=== PATIENT | male | born 1940 | race African-American/Black ===

== ENCOUNTER 2017-02-02 08:35 | Day surgery (SDC) | payer OTHER ==
[2017-02-01 11:34] LABS: HEMATOCRIT 23.1 % (42.0-52.0); HEMOGLOBIN 6.9 g/dL (14.0-18.0); MCH 31.2 PG (27-31); MCHC 29.9 g/dL (33-37); MCV 104.5 FL (81-99); MPV 10.5 FL (7.4-10.4); RBC 2.21 XMIL (4.7-6.1)
[2017-02-02] MEDS ORDERED: HEPARIN ONE (08:58)
[2017-02-02] MEDS ORDERED: NS 2,000 ML ONE (08:58)
[2017-02-02 12:14] VITALS: BP 126/75
--- NOTE | 2017-02-02 17:08 | PROGRESS NOTE ---
DATE: 02/02/2017 SUBJECTIVE: Mr. Moore is resting quietly in a chair. He is waiting for hemodialysis. He is to receive 2 units of packed red blood cells today. OBJECTIVE: His most recent vital signs, temperature is 95 degrees, blood pressure 142/92, heart rate 96, respirations 20. He is on room air. Last recorded saturation 92%. He has had 600 in. He is planned for hemodialysis. LABS: White count 4.71, hemoglobin 6.9, hematocrit 23.1, with a platelet count of 44,000. PHYSICAL EXAMINATION: General: This is a 76-year-old male. He is currently resting in a chair. He is waiting for hemodialysis for blood transfusion. He is in no acute distress. HEENT: Atraumatic normocephalic. Conjunctiva is pale. He has PRASHANT. Mucous membranes moist. Neck: Supple. Trachea midline. No JVD. Cardiovascular: Regular rate and rhythm. He has a soft S4, otherwise no murmur or gallop appreciated. Lungs: Clear to auscultation anteriorly. Equal excursion. Abdomen: Round, soft, nontender. Positive bowel sounds. Extremities: Have no edema. No clubbing or cyanosis. Genitourinary: Not inspected. Assistance with hemodialysis. Integumentary: No rashes or lesions evident. Neurological: Alert and oriented x3. ASSESSMENT AND PLAN: 1. End-stage renal disease. Patient is due for his routine dialysis treatment today. He has been brought in for this treatment so he can receive 2 units of packed red blood cells per Dr. Swanson for assistance with chronic anemia secondary to ESRD and multiple myeloma. 2. Anemia. Patient's hemoglobin is 6.9. He is to receive 2 units of packed red blood cells on dialysis today. 3. Discharge. The patient is to be discharged after treatment if tolerated. He is to go home. He is to resume his outpatient normal dialysis treatments and routine medications as directed. I would to thank you for allowing us to follow with this patient. Data reviewed, discussed with Heather Magallon on 02/02/17. I agree with the above assessment and plan of care. rg Dictated by LO Perkins for Ranjan Beltran MD MTDD
== END 2017-02-02 13:25 | disposition home or self-care (01) ==
LOC: INF 08:35
PROVIDERS: ATTEND Internal Medicine
DX: C90.00 Multiple myeloma not having achieved remission (principal); D63.0 Anemia in neoplastic disease; N18.6 End stage renal disease; D63.1 Anemia in chronic kidney disease; Z99.2 Dependence on renal dialysis; Z79.52 Long term (current) use of systemic steroids; Z79.899 Other long term (current) drug therapy
CPT/HCPCS: 85027; 86850; 86900; 86901; 86922; 86945; J1644; J7030; P9016

== ENCOUNTER 2017-02-09 08:40 | Day surgery (SDC) | payer OTHER ==
[2017-02-08 11:13] LABS: HEMATOCRIT 25.1 % (42.0-52.0); HEMOGLOBIN 7.7 g/dL (14.0-18.0); MCH 31.7 PG (27-31); MCHC 30.7 g/dL (33-37); MCV 103.3 FL (81-99); MPV 9.9 FL (7.4-10.4); RBC 2.43 XMIL (4.7-6.1)
[2017-02-09] MEDS ORDERED: NS 2,000 ML MISC PRN (08:45)
[2017-02-09] MEDS ORDERED: TIGHT: 0.2 ML/HR MISC PRN (08:45)
[2017-02-09] MEDS ORDERED: HEPARIN IV PRN (08:45)
[2017-02-09 11:21] LABS: ALBUMIN 2.5 g/dL (3.5-5.0); CALCIUM 8.9 mg/dL (8.8-10.2); POTASSIUM 4.1 mmol/L (3.5-5.1)
[2017-02-09 13:45] VITALS: BP 153/97
--- NOTE | 2017-02-09 17:10 | PROGRESS NOTE ---
DATE: 02/09/2017 SUBJECTIVE: Mr. Moore returns for outpatient hemodialysis and transfusion of 1 unit of packed red blood cells and 2 units of fresh frozen plasma. OBJECTIVE: His most recent vital signs, his temperature 98.7, blood pressure 153/97, heart rate 85 and respirations 16. He is on room air. Last recorded saturation 94%. LABS: Sodium 138, potassium 4.1, chloride 97, CO2 24, BUN 43, creatinine 8.1, glucose 81. Anion gap 17. Calcium 8.9, phosphorus 4.1, albumin 2.5. White count 3.74, hemoglobin 7.7, hematocrit 25.1, with a platelet count of 41,000. PHYSICAL EXAMINATION: General: This is a 76-year-old male. He is currently resting in a chair. He is getting ready to go to dialysis. He is an outpatient. He has no complaints. Skin: Warm and dry. HEENT: Normocephalic, atraumatic. Conjunctivae pale. He has PRASHANT. Mucous membranes moist. Neck: Supple. Trachea midline. No JVD. Cardiovascular: Regular rate and rhythm. He has a soft systolic murmur. Lungs: Clear to auscultation anteriorly. Equal excursion. Abdomen: Round, soft, nontender. Positive bowel sounds. Extremities: Have no edema. No clubbing or cyanosis. Genitourinary: Not inspected. Minimal void with dialysis assist. Neurological: Alert and oriented x3. ASSESSMENT AND PLAN: 1. End-stage renal disease. Patient is in need for hemodialysis per his routine prescription of Wednesday, , Wednesday. He is also in need of blood transfusion with fresh frozen platelets secondary to his multiple myeloma per Dr. Swanson. We will place him on a 2 K bath. He is to dialyze for 3.5 hours. We will attempt to pull patient to his dry weight. 2. Electrolytes. These are stable. 3. Acid-base balance. This is stable. 4. Anemia. Patient has multiple myeloma and chronic kidney disease contributing to his chronic anemia. We will transfuse with 1 unit of packed red blood cells post dialysis treatment and then he is to get 2 units of platelets transfused per the infusionist in the hospital. He is then to be discharged home. 5. Disposition. Patient is to be discharged home as tolerated to resume outpatient prescription of medications and dialysis. I would like to thank you for allowing us to follow with this patient. Dictated by LO Perkins for Ranjan Beltran MD
== END 2017-02-09 13:46 | disposition home or self-care (01) ==
LOC: INF 08:40
PROVIDERS: ATTEND Internal Medicine
DX: C90.00 Multiple myeloma not having achieved remission (principal); D69.6 Thrombocytopenia, unspecified; D63.0 Anemia in neoplastic disease; N18.6 End stage renal disease; Z99.2 Dependence on renal dialysis; D63.1 Anemia in chronic kidney disease; Z79.899 Other long term (current) drug therapy; Z79.51 Long term (current) use of inhaled steroids
CPT/HCPCS: 80069; 85027; 86850; 86900; 86901; 86920; 86945; P9016; P9035

== ENCOUNTER 2017-03-29 10:36 | Inpatient (IN) ==
[2017-03-29 11:07] LABS: ALLEN TEST YES; BE 5.4 mmoll (-3.0-3.0); BLOOD TYPE ARTERIAL; DRAW SITE R RADIAL; METHB 0.9 % (0.0-1.5); O2(CT) 9.5 mL/dL (15.0-23.0); PCO2(98.6) 24 mmHg (35-45); PO2(98.6) 64 mmHg (60-100); SAMPLE BLOOD; SAO2 98.1 % (95.0-100.0)
[2017-03-29 11:09] LABS: MODALITY CANNULA
[2017-03-29 11:12] LABS: pH(98.6) 7.65 (7.35-7.45)
[2017-03-29 11:23] LABS: INR 1.51; PROTIME 16.3 Seconds (9.2-11.7)
--- NOTE | 2017-03-29 11:29 | EKG Report ---
Test Performed on : 03/29/2017 11:02:52 AM Test Reason : AMS Blood Pressure : / mmHG Vent. Rate : 109 BPM Atrial Rate : 109 BPM P-R Int : 248 ms QRS Dur : 080 ms QT Int : 346 ms P-R-T Axes : 000 -21 087 degrees QTc Int : 465 ms Sinus tachycardia. with 1st degree AV block. Nonspecific ST and T wave abnormality Abnormal ECG When compared with ECG of 08-FEB-2017 11:11, Nonspecific T wave abnormality has replaced inverted T waves in Anterolateral leads Unconfirmed Result
[2017-03-29 11:37] LABS: EOS# 0.04 X1000 (0.0-0.7); EOS% 0.5 % (0.0-10.0); HEMATOCRIT 21.5 % (42.0-52.0); MANUAL DIFF NEEDED? YES; MCH 30.7 PG (27-31); MCHC 32.6 g/dL (33-37); MCV 94.3 FL (81-99); MONO# 0.69 X1000 (0.11-0.59); MONO% 9.4 % (1.7-9.3); MPV 12.2 FL (7.4-10.4); PLT 17 X1000 (130-400); RBC 2.28 XMIL (4.7-6.1)
[2017-03-29 11:42] LABS: ALBUMIN 1.9 g/dL (3.5-5.0); CALCIUM 8.1 mg/dL (8.8-10.2); POTASSIUM 4.7 mmol/L (3.5-5.1); TOTAL BILIRUBIN 0.52 mg/dL (0.20-1.00); TOTAL PROTEIN 11.9 g/dL (6.3-8.3)
[2017-03-29 12:03] LABS: CK INDEX 0.4 (0.0-2.5); CK-MB 3.93 ng/mL (0.0-5.0)
[2017-03-29 12:21] LABS: LYMPHS 24 % (21-51); MONO 6 % (1-9); NRBC 2 % (0-0)
--- NOTE | 2017-03-29 12:21 | Diag Imaging Result Document ---
PROCEDURE NAME: HEAD W/O CONTRAST - 03/29/2017 CT OF THE HEAD WITHOUT CONTRAST: FINDINGS: There is no evidence of mass effect, bleed, or abnormal extra-axial fluid collection. There is what appears to be a hyperdense vessel present in a sulcus medially over the posterior left parietal lobe. This could possibly be a thrombosed vessel. It may be a small vascular malformation. It is not associated with any mass effect. Further evaluation with MRI may be desirable. IMPRESSION: Questionable small thrombosed vessel or vascular malformation in the medial left parietal lobe posteriorly. Otherwise, no evidence of acute intracranial disease.
[2017-03-29 12:22] LABS: HYPOCHROM OCCASIONAL
--- NOTE | 2017-03-29 13:16 | Diag Imaging Result Document ---
PROCEDURE NAME: CHEST-PORTABLE - 03/29/2017 PORTABLE CHEST AT 1152 HOURS: FINDINGS: There is elevation of the right hemidiaphragm and may be a subpulmonic effusion. There is increased interstitial markings bilaterally some of which may be pre-existing due to fibrosis. The lungs are much less well expanded than the previous study of 01/25/2017. IMPRESSION: Pulmonary edema and right pleural effusion.
[2017-03-29 13:18] LABS: UR AMPHETAMINES QUAL NONE DETECTED (NONE DETECT); UR BARBITUATES QUAL NONE DETECTED (NONE DETECT); UR BENZODIAZEPIN QUAL NONE DETECTED (NONE DETECT); UR CANNABINOIDS QUAL NONE DETECTED (NONE DETECT); UR COCAINE QUAL NONE DETECTED (NONE DETECT); UR METHADONE QUAL NONE DETECTED (NONE DETECT); UR OPIATES QUAL PRESUMPTIVE POSITIVE (NONE DETECT); UR OXYCODONE QUAL NONE DETECTED (NONE DETECT); UR PCP QUAL NONE DETECTED (NONE DETECT)
[2017-03-29 13:31] LABS: URINE SOURCE CATH
[2017-03-29 13:35] LABS: BILIRUBIN URINE NEGATIVE (NEGATIVE); BLOOD URINE LARGE (NEGATIVE); CLARITY SLIGHTLY CLOUDY (CLEAR); COLOR RED; GLUCOSE URINE 100 mg/dL (NEGATIVE); LEUKOCYTES URINE MODERATE (NEGATIVE); NITRITE URINE POSITIVE (NEGATIVE); PH URINE 6.5; PROTEIN URINE >=300 mg/dL (NEGATIVE); SP GRAVITY URINE 1.015; URINE CULTURE NEEDED? YES
[2017-03-29] MEDS ORDERED: VANCOMYCIN 1 GM/NS 1 GM/250 ML IVPB IV ONE (13:38)
[2017-03-29 13:40] LABS: URINE RBC TNTC /HPF (<10)
[2017-03-29 13:41] LABS: URINE WBC TNTC /HPF (<10)
--- NOTE | 2017-03-29 13:59 | PROVIDER DOCUMENTATION ---
This chart was entered by Andrew Gregory Scribe, acting as scribe for Juan Carlos Mcgrath Jr, MD. HPI-General Adult - General Chief Complaint: Altered Mental Status Stated Complaint: AMS Time Seen by Provider: 03/29/17 10:47 Source: family Unable to obtain history due to:: altered Allergies/Adverse Reactions: Patient Allergies Allergy/AdvReac Type Severity Reaction Status Date / Time No Known Allergies Allergy Verified 03/29/17 11:29 Home Medications: Home Medication List Medication Instructions Recorded Confirmed Last Taken Type Loperamide [Imodium] 2 mg PO PRN PRN 07/15/15 03/29/17 02/28/17 19:30 History Ondansetron HCl [Zofran] 4 mg PO PRN PRN 07/15/15 03/29/17 3 Days Ago History Folic Acid/Vit Bcomp,C [Dialyvite 1 each PO DAILY 04/21/16 03/29/17 03/01/17 12: 00 History Tablet] Pantoprazole [Protonix] 40 mg PO DAILY@0700 #30 tablet 05/06/16 03/29/17 Rx Calcium Acetate 667 mg PO DIRECTED 06/17/16 03/29/17 03/01/17 21:30 History Hydrocodone/Acetaminophen [Elizabeth 1 each PO Q4-6H PRN PRN #20 tablet 03/01/1707/0803/27/17 Rx 5-325 Tablet] Sodium Bicarbonate 650 mg PO BID 03/01/17 03/29/17 03/28/17 History Cyclophosphamide 50 mg PO DIRECTED 03/29/17 03/29/17 03/15/17 History Dexamethasone 4 mg PO DIRECTED 03/29/17 03/29/17 03/15/17 History Folic Acid/Vit Bcomp,C [Dialyvite 1 each PO 03/29/17 03/28/17 History Tablet] Gabapentin 100 mg PO DIRECTED 03/29/17 03/29/17 Unknown History Ixazomib Citrate [Ninlaro] 3 mg PO 03/29/17 Unknown History Sevelamer Carbonate [Renvela] 800 mg PO 03/29/17 03/28/17 History - History of Present Illness -Gen Adult Nature of Presenting Problems: per family, patient is a 76 y/o M that presents with 2 weeks of generalized weakness and back pain. patient has Multiple Myeloma and being followed by Dr.H Swanson who is coordinating with Oncologist in [place]. Patient has been more lethargic than normal and altered per family. No fever/chills, n/v/d, or cough. Patient has ESRD and does dialysis on Tu,, and Sat. Location of Pain/Injury: reports: generalized Pain Radiation: reports: no radiation Quality of Pain: reports: aching Severity: reports: moderate Onset/Duration: reports: gradual, other (2 weeks) Timing: reports: still present, constant Context/Activities at Onset: reports: none Modifying Factors: improves with: nothing Associated Symptoms: reports: back/neck pain, muscle aches, weakness, other (ams ). denies: cough, diarrhea, fever/chills, genitourinary problems, headaches, nausea, vomiting Similar Symptoms Previously?: No Recently seen or treated by another doctor?: Yes Review of Systems - Adult - REVIEW OF SYSTEMS - ADULT ROS:: ROS per family Constitutional: denies: chills, fever Eyes: reports: no symptoms reported Ears, Nose, Mouth & Throat: reports: no symptoms reported Cardiovascular: denies: chest pain, orthopnea, palpitations, syncope Respiratory: denies: cough, shortness of breath, wheezing Gastrointestinal: denies: abdominal pain, diarrhea, nausea, vomiting Genitourinary: reports: no symptoms reported Musculoskeletal: reports: back pain, muscle weakness Integumentary: reports: no symptoms reported Neurological: reports: other (AMS). denies: dizziness/vertigo, headache/ migraines, numbness, seizure, syncope Psychiatric: reports: no symptoms reported Endocrine: reports: no symptoms reported Hematologic/Lymphatic: reports: no symptoms reported Allergic/Immunologic: reports: no symptoms reported All Other Systems: Reviewed and Negative Past History - Adult - PAST MEDICAL HISTORY-ADULT Review of Records: reports: Old Records Reviewed, Nursing Assessment Review, Medications Reviewed Cardiovascular: reports: HTN Gastrointestinal: reports: other ( diarrhea x6 years) Genitourinary: reports: dialysis (Tues,Thurs,Sat), ESRD Endocrine/Immune: reports: Myeloma (Multiple Myeloma) - PRIOR SURGERIES/PROCEDURES Surgical/Procedure History: reports: indwelling device (port placement , Vas Cath) - IMMUNIZATION STATUS Childhood Immunizations: See Nurse Assessment Flu Vaccine: See Nurse Assessment - FAMILY HISTORY Family History: reviewed, not pertinent - SOCIAL HISTORY Smoking: quit greater than 1 year, cigarettes Living Situation: family Physical Exam-General - PHYSICAL EXAM-ADULT Initial Vital Signs Reviewed: Yes - CONSTITUTIONAL General Appearance: alert, lethargic - EYES Eyes: PERRL/EOMI, pink conjunctivae - HEAD, EARS, NOSE, MOUTH & THROAT HENMT: normocephalic/atraumatic, moist mucous membranes, normal ENT inspection - NECK Neck: normal inspection. negative: lymphadenopathy - RESPIRATORY Respiratory: lungs clear, normal breath sounds, no respiratory distress, no accessory muscle use - CARDIOVASCULAR Cardiovascular: no gallop, no murmur, tachycardia - GASTROINTESTINAL (ABDOMEN) Abdominal Exam: normal bowel sounds, non tender, no organomegaly, no pulsatile mass, other (Tense) - MUSCULOSKELETAL Extremity: normal inspection, no pedal edema - SKIN Integumentary: normal color, warm/dry - NEUROLOGIC Neurologic: negative: facial droop, focal weakness, motor weakness - PSYCHIATRIC Psych/Mental Status: other (lethagric). negative: disheveled, depressed affect Progress - PLAN OF CARE/RESULTS Progress/Plan/Lab Results: Vital Signs - 8 hr 03/29/17 10:56 03/29/17 10:58 Temperature 99.6 F Pulse Rate 106 H 106 H Respiratory Rate 27 H 29 H Blood Pressure 105/64 105/64 O2 Sat by Pulse Oximetry 97 97 Laboratory Results - last 24 hr 03/29/17 10:55 Specimen Type ARTERIAL Sample Site R RADIAL pH 7.65 H* pCO2 24 L pO2 64 HCO3 29.2 H Base Excess 5.4 H Oxyhemoglobin 95.8 ABG O2 Sat (Calculated) 9.5 L ABG O2 Saturation 98.1 ABG Carboxyhemoglobin 1.40 ABG Methemoglobin 0.9 Alexander Test YES A-a O2 Difference 163.0 Total Hemoglobin 7.0 L Lactate 1.20 Liter Flow 4.0 Blood Gas Modality CANNULA FiO2 % 36.0 Orders Category Date Time Status Cardiac Monitoring DIRECTED Care 03/29/17 10:48 Active Finger Stick Blood Sugar (ED) DIRECTED Care 03/29/17 10:48 Active Oxygen Therapy- ED Nursing DIRECTED Care 03/29/17 10:48 Active Saline Loc NOW Care 03/29/17 10:48 Active CHEST-PORTABLE [RAD] Stat Exams 03/29/17 10:48 Ordered HEAD W/O CONTRAST [CT] Stat Exams 03/29/17 10:48 Ordered ABG [RESP] Routine Lab 03/29/17 10:55 Completed ALCOHOL BLOOD Stat Lab 03/29/17 10:55 Received CBC WITH ELECTRONIC DIFF [HEME] Stat Lab 03/29/17 10:55 Results CK PROFILE [SP CHEM] Stat Lab 03/29/17 10:55 Received COMPREHENSIVE METABOLIC PANEL [CHEM] Stat Lab 03/29/17 10:55 Received LACTATE, PLASMA [CHEM] Stat Lab 03/29/17 10:55 Received PROTIME WITH INR [COAG] Stat Lab 03/29/17 10:55 Received PTT [COAG] Stat Lab 03/29/17 10:55 Received TROPONIN T Stat Lab 03/29/17 10:55 Received URINALYSIS W/POSS RFLX CULT-1 [URINALYSIS] Stat Lab 03/29/17 10:48 Uncollected URINE DRUG SCREEN Stat Lab 03/29/17 10:48 Uncollected Pulse Oximetry Stat Oth 03/29/17 10:48 Active EKG [EKG] Stat Ther 03/29/17 10:48 Ordered Vital Signs Temp Pulse Resp BP Pulse Ox 03/29/17 13:01 103 H 16 108/72 93 L 03/29/17 12:11 108 H 31 H 108/72 97 03/29/17 10:58 106 H 29 H 105/64 97 03/29/17 10:56 99.6 F 106 H 27 H 105/64 97 No Known Allergies Allergy (Verified 03/29/17 11:29) Loperamide [Imodium] 2 mg PO PRN PRN 07/15/15 Ondansetron HCl [Zofran] 4 mg PO PRN PRN 07/15/15 Folic Acid/Vit Bcomp,C [Dialyvite Tablet] 1 each PO DAILY 04/21/16 Pantoprazole [Protonix] 40 mg PO DAILY@0700 #30 tablet 05/06/16 Calcium Acetate 667 mg PO DIRECTED 06/17/16 Hydrocodone/Acetaminophen [Elizabeth 5-325 Tablet] 1 each PO Q4-6H PRN PRN #20 tablet 03/01/17 Sodium Bicarbonate 650 mg PO BID 03/01/17 Cyclophosphamide 50 mg PO DIRECTED 03/29/17 Dexamethasone 4 mg PO DIRECTED 03/29/17 Folic Acid/Vit Bcomp,C [Dialyvite Tablet] 1 each PO 03/29/17 Gabapentin 100 mg PO DIRECTED 03/29/17 Ixazomib Citrate [Ninlaro] 3 mg PO 03/29/17 Sevelamer Carbonate [Renvela] 800 mg PO 03/29/17 I&O 03/28/17 03/29/17 03/30/17 06:59 06:59 06:59 Output Total Balance - -10 Laboratory 03/29/17 03/29/17 03/29/17 12:04 12:04 10:55 WBC RBC Hgb Hct MCV MCH MCHC RDW Std Deviation Plt Count MPV Neut % (Auto) Lymph % (Auto) [place] % (Auto) Eos % (Auto) Baso % (Auto) Neut # (Auto) Lymph # (Auto) [place] # (Auto) Eos # (Auto) Baso # (Auto) Segmented Neutrophils Lymphocytes Monocytes Nucleated RBCs Atypical Lymphocytes Hypochromia Anisocytosis Unidentified Cells PT INR PTT (Actin FS) Specimen Type Sample Site pH pCO2 pO2 HCO3 Base Excess Oxyhemoglobin ABG O2 Sat (Calculated) ABG O2 Saturation ABG Carboxyhemoglobin ABG Methemoglobin Alexander Test A-a O2 Difference Total Hemoglobin Lactate Liter Flow Blood Gas Modality FiO2 % Sodium Potassium Chloride Carbon Dioxide Anion Gap BUN Creatinine Estimated GFR/1.73 m2 BUN/Creatinine Ratio Glucose Calculated Osmolality Calcium Total Bilirubin AST ALT Alkaline Phosphatase Creatine Kinase Creatine Kinase Index CK-MB (CK-2) Troponin T 0.295 H Total Protein Albumin Globulin Albumin/Globulin Ratio Plasma Lactate Urine Source CATH Urine Color RED Urine Clarity SLIGHTLY CLOUDY A Urine pH 6.5 Ur Specific [place] 1.015 Urine Protein >=300 A Urine Ketones 15 A Urine Blood LARGE A Urine Nitrite POSITIVE A Urine Bilirubin NEGATIVE Urine Urobilinogen 2.0 H Urine Microscopic RBC TNTC A Urine WBC MODERATE A Urine Microscopic WBC TNTC A Urine Glucose 100 A Urine Opiates Screen PRESUMPTIVE POSITIVE A Ur Oxycodone Screen NONE DETECTED Ur Methadone, Qual NONE DETECTED Ur Barbiturates Screen NONE DETECTED Ur Phencyclidine Scrn NONE DETECTED Ur Amphetamines Screen NONE DETECTED U Benzodiazepines Scrn NONE DETECTED Urine Cocaine Screen NONE DETECTED U Cannabinoids Screen NONE DETECTED Plasma/Serum Ethyl Alc 03/29/17 03/29/17 03/29/17 10:55 10:55 10:55 WBC RBC Hgb Hct MCV MCH MCHC RDW Std Deviation Plt Count MPV Neut % (Auto) Lymph % (Auto) [place] % (Auto) Eos % (Auto) Baso % (Auto) Neut # (Auto) Lymph # (Auto) [place] # (Auto) Eos # (Auto) Baso # (Auto) Segmented Neutrophils Lymphocytes Monocytes Nucleated RBCs Atypical Lymphocytes Hypochromia Anisocytosis Unidentified Cells PT 16.3 H INR 1.51 PTT (Actin FS) 46.0 H Specimen Type Sample Site pH pCO2 pO2 HCO3 Base Excess Oxyhemoglobin ABG O2 Sat (Calculated) ABG O2 Saturation ABG Carboxyhemoglobin ABG Methemoglobin Alexander Test A-a O2 Difference Total Hemoglobin Lactate Liter Flow Blood Gas Modality FiO2 % Sodium 137 Potassium 4.7 Chloride 90 L Carbon Dioxide 22 L Anion Gap 25 BUN 59 H Creatinine 6.8 H Estimated GFR/1.73 m2 10 BUN/Creatinine Ratio 9 Glucose 73 Calculated Osmolality 289 Calcium 8.1 L Total Bilirubin 0.52 AST 189 H ALT 10 Alkaline Phosphatase 62 Creatine Kinase 991 H Creatine Kinase Index 0.4 CK-MB (CK-2) 3.93 Troponin T Total Protein 11.9 H Albumin 1.9 L Globulin 10.0 Albumin/Globulin Ratio 0.2 Plasma Lactate 1.5 Urine Source Urine Color Urine Clarity Urine pH Ur Specific [place] Urine Protein Urine Ketones Urine Blood Urine Nitrite Urine Bilirubin Urine Urobilinogen Urine Microscopic RBC Urine WBC Urine Microscopic WBC Urine Glucose Urine Opiates Screen Ur Oxycodone Screen Ur Methadone, Qual Ur Barbiturates Screen Ur Phencyclidine Scrn Ur Amphetamines Screen U Benzodiazepines Scrn Urine Cocaine Screen U Cannabinoids Screen Plasma/Serum Ethyl Alc 03/29/17 03/29/17 03/29/17 10:55 10:55 10:55 WBC 7.31 RBC 2.28 L Hgb 7.0 L Hct 21.5 L MCV 94.3 MCH 30.7 MCHC 32.6 L RDW Std Deviation 20.8 H Plt Count 17 L* MPV 12.2 H Neut % (Auto) Not Reportable Lymph % (Auto) Not Reportable [place] % (Auto) 9.4 H Eos % (Auto) 0.5 Baso % (Auto) Not Reportable Neut # (Auto) Not Reportable Lymph # (Auto) Not Reportable [place] # (Auto) 0.69 H Eos # (Auto) 0.04 Baso # (Auto) Not Reportable Segmented Neutrophils 62 Lymphocytes 24 Monocytes 6 Nucleated RBCs 2 H Atypical Lymphocytes 2.0 Hypochromia OCCASIONAL Anisocytosis 1+ Unidentified Cells 6.0 PT INR PTT (Actin FS) Specimen Type ARTERIAL Sample Site R RADIAL pH 7.65 H* pCO2 24 L pO2 64 HCO3 29.2 H Base Excess 5.4 H Oxyhemoglobin 95.8 ABG O2 Sat (Calculated) 9.5 L ABG O2 Saturation 98.1 ABG Carboxyhemoglobin 1.40 ABG Methemoglobin 0.9 Alexandre Test YES A-a O2 Difference 163.0 Total Hemoglobin 7.0 L Lactate 1.20 Liter Flow 4.0 Blood Gas Modality CANNULA FiO2 % 36.0 Sodium Potassium Chloride Carbon Dioxide Anion Gap BUN Creatinine Estimated GFR/1.73 m2 BUN/Creatinine Ratio Glucose Calculated Osmolality Calcium Total Bilirubin AST ALT Alkaline Phosphatase Creatine Kinase Creatine Kinase Index CK-MB (CK-2) Troponin T Total Protein Albumin Globulin Albumin/Globulin Ratio Plasma Lactate Urine Source Urine Color Urine Clarity Urine pH Ur Specific [place] Urine Protein Urine Ketones Urine Blood Urine Nitrite Urine Bilirubin Urine Urobilinogen Urine Microscopic RBC Urine WBC Urine Microscopic WBC Urine Glucose Urine Opiates Screen Ur Oxycodone Screen Ur Methadone, Qual Ur Barbiturates Screen Ur Phencyclidine Scrn Ur Amphetamines Screen U Benzodiazepines Scrn Urine Cocaine Screen U Cannabinoids Screen Plasma/Serum Ethyl Alc Result Diagrams: 03/29/17 10:55 03/29/17 10:55 - EKG 1 Time of EKG reading by physician:: 11:02 EKG Read and Signed by:: Juan Carlos Mcgrath Jr EKG Interpretation (*Must complete 3 of following elements*): Abnormal Rate: 109 Rhythm: Sinus Tachycardia [place]: normal QRS: normal ME Interval: normal ST Wave: non-specific ST changes - XRAY 1 XRAY Study: Chest Impression: Abnormal XRAY Interpretation: pulm edema and rt effusion - CT/MRI 1 CT Study: Head Impression: Abnormal CT Results: ? small thrombosed vessel or vascular malformation in med L partieal lobe - CONSULTS/PCP/HOSPITALIST Notification #1 *Consult/PCP/Hospitalist*: Time Discussed: 13:47 Reason/Comments: UTI, AMS, Multiple Myeloma Consult Disposition: Admit Departure - Departure Time of Disposition Decision: 13:47 DIAGNOSIS: Respiratory alkalosis, Positive blood culture CKD (chronic kidney disease) Qualifiers: Chronic kidney disease stage: on chronic dialysis Qualified Code(s): N18.6 - End stage renal disease; Z99.2 - Dependence on renal dialysis Altered mental status Qualifiers: Altered mental status type: transient alteration of awareness Qualified Code(s) : R40.4 - Transient alteration of awareness UTI (urinary tract infection) Qualifiers: Urinary tract infection type: acute cystitis Hematuria presence: with hematuria Qualified Code(s): N30.01 - Acute cystitis with hematuria Back pain Qualifiers: Back pain location: low back pain Chronicity: chronic Back pain laterality: midline Sciatica presence: without sciatica Qualified Code(s): M54.5 - Low back pain; G89.29 - Other chronic pain Multiple myeloma Qualifiers: Multiple myeloma remission status: not in remission Qualified Code(s): C90.00 - Multiple myeloma not having achieved remission Disposition: ADMITTED INPATIENT 09 Certified Medical Emergency: Emergent Condition: Stable Referrals and Follow-Ups: Eagle Clarke MD [Primary Care Provider] - - Critical Care Note This patient required my direct & personal management of CC.: No This chart was documented by the indicated scribe, (Andrew Gregory, Scribe) and accurately reflects the services I performed and decisions made by me, Juan Carlos Mcgrath Jr, MD, as attested by the provider's signature.
[2017-03-29] MEDS ORDERED: CYTOXAN PO SCH (16:59)
[2017-03-29] MEDS ORDERED: VANCOMYCIN IV PER PHARMACY MISC SCH ×2 (16:59→19:45)
[2017-03-29] MEDS ORDERED: DECADRON PO SCH (16:59)
[2017-03-29] MEDS ORDERED: ZOSYN 2.25 GM/NS 2.25 GM/50 ML IVPB IV SCH (16:59)
--- NOTE | 2017-03-29 17:17 | Diag Imaging Result Document ---
PROCEDURE NAME: MRI BRAIN W/O CONTRAST - 03/29/2017 MRI OF THE BRAIN: FINDINGS: There are some minimal patchy areas of increased FLAIR and T2 weighted signal intensity in the periventricular white matter near the atria of the lateral ventricles. There is no evidence of restricted diffusion. There is no evidence of bleed or abnormal extra-axial fluid collection. IMPRESSION: Minimal microvascular white matter disease.
--- NOTE | 2017-03-29 17:19 | Diag Imaging Result Document ---
PROCEDURE NAME: MRA NECK W/O CONT - 03/29/2017 MRA OF THE NECK: FINDINGS: The study is markedly suboptimal presumably due to patient motion. The majority of both vertebral arteries and the common carotid arteries are apparently patent. The proximal portion of the left internal carotid artery is not demonstrated. This is probably artifactual. IMPRESSION: Suboptimal study. No definite occlusive lesions in the common carotid or vertebral arteries.
--- NOTE | 2017-03-29 17:21 | Diag Imaging Result Document ---
PROCEDURE NAME: MRA BRAIN W/O CONTRAST - 03/29/2017 MRA OF THE BRAIN WITHOUT CONTRAST: FINDINGS: There is no evidence of major branch occlusion or aneurysm. No vascular anomalies are demonstrated. IMPRESSION: No definite abnormality.
[2017-03-29] MEDS: PHOSLO PO SCH (17:39)
[2017-03-29] MEDS: SOLU-CORTEF IV SCH (19:58)
--- NOTE | 2017-03-29 20:01 | HISTORY AND PHYSICAL ---
PRIMARY CARE PROVIDER: Eagle Clarke MD. CASINO ACCOUNTANT: Ranjan Beltran MD. ONCOLOGIST: Leticia Swanson MD. CHIEF COMPLAINT: Weakness, back pain, fever, chills, increasing lethargy, drowsiness over the last week to 2 weeks. HISTORY OF PRESENT ILLNESS: Mr. Moore is a 76-year-old, male with a history of multiple myeloma continuing on oral chemotherapy treatment; iron deficiency anemia; end-stage renal disease with dialysis on Wednesday, , and Wednesday; DVT; hypoglycemia; and chronic diarrhea, who on March 12 had a left AV fistula surgically placed and approximately 10 days later had re-entry for bleeding which was an outpatient procedure. The patient's states that she has noticed he has been more lethargic. He about a week and a half ago had dialysis on a and has not been able to get up without assistance. He has been in a wheelchair since. She states he has also been having fevers of 101-102 over the last 2 weeks with restlessness and teeth grinding at night. She denies any blood in the stool although he does have diarrhea. She states he does have a productive cough that is white phlegm. On 03/22/2017 he had a blood culture set that came back as Staphylococcus epidermidis which is sensitive to vancomycin. He had been started on vancomycin for this. Urinalysis shows that he has got cystitis and urinary tract infection, and has been started on Zosyn for this. Today he gone in for a checkup due to back pain and cancer with Dr. Swanson. She instructed the patient's to bring him here. We will admit him for bacteremia with Staphylococcus epidermidis, urinary tract infection with culture pending, respiratory alkalosis. He also had a head CT to rule out causes for increasing lethargy which revealed a questionable small thrombosed vessel or an AVM in the left medial posterior parietal lobe. Upon assessment he was not weaker on one side or the other. He was only oriented to name and place. We will follow up with an MRI as suggested on the CT report. PAST MEDICAL HISTORY: 1. Multiple myeloma on chemotherapy pills. 2. Mild spinal stenosis. 3. Iron deficiency anemia. 4. End-stage renal disease. On Wednesday, and Wednesday he receives dialysis. 5. History of DVT. 6. Hypocalcemia. 7. Chronic diarrhea for 6 years. 8. Hypertension. 9. Lower extremity neuropathy. PAST SURGICAL HISTORY: 1. Port-A-Cath in the right chest. 2. Vas-Cath in the left chest. 3. Left forearm AV fistula which has not matured yet. 4. Bone marrow aspiration in 2008. SOCIAL HISTORY: Quit smoking at the age of 48. Prior to that he smoked 1 pack per day. He denies alcohol or illicit drug use. He is retired and lives at home with his . He has currently been in a wheelchair for the last 2 weeks. Otherwise he is usually ambulatory. FAMILY HISTORY: Noncontributory. ALLERGIES: No known drug allergies. HOME MEDICATIONS: Full reconciliation is pending. Currently he is on calcium acetate, cyclophosphamide, dexamethasone, daily vitamin tablets, Neurontin, [place] 5, Ninlaro, Imodium, Zofran, Protonix, Renvela and sodium bicarbonate. REVIEW OF SYSTEMS: Difficult to obtain but patient stated no pain and that he felt well. He was lethargic. LABORATORY DATA: White blood cells 7000, hemoglobin , hematocrit 21.5, platelet count 17,000. INR 1.51, PTT is 46, ABG 7.65, pCO2 24, PO2 64, bicarbonate 29, base excess 5.4, saturation 95%. Lactate 1.2 on 4 L nasal cannula. Sodium 137, potassium 4.7, BUN 59, creatinine 6.8, glucose 73, bilirubin 0.52, AST 189, ALT 10, calcium 8.1, CK 991, troponin 0.295, protein 11, albumin 1.9 serum lactate 1.5. Urinalysis cloudy urine, 300 protein, 15 ketones, large blood, positive nitrites, too numerous to count white blood cells. Urine drug screen positive for opiates. IMAGING: Head CT: Questionable small thrombosed vessel or AVM in the left medial posterior parietal lobe. EKG: Sinus tachycardia, rate 109, first-degree heart block, QTc is 465. Chest x-ray: Pulmonary edema and right pleural effusion. PHYSICAL EXAMINATION: VITAL SIGNS: Temperature 99.6 degrees, heart rate 103, respiratory rate 18, blood pressure 104/62, O2 saturation 97% on 4 L nasal cannula. 5 feet 11 inches tall, 154 pounds, BMI 21.5. GENERAL: Mr. Moore is a 76-year-old, male, in no acute distress. He is drowsy. He answers some simple questions but is confused. HEENT: Atraumatic, normocephalic. Pupils equal, round, reactive to light. Extraocular movements intact. Mucous membranes are actually dry. NECK: Positive JVD bilaterally. Negative for carotid bruits. CARDIOVASCULAR: S1, S2. Tachycardic rate and rhythm. No rubs, gallops, murmurs. PULMONARY: Mild crackles in the bases. No accessory muscle use or work of breathing noted. Currently on 4 L nasal cannula. GASTROINTESTINAL: Soft, nontender, nondistended. Positive bowel sounds x4. EXTREMITIES: No edema noted. VASCULAR: +2 dorsalis and radial pulses. Left forearm AV graft with positive bruit and thrill. NEUROLOGIC: He has got about a 3 to 4/5 strength in both arms equally. He can move his toes but did not understand instructions for moving legs. They did move bilaterally and appeared to be equal to painful stimuli. SKIN: Warm, dry, intact. ASSESSMENT AND PLAN: 1. Bacteremia with Staphylococcus epidermidis, sepsis. White blood cell count is normal at 7.3. He has been febrile over the last 2 days. He did come in with a 99.6 temperature. The Staphylococcus epidermidis is sensitive to vancomycin so we will start vancomycin. 2. Urinary tract infection with hematuria. It could be chronic in nature but given symptoms of fever we will do low-dose Zosyn renally dosed. 3. Chronic kidney disease, end-stage renal disease. Receives dialysis Wednesday, , and Wednesday. Dr. Beltran has been reconsulted. 4. Multiple myeloma with anemia and thrombocytopenia. Followed by Dr. Swanson as outpatient. I will reconsult Dr. Swanson. There are currently no signs of bleeding at this time. We will hold heparin for DVT prophylaxis although he does have a history of deep vein thrombosis. 5. Metabolic versus infectious encephalopathy with weakness requiring a wheelchair over the last 2 weeks. We will order physical therapy. Hopefully he will improve with resolving of infection. Head CT did show questionable small thrombosed vessel or AVM in the left medial posterior parietal lobe. There is no history of MRI of the brain so we will do MRI and MRA of the brain and neck to further evaluate as suggested by CT of the head. 6. Chronic diarrhea. 7. Hypertension stable. 8. Respiratory alkalosis. There are no signs or symptoms of respiratory distress at this time. It could be secondary to end-stage renal disease. Dictated by LO Monreal for Matt Levine MD cc: LO Monreal MD Malcolm R. Hendricks, MD Reginald D. Gladish, MD Heather Shah, MD
[2017-03-29] MEDS: MERREM 500 MG in NS 50 ML IV SCH (21:24)
[2017-03-29] MEDS: SODIUM BICARBONATE PO SCH (21:27)
[2017-03-30] MEDS: MERREM 500 MG in NS 50 ML IV SCH (03:45)
[2017-03-30] MEDS: CALMOSEPTINE OINTMENT TOP PRN ×3 (04:07→22:39)
[2017-03-30] MEDS: SOLU-CORTEF IV SCH ×3 (04:53→20:16)
[2017-03-30] MEDS ORDERED: NS 500 ML ONE (05:16)
[2017-03-30 05:51] LABS: BASO% 3.7 % (0.0-0.8); EOS# 0.04 X1000 (0.0-0.7); EOS% 0.8 % (0.0-10.0); HEMATOCRIT 19.8 % (42.0-52.0); HEMOGLOBIN 6.4 g/dL (14.0-18.0); MANUAL DIFF NEEDED? YES; MCH 30.3 PG (27-31); MCHC 32.3 g/dL (33-37); MCV 93.8 FL (81-99); MONO# 0.44 X1000 (0.11-0.59); MONO% 8.6 % (1.7-9.3); MPV 10.3 FL (7.4-10.4); RBC 2.11 XMIL (4.7-6.1)
[2017-03-30 05:55] LABS: PLT 12 X1000 (130-400)
[2017-03-30 06:15] LABS: AGAP 20; ALBUMIN 1.7 g/dL (3.5-5.0); ALKALINE PHOSPHATASE 53 U/L (32-122); BUN 73 mg/dL (8-22); CALCIUM 8.2 mg/dL (8.8-10.2); CHLORIDE 92 mmol/L (98-107); COSMO 292; GOT 142 U/L (10-34); GPT < 5 U/L (10-44); MAGNESIUM 2.2 mg/dL (1.5-2.7); POTASSIUM 5.3 mmol/L (3.5-5.1); SODIUM 135 mmol/L (136-145); TCO2 23 mmol/L (25-35); TOTAL BILIRUBIN 0.61 mg/dL (0.20-1.00); TOTAL PROTEIN 10.6 g/dL (6.3-8.3)
[2017-03-30 06:22] LABS: BANDS 8 % (0-1); LYMPHS 18 % (21-51); MONO 4 % (1-9)
[2017-03-30] MEDS: PROTONIX PO SCH (06:48)
[2017-03-30] MEDS ORDERED: TIGHT: 0.2 ML/HR MISC PRN (07:54)
[2017-03-30] MEDS ORDERED: HEPARIN IV PRN (07:54)
[2017-03-30] MEDS: SODIUM BICARBONATE PO SCH ×2 (08:03→20:17)
[2017-03-30] MEDS: PHOSLO PO SCH ×3 (08:03→17:51)
[2017-03-30] MEDS ORDERED: NS 2,000 ML ONE (08:41)
[2017-03-30] MEDS ORDERED: HEPARIN ONE (08:41)
--- NOTE | 2017-03-30 10:51 | PROGRESS NOTE ---
DATE: 03/30/2017 SUBJECTIVE: Mr. Moore appears comfortable. He is not responding to questions. His story is that he came in yesterday. He is a patient of Dr. Ranjan Beltran and Dr. Leticia Swanson. He follows up with Dr. Clarke. He has had weakness in his back, fever, chills, increased lethargy and drowsiness over the last 2 weeks. He is a 76-year-old, black male, history of multiple myeloma, continued on oral chemotherapy treatment; iron deficiency anemia, end-stage renal disease with dialysis on Wednesday, , and Wednesday; history of DVT, hypoglycemia, chronic diarrhea. On 03/12/2017. he had left AV fistula surgically placed and approximately 10 days later had reentry for bleeding which was an outpatient procedure. The patient's states that he she noticed he is more lethargic. About a week and half ago, he had dialysis, and she had noticed that he was more lethargic about a week and a half ago on and could not get up without assistance. He has been in the wheelchair since that time. He states he has been having fevers of 100 to 101 the last 2 weeks, restlessness, and teeth grinding at night. He denies any blood in the stool. He denies any diarrhea. He states he has had productive cough with white phlegm. On 03/22/2017, he had a blood culture set that came back with Staphylococcus epidermis which was sensitive to vancomycin. He has been started on vancomycin. His urinalysis showed that he has cystitis urinary tract infection and has been started on Zosyn. He had gone in for a checkup due to back pain and cancer, and Dr. Swanson instructed the patient's to bring him here. He was admitted for bacteremia Staphylococcus epidermidis urinary tract infection. Cultures were taken. REVIEW OF PAST MEDICAL HISTORY: 1. Multiple myeloma. 2. Spinal stenosis. 3. Iron deficiency anemia. 4. End-stage renal disease. 5. History of DVT. 6. Hypercalcemia. 7. Chronic diarrhea. 8. Hypertension. 9. Lower extremity neuropathy. 10. He has a left arm AV fistula which has not matured yet. 11. He has a Port-A-Cath on the right and Vas-Cath in the left chest. 12. He had a bone marrow aspiration in 2008. OBJECTIVE: Vital Signs: Today, temperature is 97.2 degrees, pulse 79, respirations 30, blood pressure 95/65. HEENT: Pupils were equal. CVP less than 6 cm. Lungs are clear in all lung hernandez. Cardiovascular: Regular rhythm and rate without murmur or S3. Abdomen is soft. Skin is warm and dry. Low urine output. End-stage renal disease. LABORATORY DATA: White count 5110, hematocrit 19, hemoglobin 6.4. MCV was 93. Chemistry: Sodium 135, potassium 5.3, chloride 92, bicarb 23. BUN 73, creatinine 7.8, magnesium 2.2, calcium 8.2. Note that his troponin was 0.295. Albumin 1.7. ASSESSMENT AND PLAN: 1. Bacteremia with Staphylococcus epidermis sepsis. White blood cell count normal at 7.3. He has been afebrile for several days. He has Staphylococcus epidermidis sensitive to vancomycin. 2. Urinary tract infection with hematuria. He is on Zosyn. 3. Chronic kidney disease. End-stage renal disease. He gets dialysis on Tuesdays, , and Saturdays. Dr. Beltran following. 4. Multiple myeloma with anemia and thrombocytopenia. I will see if we need to give him some blood during dialysis. Dr. Swanson and Dr. Beltran following. 5. Metabolic versus infectious encephalopathy. Continue present treatment. CT showed questionable small thrombosed vessel AVM in the left medial posterior parietal lobe. MRI/MRA of the head done yesterday: Suboptimal study. No definite occlusive lesions in the common carotid and vertebral. Minimal microvascular white matter disease noted. MRA of the brain: No definite abnormality. We plan to continue present treatment. REVIEW OF ORDERS: He is on cyclophosphamide 50 mg p.o. He is on citrate, sevelamer, Folic acid. I think that was his treatment he was getting at home for multiple myeloma. At the present time, he is on vancomycin 1 g dose per pharmacy. We will get it after dialysis. Sodium bicarbonate 650 mg b.i.d., Protonix 40 mg p.o. daily, meropenem 500 mg IV q. 8. Calcium acetate 1334 mg t.i.d. cc: Alexander Muñoz MD
[2017-03-30] MEDS: NS 2,000 ML MISC PRN ×2 (11:29→13:31)
--- NOTE | 2017-03-30 11:32 | CONSULTATION ---
DATE OF CONSULTATION: 03/30/2017 REASON FOR CONSULTATION: Assistance with management of his kidney disease. HISTORY OF PRESENT ILLNESS: Mr. Moore he is a elderly man, who is well known to me. He has multiple myeloma that has been managed over many years. He has been on his current regimen for about 2 years. He is transfusion dependent and has multiple admissions for this problem. He has also had significant problems with diarrhea. He states this is somewhat better now. He states he feels fine but he was brought to the emergency room because of confusion and fever. He had blood cultures obtained last week that were positive for Staph epidermidis and he has been treated with vancomycin for this. Currently, he denies shortness of breath, chest discomfort, nausea, vomiting. He states he is eating. PAST MEDICAL HISTORY: 1. Multiple myeloma. 2. End-stage kidney disease. 3. History of DVT. 4. Chronic diarrhea. 5. Hypertension. 6. Protein calorie malnutrition. 7. Peripheral neuropathy. HOME MEDICATIONS: Include calcium acetate, Neurontin, [place], Imodium, Protonix, sodium bicarbonate, cyclophosphamide, dexamethasone. ALLERGIES: None. SOCIAL HISTORY: He is and lives with his . FAMILY HISTORY: Noncontributory. PHYSICAL EXAMINATION: Vital Signs: Blood pressure 95/66, heart rate 79, respirations 30, afebrile. General: He is a chronically ill man, no acute distress. Skin: Warm and dry. HEENT: Conjunctivae are pink. Pupils are equal. Neck: jugular venous distention is present. Trachea is midline. Heart: Regular. Lungs: Have equal breath sounds. No crackles. Abdomen: Soft, nontender. Bowel sounds present. Extremities: Have no edema, clubbing, or cyanosis. IMPRESSION: 1. End-stage kidney disease. He will have his routine hemodialysis today. 2. Anemia. Transfuse as needed. 3. Thrombocytopenia. Dr. Swanson has been consulted. 4. Bacteremia. He has 2 indwelling vascular access devices. We will ask Dr. Gunter to help us decide if his catheters needs to be removed. cc: Ranjan Beltran MD
[2017-03-30] MEDS: VANCOMYCIN 1 GM/NS 1 GM/250 ML IVPB IV SCH (13:05)
--- NOTE | 2017-03-30 13:29 | CONSULTATION ---
DATE OF CONSULTATION: 03/30/2017 CONCLUSION: The patient appears to be septic with a Staph epidermidis bacteremia. I suspect that it is originating from either the patient's Port-A-Cath or his tunnelled dialysis catheter. He does have an AV fistula in his left arm but it does not look infected. The patient may have an immunoglobulin deficiency. RECOMMENDATIONS: I agree with treating the patient with vancomycin. I have discontinued meropenem. With Staph epidermidis I think it is reasonable to try to treat his bacteremia without removing any of his intravenous catheters. If he continues to stay bacteremic then unfortunately we will need to remove his catheters which is going to be very difficult to maintain IV access as well as access for dialysis. I have ordered for quantitative immunoglobulins. DISCUSSION: The patient is unable to provide a history. The history was obtained from looking at results in the computer. The patient was admitted to the hospital with weakness , back pain, fever, chills and increasing lethargy for the past 2 weeks. His studies thus far show that the blood cultures are growing Staph epidermidis. Urine cultures negative. Chest x -ray shows pulmonary edema and a right pleural effusion. CBC shows a white count of 5110, hemoglobin is 6.4 and the platelet count is 12,000. The patient's creatinine is 7.8. The GFR is 8. The liver function studies are normal except for an AST of 142. Chest x-ray shows pulmonary edema with a right pleural effusion. Urine culture is sterile. PAST MEDICAL HISTORY: Patient has multiple myeloma, mild spinal stenosis, iron deficiency anemia, end-stage renal disease with dialysis, history of deep venous thrombosis, hypocalcemia, chronic diarrhea for 6 years, hypertension and lower extremity neuropathy. PAST SURGICAL HISTORY: Patient's past surgical history is positive for a Port-A -Cath on the right side, a Vas-Cath on the left side and an AV fistula in the left arm. The patient had a bone marrow aspiration in 2008. SOCIAL HISTORY: The patient smoked cigarettes but stopped at the age of 48. He denied drinking alcoholic beverages or using illicit drugs. He is retired. He lives with his . He has been in the wheelchair in the last 2 weeks. Before that, he was ambulatory. FAMILY HISTORY: Is said to be noncontributory. ALLERGIES: No known drug allergies. HOME MEDICATIONS: Include the following, dexamethasone, gabapentin, folic acid , cyclophosphamide, calcium, sodium bicarbonate, Protonix ,Zofran, Imodium, [place], Renvela, Ninlaro and folic acid. PHYSICAL EXAMINATION: Vital Signs: The patient's temperature is 97.2 degrees, pulse 79, respirations 20, blood pressure 95/66. The patient had a depressed level of consciousness. He did not respond to verbal stimuli. Head, eyes, ears, nose, and throat: As mentioned above, the patient did not respond to verbal stimuli. He did not track with his eyes. There was no drainage from the nose or ears. Neck: No meningismus. Chest: Patient has on the right side a Port-A-Cath and on the left side he had a Vas-Cath for dialysis. Both sites are not swollen or purulent. Patient had an increased AP diameter of the chest. Lungs: Clear to auscultation. Cardiovascular: Heart rate is regular. Abdomen: Soft and nontender. Extremities: The patient has a left upper extremity AV fistula which is functional. Neurologic: The patient is obtunded. There was no tremor. He did not respond to verbal stimuli. There were no tonic-clonic movements. Integument: No rash is noted. Thank you for the consult. cc: Gagan Gunter MD MTDD
[2017-03-30] MEDS: IMODIUM PO PRN ×2 (15:04→17:51)
[2017-03-31] MEDS ORDERED: NS 250 ML ONE (02:10)
[2017-03-31] MEDS: SOLU-CORTEF IV SCH ×3 (04:52→21:37)
[2017-03-31 05:21] LABS: EOS# 0.01 X1000 (0.0-0.7); EOS% 0.1 % (0.0-10.0); HEMATOCRIT 26.5 % (42.0-52.0); HEMOGLOBIN 8.6 g/dL (14.0-18.0); MANUAL DIFF NEEDED? YES; MCH 30.2 PG (27-31); MCHC 32.5 g/dL (33-37); MONO# 0.75 X1000 (0.11-0.59); MONO% 10.6 % (1.7-9.3); MPV 11.7 FL (7.4-10.4); PLT 47 X1000 (130-400); RBC 2.85 XMIL (4.7-6.1)
[2017-03-31 05:29] LABS: ALBUMIN 1.9 g/dL (3.5-5.0); CALCIUM 7.9 mg/dL (8.8-10.2); TOTAL BILIRUBIN 0.44 mg/dL (0.20-1.00); TOTAL PROTEIN 11.4 g/dL (6.3-8.3)
[2017-03-31 06:04] LABS: BANDS 4 % (0-1); LYMPHS 18 % (21-51); MONO 6 % (1-9); NRBC 6 % (0-0)
[2017-03-31 06:05] LABS: HYPOCHROM 2+; TARGET CELLS 1+
[2017-03-31 06:06] LABS: LARGE PLATELETS OCCASIONAL
[2017-03-31] MEDS: PROTONIX PO SCH (06:23)
[2017-03-31] MEDS: PHOSLO PO SCH ×3 (07:50→17:00)
--- NOTE | 2017-03-31 09:15 | PROGRESS NOTE ---
DATE: 03/31/2017 SUBJECTIVE: Mr. Moore is awake, alert, and feeling much better. OBJECTIVE: Temperature 97.9 degrees, pulse 80, respirations 27, blood pressure 87/63. His blood pressures have ranged from 84-95/ 56-66. Lungs are clear anterolateral. Cardiovascular: Rhythm and rate without murmur or S3. Abdomen is soft. Skin is warm and dry. Good urine output, over almost 1200 mL. LABORATORY DATA: White count 7080, hematocrit was 26, hemoglobin 8.6, platelet count 47,000. Chemistry: Sodium 137, potassium 4.0, chloride 93, bicarb 25. BUN 49, creatinine 4.8, which has come down from 7.8 yesterday. Albumin 1.9. ASSESSMENT AND PLAN: 1. The patient appears to have been septic with Staphylococcus epidermis bacteremia. Suspect that originated from patient's Port-A-Cath or his tunneled dialysis catheter. 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 Dr. Gunter is following. The patient is on vancomycin. Discontinued meropenem. The Staphylococcus epidermis is reasonable, apparently to treat without removing the intravenous catheter unless he continues to have further bacteremia. Dr. Gunter has ordered quantitative immunoglobulins. 2. History of end-stage renal disease, volume electrolytes and anemia appeared to be stable. 3. History of deep venous thrombosis in the past. 4. Thrombocytopenia. Dr. Swanson is following. 5. Two indwelling vascular access devices and, at this point, do not feel they need to be removed. He is more awake. Blood pressure better. We will see how he does with p.o. intake. Review of his orders. He is on Solu-Cortef 50 mg IV q. 8., Protonix 40 mg p.o. daily, Sodium bicarbonate 650 mg p.o. b.i.d., Vancomycin which he gets after dialysis. I should also mention he has multiple myeloma, and he gets Ixazomib citrate, and he is on sevelamer which is Renvela. He is on PhosLo 1334 mg p.o. cc: Alexander Muñoz MD
[2017-03-31] MEDS: SODIUM BICARBONATE PO SCH ×2 (10:08→21:37)
[2017-03-31 12:11] LABS: HEPATITIS PROFILE ACUTE SEE COMMENTS
--- NOTE | 2017-03-31 16:18 | PROGRESS NOTE ---
DATE: 03/31/2017 TIME SEEN: 8:45 a.m. SUBJECTIVE: Patient is resting in bed. He is awake and alert, in no acute distress. OBJECTIVE: Vital Signs: Temperature 97.9 degrees, pulse 81, respiratory rate 21, blood pressure 87/63. Intake 1.9 L. Output 2.2 L. General: Chronically ill-appearing, elderly gentleman resting in bed, in no acute distress. HEENT: Normocephalic, atraumatic. Oral mucosa is moist. PRASHANT. Neck: Supple. He has trace JVD. Cardiovascular: Regular rate and rhythm. No murmur. Pulmonary: He has equal excursion. He is clear bilaterally. There is no increased work of breathing. Abdomen: Soft, with positive bowel sounds. : Not inspected. Extremities: No clubbing, cyanosis or edema. Integumentary: Skin is warm and dry without rash or lesion. LAB DATA: WBC of 7.0, hemoglobin 8.6, sodium 137, potassium 4.0, CO2 25, BUN 49 , creatinine 4.8. He has gram-positive cocci. ASSESSMENT/PLAN: 1. End-stage renal disease management. Patient underwent routine dialysis on Wednesday. He normally dialyzes on Wednesday, , Wednesday schedule. We will keep him while he is in the hospital on that schedule. 2. Bacteremia. We believe that he does need to have his catheter replaced. We will discuss with the team and further orders to follow. 3. Anemia. Patient has received transfusion while on dialysis yesterday. We will check labs in the morning and transfuse as required. 4. Thrombocytopenia. Dr. Swanson following. 5. Blood pressure. He is mildly low today. Continue to monitor. Discussed with Dr. Gunter. deficient in Ig. He will treat this and reassess before we remove his accesses. rg Seen, data reviewed, discussed with Michelle Weiss on 03/31/17. I agree with the above assessment and plan of care. rg Dictated by LO Willingham for Ranjan Beltran MD cc: Ranjan Beltran MD [facility]
[2017-03-31] MEDS: CALMOSEPTINE OINTMENT TOP PRN (16:23)
[2017-03-31] MEDS: IMODIUM PO PRN ×2 (16:24→21:37)
[2017-03-31] MEDS ORDERED: FLEBOGAMMA DIF 5% IV ONE (20:00)
--- NOTE | 2017-03-31 20:14 | PROGRESS NOTE ---
DATE: 03/31/2017 PRESENT ILLNESS: The patient has a Staph epidermidis bacteremia which most likely originated from one of his catheters, but not likely from his left arm AV fistula. Patient is found to have a very low IgG level at 141. MEDICATIONS: The patient is receiving vancomycin after dialysis. PHYSICAL EXAMINATION: Vital Signs: Temperature is 97.6 degrees, pulse 84, respirations 19, blood pressure 116/80. General: This is an ill-appearing, elderly male. He is in no acute distress. Lungs: Clear to auscultation. Cardiovascular: Regular heart rate. Abdomen: Soft and nontender. Chest: The patient has a tunneled dialysis catheter in the left chest. The patient has a Port-A-Cath on the right side of the chest. Both sites are not swollen or draining. LABORATORY AND X-RAY: The patient's hepatitis panel shows nonreactive. The IgG was 141. CBC shows a white count of 7080, hemoglobin 8.6 and platelet count of 47,000. Creatinine is 4.8. GFR is 14. There is no new radiographic study. ASSESSMENT AND PLAN: 1. I plan to continue treating his staph bacteremia with vancomycin. I have also ordered immune globulin infusion of 40 g for tonight. 2. The patient's comorbidities include the following: Multiple myeloma, end-stage renal disease with dialysis, deep venous thrombosis, marked decrease in the IgG level. 3. My plan is to continue vancomycin. I have ordered immunoglobulin infusions for tonight. cc: Gagan Gunter MD
[2017-04-01] MEDS: SOLU-CORTEF IV SCH ×3 (05:18→20:58)
[2017-04-01] MEDS: PROTONIX PO SCH ×2 (05:19→06:33)
[2017-04-01 05:47] LABS: ALBUMIN 1.9 g/dL (3.5-5.0); CALCIUM 7.3 mg/dL (8.8-10.2); MAGNESIUM 2.1 mg/dL (1.5-2.7); POTASSIUM 3.9 mmol/L (3.5-5.1); TOTAL BILIRUBIN 0.31 mg/dL (0.20-1.00); TOTAL PROTEIN 10.9 g/dL (6.3-8.3)
[2017-04-01] MEDS ORDERED: HEPARIN IV PRN (06:04)
[2017-04-01] MEDS ORDERED: TIGHT: 0.2 ML/HR MISC PRN (06:04)
[2017-04-01] MEDS ORDERED: NS 2,000 ML MISC PRN (06:04)
[2017-04-01] MEDS ORDERED: QUESTRAN LIGHT PO ONE (06:52)
[2017-04-01 06:53] LABS: PLT 39 X1000 (130-400)
[2017-04-01 06:54] LABS: BASO% 0.1 % (0.0-0.8); EOS# 0.02 X1000 (0.0-0.7); EOS% 0.5 % (0.0-10.0); HEMATOCRIT 26.4 % (42.0-52.0); HEMOGLOBIN 8.6 g/dL (14.0-18.0); MANUAL DIFF NEEDED? YES; MCHC 31.8 g/dL (33-37); MCV 94.3 FL (81-99); MONO# 0.97 X1000 (0.11-0.59); MONO% 12.7 % (1.7-9.3)
--- NOTE | 2017-04-01 07:16 | PROGRESS NOTE ---
DATE: 04/01/2017 SUBJECTIVE: Mr. Moore is awake and alert. Stools are still liquid. He is eating well. Breathing comfortably. Remains afebrile. PHYSICAL EXAMINATION: Vital Signs: Temperature 97.8 degrees, pulse 86, respirations 20, blood pressure 100/59. CVP less than 6 cm. Lungs: Clear in all lung hernandez. Cardiovascular Examination: Regular rhythm and rate without murmur or S3. Abdomen: Soft. Skin: Was warm and dry. Is and Os: Urine output over 3 L. LAB: White count 7080, hematocrit 26, platelet count 47,000. Note, that has come up from 12,000. ASSESSMENT AND PLAN: 1. Staphylococcus epidermidis bacteremia. I feel like it most likely is originating from one of his catheters but not likely from his left arm arteriovenous fistula. He was found to have a very low IgG. Level is 141. Treated with vancomycin and immunoglobulin, got 40 g I think last night. 2. Multiple myeloma, marked decrease in IgG level. 3. End-stage renal disease, on hemodialysis. 4. History of deep venous thrombosis. Aware. Plan is to stay on vancomycin. I think he can move to the floor. 5. Th[address]. [address]. Swanson is following. This has improved. 6. Review of orders. Patient is getting hydrocortisone 50 mg intravenous every 8, Protonix 40 mg by mouth daily, sodium bicarbonate 650 mg twice a day, vancomycin 1 g intravenous after dialysis, immunoglobulin 40 g he got yesterday. We will send stool for Clostridium difficile culture. Recheck a chest x-ray today. Follow his electrolytes and CBCs. cc: Alexander Muñoz MD
[2017-04-01 07:33] LABS: BANDS 9 % (0-1); LYMPHS 23 % (21-51); MONO 1 % (1-9); NRBC 1 % (0-0)
[2017-04-01] MEDS: PHOSLO PO SCH ×3 (08:09→20:59)
[2017-04-01] MEDS: SODIUM BICARBONATE PO SCH ×2 (08:19→20:59)
[2017-04-01] MEDS ORDERED: NS 2,000 ML ONE (08:49)
[2017-04-01] MEDS ORDERED: HEPARIN ONE (08:49)
--- NOTE | 2017-04-01 09:37 | Diag Imaging Result Document ---
PROCEDURE NAME: CHEST-PORTABLE - 04/01/2017 PORTABLE CHEST AT 0815 HOURS: FINDINGS: There is a double-lumen catheter on the left with its tip in the superior vena cava. There is a [id number]-v-Gqejdtfk on the right with its tip in the superior vena cava. There is hazy opacity in both lung bases consistent with interstitial pulmonary edema. There may also be some atelectasis or pneumonia in the right lower lobe. This latter abnormality appears slightly worse than on 03/29/2017. IMPRESSION: Worsened right basilar atelectasis. Pulmonary edema.
--- NOTE | 2017-04-01 13:56 | PROGRESS NOTE ---
DATE: 04/01/2017 SUBJECTIVE: He is more appropriate today. Able to interact. No complaints. No shortness of breath, nausea, or vomiting. OBJECTIVE: Vital Signs: Blood pressure 98/53, heart rate 78, respirations 15, temperature 99.3 degrees. General: In no acute distress. Skin: Warm and dry. HEENT: Conjunctivae are pink. Heart: Regular, with a gallop and a murmur. Lungs: Equal breath sounds. No crackles. Abdomen: Soft. Nontender. Bowel sounds present. Extremities: Trace edema. No clubbing or cyanosis. IMPRESSIONS: 1. End-stage kidney disease. He will have dialysis today with 3 potassium bath. Goal of 1-2 L ultrafiltration. 2. Electrolytes in target. 3. Acid base in target. 4. Anemia, stable following. 5. Bacteremia. He received IVIG last evening. We will observe his response. cc: Ranjan Beltran MD
[2017-04-02] MEDS: SOLU-CORTEF IV SCH ×3 (03:35→21:51)
[2017-04-02] MEDS: PROTONIX PO SCH ×2 (05:54→05:59)
[2017-04-02 06:20] LABS: EOS# 0.03 X1000 (0.0-0.7); EOS% 0.3 % (0.0-10.0); HEMATOCRIT 29.9 % (42.0-52.0); HEMOGLOBIN 9.4 g/dL (14.0-18.0); MANUAL DIFF NEEDED? YES; MCH 30.1 PG (27-31); MCHC 31.4 g/dL (33-37); MCV 95.8 FL (81-99); MONO# 1.09 X1000 (0.11-0.59); MONO% 12.1 % (1.7-9.3); MPV 10.6 FL (7.4-10.4); PLT 30 X1000 (130-400); RBC 3.12 XMIL (4.7-6.1)
[2017-04-02 06:42] LABS: BANDS 10 % (0-1); BASO 4 % (0-1); EOS 2 % (1-10); LYMPHS 24 % (21-51); MONO 16 % (1-9); NRBC 3 % (0-0)
[2017-04-02 06:48] LABS: ALBUMIN 1.8 g/dL (3.5-5.0); CALCIUM 7.9 mg/dL (8.8-10.2); POTASSIUM 4.4 mmol/L (3.5-5.1); TOTAL BILIRUBIN 0.39 mg/dL (0.20-1.00); TOTAL PROTEIN 11.3 g/dL (6.3-8.3)
[2017-04-02] MEDS: IMODIUM PO PRN (08:50)
[2017-04-02] MEDS: PHOSLO PO SCH ×3 (08:50→18:03)
[2017-04-02] MEDS: SODIUM BICARBONATE PO SCH ×2 (08:50→21:51)
--- NOTE | 2017-04-02 10:06 | PROGRESS NOTE ---
DATE: 04/02/2017 SUBJECTIVE: He is getting better slowly. He has been able to move in the bed, and he has taken several steps with physical therapy. Diarrhea is better. He is eating well. OBJECTIVE: Vital Signs: Blood pressure 112/57, heart rate 81, respirations 16, afebrile. PHYSICAL EXAMINATION: General: He is a chronically ill man, lying flat, in no distress. Skin: Warm and dry. Conjunctivae are pink. Heart: Regular. Lungs: Have equal breath sounds. No crackles. Abdomen: Soft, flat, nontender. Bowel sounds present. Extremities: Have minimal edema. No clubbing or cyanosis. LABORATORY DATA: Sodium 136, potassium 4.4, chloride 95, bicarbonate 21, BUN 53, creatinine 4.4, calcium is 7.9. IMPRESSION: 1. End-stage renal disease. He will have his routine dialysis tomorrow. 2. Staphylococcus epidermidis bacteremia. Clinically better after receiving IVIG. We will check blood cultures again today. 3. Electrolytes are acceptable. 4. Acid base, in target. cc: Ranjan Beltran MD
--- NOTE | 2017-04-02 11:00 | PROGRESS NOTE ---
DATE: 04/02/2017 PRESENT ILLNESS: The patient has a Staph epidermidis bacteremia which most likely originated from one of his catheters, but not likely from his left arm AV fistula. However, the AV fistula may have become secondarily infected. Patient also has a very low IgG level at 141. MEDICATIONS: The patient receives vancomycin after each dialysis. PHYSICAL EXAMINATION: Vital Signs: Temperature is 97.6 degrees, pulse 81, respirations 16, blood pressure 112/57. General: This is an ill-appearing elderly male. He is in no acute distress. Lungs: Clear to auscultation. Cardiovascular: Regular heart rate. Abdomen: Soft and nontender. Chest: The patient has on the left chest a tunneled dialysis catheter. On the right side, he has a Port-A-Cath present. In his left arm, he has an AV fistula which is maturing. LAB AND X-RAY: The patient's CBC shows a white count of 9000, hemoglobin 9.4, and platelet count 30,000. Creatinine is 4.4. GFR is 16. ASSESSMENT AND PLAN: My plan would be to continue with vancomycin and see if the repeat blood cultures are sterile. If the IgG is still low, then I plan to give more gammaglobulin treatment. If it is felt that we will not be able to sterilize the blood, then unfortunately I think every one of the patient's intravenous catheters will need to be removed. COMORBIDITIES: The patient's comorbidities include multiple myeloma, end-stage renal disease with hemodialysis, deep venous thrombosis, and a marked increase in his IgG level at 141. cc: Gagan Gunter MD
[2017-04-02] MEDS: VANCOMYCIN 1 GM/NS 1 GM/250 ML IVPB IV SCH (15:53)
--- NOTE | 2017-04-02 17:47 | PROGRESS NOTE ---
DATE: 04/02/2017 SUBJECTIVE: The patient is resting comfortably in bed. He states that his diarrhea has lessened in frequency. OBJECTIVE: Vital Signs: Temperature 97.4 degrees, blood pressure 113/65, heart rate 81, respirations 16, O2 saturations 97% on 2 L nasal cannula. General: This is a chronically ill- appearing elderly male lying in bed in no acute distress. Head: Normocephalic, atraumatic. Heart: S1, S2. Normal. Regular rate and rhythm. Lungs: Equal air entry bilaterally. No crackles, no rales. Abdomen: Positive bowel sounds. Soft, nontender, nondistended. Extremities: No edema. No cyanosis. No calf tenderness. Neurologic: The patient is alert and oriented x3. LABS: White blood cell count 9, hemoglobin 9.4, hematocrit 29, platelets 30,000. Sodium 136, potassium 4.4, chloride 95, CO2 21, BUN 53, creatinine 4.4, glucose 108, AST 78, ALT 9, alkaline phosphatase 110, albumin 1.8. ASSESSMENT AND PLAN: 1. Staphylococcus epidermidis bacteremia. Continue on vancomycin. Repeat blood cultures have been ordered. Dr. Gunter is following. 2. Chronic diarrhea. Improved. Will continue to monitor this closely. 3. Immunoglobulin deficiency. The patient received intravenous immunoglobulin on March 31. Dr. Gunter is following. 4. End-stage renal disease. 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 5. Chronic thrombocytopenia. Stable. 6. Multiple myeloma. Aware. 7. Severe protein calorie malnutrition. Continue on Nepro shakes with each meal. 8. Continue with physical therapy. cc: Cindy Wallace MD
[2017-04-03] MEDS: SOLU-CORTEF IV SCH ×3 (04:26→20:47)
[2017-04-03] MEDS: TYLENOL PO PRN (04:44)
[2017-04-03] MEDS ORDERED: DILAUDID IV ONE (04:58)
[2017-04-03] MEDS ORDERED: DILAUDID ONE (05:09)
[2017-04-03] MEDS ORDERED: HEPARIN ONE (07:29)
[2017-04-03] MEDS ORDERED: NS 2,000 ML ONE (07:30)
[2017-04-03 09:14] LABS: HEMATOCRIT 29.6 % (42.0-52.0); HEMOGLOBIN 9.4 g/dL (14.0-18.0); MCH 30.3 PG (27-31); MCHC 31.8 g/dL (33-37); MCV 95.5 FL (81-99); MPV 12.2 FL (7.4-10.4); RBC 3.1 XMIL (4.7-6.1)
[2017-04-03] MEDS ORDERED: STERILE WATER INJ. ONE (10:37)
[2017-04-03 12:38] LABS: BLOOD TYPE ARTERIAL; PCO2(98.6) 34 mmHg (35-45); PO2(98.6) 52 mmHg (60-100); SAMPLE BLOOD; pH(98.6) 7.48 (7.35-7.45)
[2017-04-03 12:39] LABS: METHB 0.8 % (0.0-1.5); O2(CT) 13.3 mL/dL (15.0-23.0); SAO2 92.1 % (95.0-100.0); THB 10.6 g/dL (11.5-17.4)
[2017-04-03 12:40] LABS: ALLEN TEST YES; DRAW SITE R RADIAL; MODALITY CANNULA
[2017-04-03] MEDS: PROTONIX PO SCH (13:02)
[2017-04-03] MEDS: PHOSLO PO SCH ×4 (13:03→19:00)
[2017-04-03] MEDS: SODIUM BICARBONATE PO SCH ×2 (13:03→20:47)
[2017-04-03] MEDS: DUONEB (A & A) INH SCH ×4 (13:04→23:05)
--- NOTE | 2017-04-03 13:48 | PROGRESS NOTE ---
DATE: 04/03/2017 SUBJECTIVE: He is on BiPAP today. He does state that his shortness of breath is well managed. This has developed over the last 24 hours. OBJECTIVE: Vital Signs: Blood pressure 92/58, heart rate 85, respirations 16, afebrile. He is currently on dialysis. Skin: Warm and dry. Eyes: Conjunctivae are pink. Pupils not examined. Neck: Neck veins are distended but he has a stricture from the BiPAP mask. Trachea is midline. Heart: Regular without gallops. Lungs: Have equal breath sounds. No crackles. Abdomen: Soft, nontender. Bowel sounds present. Extremities: Have no edema, clubbing, or cyanosis. LABORATORY DATA: Sodium 133, potassium 5.0, chloride 92, bicarbonate 17, BUN 83, creatinine 5.9. Hemoglobin 9.4. Blood cultures positive from 04/02 with gram-positive cocci. IMPRESSION: 1. Bacteremia. Persistently positive blood cultures despite care. I discussed this with Dr. Wallace regarding possible line removal. Continue antibiotics. 2. End-stage renal disease. He is receiving dialysis today. 3. Electrolytes acceptable. 4. Acid-base. Moderate metabolic acidosis that will be addressed with dialysis. 5. Anemia. No transfusion needed. cc: Ranjan Beltran MD
--- NOTE | 2017-04-03 14:40 | PROGRESS NOTE ---
DATE: 04/03/2017 SUBJECTIVE: The patient had some respiratory distress overnight and he was placed on BiPAP. This morning, the patient was seen after he returned from dialysis and he states that his shortness of breath is a little bit better at this time. OBJECTIVE: Vital Signs: Temperature 97.0 degrees, blood pressure 92/58, heart rate 85, respirations 16, O2 saturation 97% on 4L nasal cannula. General: This is a chronically ill- appearing elderly male, lying in bed in no acute distress. HEENT: Head normocephalic, atraumatic. Heart: S1 and S2 normal. Regular rate and rhythm. Lungs: Clear to auscultation bilaterally. No wheezes, no rales, no rhonchi. Abdomen: Positive bowel sounds. Soft, nontender, nondistended. Extremities: No edema. No cyanosis. No calf tenderness. Neurologic: The patient is alert and oriented x3. LABORATORIES: White blood cell count 14, hemoglobin 9.4, hematocrit 29, platelets 29,000. Sodium 133, potassium 5, chloride 92, CO2 of 17, BUN 83, creatinine 5.9, glucose 96. ASSESSMENT AND PLAN: 1. Acute respiratory distress. This appears to have improved. We will order a chest x-ray and continue with bronchodilator therapy. 2. Persistent Staphylococcus epidermidis bacteremia. There is a possibility that the patient's catheters are infected and need to be removed. This was discussed with Dr. Beltran today. I will also discuss this with Dr. Gunter. We will continue on vancomycin for now. Will also order an echocardiogram. 3. Chronic diarrhea. Stable. 4. Immunoglobulin deficiency. We will defer to Dr. Gunter regarding another treatment. 5. Chronic thrombocytopenia. Stable. 6. End-stage renal disease. The patient was dialyzed today. 7. Multiple myeloma. Aware. The patient's chemotherapy is on hold at this time due to the active infection. 8. Severe protein calorie malnutrition. Continue with Nepro Shakes with each meal. 9. Metabolic acidosis. Management as per . 10. Continue with physical therapy. cc: MD NOHEMY Wade
--- NOTE | 2017-04-03 15:24 | Diag Imaging Result Document ---
PROCEDURE NAME: CHEST-PORTABLE - 04/03/2017 PORTABLE CHEST: COMPARISON: Compared to 04/01/2017. FINDINGS: No change in the right jugular [id number]-M-[id number] or in the double-lumen left-sided catheter. No pneumothoraces. The heart remains enlarged. Right hemidiaphragm is elevated. Markings in the lower lungs are actually less pronounced than on the prior study. No pleural effusions identified. IMPRESSION: Overall mild interval improvement.
[2017-04-03] MEDS: VANCOMYCIN 1 GM/NS 1 GM/250 ML IVPB IV SCH (16:47)
[2017-04-04] MEDS: DUONEB (A & A) INH SCH ×5 (03:05→19:35)
[2017-04-04] MEDS: SOLU-CORTEF IV SCH ×3 (04:46→20:16)
[2017-04-04 05:25] LABS: ALLEN TEST YES; BE -0.1 mmoll (-3.0-3.0); BLOOD TYPE ARTERIAL; DRAW SITE R RADIAL; METHB 1.5 % (0.0-1.5); O2(CT) 11.4 mL/dL (15.0-23.0); PCO2(98.6) 30 mmHg (35-45); PO2(98.6) 68 mmHg (60-100); SAMPLE BLOOD; SAO2 96.8 % (95.0-100.0); THB 8.6 g/dL (11.5-17.4); pH(98.6) 7.49 (7.35-7.45)
[2017-04-04 05:33] LABS: MODALITY CANNULA
[2017-04-04 06:00] LABS: BASO% 0.1 % (0.0-0.8); EOS# 0.03 X1000 (0.0-0.7); EOS% 0.2 % (0.0-10.0); HEMATOCRIT 24.3 % (42.0-52.0); HEMOGLOBIN 7.7 g/dL (14.0-18.0); MANUAL DIFF NEEDED? NO; MCH 30.8 PG (27-31); MCHC 31.7 g/dL (33-37); MCV 97.2 FL (81-99); MONO# 2.04 X1000 (0.11-0.59); MONO% 14.7 % (1.7-9.3); PLT 12 X1000 (130-400)
[2017-04-04 06:21] LABS: ALBUMIN 1.9 g/dL (3.5-5.0); CALCIUM 7.7 mg/dL (8.8-10.2); POTASSIUM 4.1 mmol/L (3.5-5.1)
[2017-04-04] MEDS: PROTONIX PO SCH (06:28)
[2017-04-04] MEDS: SODIUM BICARBONATE PO SCH ×2 (08:48→20:16)
[2017-04-04] MEDS: PHOSLO PO SCH ×3 (08:48→16:44)
[2017-04-04] MEDS: CARDIZEM PO SCH ×3 (09:36→20:16)
--- NOTE | 2017-04-04 09:53 | ECHO REPORT ---
ORDER DATE: 04/03/2017 INTERPRETING PHYSICIAN: Dr. Guzman REQUESTING PHYSICIAN: CLINICAL INDICATIONS: A 76-year-old male with "persistent bacteremia." M-MODE MEASUREMENTS: Right ventricle: 4.2 cm. Left ventricle end diastole: 6.1 cm. Left ventricle end systole: 5.5 cm. Posterior wall: 0.9 cm. Interventricular septum: 0.9 cm. Left atrium: 4.1 cm. Aortic root: 3.9 cm. SUMMARY OF 2-DIMENSIONAL IMAGIN. Left ventricular chamber is dilated significantly. Global left ventricular systolic function is significantly impaired. Ejection fraction visually is estimated at 25% to 30%. Impairment is global. 2. The right ventricle is also significantly dilated with global impairment of moderate severity. 3. Tricuspid valve shows moderate degree of regurgitation. 4. Inferior vena cava is dilated. 5. The pulmonary systolic pressure is estimated at 57 mmHg. 6. The pulmonic valve looks normal. Color flow mapping indicates mild degree of regurgitation. 7. The aortic valve looks normal. Color flow mapping indicates mild degree of regurgitation. 8. The mitral valve looks normal. Color flow mapping indicates mild degree of regurgitation. 9. Pulse wave Doppler of mitral inflow shows fusion of the E and the A wave. 10.Tissue Doppler of septal and lateral mitral annulus averages 7 cm. 11.Diastolic function may be normal. 12.Both atria are moderately enlarged. 13.There is no pericardial effusion. CONCLUSIONS: 1. Dilated left ventricle with significant impaired function. Ejection fraction is 25% to 30% visually. 2. Moderate degree of tricuspid regurgitation with a pulmonary systolic pressure of 57 mmHg. 3. Mild degree of mitral and aortic regurgitation. 4. Suspect left ventricular relaxation. 5. Both atria are moderately to significantly enlarged. 6. This study is consistent with a dilated cardiomyopathy. Clinical correlation is recommended. cc: MD Cindy Haynes MD
[2017-04-04] MEDS ORDERED: NS 500 ML ONE (11:41)
--- NOTE | 2017-04-04 12:03 | Diag Imaging Result Document ---
PROCEDURE NAME: THORAX/ABDOMEN/PELVIS W/O CONT - 04/04/2017 CT THORAX ABDOMEN PELVIS WITHOUT CONTRAST: TECHNIQUE: No contrast administered per request of the referring provider. A dose reduction protocol was used. No comparison exam. FINDINGS: There is mild cardiomegaly. There are small bilateral pleural effusions. There are mild emphysematous changes and/or mild pulmonary fibrosis. There is apparent infiltrate at the right lower lobe. The bony structures of the thorax appear heterogeneously osteopenic. There are small round lucencies which are most conspicuous in the thoracic spine. These findings may relate to osteopenia, multiple myeloma or to metastatic disease. There are subacute fractures of the posterior right 7th and 8th ribs, which may be pathological. There is no liver lesion identified. There is splenomegaly. There is nonspecific slight fullness of the adrenal glands. There is no discrete pancreatic lesion identified. The gallbladder is contracted and contains a few tiny calcified gallstones. The kidneys appear mildly small. There is no renal stone or hydronephrosis identified. There are a few mildly prominent retroperitoneal lymph nodes. There is anasarca. There is a small amount of ascites. There is some distention of the stomach with fluid. There is no other evidence of bowel obstruction. There is uncomplicated colonic diverticulosis. There is retained fecal debris in the rectum. There is no abscess identified. There is no free intraperitoneal air seen. The bony structures of the abdomen and pelvis appear diffusely heterogeneous with multiple small lucencies. IMPRESSION: 1. Mild cardiomegaly. Small bilateral pleural effusions. 2. Right lower lobe infiltrate which may relate to pneumonia. 3. Splenomegaly. A few mildly prominent retroperitoneal lymph nodes. 4. Mildly small bilateral kidneys. No hydronephrosis. 5. Anasarca. Small amount of ascites. 6. Some distention of the stomach with fluid. No evidence of bowel obstruction otherwise. Uncomplicated colonic diverticulosis. Questionable rectal fecal impaction. 7. Diffusely heterogeneous bony density with multiple small lucencies. Considerations include osteoporosis, multiple myeloma, and metastatic disease. Correlation with clinical evaluation is recommended. 8. Subacute fractures of posterior right 7th and 8th ribs, which may be pathological.
--- NOTE | 2017-04-04 15:27 | CONSULTATION ---
DATE OF CONSULTATION: 04/04/2017 REQUESTING PHYSICIAN: Hospitalist Service REASON FOR CONSULTATION: Tachycardia, CHF, bacteremia. HISTORY OF PRESENT ILLNESS: Mr. Moore is a 76-year-old black gentleman who was brought to the emergency room on the day of admission, 03/29/2017, because of complaints of lethargy, weakness and back pain. The patient upon presentation received a blood culture that showed evidence of bacteremia for Staphylococcus epidermidis which is sensitive to vancomycin and gentamicin. The patient stated that he had received a left radial cephalic fistula on 02/10/2017 and then on 03/01/2017 he had to receive evacuation of hematoma. He denies having any chest pains. He has been a little more short of breath than usual. Since admission, the patient has been started on antibiotics including Zosyn for a urinary tract infection. At any rate, the patient has developed some tachycardia and dyspnea episodically. The did an echocardiogram on him just yesterday that shows his ejection fraction is 25% to 30% with some valvular regurgitation, however no definite involvement of the valves by endocarditis. The patient is not in any distress at the time of my evaluation which is 04/04/2017 at about 1:30 p.m. PAST MEDICAL HISTORY: Positive for multiple myeloma which was diagnosed in 2008. He has been taking chemotherapy under Dr. Swanson, a doctor in [place]. He has end stage renal disease. He has been on hemodialysis for the past couple of years. Right now, he has a dialysis catheter on the left side of the chest, and they have created a fistula in the left arm. The patient has history of deep venous thrombosis in the past. He used to have hypertension; however, that has been well controlled with dialysis. He has thrombocytopenia related to his underlying hematologic condition. PAST SURGICAL HISTORY: Positive for insertion of Port-A-Cath on the right side of the chest, vascular cath in the left chest, the fistula that was just created, and he has had previous bone marrow. SOCIAL HISTORY: He quit smoking several years ago. He lives with his . He does not have any children at this time. He follows normally with Dr. Eagle Clarke who is his primary doctor. ALLERGIES: He has no reported allergies. FAMILY HISTORY: Noncontributory. HOME MEDICATIONS: Dexamethasone 4 mg as directed, gabapentin 100 as directed, folic acid, cyclophosphamide, calcium acetate, sodium bicarbonate, Protonix, Zofran, loperamide, hydrocodone, sevelamer, ixazomib. Since admission he has been put on vancomycin, and they just started diltiazem to control his heart rate. REVIEW OF SYSTEMS: He is gradually losing weight. He is generally very tired. He has no stamina to do anything meaningful as far as physical activity. He has loose stools. His general condition has deteriorated lately. No other positives. PHYSICAL EXAMINATION: Blood pressure is 129/80, temperature 98.4, pulse 75, respirations 20. The patient is awake, alert, chronically ill, in no distress. He appears to be somewhat emaciated. His neck veins are not distended. Chest shows clear lungs to auscultation and percussion. Heart sounds are regular and rhythmic at this time. I do not hear any gallop or murmur. His abdomen is nontender, soft. No masses or hepatomegaly is noted. Extremities showed decreased pulses. No peripheral edema. Neurologic: He follows commands, moves all 4 extremities. DIAGNOSTIC DATA: White count is 13,850, hemoglobin 7.7, platelet count 12,000. Blood gas shows pH of 7.49, pCO2 of 30, pO2 is 68. Sodium is 134, potassium 4.1, BUN is 63, creatinine 4.8. Albumin is very low at 1.9. IMPRESSION: 1. The patient developed tachycardia and shortness of breath. Review of his EKG suggests that he may have gone into atrial flutter, the rate is controlled. 2. Cardiomyopathy, dilated, suggested by the current echocardiogram, ejection fraction is 25% to 30%. 3. End stage renal disease on hemodialysis. 4. Staphylococcus epidermidis bacteremia. Given the recent intervention to the left arm, there is very high likelihood of infection of his graft. Infection of the catheter is also very likely. No definite indication of endocarditis based on the echocardiogram performed on 04/03/2017. 5. Malnutrition and hypoalbuminemia. 6. Multiple myeloma with anemia and severe thrombocytopenia. RECOMMENDATIONS: At this point in time, from a cardiology viewpoint, I will suggest to add some digoxin to his regimen to control the heart rate. The digoxin will have to be monitored closely. Regarding the arrhythmia, probably the best thing at this time is to follow it very conservatively. I do not anticipate giving him any anticoagulant because of the severe thrombocytopenia which makes spontaneous bleeding very likely. We will arrange for further intervention depending on his general response to the management of this infection. I agree with removing all of the indwelling catheters, and we will be around should his cardiac status change in any way. Thank you again for the opportunity to participate in his evaluation. cc: New Guzman MD
[2017-04-04] MEDS ORDERED: MAXIPIME 1 GM/NS 1 GM/50 ML IVPB IV ONE (16:03)
[2017-04-04] MEDS: LANOXIN IV SCH ×2 (16:53→20:16)
--- NOTE | 2017-04-04 17:35 | PROGRESS NOTE ---
DATE: 04/04/2017 SUBJECTIVE: The patient states that he has not had a loose stool since Wednesday. He states that his shortness of breath is a little bit better today. He denies having any chest pain. OBJECTIVE: Vital Signs: Temperature 98.4 degrees, blood pressure 129/80, heart rate 75, respirations 20, O2 saturation is 96% on 4 L nasal cannula. General: This is a chronically ill- appearing, elderly male, lying in bed, in no acute distress. Head: Normocephalic, atraumatic. Heart: S1, S2 normal. Irregularly irregular rhythm. Lungs: Clear to auscultation bilaterally. No crackles. No rales. Abdomen: Positive bowel sounds. Soft, nontender, nondistended. Extremities: Trace pedal edema. No cyanosis. No calf tenderness. Neurologic : The patient is alert and oriented x3. LABS: White blood cell count 13, hemoglobin 7.7, hematocrit 25, platelets 12, 000. Sodium 134, potassium 4.1, chloride 91, CO2 21, BUN 63, creatinine 4.8, glucose 112, calcium 7.7, phosphorus 4.8, albumin 1.9. ASSESSMENT AND PLAN: 1. Atrial flutter. Cardiology was consulted. Will follow their recommendations as ordered. 2. Staphylococcus epidermidis bacteremia. The patient's blood cultures remain positive. The patient's Port-A-Cath and dialysis catheter will likely need to be removed. This will be discussed with Dr. Gunter tomorrow. Continue on vancomycin. 3. Dilated cardiomyopathy. Aware. 4. Severe thrombocytopenia. The patient will receive a platelet transfusion today. 5. Multiple myeloma. Aware. 6. Chronic diarrhea. Improved. 7. Possible right lower lobe pneumonia. Will order a sputum Gram stain and culture and broaden the patient's antibiotic coverage. Further recommendations as per Dr. Gunter. 8. End-stage renal disease. Management as per the engraver block. 9. Multiple myeloma. Aware. 10. Severe protein calorie malnutrition. Continue on nephro shakes. 11. Anemia. The H/H has fallen. Will continue to monitor closely. Addendum: The patient was noted to be more lethargic this afternoon, so will transfer to CICU and obtain a stat head CT. Will also monitor the neurological checks closely. cc: MD NOHEMY Wade
--- NOTE | 2017-04-04 21:37 | Diag Imaging Result Document ---
PROCEDURE NAME: HEAD W/O CONTRAST - 04/04/2017 CT HEAD WITHOUT CONTRAST: FINDINGS: A dose reduction protocol was used. Compared with 03/29/2017. The small hyperdense abnormality which was seen at the posterior medial left parietal lobe on the previous exam is not seen on this exam, suggesting that it has resolved. There is no evidence of intracranial hemorrhage, mass effect, midline shift, or hydrocephalus. There is no evidence of infarct, although acute infarcts may not be immediately visible. IMPRESSION: No visible acute intracranial abnormality. No evidence of intracranial hemorrhage. No mass effect. Preliminary results were provided at 7:15 p.m. on 04/04/2017.
[2017-04-04] MEDS: SOLU-MEDROL IV SCH (22:05)
[2017-04-04] MEDS: LACTULOSE PO SCH (22:05)
[2017-04-04] MEDS: XOPENEX NEB INH SCH (23:10)
[2017-04-05] MEDS: LANOXIN IV SCH (02:28)
[2017-04-05] MEDS: CARDIZEM PO SCH ×4 (02:28→21:01)
[2017-04-05] MEDS: XOPENEX NEB INH SCH ×5 (03:55→19:16)
[2017-04-05 05:36] LABS: ALLEN TEST YES; BE -0.7 mmoll (-3.0-3.0); BLOOD TYPE ARTERIAL; DRAW SITE R RADIAL; METHB 1.9 % (0.0-1.5); O2(CT) 10.9 mL/dL (15.0-23.0); PCO2(98.6) 31 mmHg (35-45); PO2(98.6) 61 mmHg (60-100); SAMPLE BLOOD; SAO2 95.1 % (95.0-100.0); THB 8.4 g/dL (11.5-17.4); pH(98.6) 7.47 (7.35-7.45)
[2017-04-05 05:37] LABS: MODALITY CANNULA
[2017-04-05 05:52] LABS: ALBUMIN 1.9 g/dL (3.5-5.0); ALBUMIN 2.1 g/dL (3.5-5.0); CALCIUM 7.3 mg/dL (8.8-10.2); DIGOXIN 1.4 ng/mL (0.9-2.0); DIRECT BILIRUBIN 0.2 mg/dL (0.00-0.20); POTASSIUM 4.7 mmol/L (3.5-5.1); TOTAL BILIRUBIN 0.41 mg/dL (0.20-1.00); TOTAL PROTEIN 10.8 g/dL (6.3-8.3)
[2017-04-05] MEDS: SOLU-MEDROL IV SCH ×3 (05:53→21:01)
[2017-04-05] MEDS: PROTONIX PO SCH ×2 (05:53→06:00)
[2017-04-05 06:11] LABS: EOS# 0.03 X1000 (0.0-0.7); EOS% 0.2 % (0.0-10.0); HEMATOCRIT 23.6 % (42.0-52.0); HEMOGLOBIN 7.6 g/dL (14.0-18.0); MANUAL DIFF NEEDED? YES; MCH 30.6 PG (27-31); MCHC 32.2 g/dL (33-37); MCV 95.2 FL (81-99); MONO# 1.38 X1000 (0.11-0.59); MONO% 11.1 % (1.7-9.3); MPV 10.9 FL (7.4-10.4); RBC 2.48 XMIL (4.7-6.1)
[2017-04-05 06:12] LABS: PLT 32 X1000 (130-400)
[2017-04-05] MEDS: CALMOSEPTINE OINTMENT TOP PRN (06:16)
--- NOTE | 2017-04-05 06:16 | EKG Report ---
Test Performed on : 04/03/2017 04:34:20 AM Test Reason : tacycardia, SOB Blood Pressure : / mmHG Vent. Rate : 135 BPM Atrial Rate : 127 BPM P-R Int : 000 ms QRS Dur : 078 ms QT Int : 308 ms P-R-T Axes : 000 -37 100 degrees QTc Int : 462 ms Supraventricular tachycardia. Left axis deviation ST \T\ T wave abnormality, consider lateral ischemia Abnormal ECG When compared with ECG of 29-MAR-2017 11:02, NM interval has decreased Inverted T waves have replaced nonspecific T wave abnormality in Lateral leads Confirmed by Tobias Back MD ([id number]) on 04/05/2017 7:31:32 AM
--- NOTE | 2017-04-05 06:19 | EKG Report ---
Test Performed on : 04/05/2017 05:39:45 AM Test Reason : atrial flutter Blood Pressure : / mmHG Vent. Rate : 063 BPM Atrial Rate : 225 BPM P-R Int : 000 ms QRS Dur : 084 ms QT Int : 402 ms P-R-T Axes : 000 -22 263 degrees QTc Int : 411 ms Atrial flutter. Marked ST abnormality, possible inferior subendocardial injury Abnormal ECG When compared with ECG of 04-APR-2017 08:52, (Unconfirmed) Atrial flutter. has replaced Atrial fibrillation. Vent. rate has decreased BY [address] now depressed in Inferior leads Inverted T waves have replaced nonspecific T wave abnormality in Inferior leads T wave inversion now evident in Lateral leads QT has shortened Confirmed by Nazanin DOAN, Tobias Gamez ([id number]) on 04/05/2017 7:32:48 AM
[2017-04-05 06:30] LABS: BANDS 8 % (0-1); BASO 2 % (0-1); EOS 4 % (1-10); LYMPHS 20 % (21-51); MONO 12 % (1-9); NRBC 4 % (0-0)
--- NOTE | 2017-04-05 07:15 | PROGRESS NOTE ---
DATE: 04/05/2017 SUBJECTIVE: The patient has a Staphylococcus epidermidis bacteremia which most likely originated from one of his vascular devices. He also has a very low IgG level. MEDICATIONS: The patient receives vancomycin after each dialysis. PHYSICAL EXAMINATION: Vital Signs: Temperature is 97.6 degrees, pulse 66, respirations 18, blood pressure 112/65. Generally: This is an ill-appearing, elderly male, who is in no acute distress. Lungs: Clear to auscultation. Cardiovascular: Heart rate is regular. Abdomen : Soft and nontender. Chest: The patient has a left-sided dialysis catheter in place and a right-sided Port- A-Cath in place. The patient's left arm has an AV fistula in it, which is functional. LAB AND X-RAY: CBC today shows a white count of 12,480, hemoglobin 7.6, platelet count 32,000. Creatinine is 6.1. GFR is 11. Blood gases show a pH of 7.47, a PO2 of 61, pCO2 of 31. Repeat blood cultures from April 02 showed gram-positive cocci. ASSESSMENT AND PLAN: The patient continues to have a staphylococcal bacteremia despite repleting his low immunoglobulin level. I think that the patient should have all of his intravascular catheters removed. We can repeat the patient's blood cultures a few days after the lines are pulled. If the cultures are sterile, then the patient can have his intravascular catheters replaced. I think, since the patient recently had an arteriovenous fistula put in and he bacteremic, there is a chance that the fistula is infected. Therefore, I probably would continue his antibiotics for 6 weeks following the first negative blood culture. COMORBIDITIES: Include multiple myeloma, end-stage renal disease, hemodialysis , deep venous thrombosis, and a marked decrease in the patient's IgG level. The current Staph epi isolate has a TALHA of 2 which predicts vancomycin failure. Will switch to daptomycin and hold off catheter removal for now. cc: Gagan Gunter MD MTDD
--- NOTE | 2017-04-05 07:20 | EKG Report ---
Test Performed on : 04/04/2017 08:52:24 AM Test Reason : Possible new onset afib Blood Pressure : / mmHG Vent. Rate : 098 BPM Atrial Rate : 108 BPM P-R Int : 000 ms QRS Dur : 082 ms QT Int : 360 ms P-R-T Axes : 000 -20 054 degrees QTc Int : 459 ms Atrial fibrillation. Nonspecific T wave abnormality Abnormal ECG When compared with ECG of 03-APR-2017 04:34, (Unconfirmed) Atrial fibrillation. has replaced Sinus rhythm. Confirmed by Nazanin DOAN, Tobias Gamez ([id number]) on 04/05/2017 7:32:16 AM
--- NOTE | 2017-04-05 07:33 | Diag Imaging Result Document ---
PROCEDURE NAME: CHEST-PORTABLE - 04/05/2017 PORTABLE CHEST X-RAY, 04/05/2017: COMPARISON: 04/03/2017. FINDINGS: Stable central lines. There is worsening hazy infiltrate or atelectasis at the right lower lobe as seen by loss of the right hemidiaphragm. Stable cardiomegaly. Stable diffuse interstitial opacities bilaterally suggesting fibrosis or some edema. IMPRESSION: Slight worsening aeration of the right lower lobe.
[2017-04-05] MEDS: NS NEB INH SCH ×2 (07:35→15:47)
[2017-04-05] MEDS: LACTULOSE PO SCH ×3 (08:39→23:05)
[2017-04-05] MEDS: PHOSLO PO SCH ×3 (08:39→16:53)
[2017-04-05] MEDS: SODIUM BICARBONATE PO SCH ×2 (08:39→21:01)
[2017-04-05] MEDS ORDERED: NS 2,000 ML ONE (09:14)
[2017-04-05] MEDS ORDERED: HEPARIN ONE (09:15)
[2017-04-05] MEDS ORDERED: NS 2,000 ML MISC PRN (11:40)
[2017-04-05] MEDS ORDERED: HEPARIN IV PRN (11:40)
[2017-04-05] MEDS ORDERED: TIGHT: 0.2 ML/HR MISC PRN (11:40)
--- NOTE | 2017-04-05 12:57 | PROGRESS NOTE ---
DATE: 04/05/2017 SUBJECTIVE: The patient is currently resting comfortably. He did have an episode of bright red blood per rectum early this morning. The patient denies having any abdominal pain or nausea at this time. He states that his shortness of breath is about the same. OBJECTIVE: Vital Signs: Temperature 97, blood pressure 109/63, heart rate 60, respirations 14, O2 saturations 99% on 3 L nasal cannula. General: This is a chronically ill- appearing, elderly male, lying in bed, in no acute distress. Heart: S1, S2 normal. Irregularly irregular rhythm. Lungs: Coarse breath sounds bilaterally with inspiratory and expiratory wheezes and rhonchi. Abdomen: Positive bowel sounds. Soft, nontender, nondistended. Extremities: +1 edema. No cyanosis. No calf tenderness. Neurologic: The patient is alert and oriented x3. LABS: White blood cell count 12, hemoglobin 7.6, hematocrit 23, platelets 32. Sodium 133, potassium 4.7, chloride 89, CO2 of 20, BUN 78, creatinine 6.1, glucose 138, phosphorus 4.8, ammonia 74. ASSESSMENT AND PLAN: 1. Staphylococcus epidermidis bacteremia. The patient has been switched to daptomycin by Dr. Gunter. We will continue to monitor the patient's cultures closely. 2. Hematochezia. GI has been consulted. We will monitor the patient's hemoglobin and hematocrit closely. 3. Atrial flutter. The patient appears to be rate controlled. 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 4. Pneumonia. Continue on IV antibiotic therapy and bronchodilator therapy. 5. Thrombocytopenia. Slightly improved. The patient received 1 unit of platelets yesterday. 6. End-stage renal disease. Management as per the iron assorter. 7. Severe protein calorie malnutrition. Continue on Nephro shakes. 8. Dilated cardiomyopathy. Aware. 9. Volume overload. Will be addressed during dialysis. 10. Anemia. Monitor closely. Transfuse prn. cc: Cindy Wallace MD [facility]
[2017-04-05] MEDS: ZOFRAN IV PRN (14:03)
[2017-04-05] MEDS: CUBICIN (FOR INPATIENT USE) 500 MG in NS 100 ML IV SCH (14:37)
[2017-04-05] MEDS: IMODIUM PO PRN (14:50)
--- NOTE | 2017-04-05 15:04 | PROGRESS NOTE ---
DATE: 04/05/2017 SUBJECTIVE: Mr. Moore is resting quietly in bed. He does appear with increased work of breathing. He denies chest pain. His is at his bedside and states that he has been shortness of breath this a.m. OBJECTIVE: Vital signs: His most recent vital signs, his temperature last recorded 97.6, blood pressure 112/65, heart rate 66, respirations are 18. He is on 3 L nasal cannula. Last recorded saturation is 97%. He has had 973 in with 0 recorded out. LABORATORIES: His most recent labs sodium 133 potassium 4.7, chloride is 89, CO2 20, BUN 78, creatinine 6.1, glucose 138. His anion gap is 24. His last calcium 7.3, phosphorus 4.8, albumin is 1.9. He has a B-type natriuretic peptide this a.m. of greater than 35,000. White count 12.4, hemoglobin 7.6, hematocrit 23.6, with a platelet count of 32,000. Patient has a completed blood culture positive for staphylococcus epidermis. Sputum culture shows few gram- positive cocci with white blood cells. This is currently pending. PHYSICAL EXAMINATION: General: This is a 76-year-old male. He is currently resting in bed. He is in mild respiratory distress. Skin: Warm and dry. HEENT: Normocephalic, atraumatic. Conjunctiva is pale. He has pupils equal, round, and reactive to light. Mucous membranes are dry. Neck: Supple. Trachea midline. There is no jugular venous distention. Cardiovascular: Regular rate and rhythm. He has a soft systolic murmur. Lungs : Clear to auscultation anteriorly. Equal excursion. He has inspiratory and expiratory wheezes with bibasilar crackles posterior. Remains on O2, equal excursion. Abdomen: Round , soft, slightly distended this a.m. with positive bowel sounds, nontender. Genitourinary: Not inspected. Minimal void with dialysis assist. Extremities: He has a fistula to the left forearm. This has positive good thrill. Integumentary: Patient has a tunnel catheter to the right chest wall with a port as noted. No redness or drainage evident. Extremities: Has 1+ lower extremity edema. Neurological: He is alert and oriented x2. ASSESSMENT AND PLAN: 1. End-stage renal disease. Patient had a partial treatment on Wednesday secondary to hypotension. We were unable to do a full treatment. Patient now has increased work of breathing with crackles and possible fluid volume overload. We will plan for an extra treatment today. We will plan for a 2K bath. We will dialyze him for 3.5 hours. We will attempt to challenge patient's dry weight. 2. Electrolytes with acid-base balance. These are stable. 3. Anemia. This remains low. Patient does routinely receive blood transfusions on dialysis on most weekly basis. We will continue to monitor with possible transfusion in the a.m. 4. Thrombocytopenia. The patient has received 1 units of platelets on Wednesday. Dr. Larson and the primary care team are monitoring. 5. Staphylococcus epidermis bacteremia. The patient continues on vancomycin after dialysis. This had been switched to Maxipime and is now being changed over to daptomycin. Secondary to patient has bacteremia, we will attempt to use patient has AV fistula this a.m. If this is tolerated well, this may be a precursor to possibly removing his tunnel catheter, which may be a possible source for his bacteremia. I would like to thank you for allowing us to follow with this patient. Seen, data reviewed, discussed with Heather Magallon on 04/05/17. I agree with the above assessment and plan of care. rg Dictated by LO Perkins for Ranjan Beltran MD cc: LO Perkins MD [facility]
--- NOTE | 2017-04-05 15:21 | PROGRESS NOTE ---
DATE: 04/05/2017 CHIEF COMPLAINT: Weakness, confusion, fever. SUBJECTIVE: Mr. Moore went for dialysis today. He is somewhat confused. His heart rate is much better controlled now. He is on digoxin, and his heart rate is in the 60s. Right now, he is somewhat upset, he believes they did not do dialysis on him today. OBJECTIVE: Blood pressure is 109/63, pulse 65, respirations 16, temperature 97.4. He is awake, follows commands. He is very hard of hearing. HEENT is unremarkable. Chest: Diminished breath sounds at the bases. Heart sounds are regular and rhythmic at this time. He is probably in a junctional rhythm. Abdomen is nontender, soft. No masses. No hepatomegaly. Extremities showed decreased pulses. No significant edema. Neurologic: He is confused, follows some commands. Moves all 4 extremities. DIAGNOSTIC DATA: His sodium is 133, potassium 4.7, BUN is 78, creatinine 6.1, chloride 89, carbon dioxide 20. His albumin was 1.9. His digoxin level was 1.4 this morning. ProBNP greater than 35,000. His chest x-ray from this morning showed slight worsening aeration at the right lower lobe. His white count is 12,480, hemoglobin 7.6, hematocrit 23.6, platelet count 32,000. He has 8% bands, 20% lymphocytes, nucleated RBCs are 4. Telemetry shows atrial flutter with controlled rate. It appears like junctional rhythm. IMPRESSION: 1. The patient has atrial flutter with controlled response. 2. Staphylococcus epidermidis bacteremia, probably related in indwelling catheters. 3. End stage renal disease on hemodialysis. 4. Multiple myeloma, refractory, relapsing. 5. Confusion. Metabolic encephalopathy. 6. Cardiomyopathy, dilated. RECOMMENDATIONS: At this point in time, I would continue present management with a low dose of digoxin as well as diltiazem and will follow him along. His prognosis is clearly very poor. He is cachectic with a severe hematological condition that is relapsing. Discussions about end of life should be carried out with the patient and the family. cc: New Guzman MD
[2017-04-05] MEDS ORDERED: BLISTEX MEDICATED BERRY LIP BALM TOP ONE (20:55)
[2017-04-05] MEDS ORDERED: NS 500 ML ONE (22:30)
[2017-04-05] MEDS ORDERED: NEO-SYNEPHRINE 0.5% NASAL SPRAY NAS ONE (22:50)
[2017-04-06] MEDS: CARDIZEM PO SCH ×4 (01:50→20:32)
[2017-04-06] MEDS: XOPENEX NEB INH SCH ×8 (03:18→23:47)
[2017-04-06] MEDS: SOLU-MEDROL IV SCH ×3 (05:35→20:31)
[2017-04-06 06:26] LABS: INR 1.4
[2017-04-06 06:39] LABS: HEMATOCRIT 26.9 % (42.0-52.0); HEMOGLOBIN 8.5 g/dL (14.0-18.0); MANUAL DIFF NEEDED? YES; MCH 29.6 PG (27-31); MCHC 31.6 g/dL (33-37); MCV 93.7 FL (81-99); MPV 11.5 FL (7.4-10.4); PLT 23 X1000 (130-400); RBC 2.87 XMIL (4.7-6.1)
[2017-04-06 06:47] LABS: CALCIUM 7.4 mg/dL (8.8-10.2); DIGOXIN 1.1 ng/mL (0.9-2.0); POTASSIUM 4.4 mmol/L (3.5-5.1)
--- NOTE | 2017-04-06 07:18 | PROGRESS NOTE ---
DATE: 04/06/2017 PRESENT ILLNESS: The patient has Staphylococcus epidermidis bacteremia which most likely is coming from one of the patient's vascular devices. The other intravascular devices may have become secondarily infected with the patient's bacteremia. Patient also has a very low IgG level for which he has had gammaglobulin treatment. MEDICATIONS: The patient is getting daptomycin after each dialysis. PHYSICAL EXAMINATION: Vital Signs: Temperature is 97.7 degrees, pulse 63, respirations 18, blood pressure 144/66. Generally: This is an ill-appearing, elderly male. He is in no acute distress. Head, Eyes, Ears, Nose, and Throat: He can hear my spoken words and see near objects. He had severe epistaxis last night but the left nostril currently is packed. Thorax: The patient has a right-sided Port-A-Cath. The site is not swollen or tender. The patient also has a left-sided tunneled dialysis catheter. That site also is not swollen or tender. Extremities: The patient's left arm has an AV fistula present which is located higher up in the arm than usual. LAB AND X-RAY: There is no CBC or BMP today. There is no x-ray either. ASSESSMENT AND PLAN: For now, I am going to continue the patient's treatment of his bacteremia with daptomycin given after each dialysis. In a day or two, I will repeat the patient's blood cultures. If they are negative, then I will treat the patient with daptomycin for a 2-3 week period in hopes of being able to save the intravascular catheters. If, despite being on daptomycin, the patient still grows Staphylococcus epidermidis, then I think all of his intravenous catheters will need to be removed. COMORBIDITIES: The patient's comorbidities include multiple myeloma, end-stage renal disease, hemodialysis, a marked decrease in the patient's IgG level. cc: Gagan Gunter MD
[2017-04-06 07:21] LABS: BANDS 4 % (0-1); LYMPHS 26 % (21-51); NRBC 4 % (0-0)
[2017-04-06] MEDS: NS NEB INH SCH ×3 (07:23→15:28)
[2017-04-06] MEDS ORDERED: NS 2,000 ML MISC PRN (07:27)
[2017-04-06] MEDS ORDERED: HEPARIN ONE (07:30)
[2017-04-06] MEDS ORDERED: NS 2,000 ML ONE (07:30)
--- NOTE | 2017-04-06 08:47 | Diag Imaging Result Doc PS360 ---
EXAM: CHEST-PORTABLE HISTORY: Coughing up blood COMMENT: There is elevation of the right hemidiaphragm. There is ill-defined opacity over the bases are denser on the right than the left. Some of this may be due to compression atelectasis. There is a double-lumen catheter in the left internal jugular with its tip in the superior vena cava. There is a Port-A-Cath on the right. Compared to 04/05/2017 at 0605 the density in the right lower lobe is slightly worse. It is likely that there is fibrosis in the costophrenic sulcus on the right tenting the hemidiaphragm. The heart size is at the upper limits of normal. IMPRESSION: Interstitial edema plus minus fibrosis. Atelectasis versus pneumonia right lower lobe. Electronically signed by Efrain Ham 04/06/2017 8:44 AM
[2017-04-06] MEDS ORDERED: EMLA CREAM TOP PRN (09:04)
--- NOTE | 2017-04-06 10:20 | PROGRESS NOTE ---
DATE: 04/06/2017 TIME SEEN: 0735. SUBJECTIVE: Mr. Moore is resting quietly in bed. His is at his bedside. He states that he has had a rough night and not slept all night. He denies any chest pain. Some increased work of breathing secondary to having severe epistaxis during the night with a cannula placed to the left naris for his epistasis. He has received 2 units of packed red blood cells also during the night. OBJECTIVE: Vital Signs: Temperature 97.7 degrees, blood pressure 144/66, heart rate 63, respirations 18. He is on room air. Last recorded saturation 93%. He has had 1676 in. He has had 4 L out on dialysis yesterday. Laboratory Data: Sodium 136, potassium 4.4, chloride is 92, CO2 21, BUN 67, creatinine 4.5, glucose 129, anion gap 23, calcium 7.4. Phosphorus 4.6, albumin is 2. His white count is 11.42, hemoglobin 8.5, hematocrit 26.9, with a platelet count of 23,000. His prothrombin time is 15, INR of 1.4, PTT is 33.9. Physical Examination: General: This is an elderly, 76-year-old male who appears chronically ill, who is in mild distress secondary to fatigue and chronic illness. Skin: Warm and dry. HEENT: Normocephalic, atraumatic. Conjunctivae are very pale. He has PRASHANT. Mucous membranes moist. He does have a pressure dressing to the left naris. Neck: Supple. Trachea midline. No JVD. Cardiovascular: Regular rate and rhythm. Soft systolic murmur. No gallop. Lungs: Clear to auscultation anteriorly. Equal excursion. He is on O2 at 2 L nasal cannula. Abdomen: Large, round, soft, nontender. Slightly distended. Positive bowel sounds. Extremities: Have a fistula to the left forearm. This was used yesterday with some bruising noted. Dressing is dry and intact. He continues with positive thrill. Integumentary: He continues with tunneled catheter to the left chest wall with a port to the right upper chest wall. There is no redness or drainage evident at these sites. Extremities: Have 1+ lower extremity edema. Neurological: He is alert and oriented x2. ASSESSMENT AND PLAN: 1. End-stage renal disease. This is patient's routine dialysis day. For his routine treatments, we will plan to dialyze patient without heparin. We will dialyze him to his outpatient dry weight. He is to dialyze on a 2 K bath for 3.5 hours. 2. Electrolytes and acid-base balance are stable. 3. Anemia. Patient has received 2 units of packed red blood cells during the night. His hemoglobin is now up to 8.5. They are now staying 3 units ahead. They have placed a phone call to Dr. Swanson in regards with his thrombocytopenia. 4. Staphylococcus epidermis bacteremia. He continues on vancomycin after dialysis with daptomycin added with Dr. Gunter following. 5. Thrombocytopenia. Patient has had epistasis during the night. Left naris has pressure dressing. This is currently controlled. He received 2 units of packed red blood cells during the night. Due to his thrombocytopenia, they are calling Dr. Swanson for assistance with intervention. PLAN: The patient has expressed in front of his that he is getting tired all these treatments. We will talk with the patient of end of life decisions today. I spoke with the patient about his care and his interest in ongoing treatment. He stated that he was not ready to give up and wondered if he needed to go to [place]. I assured him that there was nothing else to offer from the nephrology perspective at a tertiary care center and I encouraged him to discuss this with the other team members before making a decision. Very poor short term prognosis. rg I would like to thank you for allowing us to follow with this patient. Seen, data reviewed, discussed with Heather Magallon on 04/06/17. I agree with the above assessment and plan of care. rg Dictated by LO Perkins for Ranjan Beltran MD cc: LO Perkins MD [facility]
[2017-04-06] MEDS: PHOSLO PO SCH ×3 (12:26→17:20)
[2017-04-06] MEDS: SODIUM BICARBONATE PO SCH ×2 (12:34→20:31)
[2017-04-06] MEDS: LANOXIN PO SCH (12:34)
[2017-04-06] MEDS: PROTONIX PO SCH (12:34)
[2017-04-06] MEDS: LACTULOSE PO SCH (12:35)
[2017-04-06] MEDS: BACTROBAN OINTMENT TOP SCH ×2 (14:26→20:31)
[2017-04-06] MEDS: AYR NASAL DROPS NAS PRN ×3 (14:27→20:31)
[2017-04-06] MEDS: CUBICIN (FOR INPATIENT USE) 500 MG in NS 100 ML IV SCH (14:27)
--- NOTE | 2017-04-06 15:03 | CONSULTATION ---
DATE OF CONSULTATION: 04/06/2017 HISTORY AND REASON FOR CONSULTATION: Evaluation of this patient with rectal bleeding. HISTORY OF PRESENT ILLNESS: Mr. Moore is a 76-year-old gentleman, who is admitted with weakness, back pain, fever and chills and increasing lethargy and drowsiness for about 2 weeks prior to admission to the hospital. The patient while in the hospital, was found to be having constipation therefore he was given lactulose although he has had diarrhea for a long time. The patient just a couple of days ago started having small amount of red blood in stool and then yesterday he had much more blood with some clot passing. Therefore consultation was obtained for evaluation. The patient does not have any significant diarrhea now. The lactulose had been discontinued because of some diarrhea after admission to the hospital. PAST MEDICAL HISTORY: 1. Patient is a known case of multiple myeloma. He has developed renal failure secondary to multiple myeloma and has developed a significant renal failure so that he needed dialysis. For some time he had been on dialysis. 2. Spinal stenosis. 3. Iron-deficiency anemia. I had done an esophagogastroduodenoscopy on him at about a year ago which revealed only erosive gastritis with possibility of blood loss from there. He never had any blood in stool in the recent past. I had also done a colonoscopy for him in 2011 which was negative for any polyps or any lesions. 4. End-stage renal disease. He gets dialysis Tuesdays, and Saturdays. 5. DVT. Had been on Xarelto in the past. 6. Hypocalcemia. 7. Chronic diarrhea. 8. Hypertension. 9. Lower extremity neuropathy. PAST SURGICAL HISTORY: 1. Port-A-Cath in the right chest. 2. Vascular catheter in the left chest. 3. Left forearm AV fistula which is not matured yet. 4. Bone marrow aspiration biopsy in 2008. 5. Colonoscopy in 2011. 6. Esophagogastroduodenoscopy in April 2016. According to the nursing staff he is receiving blood transfusion every 2 weeks because of anemia. On reviewing my chart I am realizing that he had red blood in the stool in the past. FAMILY HISTORY: There is some sort of cancer, kidney disease and hypertension in the family. ALLERGIES: No known drug allergies. SOCIAL HISTORY: He does not abuse alcohol or tobacco. REVIEW OF SYSTEMS: Appetite is poor but he is able to eat some. No significant abdominal pain. No nausea, vomiting. At present diarrhea is under control. He has rectal bleeding. PHYSICAL EXAMINATION: General: The patient is alert, oriented x3. His only question for me was what was the plan of controlling the bacterial infection in him. Apparently he had an infected port for which Infectious Disease is treating him and he is feeling better from that. I explained that to the patient. Vital Signs: Temperature is 97.5 degrees, pulse rate is 82 per minute, respiratory is 24, blood pressure is 123/68. Skin: Warm and dry. Mucous membranes are moist. Neck: Supple. There is no thyromegaly. Cardiac: Both heart sounds are heard. Rhythm is regular. I could not hear any murmur. Lungs: Reveal bilateral basilar crackles. Abdomen: Slightly protuberant. No masses felt. Bowel sounds are heard. Rectal: Shows a lot of excoriation around his anal canal with fresh blood and fresh clots in the diaper which he was wearing. LABORATORY DATA: On entry to the hospital his platelet count was 30,000, then it came down to 29,000 and then today it is 23,000. His WBC count has been up but it came down to 11.42. The patient's hemoglobin was 9.4 on entry but yesterday it was 7.6. He received blood transfusions and it came up to 8.5. Pro time has been remaining high at 59, INR of 1.40. D-dimer is 12.09. Sodium today 136, potassium 4.4, chloride is 92, carbon dioxide is 21. BUN is 67, creatinine is 4.5. Calcium is 7.4. Albumin is 2. It remains around that. ProBNP is 35,000 which is quite high. Total protein is 10.8. IMPRESSION: 1. Rectal bleeding. Most likely secondary to coagulopathy due to low platelet count and also elevated pro time. 2. Possibly the bleeding is coming from the rectum but I have no means of knowing about it unless I do a flexible sigmoidoscopy or even a colonoscopy. Even minor problems such as hemorrhoids can cause significant bleeding if the patient has coagulopathy and Mr. Moore seems to have coagulopathy. DISCUSSION: This patient has multiple problems which will lead to his rectal bleeding. He had a history of iron-deficiency anemia. At that time, the patient platelet count actually remained quite low. The patient did not have a biopsy at that time, when I did the endoscopy for him last year. The patient is a very high risk for any kind of GI procedures such as colonoscopy, flexible sigmoidoscopy or esophagogastroduodenoscopy due to the fact that he has chronic renal failure and advanced end-stage multiple myeloma. With all the changes which is happening in his bone marrow I believe he has very poor prognosis and I may not be able to do much endoscopically for him if I see any kind of lesion which could be amenable to management. At this point I refrained from doing procedures which will potentially put his life at risk. I explained it to the patient but for the sake of diagnosis I might be able to a very short flexible sigmoidoscopy which probably may not help very much if I see blood above that. I talked to this about the patient. If I do that the patient will not be given any sedation. I do not think he is agreeable for that. At present I am going to do local treatment with Anusol HC cream twice a day, to see whether any hemorrhoids is contributing to this cause of bleeding. I will discuss the management with the family members before embarking on any risky procedure for him. cc: MD Ranjan Webster MD Katherine Takundwa, MD
[2017-04-06] MEDS: CALMOSEPTINE OINTMENT TOP PRN ×2 (17:20→20:33)
--- NOTE | 2017-04-06 17:43 | PROGRESS NOTE ---
DATE: 04/06/2017 SUBJECTIVE: The patient had epistaxis overnight that was significant and now has a nasal rocket in his left nare. OBJECTIVE: Vital Signs: Temperature 97.8 degrees, blood pressure 97/67, heart rate 73, respirations 16, O2 saturations 96% on 3 L nasal cannula. General: This is a chronically ill- appearing elderly male lying in bed in no acute distress. Head: Normocephalic , atraumatic. Heart: S1, S2. Normal. Lungs: Clear to auscultation bilaterally. Abdomen: Positive bowel sounds. Soft, nontender, nondistended. Extremities: Trace pedal edema. No cyanosis. No calf tenderness. Neuro: The patient is alert and oriented x3. LABS: White blood cell count 11, hemoglobin 8.5, hematocrit 26, platelets 23, 000. Sodium 136, potassium 4.4, chloride 92, CO2 21, BUN 67, creatinine 4.5, glucose 129, calcium 7.4, phosphorus 4.6, albumin 2. ASSESSMENT AND PLAN: 1. Persistent staphylococcal epidermidis bacteremia. Continue on daptomycin as directed by Dr. Gunter. 2. Epistaxis. The patient was seen by the ear, nose and throat and currently has a nasal rocket in his left nare. Will continue to monitor closely. 3. Volume overload. This will be addressed during dialysis. 4. Rectal bleeding. The patient has been assessed by Dr. Ordonez. The patient is a high risk for any endoscopic procedures so conservative management will be initiated as per Dr. Ordonez. 5. End-stage renal disease. Management as per the tree pruner. 6. Relapsing multiple myeloma. The patient has been profoundly thrombocytopenic and anemic throughout the hospitalization and is requiring transfusions on a regular basis. The patient and his family will meet with Dr. Swanson for further discussion. 7. Thrombocytopenia. The patient will receive platelets today. 8. Dilated cardiomyopathy. Aware. 9. Atrial flutter. Continue on digoxin as directed by the performance reporter. 10. Anemia. The patient's hemoglobin and hematocrit is improved after receiving a blood transfusion. Transfuse prn. 11. Disposition. I had a discussion with the patient and his family about the overall treatment plan. The patient relayed to me that he wanted to talk to Dr. Swanson before making any decisions regarding further treatment or code status. cc: Cindy Wallace MD [facility]
[2017-04-06] MEDS: ANUSOL-HC CREAM PR SCH (20:31)
[2017-04-07] MEDS: TYLENOL PO PRN (00:35)
[2017-04-07] MEDS: CALMOSEPTINE OINTMENT TOP PRN (01:58)
[2017-04-07] MEDS: CARDIZEM PO SCH ×4 (01:58→20:32)
[2017-04-07] MEDS: XOPENEX NEB INH SCH ×6 (03:55→23:00)
[2017-04-07] MEDS: SOLU-MEDROL IV SCH ×3 (04:39→20:43)
[2017-04-07 05:17] LABS: HEMATOCRIT 24.2 % (42.0-52.0); HEMOGLOBIN 7.7 g/dL (14.0-18.0); MANUAL DIFF NEEDED? YES; MCHC 31.8 g/dL (33-37); MCV 94.2 FL (81-99); MONO# 1.29 X1000 (0.11-0.59); MONO% 12.4 % (1.7-9.3); MPV 11.4 FL (7.4-10.4); RBC 2.57 XMIL (4.7-6.1)
--- NOTE | 2017-04-07 05:20 | EKG Report ---
Test Performed on : 04/07/2017 02:44:48 AM Test Reason : Rhythm change Blood Pressure : / mmHG Vent. Rate : 062 BPM Atrial Rate : 079 BPM P-R Int : 000 ms QRS Dur : 078 ms QT Int : 478 ms P-R-T Axes : 000 -07 250 degrees QTc Int : 485 ms Atrial fibrillation. with a competing junctional pacemaker. ST \T\ T wave abnormality, consider anterolateral ischemia Abnormal ECG When compared with ECG of 05-APR-2017 05:39, Atrial fibrillation. has replaced Atrial flutter. Nonspecific T wave abnormality has replaced inverted T waves in Inferior leads T wave inversion now evident in Anterior leads QT has lengthened Confirmed by Nazanin DOAN, Tobias Gamez ([id number]) on 04/07/2017 6:47:56 AM
[2017-04-07 05:23] LABS: BANDS 10 % (0-1); BASO 2 % (0-1); LYMPHS 34 % (21-51); MONO 8 % (1-9); NRBC 6 % (0-0)
[2017-04-07 05:26] LABS: PLT 37 X1000 (130-400)
[2017-04-07 05:29] LABS: ALBUMIN 2.1 g/dL (3.5-5.0); CALCIUM 6.9 mg/dL (8.8-10.2); POTASSIUM 3.6 mmol/L (3.5-5.1)
[2017-04-07] MEDS: PROTONIX PO SCH (06:21)
[2017-04-07] MEDS ORDERED: FLEBOGAMMA DIF 5% IV ONE (08:00)
--- NOTE | 2017-04-07 08:16 | PROGRESS NOTE ---
DATE: 04/07/2017 PRESENT ILLNESS: The patient has a Staphylococcus epidermidis bacteremia which most likely originates from one of his intravascular devices. The patient also has a very low IgG. He got a gammaglobulin treatment and the IgG only went up to 373. MEDICATIONS: The patient was switched from vancomycin because the TALHA of vancomycin against the organism was 2, which predicts that there would be failure if vancomycin is continued, so therefore, the patient has been switched to daptomycin. PHYSICAL EXAMINATION: Vital signs: Temperature is 98.2, pulse 66, respirations 20, blood pressure 100/58. General: This is a clinically ill-appearing elderly male. He is in no acute distress. Lungs: Clear to auscultation. Cardiovascular: Regular heart rate. Abdomen: Soft and nontender. Chest: The patient has a Port-A-Cath present. He de-accessed it last night. The site is not swollen or tender. Extremities: The patient also has a tunnelled dialysis catheter in his left arm. The site is not swollen or tender. LABORATORY AND X-RAY: There is no new x-ray. The patient's CBC for today shows a white count of 10,430, hemoglobin 7.7, and platelet count 37,000. Creatinine is 3.8. GFR is 10. The repeat IgG level was 373. ASSESSMENT AND PLAN: I am going to give the patient another dose of intravenous immunoglobulin. Also, I am going to repeat the patient's blood cultures, but I am going to wait until this evening or late afternoon so that we can see the full effect of giving the patient more gammaglobulin and also another dose of daptomycin. If the blood cannot be cleared of infection after all of these new treatments, then I think the patient will need to have all his devices taken out and wait to be put in until the blood cultures turn sterile. The patient's comorbidities include multiple myeloma, end-stage renal disease, hemodialysis, and a very low IgG level. cc: Gagan Gunter MD
--- NOTE | 2017-04-07 09:10 | PROGRESS NOTE ---
DATE: 04/07/2017 TIME SEEN: 0740. SUBJECTIVE: Mr. Moore is resting quietly in bed. His is at his bedside. He denies any chest pain, increased work of breathing. States that his left arm does continue to hurt over his AV fistula from previous stick. OBJECTIVE: Vital signs: His most recent vital signs, his temperature is 98 degrees, blood pressure 114/61, heart rate 58, and respirations 20. He is currently on 3 L nasal cannula. Last recorded saturation is 97%. He has had 970 in, 1 L removed on dialysis yesterday. Labs: Sodium 135, potassium 3.6, chloride 92, CO2 25, BUN 67, creatinine 3.8, glucose 147, anion gap 18, calcium 6.9, phosphorus 3.5, albumin 2.1. White count 10.43, hemoglobin 7.7, hematocrit 24.2, with a platelet count of 37,000. Digoxin level is 1. His corrected calcium level is at 8.42. PHYSICAL EXAMINATION: General: This is a 76-year-old male. He is currently resting in bed. He appears chronically ill. He is in no acute distress. Skin : Warm and dry. HEENT: Normocephalic, atraumatic. Conjunctivae pale. He has PRASHANT. Mucous membranes moist. Neck: Supple. Trachea midline. No JVD. Cardiovascular: Regular rate and rhythm. Soft systolic murmur. No gallop. Lungs: Clear to auscultation anteriorly. Equal excursion. He is on room air. Abdomen: Round, soft, nontender. Positive bowel sounds. Extremities: AV fistula to the left forearm. I removed his dressing. Continues with palpable thrill. He has no edema. No clubbing or cyanosis to the lower extremities. Integumentary: He continues with a port to the right chest wall and a tunnel catheter to the left chest wall. These are dry and intact. Neurological: He is alert and oriented x2. ASSESSMENT AND PLAN: 1. End-stage renal disease. Patient is due for his routine dialysis treatment in the a.m. No indications for intervention today. 2. Electrolytes and acid-base balance. These remain stable. 3. Anemia. This has dropped from yesterday after receiving 2 units of packed red blood cells the previous evening. 4. Thrombocytopenia. He has received a unit of platelets. They were up to 37, 000 at this time, with Dr. Swanson following. 5. Staphylococcus epidermis bacteremia. This is now currently being followed by Dr. Gunter. On Daptomycin. 6. Interested in transfer to [place] or . rg I would like to thank you for allowing us to follow with this patient. Seen, data reviewed, discussed with Heather Magallon on 04/07/17. I agree with the above assessment and plan of care. rg Dictated by LO Perkins for Ranjan Beltran MD cc: LO Perkins MD [facility]
[2017-04-07] MEDS: PHOSLO PO SCH ×3 (09:31→18:05)
[2017-04-07] MEDS: BACTROBAN OINTMENT TOP SCH ×2 (09:32→20:43)
[2017-04-07] MEDS: ANUSOL-HC CREAM PR SCH ×2 (09:32→20:43)
[2017-04-07] MEDS: SODIUM BICARBONATE PO SCH ×2 (09:32→20:43)
[2017-04-07] MEDS: AYR NASAL DROPS NAS PRN ×2 (09:33→20:48)
--- NOTE | 2017-04-07 11:45 | PROGRESS NOTE ---
DATE: 04/07/2017 SUBJECTIVE: This patient was seen by me yesterday for rectal bleeding. He has multiple complicating problems with coagulopathy which resulted probably in rectal bleeding secondary to some local issues in the rectum. I come to evaluate him because of his severe coagulopathy and also chronic renal failure, being on dialysis. He is a patient with advanced multiple myeloma. I did a rectal examination and found that he had a lot of excoriation around the anal verge and some bright red blood and clots were in his diaper which he was wearing. I started him on Anusol HC cream twice a day and since then, the patient does not seem to have any blood coming out from his rectum. Today, he is sitting up and he said that he is feeling better. He was able to eat some breakfast. SUBJECTIVE: Vital Signs: Temperature is 98.5 degrees, pulse is 65 per minute, respiratory rate is 16, blood pressure is 111/65. General: Examination is unchanged. LABORATORY DATA: The platelet count is 37,000 after receiving platelet transfusions yesterday. His hemoglobin dropped to 7.7 with hematocrit 24.2. His WBC count had dropped to 10.43. Sodium 135, potassium 3.6, chloride 92, CO2 is 25, BUN is 67, creatinine 3.8, calcium is low at 6.9, and albumin is 2.1. IMPRESSIONS: 1. Rectal bleeding secondary to possibly hemorrhoids. 2. Severe coagulopathy. 3. Chronic renal failure, on dialysis. 4. Multiple myeloma, advanced. 5. Sepsis secondary to Staphylococcus epidermides. RECOMMENDATIONS: Since no endoscopic procedures can be performed, I can only recommend supportive therapy at this point. Gastroenterology will stand by. I have explained this matter to the patient and the family. cc: MD Gagan Webster MD Katherine Takundwa, MD Reginald D. Gladish, MD
--- NOTE | 2017-04-07 12:34 | PROGRESS NOTE ---
DATE: 04/07/2017 SUBJECTIVE: The patient is sitting up in bed. He states that he feels a lot better today. He has not had any further bleeding from his nose or rectum. OBJECTIVE: Vital Signs: Temperature 98.5 degrees, blood pressure 111/65, heart rate 73, respirations 16, O2 saturation is 98% on 3 L nasal cannula. General: This is a chronically ill- appearing, elderly male lying in bed, in no acute distress. HEENT: Head normocephalic and atraumatic. Heart: S1 and S2 normal. Lungs: Equal air entry bilaterally. No crackles. Abdomen: Positive bowel sounds. Soft, nontender, nondistended. Extremities: No edema. No cyanosis. No calf tenderness. Neurologic: The patient is alert and oriented x3. Labs: White blood cell count 10, hemoglobin 7.7, hematocrit 24, platelets 37, 000. Sodium 135, potassium 3.6, chloride 93, CO2 25, BUN 67, creatinine 3.8, glucose 147, calcium 6.9, phosphorus 3.5, albumin 2.1. ASSESSMENT AND PLAN: 1. Staphylococcal epidermidis bacteremia. Continue on daptomycin as directed by Dr. Gunter. 2. Epistaxis. Resolved. 3. Rectal bleeding. This appears to have stopped. Continue with Anusol as directed by Dr. Ordonez. 4. Volume overload. This will be addressed during the patient's next scheduled dialysis session. 5. End-stage renal disease. 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 6. Relapsing multiple myeloma. The patient's chemotherapy is currently on hold due to the active infection. We will await further recommendations from Dr. Swanson. 7. Thrombocytopenia. Transfuse as needed. 8. Atrial flutter. The patient is rate controlled. Continue on digoxin. 9. Dilated cardiomyopathy. Aware. 10. Anemia. The patient's hemoglobin and hematocrit did drop today. We will continue to monitor this closely and transfuse as needed. 11. Disposition. I had a discussion with the patient and his at the bedside this morning. They both stated that they wanted to talk to Dr. Swanson before making a decision about transferring to another facility. We will await the patient's meeting with Dr. Swanson. cc: Cindy Wallace MD [facility]
[2017-04-07] MEDS ORDERED: SOLU-MEDROL ONE (13:15)
[2017-04-07] MEDS ORDERED: PHOSLO ONE (13:15)
[2017-04-07] MEDS ORDERED: CARDIZEM ONE (13:15)
[2017-04-07] MEDS: IMODIUM PO PRN (20:53)
[2017-04-08] MEDS: CARDIZEM PO SCH ×4 (02:13→20:28)
[2017-04-08] MEDS: AYR NASAL DROPS NAS PRN ×3 (02:14→20:57)
[2017-04-08] MEDS: XOPENEX NEB INH SCH ×5 (03:20→23:11)
[2017-04-08 05:03] LABS: EOS# 0.01 X1000 (0.0-0.7); EOS% 0.1 % (0.0-10.0); HEMATOCRIT 23.5 % (42.0-52.0); HEMOGLOBIN 7.4 g/dL (14.0-18.0); MANUAL DIFF NEEDED? YES; MCH 29.8 PG (27-31); MCHC 31.5 g/dL (33-37); MCV 94.8 FL (81-99); MONO# 1.55 X1000 (0.11-0.59); RBC 2.48 XMIL (4.7-6.1)
[2017-04-08 05:14] LABS: LYMPHS 44 % (21-51); MONO 10 % (1-9)
[2017-04-08] MEDS: SOLU-MEDROL IV SCH ×3 (05:20→20:58)
[2017-04-08] MEDS: PROTONIX PO SCH ×2 (05:22→06:04)
[2017-04-08 05:30] LABS: ALBUMIN 2.1 g/dL (3.5-5.0); DIGOXIN 1.2 ng/mL (0.9-2.0); POTASSIUM 4.2 mmol/L (3.5-5.1)
[2017-04-08 05:34] LABS: CALCIUM 6.8 mg/dL (8.8-10.2)
[2017-04-08] MEDS ORDERED: CALCIUM GLUCONATE 2 GM in NS 100 ML IV ONE (05:40)
[2017-04-08 06:21] LABS: PLT 29 X1000 (130-400)
[2017-04-08] MEDS ORDERED: NS 2,000 ML MISC PRN (07:23)
--- NOTE | 2017-04-08 07:25 | PROGRESS NOTE ---
DATE: 04/08/2017 PRESENT ILLNESS: The patient is being treated for Staph epidermidis bacteremia which most likely originated from one of his intravascular catheters. He has had a very low IgG dose. Since finding that out he is had separate infusions of gammaglobulin. MEDICATIONS: The patient is on daptomycin. Will count the days of it being used starting from the 1st positive repeat culture that is negative. PHYSICAL EXAMINATION: Vital Signs: Temperature is 97.6 degrees, pulse 61, respirations 16, blood pressure 114/68. General: This is an ill-appearing, elderly male. He is in no acute distress. Lungs: Clear to auscultation. Cardiovascular: Irregular heart rate. Abdomen : Soft and nontender. Neurologic: Patient is awake. He can move his extremities. There is no tremor. ASSESSMENT AND PLAN: I will be monitoring the patient's immunoglobulin level to see if we still have to give him more of it. For now I am going to wait for the results of the patient's blood cultures that have been drawn after the first time the repeat blood cultures were sterile. The patient's comorbidities include multiple myeloma, end-stage renal disease, hemodialysis, and a low IgG level. ADDENDUM: See later dictation for lab and x-ray. cc: Gagan Gunter MD [facility]
--- NOTE | 2017-04-08 08:24 | PROGRESS NOTE ---
DATE: 04/08/2017 ADDENDUM: LAB AND X-RAY: The patient's CBC today has a white count of 10,030, hemoglobin 7.4, and platelet count 29,000. The patient's creatinine is 5 with a GFR of 14. There is no new radiographic study for today. cc: Gagan Gunter MD
[2017-04-08] MEDS ORDERED: NS 2,000 ML ONE (08:30)
[2017-04-08] MEDS ORDERED: HEPARIN ONE (08:30)
--- NOTE | 2017-04-08 11:38 | PROGRESS NOTE ---
DATE: 04/08/2017 TIME SEEN: 0825. SUBJECTIVE: Mr. Moore is resting quietly in bed. He is in no acute distress. His skin is warm and dry. He is getting ready to go down for dialysis. He states that he had a good night last night. OBJECTIVE: Vital Signs: Temperature 97.6 degrees, blood pressure 114/68, heart rate 61, respirations 18. He is on 3 L nasal cannula. Last recorded saturation 95%. He has had 1253 In. He has had 0 recorded out in the last 24 hours for need for dialysis today. LABORATORY DATA: Sodium 134, potassium 4.2, chloride 91, CO2 of 23. BUN 94, creatinine 5, glucose 136. His anion gap is 20. Calcium is 6.8. Phosphorus 3.3, albumin 2.1 with an ionized calcium level of 0.92, hemoglobin 7.4, hematocrit 23.5, white count 10.3 with a platelet count of 29,000. His digoxin level is 1.2. PHYSICAL EXAMINATION: General: This is a 76-year-old male who is currently resting in bed. He is in no acute distress. Skin: Warm and dry. HEENT: Normocephalic, atraumatic. He continues to have pressure dressing to the left naris. This is dry and intact with no further epistasis. Mucous membranes are moist. Neck: Supple. Trachea midline. No JVD. Cardiovascular: Regular rate and rhythm. Soft systolic murmur. No gallop. Lungs: Clear to auscultation anteriorly. Equal excursion. Abdomen: Round, soft, nontender. Positive bowel sounds. Extremities: AV fistula to the left forearm. This has a palpable thrill. Continues with tunnel catheter to the right chest wall. Otherwise lower extremities have no edema. Integumentary: As noted. Port to the right chest. Tunnel catheter to the left chest. Dry and intact without rashes or lesions. Neurological: Alert and oriented x2. ASSESSMENT AND PLAN: 1. End-stage renal disease. The patient is due for his routine dialysis treatment today. We will place him on a 2 K bath. He is to have a 3 calcium. He is to dialyze for 3.5 hours. We will hold heparin. We will transfuse 1 unit of packed red blood cells while on dialysis. Unable to use access today. rg 2. Electrolytes. These remained stable. 3. Acid-base balance. This is stable. 4. Anemia. This has dropped in the last 24-48 hours. Again, with 1 unit of packed red blood cells to be transfused while on dialysis. 5. Bacteremia. Surgery consulted for line removal. rg I would to thank you for allowing us to follow with this patient. Seen, data reviewed, discussed with Heather Magallon on 04/08/17. I agree with the above assessment and plan of care. rg Dictated by LO Perkins for Ranjan Beltran MD cc: LO Perkins MD [facility]
[2017-04-08] MEDS: PHOSLO PO SCH ×3 (13:27→17:28)
[2017-04-08] MEDS: SODIUM BICARBONATE PO SCH ×2 (13:35→20:56)
[2017-04-08] MEDS: ANUSOL-HC CREAM PR SCH ×2 (13:35→20:57)
[2017-04-08] MEDS: LANOXIN PO SCH (13:35)
[2017-04-08] MEDS: BACTROBAN OINTMENT TOP SCH ×2 (13:36→20:57)
--- NOTE | 2017-04-08 15:02 | PROGRESS NOTE ---
DATE: 04/08/2017 SUBJECTIVE: The patient had a nosebleed overnight. He has no other complaints. OBJECTIVE: Vital Signs: Temperature 98 degrees, blood pressure 106/45, heart rate 80, respirations 16, O2 saturations 94% on 3 L nasal cannula. General: This is an elderly male, lying in bed, in no acute distress. Head: Normocephalic atraumatic. Heart: S1, S2. Normal. Regular rate and rhythm. Lungs: Cecal air entry bilaterally. No crackles. No rales. Abdomen: Positive bowel sounds. Soft, nontender, nondistended. Extremities: Trace pedal edema. No cyanosis. No calf tenderness. Neuro: The patient is alert and oriented x3. LABS: White blood cell count 10, hemoglobin 7.4, hematocrit 23, platelets 29, 000. Sodium 134, potassium 4.2, chloride 91. CO2 23, BUN 94, creatinine 5. Glucose 136. Calcium 6.8. Albumin 2.1. ASSESSMENT AND PLAN: 1. Persistent Staphylococcus epidermidis bacteremia. The 3rd set of blood cultures are again positive. Surgery to be consulted for removal of the patient's lines. 2. Epistaxis. The patient had an episode of epistaxis last night. He is no longer bleeding this morning. We will continue to monitor this closely. The patient is scheduled to get a platelet transfusion today. 3. Rectal bleeding. Resolved. 4. End-stage renal disease. Management as per the grinder hardboard. 5. Volume overload. Management as per the grinder hardboard. 6. Relapsing multiple myeloma. Aware. Oncology is following. 7. Thrombocytopenia. The patient is scheduled to undergo platelet transfusion today. 8. Atrial flutter. The patient is rate controlled. 9. Anemia. The patient is scheduled to get a blood transfusion today. cc: Cindy Wallace MD [facility]
[2017-04-08] MEDS: CUBICIN (FOR INPATIENT USE) 500 MG in NS 100 ML IV SCH (15:54)
--- NOTE | 2017-04-08 22:14 | CONSULTATION ---
DATE OF CONSULTATION: 04/08/2017 REASON FOR CONSULTATION: Bacteremia, and need to remove [id number] and tunneled dialysis catheter. HISTORY OF PRESENT ILLNESS: This is a 76-year-old male, well known to me, with a history of end- stage renal disease and multiple myeloma, with chronic thrombocytopenia. I recently placed a left forearm AV fistula. We had problems with bleeding postoperatively. This has slowly resolved. Apparently, he has deteriorated more, with increasing shortness of breath, weakness, and confusion, and has been readmitted with a new diagnosis of Staphylococcus epidermidis bacteremia. He is being treated with daptomycin. At this point, I have been asked to remove his vascular access devices because of the persistent bacteremia. PAST MEDICAL HISTORY: As described above in the HPI. History of DVT. Hypertension. PAST SURGICAL HISTORY: [id number] placement, tunneled dialysis catheter placement, left forearm AV fistula. SOCIAL HISTORY: He has a prior smoking history. He denies alcohol or illicit drug use. FAMILY HISTORY: Reviewed and noncontributory. ALLERGIES: No known drug allergies. CURRENT MEDICATIONS: Daptomycin, hydrocortisone, Xopenex, loperamide, Solu-Medrol, Protonix, sodium bicarbonate. REVIEW OF SYSTEMS: Positive for weakness, lethargy, nose bleeds, rectal bleeding. Otherwise, his 10 systems reviewed and are negative, except as noted above. PHYSICAL EXAMINATION: Vital Signs: Temperature 99.3 degrees, pulse 71, respirations 18, blood pressure 110/58. General: He is a frail, malnourished-appearing male. He is somewhat shaky. Neurologic: He is alert and oriented x3. He moves all extremities. Extremities: The left forearm fistula has a thrill in it. The swelling in the distal forearm at the anastomosis has resolved. The fistula has a good thrill, but appears to still be somewhat small for dialysis access. Skin: The tunneled dialysis catheter and [id number] on his chest were examined. I do not see any induration or erythema or drainage around them. Cardiovascular: Regular rate and rhythm. Respiratory: No work of breathing. Gastrointestinal: Soft, nontender, nondistended. Musculoskeletal: Moves all extremities weakly, but equally. LABORATORY STUDIES: White blood cell count 10,000, hemoglobin 7.4, platelet count 29,000. Potassium 4.2, albumin 2.1. His IgG and IgM levels are low at 373 and less than 3 respectively. ASSESSMENT AND PLAN: A 76-year-old male with end-stage renal disease, multiple myeloma, thrombocytopenia, IgG and IgM deficiency, and now bacteremia. I do agree he needs his carlita catheter and tunneled dialysis catheter removed. We will plan to do this tomorrow if his platelet count will allow. He was given some today. We will recheck that in the morning. Will plan on placing a Trialysis catheter for temporary access until his bacteremia clears. cc: Tan Javier MD
[2017-04-09] MEDS: CARDIZEM PO SCH ×4 (02:09→19:06)
[2017-04-09] MEDS: XOPENEX NEB INH SCH ×6 (03:36→23:27)
[2017-04-09] MEDS: SOLU-MEDROL IV SCH ×3 (04:15→20:11)
[2017-04-09 04:20] LABS: HEMATOCRIT 24.7 % (42.0-52.0); MANUAL DIFF NEEDED? YES; MCH 30.3 PG (27-31); MCHC 32.4 g/dL (33-37); MCV 93.6 FL (81-99); MONO% 16.3 % (1.7-9.3); MPV 11.1 FL (7.4-10.4); RBC 2.64 XMIL (4.7-6.1)
[2017-04-09 04:25] LABS: PLT 32 X1000 (130-400)
[2017-04-09 04:32] LABS: BANDS 4 % (0-1); LYMPHS 46 % (21-51); MONO 8 % (1-9); NRBC 3 % (0-0)
[2017-04-09 05:44] LABS: CALCIUM 6.7 mg/dL (8.8-10.2)
[2017-04-09 05:45] LABS: ALBUMIN 2.1 g/dL (3.5-5.0); POTASSIUM 4.1 mmol/L (3.5-5.1)
[2017-04-09] MEDS ORDERED: CALCIUM GLUCONATE 1 GM in NS 50 ML IV ONE (06:25)
--- NOTE | 2017-04-09 07:26 | PROGRESS NOTE ---
DATE: 04/09/2017 PRESENT ILLNESS: The patient has a Staphylococcus epidermidis bacteremia most likely originating from one of his intravascular catheters. He has also had a very low IgG level. MEDICATIONS: The patient is receiving daptomycin. The first day of daptomycin will be counted on the day that the patient's blood cultures are sterile. The patient is on daptomycin at a dose of 500 mg IV daily. PHYSICAL EXAMINATION: Vital Signs: Temperature is 97.6 degrees, pulse 68, respirations 18, blood pressure 119/75. Patient weighs 141 pounds. Lungs: Clear to auscultation. Cardiovascular: Heart rate is regular. Chest: The patient has a Port-A-Cath and a tunneled dialysis catheter present. Both of the sites are not swollen or tender. Abdomen: Soft and nontender. Extremities: Patient has an AV fistula in his arm. LAB AND X-RAY: There is no new x-ray today. The labs show a CBC with a white count of 12,280, hemoglobin and platelet count 32,000. Creatinine is 3.9. GFR is 18. Patient's blood cultures from April 07 are growing gram-positive cocci. ASSESSMENT AND PLAN: The patient today is supposed to have his Port-A-Cath and dialysis catheter removed by Dr. Javier. I will wait a day or 2 and then repeat the patient's blood cultures and if they are sterile, then the patient can have the other intravascular catheters put back in. Also, I will check the patient's IgG level and if it still remains low, he will be a candidate for another infusion of gammaglobulin. COMORBIDITIES: Include he is elderly. He has end-stage renal disease. He is on hemodialysis and the patient also has multiple myeloma. The patient's comorbidities also include a low IgG level. cc: Gagan Gunter MD
[2017-04-09] MEDS: ANUSOL-HC CREAM PR SCH ×2 (09:14→20:11)
[2017-04-09] MEDS: PROTONIX PO SCH (09:14)
[2017-04-09] MEDS: PHOSLO PO SCH ×3 (09:14→18:05)
[2017-04-09] MEDS: BACTROBAN OINTMENT TOP SCH ×2 (09:15→20:11)
[2017-04-09] MEDS: SODIUM BICARBONATE PO SCH ×2 (09:15→20:11)
[2017-04-09] MEDS: AYR NASAL DROPS NAS PRN (09:15)
[2017-04-09] MEDS ORDERED: NS 500 ML ONE (13:58)
--- NOTE | 2017-04-09 14:21 | PROGRESS NOTE ---
DATE: 04/09/2017 SUBJECTIVE: He anticipates surgery today for catheter removal. OBJECTIVE: Vital Signs: Blood pressure 121/67, heart rate 89, respirations 20, afebrile. Intake 400. Output 2 L. General: No acute distress. Skin: Warm and dry. HEENT: Conjunctivae are pink. Pupils are equal. Heart: Regular with a gallop. Lungs: Have equal breath sounds. No crackles. Abdomen: Soft, nontender. Bowel sounds present. Extremities: Have trace edema. No clubbing or cyanosis. LABORATORY DATA: Sodium 137, potassium 4.1, chloride 92, bicarbonate 24, BUN 65, creatinine 3.9, hemoglobin 8.0. IMPRESSION: 1. Methicillin-resistant Staphylococcus epidermis bacteremia. Continue daptomycin. Surgery today to remove catheters. 2. End stage renal disease. Hemodialysis today. 3. Electrolytes/acid base/anemia all in target. 4. Nutrition. He is eating. cc: Ranjan Beltran MD
--- NOTE | 2017-04-09 14:33 | PROGRESS NOTE ---
DATE: 04/09/2017 SUBJECTIVE: The patient states that he had an okay night. No further rectal bleeding or epistaxis was noted overnight. OBJECTIVE: Vital Signs: Temperature 98 degrees, blood pressure 120/63, heart rate 94, respirations 16, O2 saturations 93% on 2 L nasal cannula. General: This is an elderly male, lying in bed, in no acute distress. Head: Normocephalic atraumatic. Heart: S1, S2. Normal. Regular rate and rhythm. Lungs: Clear to auscultation bilaterally. No crackles. No rales. Abdomen: Positive bowel sounds. Soft, nontender, nondistended. Extremities: No edema. No cyanosis. No calf tenderness. Neurologic: The patient is alert oriented x3. LABS: White blood cell count 12, hemoglobin 8, hematocrit 25, platelets 32, 000. Sodium 137, potassium 4.1, chloride 92, CO2 24, BUN 65, creatinine 3.9, glucose 136, calcium 6.7. ASSESSMENT AND PLAN: 1. Persistent Staphylococcus epidermidis bacteremia. The patient is scheduled to have his lines removed today. Continue with IV antibiotic therapy as directed by Dr. Gunter. 2. Rectal bleeding. Resolved. 3. Epistaxis. Resolved. 4. End-stage renal disease. Management as per the career advisor. 5. Relapsing multiple myeloma. Aware. Oncology is following. 6. Thrombocytopenia. Transfuse p.r.n. 7. Anemia. We will continue to monitor the patient's hemoglobin and hematocrit closely and transfuse p.r.n. 8. Atrial flutter. The patient is rate controlled. Continue on Cardizem and digoxin. cc: Cindy Wallace MD [facility] PARTNERSRavinder
[2017-04-09] MEDS ORDERED: VERSED ONE (16:23)
[2017-04-09] MEDS ORDERED: KETAMINE (DOSE) ONE (16:24)
[2017-04-09] MEDS ORDERED: DIPRIVAN 1% ONE (17:26)
--- NOTE | 2017-04-09 17:39 | Diag Imaging Result Doc PS360 ---
EXAM: CHEST-PORTABLE HISTORY: status post new cvl TECHNIQUE: Portable semiupright at 1720 COMMENT: There is cardiomegaly. There is a internal jugular line on the right with its tip in superior vena cava. There is apparent mild interstitial pulmonary edema or fibrosis. This is actually improved with respect to the left base since 04/05/2017. There continues to be atelectasis or pneumonia in the right middle lobe. No evidence of pneumothorax is present. IMPRESSION: Cardiomegaly. Mild pulmonary edema. Atelectasis versus pneumonia right middle lobe. Electronically signed by Efrain Ham 04/09/2017 5:37 PM
[2017-04-09] MEDS ORDERED: ULTRAM PO PRN (17:58)
--- NOTE | 2017-04-09 18:11 | OPERATIVE NOTE ---
PROCEDURE DATE: 04/09/2017 PREOPERATIVE DIAGNOSES: 1. Bacteremia. 2. Thrombocytopenia. 3. Multiple myeloma. 4. End-stage renal disease. POSTOPERATIVE DIAGNOSES: 1. Bacteremia. 2. Thrombocytopenia. 3. Multiple myeloma. 4. End-stage renal disease. PROCEDURE: 1. Removal of tunneled dialysis catheter. 2. Removal of Bftn-P-Mdgxlnas. 3. Placement of Trialysis catheter with fluoroscopic and ultrasound guidance. SURGEON: Tan Javier MD. ANESTHESIA: Local MAC. ESTIMATED BLOOD LOSS: 25 mL. COMPLICATIONS: None apparent. FINDINGS: There was no purulent fluid around either the port or the tunnel dialysis catheter. He did have a fairly brisk back bleeding especially from the dialysis catheter site. The right internal jugular vein was visualized with the ultrasound and found to be compressible and patent. The wire and subsequently the catheter were visualized at the superior vena cava under fluoroscopy. TECHNIQUE: The patient was brought to the operating room and placed supine on the table. IV sedation was induced. He was prepped and draped in the usual sterile fashion. 0.25% Marcaine and 1% lidocaine was used to anesthetize our incisions. An incision was made over the cuff of the tunneled dialysis catheter in the left upper chest. The cuff was free from surrounding subcutaneous tissues with cautery. The catheter was then pulled out of the vein and removed. There was fairly brisk back bleeding. Initially we held pressure for several minutes. Then I placed 2 [id number] 3-0 Vicryl sutures at the tract exit site. This significantly limited the back bleeding. The skin was closed with horizontal mattress 3-0 nylon and 4 x 4 gauze were placed over this area. I turned my attention to the Xocg-W-Raeovhan. The skin was anesthetized in the same fashion. The skin was incised with a knife. The port was excised from the surrounding tissue with cautery including the Prolene suture. As the port and catheter were removed the catheter exit site was closed with 2 [id number] 3-0 Vicryl sutures. I closed the skin with interrupted subcuticular 3-0 Polysorb, gauze and tape were placed over this site. I then visualized the right internal jugular vein with the ultrasound. The skin over the vein was anesthetized with the lidocaine and Marcaine mixture. The vein was accessed with a needle under ultrasound guidance. The wire passed through the needle into the vein. The wire was confirmed to be in the right atrium with fluoroscopy. The track was sequentially dilated. The Trialysis catheter was passed over the wire into the vein via the Seldinger technique. The wire was removed. All the ports dominic back blood easily and were flushed with saline. The sterile caps were placed. It was anchored to the skin with 3-0 nylon. There were no apparent complications. He was transferred to recovery room in fair condition. cc: Tan Javier MD
[2017-04-09] MEDS: ZOFRAN IV PRN (18:58)
[2017-04-09] MEDS: IMODIUM PO PRN (19:06)
[2017-04-10] MEDS: CARDIZEM PO SCH ×4 (02:48→19:50)
[2017-04-10] MEDS: XOPENEX NEB INH SCH ×6 (03:46→23:32)
[2017-04-10] MEDS: PROTONIX PO SCH ×2 (05:42→06:03)
[2017-04-10] MEDS: SOLU-MEDROL IV SCH ×3 (05:42→20:04)
[2017-04-10 06:04] LABS: HEMATOCRIT 22.9 % (42.0-52.0); HEMOGLOBIN 7.4 g/dL (14.0-18.0); MCH 30.6 PG (27-31); MCHC 32.3 g/dL (33-37); MCV 94.6 FL (81-99); MPV 10.8 FL (7.4-10.4); RBC 2.42 XMIL (4.7-6.1)
[2017-04-10 06:25] LABS: POTASSIUM 4.1 mmol/L (3.5-5.1)
[2017-04-10 07:10] LABS: CALCIUM 6.3 mg/dL (8.8-10.2)
[2017-04-10] MEDS ORDERED: NS 2,000 ML MISC PRN (08:18)
[2017-04-10] MEDS ORDERED: HEPARIN IV PRN (08:18)
[2017-04-10] MEDS ORDERED: TIGHT: 0.2 ML/HR MISC PRN (08:18)
[2017-04-10] MEDS: PHOSLO PO SCH ×3 (08:23→17:11)
[2017-04-10] MEDS: ANUSOL-HC CREAM PR SCH ×2 (08:23→20:04)
[2017-04-10] MEDS: SODIUM BICARBONATE PO SCH ×2 (08:23→20:05)
[2017-04-10] MEDS: BACTROBAN OINTMENT TOP SCH ×2 (08:24→20:04)
[2017-04-10] MEDS: CALMOSEPTINE OINTMENT TOP PRN ×2 (08:24→20:05)
[2017-04-10] MEDS ORDERED: NS 2,000 ML ONE (09:33)
--- NOTE | 2017-04-10 11:22 | PROGRESS NOTE ---
DATE: 04/10/2017 Mr. Jayce Moore underwent removal of several catheters yesterday by Dr. Javier. It appears that he had a left-sided and a right-sided catheter. There is a hematoma anterior right chest which is minimal. He has a Trialysis catheter right base of neck with some bleeding on the dressing but there is no active bleeding. The dressing involving the left side of his chest is dry. He is awake and cooperative and, overall, he does not appear to have had significant bleeding from removal of these catheters despite low platelet count. cc: Sridevi Gilbert MD
[2017-04-10] MEDS: LANOXIN PO SCH (13:49)
[2017-04-10] MEDS: CUBICIN (FOR INPATIENT USE) 500 MG in NS 100 ML IV SCH (14:43)
--- NOTE | 2017-04-10 15:20 | PROGRESS NOTE ---
DATE: 04/10/2017 SUBJECTIVE: The patient states that he had a good night last night. He is currently sitting up, eating cereal. OBJECTIVE: Vital Signs: Temperature 98.3 degrees, blood pressure 112/59, heart rate 58, respirations 19, O2 saturation 95% on 3L nasal cannula. General: This is a chronically ill- appearing, elderly male, sitting up in bed in no acute distress. Head: Normocephalic, atraumatic. Heart: S1 and S2 normal. Regular rate and rhythm. Lungs: Equal air entry bilaterally. No crackles. No rales. Abdomen: Positive bowel sounds. Soft, nontender, nondistended. Extremities: No edema. No cyanosis. No calf tenderness. Neurologic: The patient is alert and oriented x3. LABORATORIES: White blood cell count 13, hemoglobin 7.4, hematocrit 22, platelets 36,000. Sodium 140, potassium 4.1, chloride 94, CO2 of 23, BUN 103, creatinine 5.6, glucose 155, calcium 6.3, albumin 2. ASSESSMENT AND PLAN: 1. Staphylococcus epidermidis bacteremia. The patient's lines were removed yesterday. We will continue on IV daptomycin as directed by Dr. Gunter. 2. Epistaxis. Resolved. 3. Rectal bleeding. Improved. 4. End-stage renal disease. Management as per the chemistry associate. 5. Relapsing multiple myeloma. Aware. Oncology is following. 6. Anemia. The patient is scheduled to receive a blood transfusion today. Continue to monitor the hemoglobin and hematocrit closely. 7. Thrombocytopenia. Will continue to monitor and transfuse p.r.n. 8. Atrial flutter. The patient is rate controlled. Continue on Cardizem and digoxin. cc: Cindy Wallace MD
[2017-04-10] MEDS ORDERED: NS 500 ML ONE (15:56)
--- NOTE | 2017-04-10 17:24 | PROGRESS NOTE ---
DATE: 04/10/2017 SUBJECTIVE: He had surgery yesterday to remove his Port-A-Cath and dialysis catheter. No significant bleeding. He feels about the same. No shortness of breath, nausea or vomiting. OBJECTIVE: Vital Signs: Blood pressure 104/55, heart rate 82, respiration 18, afebrile. Intake 1.2 L. Output 50 mL. General: No acute distress. Chronically ill. Skin: Warm and dry. Neck: Neck veins are not visible. HEENT: Oropharynx is dry. Heart: Regular. Lungs: Have equal breath sounds. No crackles. Abdomen: Soft, nontender. Bowel sounds are present. Extremities: Have no edema, clubbing, or cyanosis. LABORATORY DATA: Sodium 140, potassium 4.1, chloride 94, bicarbonate 23. BUN 103, creatinine 5.6. IMPRESSION: 1. Bacteremia. Continue antibiotics. Foreign bodies have been removed. 2. End-stage kidney disease. He will be due for his next treatment on Wednesday. 3. Debilitation. Out of bed today. 4. Malnutrition. Advance his diet. 5. Anemia. Transfusion dependent. May require transfusion this week. cc: Ranjan Beltran MD
[2017-04-10] MEDS: AYR NASAL DROPS NAS PRN (20:04)
[2017-04-11] MEDS: CARDIZEM PO SCH ×4 (02:35→20:40)
[2017-04-11] MEDS: IMODIUM PO PRN (02:35)
[2017-04-11] MEDS: XOPENEX NEB INH SCH ×6 (03:44→23:14)
[2017-04-11] MEDS: SOLU-MEDROL IV SCH ×3 (04:44→22:00)
[2017-04-11] MEDS: PROTONIX PO SCH ×2 (05:03→06:35)
[2017-04-11 06:41] LABS: HEMATOCRIT 22.3 % (42.0-52.0); HEMOGLOBIN 7.1 g/dL (14.0-18.0); MCH 29.1 PG (27-31); MCHC 31.8 g/dL (33-37); MCV 91.4 FL (81-99); MPV 10.6 FL (7.4-10.4); RBC 2.44 XMIL (4.7-6.1)
[2017-04-11 06:54] LABS: POTASSIUM 4.1 mmol/L (3.5-5.1)
[2017-04-11 07:35] LABS: CALCIUM 6.4 mg/dL (8.8-10.2)
[2017-04-11] MEDS: ANUSOL-HC CREAM PR SCH ×2 (08:12→21:00)
[2017-04-11] MEDS: BACTROBAN OINTMENT TOP SCH ×2 (08:12→21:00)
[2017-04-11] MEDS: SODIUM BICARBONATE PO SCH (08:12)
[2017-04-11] MEDS: PHOSLO PO SCH ×3 (08:12→17:05)
[2017-04-11] MEDS ORDERED: CALCIUM GLUCONATE 1 GM in NS 50 ML IV ONE ×2 (09:53→15:46)
[2017-04-11] MEDS ORDERED: ATIVAN IV ONE (14:06)
[2017-04-11] MEDS: TYLENOL PO PRN (15:20)
--- NOTE | 2017-04-11 15:59 | Diag Imaging Result Doc PS360 ---
EXAM: CHEST-1 VIEW HISTORY: R/O PE TECHNIQUE: AP portable upright at 1545 COMMENT: Compared to the previous study of 04/09/2017 the lungs are slightly better expanded. There is been some improvement in atelectasis over the right base. IMPRESSION: Improved atelectasis. Electronically signed by Efrain Ham 04/11/2017 3:57 PM
[2017-04-11 16:25] LABS: ALLEN TEST YES; BE 0.5 mmoll (-3.0-3.0); BLOOD TYPE ARTERIAL; DRAW SITE R RADIAL; METHB 1.5 % (0.0-1.5); PCO2(98.6) 32 mmHg (35-45); PO2(98.6) 73 mmHg (60-100); SAMPLE BLOOD; SAO2 96.9 % (95.0-100.0); THB 8.2 g/dL (11.5-17.4); pH(98.6) 7.48 (7.35-7.45)
[2017-04-11 16:26] LABS: MODALITY CANNULA
--- NOTE | 2017-04-11 16:32 | PROGRESS NOTE ---
DATE: 04/11/2017 SUBJECTIVE: The patient is resting comfortably in bed. The patient continues to have loose and bloody stools. OBJECTIVE: Vital Signs: Temperature 98.3 degrees, blood pressure 123/61, heart rate 63, respirations 19, O2 sats 93% on 3 L nasal cannula. General: This is a chronically ill-appearing, elderly male, lying in bed. Psych: In no acute distress. Head: Normocephalic , atraumatic. Heart: S1, S2. Normal. Lungs: Equal air entry bilaterally. No crackles. No rales. Abdomen: Positive bowel sounds. Soft, nontender, nondistended. Extremities: No edema. No cyanosis. No calf tenderness. Neurologic: The patient is alert and oriented x3. LABS: CBC: White blood cell count 13, hemoglobin 7.1, hematocrit 22, platelets 26,000. Chem: Sodium 140, potassium 4.1, chloride 95, CO2 23, BUN 74, creatinine 3.9, glucose 131, calcium 6.4, albumin 2.0. ASSESSMENT AND PLAN: 1. Staphylococcus epidermidis bacteremia. Repeat blood cultures were ordered by Dr. Gunter today. We will follow up the results of these cultures closely. Continue on daptomycin after each dialysis session. 2. Rectal bleeding. Unchanged. We will continue to monitor for improvement. 3. Anemia of acute blood loss. We will continue to transfuse the patient as needed. 4. End-stage renal disease. Management as per the family preservation caseworker. 5. Multiple myeloma. Aware. Chemotherapy is on hold due to the patient's active infection. Dr. Swanson is following. 6. Thrombocytopenia. The patient will receive 1 unit of irradiated platelets today. 7. Atrial flutter. The patient is rate controlled. Continue on Cardizem and digoxin. Addendum: At 3pm this afternoon, the patient was noted to be lethargic, febrile and severely short of breath. A stat chest xray and abg was done. The patient was given a duoneb treatment and continued to have increased work of breathing so the patient was transferred to the ICU. Upon arrival to the ICU, the patient was sedated and intubated. Pulmonary has been consulted for assistance with ventilator management. Will also transfuse 1 unit of irradiated platelets and 1 unit of irradiated prbcs. The patient's and family were updated about the plan of care. cc: Cindy Wallace MD MTDD
[2017-04-11] MEDS ORDERED: VERSED ONE ×3 (16:39→16:54)
[2017-04-11] MEDS ORDERED: NS 500 ML ONE (16:40)
[2017-04-11 16:53] LABS: HEMOGLOBIN 7.7 g/dL (14.0-18.0)
[2017-04-11] MEDS ORDERED: VERSED IV ONE ×3 (16:54→16:55)
[2017-04-11] MEDS ORDERED: DIPRIVAN 1% 1,000 MG/100 ML BOTTLE ONE (16:54)
--- NOTE | 2017-04-11 17:33 | Diag Imaging Result Doc PS360 ---
EXAM: CHEST-PORTABLE HISTORY: intubation TECHNIQUE: AP portable supine at 1705 COMMENT: There is an endotracheal tube with its tip slightly below the thoracic inlet. There is a right internal jugular central venous catheter with the tip despair vena cava. There is a right pleural effusion. There is cardiomegaly. There is pulmonary edema which appears slightly worse on the right side than the left. IMPRESSION: Pulmonary edema, slightly worse. Right pleural effusion. Cardiomegaly. Electronically signed by Efrain Ham 04/11/2017 5:31 PM
[2017-04-11 17:54] LABS: ALBUMIN 2.1 g/dL (3.5-5.0); DIRECT BILIRUBIN 0.2 mg/dL (0.00-0.20); TOTAL BILIRUBIN 0.54 mg/dL (0.20-1.00); TOTAL PROTEIN 10.3 g/dL (6.3-8.3)
[2017-04-11 18:01] LABS: ALLEN TEST YES; BE 1.8 mmoll (-3.0-3.0); BLOOD TYPE ARTERIAL; DRAW SITE R RADIAL; O2(CT) 9.7 mL/dL (15.0-23.0); PCO2(98.6) 42 mmHg (35-45); PO2(98.6) 59 mmHg (60-100); SAMPLE BLOOD; SAO2 92.8 % (95.0-100.0); THB 7.6 g/dL (11.5-17.4); pH(98.6) 7.41 (7.35-7.45)
[2017-04-11 18:03] LABS: MODALITY VENTILATOR
[2017-04-11] MEDS: PROTONIX IV SCH (18:31)
[2017-04-11] MEDS: SODIUM CHLORIDE 0.9% INJ SCH (18:31)
[2017-04-11] MEDS: ZOSYN 2.25 GM/NS 2.25 GM/50 ML IVPB IV SCH ×2 (18:31→23:53)
--- NOTE | 2017-04-11 18:41 | Diag Imaging Result Doc PS360 ---
EXAM: ABD/PELVIS/PULM ARTERIES HISTORY: P.E., ABD. DISTENTION TECHNIQUE: CT of the chest with intravenous contrast at 2 mm slices; CT of the abdomen and pelvis with intravenous contrast. COMMENT: There is no evidence of thoracic aortic dissection. The ascending aorta is at the upper limits of normal in size measuring 4.1 cm there are bilateral pleural effusions. There is atelectasis versus pneumonia particularly in the right lower lobe. There are no filling defects in the pulmonary arteries. Groundglass opacities present in the lateral right apex. A similar opacity seen in the medial lingula. There are some emphysematous changes. Compared to 04/04/2017 the pulmonary opacities have worsened particularly in the right lower lobe. CT of the abdomen with intravenous contrast: There is continued anasarca. Small amount of ascites is present. The spleen remains enlarged. There is periportal edema which may be due to congestion. There are low density collections in both psoas muscles from just above the renal pedicles caudally to about the level of the L4 vertebral body. This was apparently present time the previous study but has worsened. The left-sided collection was not as conspicuous at the time the previous study. It measures at least 2.7 cm in diameter whereas the right collection measures up to 3.9 cm. There is an NG tube with its tip in the distal stomach. There is somewhat less stool in the visualized colon. There continues to be diffuse sclerosis throughout the regional skeleton. Presumably this is due to secondary hyperparathyroidism and possibly multiple myeloma. CT of the pelvis with intravenous contrast: There is stool in the rectum. There is free fluid in the pelvic pelvis. There is no evidence of bowel obstruction. The appearance is similar to the previous study of 04/04/2017. IMPRESSION: 1. Worsening pneumonia. No evidence of pulmonary emboli. 2. Worsening right psoas fluid collections bilaterally. These may represent abscesses. Ascites. Splenomegaly. Possible congestive changes in the liver. Electronically signed by Efrain Ham 04/11/2017 6:38 PM
--- NOTE | 2017-04-11 22:05 | PROGRESS NOTE ---
DATE: 04/11/2017 PRESENT ILLNESS: The patient is being treated for a Staph epidermidis bacteremia. He also has a low IgG level. The patient today became septic. He is intubated due to respiratory arrest. MEDICATIONS: Patient is receiving daptomycin. PHYSICAL EXAMINATION: Vital Signs: Temperature was 100.8 degrees, now it is 99.5. Pulse 86, respirations 26, blood pressure 114/53. General: This is an ill-appearing, elderly male. He is intubated and unresponsive. Ears, Nose, and Throat: As mentioned above, patient is intubated. Chest: Both catheters that were in the chest have been removed. The sites of the catheters are not swollen or draining. Lungs: Clear to auscultation. Cardiovascular: Regular heart rate. Abdomen: Soft and not tender. The patient in the right internal jugular vein has a dialysis catheter present. In his right upper extremity, he has a peripheral IV, and in neither of these places are the sites swollen or draining purulent fluid. The patient has a functioning left AV fistula in the left arm. The site is not more swollen than usual. LABORATORY STUDIES AND X-RAYS: The chest x-ray shows better aeration of the lung. The CBC shows a white count of 13,250. Hemoglobin 7.7, platelet count 26,000. Patient's blood cultures in addition to the Staph epidermidis now are growing Bacteroides. Creatinine is 3.9. GFR is 18. ASSESSMENT AND PLAN: In addition to having a staph bacteremia, the patient now has apparently developed septic shock, most likely due to the patient's bacteroides bacteremia. The exact origin of the bacteroides bacteremia is uncertain to me. It would be an unusual organism to come from a catheter. It would be more likely to be coming from a GI source or a biliary source. The patient does not have a wound that looks like that it would be the source of his bacteroides bacteremia. In the in any event, my plan is to add Zosyn to the patient's daptomycin. The patient's comorbidities include end-stage renal disease with hemodialysis, multiple myeloma, and low IgG. cc: Gagan Gunter MD
[2017-04-11] MEDS: DIPRIVAN 1% 1,000 MG/100 ML BOTTLE IV SCH (22:28)
[2017-04-12] MEDS: CARDIZEM PO SCH ×2 (03:41→08:37)
[2017-04-12] MEDS: XOPENEX NEB INH SCH ×6 (03:43→23:00)
[2017-04-12 04:38] LABS: ALLEN TEST YES; BE 0.7 mmoll (-3.0-3.0); BLOOD TYPE ARTERIAL; DRAW SITE R RADIAL; METHB 1.5 % (0.0-1.5); PCO2(98.6) 40 mmHg (35-45); PO2(98.6) 137 mmHg (60-100); SAMPLE BLOOD; SAO2 99.1 % (95.0-100.0); SRATE 12 BPM; THB 7.9 g/dL (11.5-17.4); TVOL 500 mL; pH(98.6) 7.41 (7.35-7.45)
[2017-04-12 04:39] LABS: MODALITY VENTILATOR
[2017-04-12 04:40] LABS: ALBUMIN 1.9 g/dL (3.5-5.0); DIRECT BILIRUBIN 0.2 mg/dL (0.00-0.20); TOTAL BILIRUBIN 0.45 mg/dL (0.20-1.00)
[2017-04-12 05:08] LABS: POTASSIUM 4.8 mmol/L (3.5-5.1)
[2017-04-12 05:10] LABS: CALCIUM 6.2 mg/dL (8.8-10.2)
[2017-04-12] MEDS: ZOSYN 2.25 GM/NS 2.25 GM/50 ML IVPB IV SCH ×4 (05:19→23:04)
[2017-04-12] MEDS: SOLU-MEDROL IV SCH ×3 (05:19→23:04)
--- NOTE | 2017-04-12 05:38 | EKG Report ---
Test Performed on : 04/11/2017 4:16:27 PM Test Reason : Status Change Blood Pressure : / mmHG Vent. Rate : 081 BPM Atrial Rate : 129 BPM P-R Int : 000 ms QRS Dur : 080 ms QT Int : 354 ms P-R-T Axes : 022 -09 191 degrees QTc Int : 411 ms Sinus tachycardia. with complete heart block. and Accelerated Junctional rhythm. Nonspecific ST and T wave abnormality Abnormal ECG When compared with ECG of 07-APR-2017 02:44, Junctional rhythm. has replaced Atrial fibrillation. ST more depressed in Lateral leads T wave inversion no longer evident in Anterior leads QT has shortened Confirmed by Nazanin DOAN, Tobias Gamez ([id number]) on 04/12/2017 10:56:25 AM
[2017-04-12] MEDS: PROTONIX IV SCH ×2 (06:13→17:07)
[2017-04-12] MEDS: DIPRIVAN 1% 1,000 MG/100 ML BOTTLE IV SCH ×4 (06:14→21:36)
[2017-04-12 06:32] LABS: HEMATOCRIT 22.5 % (42.0-52.0); HEMOGLOBIN 7.2 g/dL (14.0-18.0); MCV 90.7 FL (81-99); MPV 10.1 FL (7.4-10.4); RBC 2.48 XMIL (4.7-6.1)
[2017-04-12] MEDS ORDERED: CALCIUM GLUCONATE 1 GM in NS 50 ML IV ONE (06:46)
--- NOTE | 2017-04-12 07:31 | Diag Imaging Result Doc PS360 ---
EXAM: CHEST-PORTABLE INDICATION: respiratory failure COMPARISON: 04/11/2017 FINDINGS: Right vas catheter and ET tube are in stable position. An NG tube projects below the diaphragm and out of the [id number]. Increased interstitial markings bilaterally, worse on the right, are essentially stable suggesting interstitial edema most likely. Small right effusion is unchanged. No new consolidations appreciated. Cardiac silhouette is stable. IMPRESSION: Essentially stable chest. Electronically signed by Greg Yates 04/12/2017 7:29 AM
--- NOTE | 2017-04-12 07:35 | EKG Report ---
Test Performed on : 04/12/2017 06:45:08 AM Test Reason : Elevated troponin/aflutter Blood Pressure : / mmHG Vent. Rate : 060 BPM Atrial Rate : 060 BPM P-R Int : 320 ms QRS Dur : 088 ms QT Int : 440 ms P-R-T Axes : 036 -17 -31 degrees QTc Int : 440 ms Sinus rhythm. with marked sinus arrhythmia. with 1st degree AV block. Nonspecific T wave abnormality Abnormal ECG When compared with ECG of 11-APR-2017 16:16, (Unconfirmed) Sinus rhythm. has replaced Junctional rhythm. ST no longer depressed in Lateral leads Nonspecific T wave abnormality has replaced inverted T waves in Lateral leads Confirmed by Nazanin DOAN, Tobias Gamez ([id number]) on 04/12/2017 10:57:20 AM
[2017-04-12] MEDS: PHOSLO PO SCH ×3 (08:37→17:08)
[2017-04-12] MEDS: LANOXIN PO SCH (08:38)
[2017-04-12] MEDS: ANUSOL-HC CREAM PR SCH ×3 (08:39→20:35)
[2017-04-12] MEDS ORDERED: 1/2 NS 500 ML ONE (09:19)
--- NOTE | 2017-04-12 09:32 | CONSULTATION ---
DATE OF CONSULTATION: 04/12/2017 REFERRING PHYSICIAN: Dr. Wallace. CHIEF COMPLAINT: Weakness, GI bleed. HISTORY OF PRESENT ILLNESS: This is a 76-year-old male with past history of multiple myeloma, spinal stenosis, iron deficiency anemia, end-stage renal disease with dialysis, history DVTs, chronic diarrhea, hypertension, and neuropathy, is being evaluated in the ICU for respiratory failure and is currently on the ventilator. He continues to have loose, bloody stools. REVIEW OF SYSTEMS: Unable to obtain at this time. PAST MEDICAL HISTORY: As mentioned in HPI, otherwise noncontributory. PAST SURGICAL HISTORY: Port-A-Cath in right chest, Vas-Cath in the left chest, left forearm AV fistula, bone marrow aspiration. SOCIAL HISTORY: The patient is a former smoker. No documented history of alcohol or drug abuse. FAMILY HISTORY: Noncontributory. ALLERGIES: No known drug allergies. ACTIVE MEDICATIONS: PhosLo, daptomycin, Lanoxin, Cardizem, Anusol, Xopenex, __ cream, Calmoseptine, Solu-Medrol, Bactroban, Zofran, Protonix, Zosyn, Diprivan. PHYSICAL EXAMINATION: Vital Signs: Temperature 98.5 degrees, heart rate 54, respiratory rate 25, blood pressure 96/54, oxygen saturation 94%. General: Chronically ill- appearing, elderly male, lying in bed, intubated. Cardiovascular: S1, S2 present. Chest: Reduced entry. Abdomen: Bowel sounds present in all quadrants. Extremities: No edema noted. Neurologic: Sedated. LABS AND INVESTIGATIONS: WBC 14.57, RBCs 2.48, hemoglobin 7.2, hematocrit 22.5 , platelet count 25,000. Sodium 139, potassium 4.8, chloride 95, CO2 21, anion gap 23, BUN 101, creatinine 5, glucose 110. Blood gas reveals a pH 7.41, pCO2 of 40, PO2 of 137, HC03 25.5, saturated oxygen of 99. Chest x-ray showed stable chest. ASSESSMENT AND PLAN: This is a 76-year-old male with a past medical history as mentioned in the HPI, who was recently intubated and placed in ICU for respiratory failure. He does have Staphylococcus epidermidis bacteremia, being followed by Dr. Gunter. Also rectal bleeding and continues to have loose bloody stools. Continue IV antibiotics, dialysis for end- stage renal disease on scheduled hemodialysis. Chemotherapy is on hold for multiple myeloma. Atrial flutter, rate controlled on Cardizem. Continue current ventilator management. Gastrointestinal prophylaxis. Hold anticoagulants secondary to rectal bleeding. Also continue IV steroids and Xopenex nebulized treatments. Further recommendations pending diagnostic studies. Thank you for the courtesy of this consult. Dictated by LO Schaffer for Hany Truong MD cc: LO Schaffer MD [facility]
--- NOTE | 2017-04-12 10:19 | PROGRESS NOTE ---
DATE: 04/12/2017 SUBJECTIVE: The patient had significant change to mentation and respiratory status and required intubation yesterday and was transferred to the intensive care unit. Patient currently sedated and intubated. OBJECTIVE: Vital Signs: Temperature 98.5 degrees, pulse 54, respiratory rate 20, blood pressure 96/54. Intake 360 mL. Output 2 L. General: This is a chronically ill- appearing, elderly gentleman, resting in bed. He is currently sedated with Diprivan and mechanically ventilated. HEENT: Normocephalic and atraumatic. He is orally intubated. His pupils are pinpoint. Arcus senilis noted. Neck: Supple. There is no JVD. Cardiovascular: He is occasionally bradycardic. Irregular rhythm. Pulmonary: He has equal excursion. He has some rhonchi bilaterally. He remains mechanically ventilated. Abdomen: Soft, with positive bowel sounds. : Not inspected. Extremities: No clubbing, cyanosis, or edema. Extremities are warm. Integumentary: Skin is warm and dry. Lab Data: WBC of 14.5, hemoglobin 7.2, hematocrit 22.5, and platelet count of 25,000. Sodium 139, potassium 4.8, chloride 95, CO2 21, BUN 101, creatinine 5, calcium 6.2. Albumin 2, phosphorous 3.2. Chest x-ray this morning, increased interstitial markings bilaterally, worse on the right, suggesting interstitial edema, small right effusion unchanged. ASSESSMENT AND PLAN: 1. End-stage renal disease management. He normally dialyzes on a Wednesday, , Wednesday schedule. He did dialyze Wednesday. He is in no fluid overload. He is mildly hypotensive. We will plan to dialyze him tomorrow as per his routine unless other information obtained from pulmonology. 2. Electrolytes, acid-base balance, anemia. These are acceptable. He continues to be anemic. He is transfusion dependent. We will likely transfuse tomorrow during dialysis. 3. Bacteremia, Staphylococcus epidermidis. Follow with Dr. Gunter. He is on daptomycin after dialysis. 4. Multiple myeloma. Chemotherapy remains on hold. Dr. Swanson following. 5. Thrombocytopenia. Patient has been receiving platelets. Dictated by LO Willingham for Ranjan Beltran MD Seen, data reviewed, discussed with Michelle Weiss on 04/12/17. I agree with the above assessment and plan of care. cc: Ranjan Beltran MD [facility]ITAL[facility]av[facility]
[2017-04-12] MEDS: NS NEB INH SCH ×2 (11:37→16:06)
--- NOTE | 2017-04-12 12:07 | PROGRESS NOTE ---
DATE: 04/12/2017 OBJECTIVE: Blood pressure 101/62, heart rate of 56, respiratory rate 17, temperature 95.6 degrees, 99% on 60%.Cardiovascular: Regular rate and rhythm. Pulmonary: Bilateral breath sounds. Clear to auscultation. GI: Soft, nontender, nondistended. Bowel sounds are positive. LABORATORY DATA: Hemoglobin and hematocrit still low, 7 and 22. White count of 14, platelets of 25,000. Chemistries: BUN and creatinine are 101 and 5; that was had midnight. His troponin was mildly elevated. PROBLEM LIST: 1. Acute respiratory failure secondary to pneumonia versus sepsis. We will continue empiric treatment. Pulmonary is following; managing the vent. 2. Staphylococcus epidermidis bacteremia associated with a line infection. He is on daptomycin per Dr. Gunter. Seems to be stable. 3. Rectal bleeding. He still has a little bit of blood tinge but his platelets are low. We will continue supportive care. He is not stable enough for endoscopy at this point. 4. End-stage renal. He is being followed per nephrology. He is not on any treatment at this point. 5. Multiple myeloma. He is being followed by Dr. Swanson. 6. Anemia. I will transfuse 1 unit today just because of the shock issues and respiratory failure issues. 7. Atrial flutter. He has been having episodes where his heart rate drops into the 30s. He is currently in the 50s. I am going to hold his Cardizem for right now and follow closely. 8. Bacteroides bacteremia. 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 He is not very stable but we need to maybe work on getting his steroids down. He is currently on Zosyn which should cover for the Bacteroides. His repeat blood cultures from the I am still waiting on, but he had positive blood culture for gram-positive cocci on the . He has gram-negative darius on the so that may be related to the Bacteroides. So we will have to follow very closely. 9. Disposition. Pending resolution of his other issues. We will discuss with surgery about the intervention associated with the psoas abscesses. cc: Luke Zuniga MD
--- NOTE | 2017-04-12 12:26 | PROGRESS NOTE ---
DATE: 04/12/2017 SUBJECTIVE: The patient is noted to be now in ICU on a ventilator secondary to altered mental status and worsening respiratory failure over the weekend. OBJECTIVE: This morning, his temperature is 95.6 degrees, pulse is currently 68, blood pressure 102/62 and O2 saturation 98%. General: He appears to be somewhat arousable to pain but does not open his eyes or follow commands. Respiratory: Bilateral coarse breath sounds. GI: Soft and nondistended. Skin: He has small hematomas in his upper chest bilaterally at the removal sites of the [id number]-Sahdvwee and dialysis catheter. There does not appear to be any redness or purulence. LABORATORY: White blood cell count is 14.5, hemoglobin 7.2, platelet count 25,000. Albumin level 1.9. IMAGING: He had a CT of the chest, abdomen, and pelvis done yesterday which shows worsening pneumonia and worsening psoas fluid collections bilaterally. ASSESSMENT AND PLAN: A 76-year-old male with multiorgan failure. He is extremely frail. He likely has either hematomas or abscesses in his psoas muscles. He is not an operative candidate to drain these fluid collections. The risks for lethal bleeding is too high. I do not think his subcutaneous hematomas need any drainage. Overall his prognosis looks pretty poor. cc: Tan Javier MD
[2017-04-12] MEDS ORDERED: NS 500 ML ONE (13:14)
--- NOTE | 2017-04-12 15:19 | Diag Imaging Result Doc PS360 ---
CHEST-PORTABLE - 04/12/2017 INDICATION: ett changed out TECHNIQUE: COMPARISON: 04/12/2017 at 1736 FINDINGS: The endotracheal tube has apparently been changed. There is an endotracheal tube in good position at about T5. Stable nasogastric tube and right dialysis catheter. There is improvement in the bilateral infiltrates/edema. Stable cardiomegaly. IMPRESSION: 1. No complication from line or tube placement. 2. Improvement in the bilateral infiltrates/edema. Electronically signed by Tito De Paz 04/12/2017 3:17 PM
[2017-04-12] MEDS: SODIUM CHLORIDE 0.9% INJ SCH (17:07)
[2017-04-12] MEDS ORDERED: FLEBOGAMMA DIF 5% IV ONE (21:00)
[2017-04-12] MEDS ORDERED: NS 250 ML ONE (21:39)
--- NOTE | 2017-04-12 22:26 | PROGRESS NOTE ---
DATE: 04/12/2017 PRESENT ILLNESS: Patient is being treated for Staph epidermidis and Bacteroides fragilis bacteremia. MEDICATIONS: The patient is receiving daptomycin. This is day 7 of treatment with it and Zosyn which is day 1 of treatment for that agent. PHYSICAL EXAMINATION: Vital Signs: Temperature is 97.8 degrees, pulse 64, respirations 14, blood pressure 99/62. Generally: This is an ill-appearing, elderly male who is in no acute distress. He is intubated. He had does have some shaking spells. Lungs: Clear to auscultation. Cardiovascular: Heart rate was regular at times. At other times it was irregular. Abdomen: Soft and nontender. The patient has in the left arm an AV fistula which is not bleeding or more swollen than usual. Neck: The patient has a right internal jugular catheter. That site is not swollen either. LABORATORY AND X-RAY: The blood is growing Staph epidermidis and also Bacteroides fragilis. The chest x-ray showed improvement in the infiltrates. Repeat blood and sputum cultures are pending. The patient's IgG level is up to 572, creatinine is 5, GFR is 14. Blood gases show a pH of 7.41, a PO2 of 137, a pCO2 of 41. The patient's CBC shows a white count of 14,570, hemoglobin 7.2 and platelet count 25,000. ASSESSMENT AND PLAN: 1. The patient has bacteremia. He also has pulmonary infiltrates suggestive of pneumonia. My plan is to continue with daptomycin and Zosyn. I have also ordered another infusion of gammaglobulin hopefully to get the IgG in the normal level. 2. Comorbidities include end-stage renal disease, hemodialysis, multiple myeloma, low IgG level and very elderly. cc: Gagan Gunter MD
[2017-04-13] MEDS: DIPRIVAN 1% 1,000 MG/100 ML BOTTLE IV SCH ×4 (00:55→13:58)
[2017-04-13] MEDS: XOPENEX NEB INH SCH ×6 (03:20→23:18)
[2017-04-13] MEDS: ZOSYN 2.25 GM/NS 2.25 GM/50 ML IVPB IV SCH ×4 (04:58→23:21)
[2017-04-13] MEDS: PROTONIX IV SCH ×2 (05:00→17:19)
[2017-04-13] MEDS: SODIUM CHLORIDE 0.9% INJ SCH (05:00)
[2017-04-13 05:32] LABS: ALLEN TEST YES; BE -6.1 mmoll (-3.0-3.0); BLOOD TYPE ARTERIAL; DRAW SITE R RADIAL; METHB 1.8 % (0.0-1.5); MODALITY VENTILATOR; PCO2(98.6) 29 mmHg (35-45); PO2(98.6) 181 mmHg (60-100); SAMPLE BLOOD; SAO2 98.7 % (95.0-100.0); SRATE 12 BPM; THB 7.8 g/dL (11.5-17.4); TVOL 500 mL
--- NOTE | 2017-04-13 05:54 | Diag Imaging Result Doc PS360 ---
EXAM: CHEST-PORTABLE HISTORY: respiratory failure TECHNIQUE: COMPARISON: 04/12/2017. FINDINGS: No change in the right jugular line, the endotracheal tube, or in the nasogastric tube. There are bilateral infiltrates. The heart remains enlarged. I believe there are small pleural effusions. IMPRESSION: No interval improvement. Electronically signed by Gauragn Sweeney 04/13/2017 5:51 AM
[2017-04-13 06:25] LABS: ALBUMIN 1.9 g/dL (3.5-5.0); HEMATOCRIT 24.6 % (42.0-52.0); MCH 29.5 PG (27-31); MCHC 32.5 g/dL (33-37); MCV 90.8 FL (81-99); MPV 10.9 FL (7.4-10.4); POTASSIUM 5.4 mmol/L (3.5-5.1); RBC 2.71 XMIL (4.7-6.1)
[2017-04-13] MEDS ORDERED: CALCIUM GLUCONATE 1 GM in NS 50 ML IV ONE (06:45)
[2017-04-13] MEDS ORDERED: HEPARIN ONE (07:17)
[2017-04-13] MEDS ORDERED: NS 2,000 ML ONE (07:17)
[2017-04-13] MEDS: NS NEB INH SCH ×2 (07:25→11:12)
[2017-04-13] MEDS: ANUSOL-HC CREAM PR SCH ×2 (08:26→21:21)
[2017-04-13] MEDS: PHOSLO PO SCH ×3 (08:26→16:07)
--- NOTE | 2017-04-13 08:40 | PROGRESS NOTE ---
DATE: 04/13/2017 SUBJECTIVE: He remains sedated on the ventilator. OBJECTIVE: Vital Signs: Blood pressure 97/55, heart rate 80, respirations 16, afebrile. Intake 2.2 L. Output 0. Physical Examination: General: Elderly man, sedated on the ventilator. No distress. Skin: Warm and dry. HEENT: Conjunctivae are pink. Neck: Neck veins are not visible. Trachea is midline. Heart: Regular without gallops. Lungs: Have equal breath sounds. No crackles. Integumentary: He has hematomas at both surgery sites. Abdomen: Soft and nontender. Bowel sounds are present. Extremities: Have trace to 1+ edema. No clubbing or cyanosis. Laboratory Data: Sodium 135, potassium 5.4, chloride 91, bicarbonate 17, BUN 125, creatinine 6.1. Hemoglobin 8. IMPRESSION: 1. End-stage kidney disease: He will be treated using SLED today for 8 hours with a 4 potassium bath, 27 bicarb, goal of 3-4 L as his blood pressure allows. 2. Electrolytes: Modest hyperkalemia that will be addressed with dialysis. 3. Acid-base: Modest metabolic acidosis that also will be addressed with dialysis. 4. Anemia in target. 5. Pneumonia/respiratory failure. Continue antibiotics and ventilator support. 6. Multiple myeloma. 7. Malnutrition. 8. Staphylococcus epidermidis bacteremia. Repeat blood cultures have also grown Bacteroides fragilis and his most recent blood culture from the is still growing Gram-positive cocci. Blood cultures collected on the , which are after surgery, are actually growing gram- negative rods. He is still on daptomycin and Zosyn, and has received IVIG. Poor prognosis. cc: Ranjan Beltran MD
[2017-04-13] MEDS: SOLU-MEDROL IV SCH ×2 (11:57→23:22)
--- NOTE | 2017-04-13 12:17 | PROGRESS NOTE ---
DATE: 04/13/2017 SERVICE: Hematology/Oncology service. SUBJECTIVE: Mr. Moore is intubated and sedated in the ICU. He has a cousin at bedside. He appears to be comfortable. VITAL SIGNS: Temperature 98.2 degrees, heart rate 83, respirations 13, blood pressure 105/62, and O2 saturation is 100% on mechanical vent set at 50% oxygen flow. LABS: White blood cells are 13.13, hemoglobin 8.0, hematocrit 24.6, platelets 36. Sodium 135, potassium 5.4, chloride 91, CO2 17, BUN 125, creatinine 6.1, glucose 149. PHYSICAL EXAM: CV: The rate is controlled. S1 and S2 heard. Respiratory: Mechanical vent sounds. Rhonchi bilaterally anteriorly throughout. Gastrointestinal: Abdomen is soft. Mild distention. Extremities: The patient has no pedal edema noted. ASSESSMENT AND PLAN: 1. Refractory relapsed multiple myeloma. Treatment is currently on hold. 2. Persistent bacteremia. Most recent blood cultures drawn on 04/11/2017 and are now growing gram-negative rods. Dr. Gunter, infectious disease, is on the case and is managing the patient's intravenous antibiotics. The patient is status post removal of all indwelling catheters due to previously persistent Staphylococcus bacteremia. 3. Sepsis. The patient is on intensive care unit intubated. Pulmonology was involved. 4. End-stage renal disease on hemodialysis. Continue management per Dr. Beltran. 5. Hyperkalemia. As per Dr. Beltran, mild. 6. Anemia and thrombocytopenia, secondary to #1. Counts are overall stable. Continue to monitor. 7. Atrial flutter. Rate currently controlled. As per cardiology. Dictated by MING La for Leticia Swanson MD cc: Leticia Swanson MD
[2017-04-13] MEDS: CUBICIN (FOR INPATIENT USE) 500 MG in NS 100 ML IV SCH (16:06)
[2017-04-13 17:36] LABS: ALLEN TEST NO; BE 1.2 mmoll (-3.0-3.0); BLOOD TYPE ARTERIAL; METHB 1.2 % (0.0-1.5); O2(CT) 12.3 mL/dL (15.0-23.0); PCO2(98.6) 34 mmHg (35-45); PO2(98.6) 122 mmHg (60-100); SAMPLE BLOOD; SAO2 98.9 % (95.0-100.0); THB 8.9 g/dL (11.5-17.4); pH(98.6) 7.47 (7.35-7.45)
[2017-04-13 17:37] LABS: MODALITY VENTILATOR
[2017-04-13 17:38] LABS: DRAW SITE R BRACHIAL
--- NOTE | 2017-04-13 19:41 | PROGRESS NOTE ---
DATE: 04/13/2017 PRESENT ILLNESS: The patient has a Staph epidermidis bacteroides bacteremia and a Gram-negative darius bacteremia. The patient's latest chest x-ray shows bilateral infiltrates which have not changed. MEDICATIONS: The patient currently is receiving daptomycin for the 8th day and Zosyn for the 2nd day. PHYSICAL EXAMINATION: Vital Signs: Temperature is 98 degrees, pulse 69, respirations 15, blood pressure 88/57. General: This is an ill-appearing, elderly male. He is in no acute distress. He has been extubated. He looks comfortable in bed. Lungs: Clear to auscultation. Cardiovascular: Regular heart rate. Abdomen: Soft and nontender. The patient has a right internal jugular catheter and an AV fistula in the left arm. Both sites are not swollen or draining. LABORATORY AND X-RAY STUDIES: Blood gases have a pH of 7.47, a PO2 of 122, pCO2 of 34. Creatinine 6.1. GFR is 11. ASSESSMENT AND PLAN: 1. Patient has bacteremia and pneumonia. My plan is to continue with daptomycin and Zosyn. 2. Comorbidities include end-stage renal disease, hemodialysis, multiple myeloma, low IgG level and the fact the patient is elderly. cc: Gagan Gunter MD
[2017-04-14] MEDS: XOPENEX NEB INH SCH ×6 (03:55→23:21)
[2017-04-14 04:41] LABS: ALLEN TEST YES; BE -0.9 mmoll (-3.0-3.0); BLOOD TYPE ARTERIAL; DRAW SITE R RADIAL; METHB 1.1 % (0.0-1.5); O2(CT) 11.9 mL/dL (15.0-23.0); PCO2(98.6) 35 mmHg (35-45); PO2(98.6) 76 mmHg (60-100); SAMPLE BLOOD; SAO2 97.2 % (95.0-100.0); THB 8.9 g/dL (11.5-17.4); pH(98.6) 7.43 (7.35-7.45)
[2017-04-14 04:42] LABS: MODALITY COOL AEROSOL
[2017-04-14] MEDS: PROTONIX IV SCH ×2 (05:08→19:02)
[2017-04-14] MEDS: SODIUM CHLORIDE 0.9% INJ SCH (05:08)
[2017-04-14] MEDS: ZOSYN 2.25 GM/NS 2.25 GM/50 ML IVPB IV SCH ×4 (05:09→22:47)
[2017-04-14 05:29] LABS: HEMATOCRIT 26.2 % (42.0-52.0); HEMOGLOBIN 8.3 g/dL (14.0-18.0); MCH 29.6 PG (27-31); MCHC 31.7 g/dL (33-37); MCV 93.6 FL (81-99); MPV 10.2 FL (7.4-10.4); RBC 2.8 XMIL (4.7-6.1)
[2017-04-14 05:55] LABS: POTASSIUM 5.7 mmol/L (3.5-5.1)
--- NOTE | 2017-04-14 07:26 | Diag Imaging Result Doc PS360 ---
EXAM: CHEST-PORTABLE INDICATION: respiratory failure TECHNIQUE: One view COMPARISON: 04/13/2017 FINDINGS: Right vas catheter is stable. There is been an interval extubation and removal of the NG tube. Bilateral infiltrates, most prominent at the right lower lung zone are again noted. There are approximately stable given slight differences in inspiration. No new consolidations are identified. Cardiac silhouette is stable. IMPRESSION: Interval extubation and removal of the NG tube. Otherwise, essentially stable. Electronically signed by Greg Yates 04/14/2017 7:24 AM
[2017-04-14] MEDS ORDERED: HEPARIN ONE (07:32)
[2017-04-14] MEDS ORDERED: NS 2,000 ML ONE (07:32)
--- NOTE | 2017-04-14 08:27 | PROGRESS NOTE ---
DATE: 04/14/2017 SUBJECTIVE: He is off the ventilator. He is alert and talking. No nausea or vomiting. Denies shortness of breath. OBJECTIVE: Vital Signs: Blood pressure 109/63, heart rate 81, respirations 16, afebrile. Intake 500 mL. Output 4.3 L. General: No acute distress. Chronically ill. Skin: Warm and dry. Conjunctivae are pink. Neck: Neck veins are distended. Trachea is midline. Heart: Regular. Lungs: Have equal breath sounds with few scattered crackles. Abdomen: Soft, nontender. Bowel sounds present. Extremities: Have trace edema. No clubbing or cyanosis. IMPRESSION: 1. End-stage kidney disease. Still with some evidence of clinical volume overload. We will perform SLED today with a goal of 4 L ultrafiltration. 2. Electrolytes: A 3K bath on SLED today. 3. Acid base, in target. 4. Anemia, stable. 5. Bacteremia/pneumonia. Continue current antibiotics. cc: Ranjan Beltran MD
--- NOTE | 2017-04-14 10:41 | PROGRESS NOTE ---
DATE: 04/14/2017 SUBJECTIVE: Today Mr. Moore refers to be doing a whole lot better. He was successfully extubated yesterday. He is actually wants something to eat. OBJECTIVE: Vital signs: Blood pressure is 106/63, pulse of 82, respirations 17, temperature 98.5 degrees. General: Mr. Moore is a 76-year-old male. He is in bed. He did not seem to be in any remarkable distress. HEENT: Mucosa is pink and moist. Anicteric. Acyanotic. Neck: Supple. There is a right IJ dialysis catheter in place. Chest wall: There is a bilateral upper anterior chest wall minimal swelling where he had the port and also a dialysis access which have been removed. Chest: Air entry is bilaterally reduced. A few bibasilar crepitations. Cardiovascular: Regular rate and rhythm. I did not appreciate any murmurs. Abdomen: Soft. No hepatosplenomegaly. Extremities: No pedal edema. 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 Able to follow some basic commands. There is no focal neurological deficit. LABORATORY DATA: WBC is 10.71, hemoglobin is 8.3, platelet count is 24,000. Sodium is 138, potassium is 5.7, chloride 100, bicarb is 22, creatinine 3.0. Review of patient's microbiology. Blood culture is still positive for gram-negative rods which was drawn on 04/11/2017. A recent CT scan of the abdomen and pelvis which was done on April 11 shows worsening pneumonia, worsening right psoas fluid collection bilaterally that may represent abscess, possible congestive changes in the liver. An echocardiogram done during the hospital stay also has revealed an ejection fraction of 25 to 30%. ASSESSMENT AND PLAN: 1. Acute hypoxemic respiratory failure secondary to pneumonia. Patient was under the ventilator. Was successfully extubated yesterday. Seems to be doing a whole lot better. 2. Multifocal pneumonia, worse on the right. Patient is currently on antibiotics. He is being also followed up by Dr. Gunter. 3. Gram-negative darius bacteremia. This seems to have been hospital acquired. The patient came in with a Staphylococcus epidermidis bacteremia. That seems to have been cleared. However, blood culture on the is showing gram-negative darius. We will repeat this today to see if this has also been cleared. 4. End-stage renal disease. Patient is on dialysis. 5. History of multiple myeloma. 6. Thrombocytopenia. Likely due to underlying sepsis as well as hematological malignancy. Patient is being followed up by hematology/oncology and there is a plan for platelet transfusion day. 7. Nutritional needs. Now that the patient has been successfully extubated we are going to do a swallow evaluation to see how much he can tolerate and then we will go from there. The patient will probably also need to get IDPN during dialysis to help with the caloric intake. 8. Congestive heart failure. Ejection fraction of 25 to 30% noted. 9. Bilateral psoas abscess, right more than left. Patient has been evaluated by surgery and not a good candidate now for any surgical intervention. I wonder if the etiology is the same gram- negative darius. cc: Matt Levine MD
[2017-04-14] MEDS: ANUSOL-HC CREAM PR SCH ×2 (10:46→21:51)
[2017-04-14] MEDS ORDERED: NS 250 ML ONE (10:55)
[2017-04-14] MEDS ORDERED: NS 250 ML IV SCH (10:59)
[2017-04-14] MEDS: PHOSLO PO SCH ×3 (11:30→17:35)
[2017-04-14] MEDS: SOLU-MEDROL IV SCH ×2 (11:31→22:17)
--- NOTE | 2017-04-14 18:24 | PROGRESS NOTE ---
DATE: 04/14/2017 PRESENT ILLNESS: The patient has the following infections, Staph epidermidis and Bacteroides fragilis bacteremia. Chest x-ray showing bilateral infiltrates which could well be due to pneumonia and the patient's most recent current finding of bilateral psoas fluid which could well be abscesses. MEDICATIONS: This is day 8 for receiving daptomycin and day 3 for receiving Zosyn. PHYSICAL EXAMINATION: Vital Signs: Temperature is 98 degrees, pulse 79, respirations 21, blood pressure 99/58. Generally: This is an ill-appearing, elderly male who is in no acute distress. He is extubated. He ate a large meal today. Right now, he is sleeping. Lungs : Clear to auscultation. Cardiovascular: Heart rate is irregular. Abdomen: Soft but slightly distended. Neck: The patient has a right internal jugular catheter in place. That site is not swollen or draining. Extremities: The patient's left arm has a functioning AV fistula. Chest: The chest shows 2 hematomas where the intravascular catheters were removed. LAB AND X-RAYS: CBC today shows a white count 18242, hemoglobin 8.3 and platelet count 24,000. Blood gases show a pH of 7.43, a PO2 of 76 and a pCO2 of 35. Creatinine is 3. GFR is 25. ASSESSMENT AND PLAN: Patient has bacteremia and pneumonia, chest wall hematomas and probable psoas abscesses. My plan is to continue his antibiotics. COMORBIDITIES: Include end-stage renal disease, hemodialysis, multiple myeloma , low IgG level and the patient is elderly. cc: Gagan Gunter MD [facility] HOSPITALRavinder
[2017-04-14] MEDS: CUBICIN (FOR INPATIENT USE) 500 MG in NS 100 ML IV SCH (21:52)
[2017-04-15] MEDS: XOPENEX NEB INH SCH ×6 (04:00→23:05)
[2017-04-15 04:40] LABS: ALLEN TEST YES; BLOOD TYPE ARTERIAL; DRAW SITE R RADIAL; O2(CT) 11.4 mL/dL (15.0-23.0); PCO2(98.6) 29 mmHg (35-45); PO2(98.6) 68 mmHg (60-100); SAMPLE BLOOD; SAO2 96.9 % (95.0-100.0); THB 8.6 g/dL (11.5-17.4); pH(98.6) 7.47 (7.35-7.45)
[2017-04-15 04:41] LABS: MODALITY CANNULA
[2017-04-15] MEDS: CALMOSEPTINE OINTMENT TOP PRN (05:04)
[2017-04-15] MEDS: ZOSYN 2.25 GM/NS 2.25 GM/50 ML IVPB IV SCH ×4 (05:04→23:00)
[2017-04-15] MEDS: PROTONIX IV SCH (05:04)
[2017-04-15] MEDS: SODIUM CHLORIDE 0.9% INJ SCH (05:05)
[2017-04-15 05:10] LABS: HEMATOCRIT 20.6 % (42.0-52.0); HEMOGLOBIN 6.5 g/dL (14.0-18.0)
[2017-04-15 05:18] LABS: ALBUMIN 2.1 g/dL (3.5-5.0); CALCIUM 7.2 mg/dL (8.8-10.2); POTASSIUM 4.8 mmol/L (3.5-5.1)
[2017-04-15 05:50] LABS: HEMATOCRIT 20.6 % (42.0-52.0); HEMOGLOBIN 6.5 g/dL (14.0-18.0); MANUAL DIFF NEEDED? YES; MCH 29.4 PG (27-31); MCHC 31.6 g/dL (33-37); MCV 93.2 FL (81-99); MPV 10.8 FL (7.4-10.4); PLT 49 X1000 (130-400); RBC 2.21 XMIL (4.7-6.1)
[2017-04-15 07:17] LABS: BANDS 2 % (0-1); LYMPHS 38 % (21-51); MONO 8 % (1-9); NRBC 7 % (0-0)
--- NOTE | 2017-04-15 07:35 | Diag Imaging Result Doc PS360 ---
EXAM: CHEST-PORTABLE - 04/15/2017 HISTORY: respiratory failure TECHNIQUE: Portable chest 0500 COMPARISON: 04/14/2017 FINDINGS: Central venous catheter remains in place. Heart size appears upper normal. There is been interval decrease in infiltrate or atelectasis at the right base. There is mild residual atelectasis at the right base. Interstitial markings elsewhere appear less prominent compared to prior. Interstitial markings at the left base remain mildly prominent. There is apparent mild skinfold artifact over the lateral left mid chest. There is no pneumothorax identified. IMPRESSION: Decrease in right basilar opacity. Mild residual atelectasis at right base. Overall decrease in interstitial opacities. Electronically signed by Eagle Morrow 04/15/2017 7:33 AM
--- NOTE | 2017-04-15 08:29 | PROGRESS NOTE ---
DATE: 04/15/2017 SUBJECTIVE: He is somnolent today, but he will answer my questions. He denies new complaints. Denies nausea. OBJECTIVE: Vital Signs: Blood pressure 88/53, heart rate 92, respirations 20, afebrile. Intake 1 L. Output 4 L. General: On physical exam, no acute distress. Skin: Warm and dry. Eyes: Conjunctivae are pink. Neck: Neck veins are not distended. Heart: Regular. Lungs: Equal. No crackles. Abdomen: Soft, nontender. Bowel sounds present. Extremities: Have 1+ edema. No clubbing or cyanosis. LAB DATA: Sodium 141, potassium 4.8, chloride 105, bicarbonate 20, BUN 30, creatinine 2.2. Hemoglobin 6.5. IMPRESSION: 1. End-stage kidney disease. No dialysis today. 2. Bacteremia. Most recent cultures are negative thus far. 3. Electrolytes/acid base. Both in target. 4. Anemia. He will need 1 unit of packed red blood cells today. Dr. Swanson seems to be addressing this, so I will defer. cc: Ranjan Beltran MD
[2017-04-15] MEDS: PHOSLO PO SCH ×3 (08:47→18:16)
[2017-04-15] MEDS: ANUSOL-HC CREAM PR SCH ×2 (08:48→22:38)
[2017-04-15 09:52] LABS: RETIC% 1.03 % (0.8-2.1)
--- NOTE | 2017-04-15 10:29 | PROGRESS NOTE ---
DATE: 04/15/2017 SUBJECTIVE: Today, Mr. Moore refers to be doing a lot better. He does not have any complaints. I saw him. He was actually eating his breakfast. The and another family member were in the room at the time of the encounter. OBJECTIVE: Vital Signs: Blood pressure is 83/56, pulse of 92, respirations are 20, temperature is 99.5 degrees. General Examination: Mr Moore is a 76-year-old, male. He was in bed. He did not seem to be in any remarkable distress. HEENT: Mucosa is slightly pale. Anicteric and acyanotic. Neck: Supple. Chest: Good air entry bilateral. A few bibasilar posterior crepitations. There is an IJ dialysis catheter in the right. Cardiovascular: Regular rate and rhythm. No murmurs. No rubs. Abdomen: Soft. No hepatosplenomegaly. Extremities: No pedal edema. 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 There is not any focal neurological deficit. Laboratory Data: WBC is 26.61, hemoglobin is 6.5, platelet count is 49,000. There is 30% of bands and 38% of lymphocytes but there is 20% of unidentified cells. Sodium is 141, potassium is 4.8, chloride is 105, bicarb is 20, creatinine is 2.2. Blood cultures so far, drawn yesterday, show no growth. ASSESSMENT: 1. Acute hypoxemic respiratory failure secondary to pneumonia and Pleural effusions. Patient is status post successful extubation. Today is day 2 postextubation. 2. Multifocal pneumonia, right more than left. The patient is on intravenous Zosyn and daptomycin, and being followed up by Dr. Gunter. 3. Bacteremia. Initially, patient's blood culture grew Staphylococcus epidermidis. Subsequently, it continues to grow Bacteroides fragilis, even up to 1 of the blood cultures that was drawn on 04/11/2017. There is 1 one yesterday which is still pending on the report to see what is growing and if at all is completely negative. 4. End-stage renal disease. Patient is on hemodialysis. Being followed by Dr. Beltran. 5. History of multiple myeloma, kappa predominant. Follows up with Dr. Swanson. 6. Bicytopenia (anemia with thrombocytopenia) with remarkable leukocytosis predominant. There is 20% of unidentified cells. I am not sure if this is a form of a leukemic cells. Patient is being followed by hematology/oncology. He is going to get a blood transfusion, a unit of blood P-RBC transfusion. We will keep a close eye on his numbers. He might eventually end up needing a bone marrow biopsy. 7. Congestive heart failure with Severe Dilated Cardiomyopathy. Ejection fraction of 25-30% is noted. Possible underlying coronary artery disease. 8. Bilateral psoas abscess, right more than left. Surgery is on board. Patient has been declared a nonsurgical candidate. 9. Hx refractory Multiple Myeloma PLAN: In general, Mr. Moore seems to be clinically stable. However, this morning, as I said, his hemoglobin went down to 6.5. He has gotten a unit of transfusion. There is also about 20% of unidentified cells and I am concerned if these are leukemic type of cells/ he is being followed jointly with hematology/oncology and will be pending their further recommendations on that. For now, we will continue with the current IV antibiotics. The patient is tolerating his diet. We will continue also the shakes and the supplement to improve on his nutritional status. We will keep him in the ICU another 24 hours because of his borderline low hypotension and his abnormal CBC this morning. cc: Matt Levine MD MTDD
[2017-04-15] MEDS: SOLU-MEDROL IV SCH (11:37)
[2017-04-15] MEDS: NS NEB INH SCH (11:54)
[2017-04-16] MEDS: XOPENEX NEB INH SCH ×6 (03:31→23:32)
[2017-04-16 04:33] LABS: ALLEN TEST YES; BE -7.8 mmoll (-3.0-3.0); BLOOD TYPE ARTERIAL; DRAW SITE R RADIAL; METHB 0.8 % (0.0-1.5); O2(CT) 9.5 mL/dL (15.0-23.0); PCO2(98.6) 27 mmHg (35-45); PO2(98.6) 72 mmHg (60-100); SAMPLE BLOOD; SAO2 97.1 % (95.0-100.0); pH(98.6) 7.39 (7.35-7.45)
[2017-04-16 04:35] LABS: MODALITY CANNULA
[2017-04-16 05:19] LABS: EOS# 0.01 X1000 (0.0-0.7); HEMATOCRIT 19.6 % (42.0-52.0); HEMOGLOBIN 6.5 g/dL (14.0-18.0); MANUAL DIFF NEEDED? YES; MCH 29.8 PG (27-31); MCHC 33.2 g/dL (33-37); MCV 89.9 FL (81-99); MPV 10.7 FL (7.4-10.4); RBC 2.18 XMIL (4.7-6.1)
[2017-04-16 05:21] LABS: PLT 26 X1000 (130-400)
[2017-04-16 05:42] LABS: CALCIUM 7.1 mg/dL (8.8-10.2); POTASSIUM 4.7 mmol/L (3.5-5.1)
[2017-04-16] MEDS: ZOSYN 2.25 GM/NS 2.25 GM/50 ML IVPB IV SCH ×4 (06:37→18:42)
[2017-04-16 06:56] LABS: BANDS 10 % (0-1); BASO 2 % (0-1); LYMPHS 20 % (21-51); MONO 8 % (1-9); NRBC 3 % (0-0)
[2017-04-16] MEDS: PROTONIX PO SCH (07:13)
[2017-04-16] MEDS: PHOSLO PO SCH ×3 (07:14→17:21)
[2017-04-16] MEDS ORDERED: NS 2,000 ML ONE (08:32)
[2017-04-16] MEDS: LEVOPHED 8 MG in D5 1/2 NS 250 ML IV SCH (09:18)
--- NOTE | 2017-04-16 09:44 | PROGRESS NOTE ---
DATE: 04/16/2017 SUBJECTIVE: The patient is resting in bed. He will arouse, but no acute distress. OBJECTIVE: Vital Signs: Temperature 98.1 degrees, pulse 100, respiratory rate 20. Blood pressure has ranged anywhere from systolic of 70 to systolic of 108. Currently he was 78 on the monitor. Intake 3.1 L; output not measured. General: This is an acutely ill-appearing gentleman resting in bed. He is somewhat somnolent, but he will wake up and interact. HEENT: Normocephalic, atraumatic. Conjunctivae pink. Oral mucosa moist. Neck: Supple. No JVD. Cardiovascular: Tachycardic on the monitor. Occasional PVCs noted. Pulmonary: Equal excursion. He is clear bilaterally. Abdomen: Soft with positive bowel sounds. : Not inspected. Extremities: Trace to 1+ pretibial edema. No clubbing or cyanosis. Integumentary: Skin is thin, warm and dry. LAB DATA: WBC of 20.5, hemoglobin 6.5, platelets of 26. Sodium 141, potassium 4.7, CO2 15, BUN 56, creatinine 3.8 and calcium 7.1. ASSESSMENT AND PLAN: 1. End-stage renal disease management. Today is his routine dialysis day. Does not appear that his blood pressure will tolerate regular hemodialysis. Therefore, we will place him on slow, low efficiency dialysis with a goal of 2-4 L as tolerated, although his blood pressure may limit fluid removal, routine treatment time. We will hold his heparin secondary to his platelet count being 26. 2. Anemia. We will give a unit of blood on dialysis today. He is followed by hematology/oncology. We will defer otherwise to her. 3. Bacteremia followed by primary. 4. Electrolytes, acid-base balance. Again, we will address with dialysis. Dictated by LO Willingham for Ranjan Beltran MD cc: Ranjan Beltran MD
--- NOTE | 2017-04-16 10:01 | PROGRESS NOTE ---
DATE: 04/16/2017 SUBJECTIVE: The patient today refers to be doing a little better. Denies any acute complaints, except that he feels extremely tired. He was able to eat part of his breakfast this morning. According to him, he is also having regular bowel movements. OBJECTIVE: Vital signs: Blood pressure is 108/69, pulse of 87, respirations 22 , temperature is 98.9 degrees. Patient is saturating 93% to 95% on 2 L of oxygen. General exam : Mr. Moore is a 76-year-old, male. He is in bed in mild respiratory distress. HEENT: Mucosa is pale. Anicteric and acyanotic. Neck: Supple. Chest: There are 2 mild hematomas over the anterior upper chest wall. Air entry is bilaterally reduced. A few bibasilar crepitations. Cardiovascular: Regular rate and rhythm. There is also a right IJ dialysis catheter. Abdomen: Soft, distended, but nontender. Bowel sounds are present. Extremities: No pedal edema. 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 Follows some basic commands. No focal neurological deficit. LABORATORY DATA: WBC is down to 20.57, hemoglobin is 6.5, platelet count is 26. There are 28% unidentified cells. Chemistry is reviewed consistent with end-stage renal disease with metabolic acidosis. The blood culture yesterday shows gram-positive cocci 1 out of 2. ASSESSMENT: 1. Acute hypoxemic respiratory failure secondary to pneumonia. Pleural effusions, stable. Patient is day 3 post extubation maintaining adequate oxygenation on nasal cannula and we are treating the underlying diseases. 2. Multifocal pneumonia, right more than left. The patient is currently on Zosyn and daptomycin being followed by Dr. Gunter. 3. Bacteremia. The patient has grown different types with bouts at different times. She is currently being covered for both gram-positive, gram-negatives and anaerobes. Dr. Gunter is on board. 4. End-stage renal disease on hemodialysis. 5. Bicytopenia with remarkable leukocytosis. There are 28% of unidentified cells. This morning I called the Hematology Department, and they think it is likely all due to plasma cells. 6. Refractory and multiple myeloma. Hematology/oncology is on board. 7. Congestive heart failure with severe dilated cardiomyopathy. Ejection fraction is 35% to 20% likely due to underlying coronary artery disease. 8. Bilateral psoas abscess, right more than left. Surgery is on board. The patient has been evaluated to be nonsurgical. 9. Protein calorie malnutrition. Patient is getting Nepro supplementation. Poor prognosis. The patient does have end-stage renal, end-stage cardiac and refractory multiple myeloma. Altogether, this makes him to have poor prognosis. On top of this, he did have multiple episodes of bacteremia and is currently being treated for active pneumonia. The blood count is very low today and so will give him a unit of blood. Platelet is also low, but patient does not have any acute signs of bleeding, so will keep eye on that. Will transfuse if it goes below 20 or if hem/onc recommends otherwise. cc: Matt Levine MD MTDD
[2017-04-16] MEDS: ANUSOL-HC CREAM PR SCH ×2 (10:17→21:27)
[2017-04-16] MEDS: CALMOSEPTINE OINTMENT TOP PRN ×2 (10:18→17:26)
--- NOTE | 2017-04-16 12:50 | PROGRESS NOTE ---
DATE: 04/16/2017 SUBJECTIVE FINDINGS: Mr. Moore reports that he is tired today. He is sitting up in his bed with his at bedside. VITAL SIGNS: Temperature 97.6 degrees, heart rate 98, respirations 18, blood pressure 96/61, O2 saturation 94% on 2 L nasal cannula. LABORATORY: White blood cells 20.57, hemoglobin 6.5, hematocrit 19.6, platelets 26. Sodium 141, potassium 4.7, chloride 108, CO2 15, BUN is 56, creatinine 3.8, glucose 109, LDH 250. PHYSICAL EXAMINATION: Cardiovascular: Irregular rhythm. Rate controlled. Respiratory: Coarse breath sounds bilaterally. Gastrointestinal: Abdomen is soft. Nondistended. Positive bowel sounds. Musculoskeletal: Patient has some trace edema x4 extremities. Neurologic: Patient is not oriented. He is alert. He seems agitated. ASSESSMENT AND PLAN: 1. Refractory relapse multiple myeloma. Treatment currently on hold. 2. Anemia. Patient is receiving 2 units of irradiated packed red blood cells with dialysis today. Continue to monitor and continue to transfuse as needed. 3. Thrombocytopenia. His platelets are down to 26 today. He continues to have melanotic stools. No khurram blood today. We will go ahead and give him 1 unit of irradiated platelets due to his ongoing bleeding. 4. Leukocytosis. This is likely secondary to infection, as well as his current steroid use. We will continue to monitor. 5. Positive blood cultures times 1, persistent bacteremia. The patient has 1 bottle growing gram- positive cocci. He is currently on daptomycin. Further management per Dr. Gunter. Await full culture and sensitivity. 6. Altered mental status. It appears to have started since being put on hemodialysis. It seems to resolve after he is off of hemodialysis. Monitor closely. Dictated by MING La for Leticia Swanson MD cc: Leticia Swanson MD
[2017-04-16] MEDS ORDERED: TYLENOL PO ONE (13:38)
[2017-04-16] MEDS: CUBICIN (FOR INPATIENT USE) 500 MG in NS 100 ML IV SCH (14:44)
[2017-04-16] MEDS ORDERED: BENADRYL IV ONE (14:58)
[2017-04-16] MEDS: LEVAQUIN 250 MG/D5W 250 MG/50 ML IVPB IV SCH (15:51)
--- NOTE | 2017-04-16 15:52 | PROGRESS NOTE ---
DATE: 04/16/2017 SUBJECTIVE: This afternoon I was called multiple times by the attending nurse for Mr. Moore because of decline in his clinical picture. He is now getting feverish and is getting hypotensive. He is on pressors. I went there to see him. He was shivering, he is clenching his teeth. He feels like he is having chills. OBJECTIVE: His temperature was 104 degrees, and he is currently hypotensive with a blood pressure of 88/60, heart rate is 121. ASSESSMENT: Mr. Moore is having septic shock. Not quite sure if it is all related to the abscess in the psoas muscle or the pneumonia. He is currently on daptomycin and Zosyn. I will add levofloxacin to that. I will also give him a dose of micafungin just to cover for antifungal since he has been in the hospital for a very long time and has multiple infection and antibiotics on board. I think in general Mr. Moore's condition is deteriorating. I explained to the that Mr. Moore is deteriorating and that he might probably end up under the vent, and needing CPR and resuscitation. We discussed all that, and at this point, she wants to go ahead and discuss with the family members, so Mr. Moore continues to be full code. She gave me a number to call Dr. Bhumika Byrnes in [place], the number was [phone], which I did. I spoke with his office manger, and she is going to get in touch with Dr. Byrnes and they will call me back. And the reason is the wants to know from Dr. Byrnes if there is anything else that he will be able to offer him. If there is, then she would prefer Mr. Moore to be transferred to [place]. I am still waiting on a call from Dr. Byrnes. In general I think Mr. Moore is critical and his condition can exponentially deteriorate overnight. Dr Byrnes called back later. He is willing to see patient but he thinks patient is too unstable for transfer. will see him if patient gets stronger. CRITICAL CARE TIME SPENT: Forty-five minutes. cc: MD NOHEMY White
[2017-04-16] MEDS ORDERED: MYCAMINE 100 MG in NS 100 ML IV ONE (16:00)
--- NOTE | 2017-04-16 17:21 | PROGRESS NOTE ---
DATE: 04/16/2017 PRESENT ILLNESS: The patient has the following infections: Staph epidermidis and Bacteroides fragilis bacteremia. Chest x-ray which shows pulmonary infiltrates that could be due to pneumonia and he also has bilateral psoas muscle fluid which could be abscesses as well. Today the patient spiked a very high fever up to 104. The patient also today has had a marked increase in his diarrhea. The patient also has a very low IgG level. MEDICATIONS: This is day 10 for receiving daptomycin and day 5 for receiving Zosyn. PHYSICAL EXAMINATION: Vital Signs: Temperature was 104, now it is 102.7. Pulse 119, respirations 17, blood pressure 96/61. Neurologic: The patient is arousable and is able to communicate by talking. Lungs: Clear to auscultation. Cardiovascular: Regular and rapid heart rate. Abdomen: Soft and nontender. Neck: Patient has an internal jugular catheter in the neck. The site is not swollen or purulent. The patient in his left arm has an AV fistula for dialysis. That site is not swollen or draining either. LAB AND X-RAYS: Chest x-ray shows a decrease in the right lower lobe infiltrate. Blood cultures are growing gram positive cocci. ASSESSMENT AND PLAN: I am going to continue daptomycin and Zosyn. I agree with Dr. Levine adding Levaquin and micafungin. I have ordered a stool for Clostridium difficile. Patient has bacteremia pneumonia, probable psoas abscesses and continued positive blood cultures. The plan is as mentioned above, continue daptomycin and Zosyn. I agree with Dr. Levine adding Levaquin and micafungin. I have ordered a stool for Clostridium difficile toxin. COMORBIDITIES: Include end-stage renal disease, hemodialysis, multiple myeloma, low IgG which has been replenished and the fact the patient is elderly. cc: Gagan Gunter MD
[2017-04-17] MEDS: LEVOPHED 8 MG in D5 1/2 NS 250 ML IV SCH ×2 (01:03→14:51)
[2017-04-17] MEDS: ZOSYN 2.25 GM/NS 2.25 GM/50 ML IVPB IV SCH ×4 (01:07→18:35)
[2017-04-17] MEDS: XOPENEX NEB INH SCH ×6 (03:11→22:51)
[2017-04-17 06:35] LABS: CALCIUM 7.2 mg/dL (8.8-10.2); POTASSIUM 4.2 mmol/L (3.5-5.1)
[2017-04-17 06:46] LABS: HEMATOCRIT 24.1 % (42.0-52.0); HEMOGLOBIN 8.1 g/dL (14.0-18.0); MANUAL DIFF NEEDED? YES; MCH 29.8 PG (27-31); MCHC 33.6 g/dL (33-37); MCV 88.6 FL (81-99); MPV 11.3 FL (7.4-10.4); PLT 48 X1000 (130-400); RBC 2.72 XMIL (4.7-6.1)
[2017-04-17] MEDS: PROTONIX PO SCH (06:46)
[2017-04-17 07:30] LABS: BANDS 2 % (0-1); LYMPHS 20 % (21-51); MONO 2 % (1-9); NRBC 10 % (0-0)
[2017-04-17] MEDS: PHOSLO PO SCH ×3 (10:13→16:50)
[2017-04-17] MEDS: ANUSOL-HC CREAM PR SCH ×2 (10:13→20:17)
--- NOTE | 2017-04-17 10:39 | PROGRESS NOTE ---
DATE: 04/17/2017 SUBJECTIVE: Today Mr. Moore refers to be doing relatively fine. I asked about his , and he says she should be somewhere around. OBJECTIVE: Vitals: Blood pressure is 119/57, pulse of 85, respirations 15, temperature 98.2 degrees. Patient did have a temperature of 103.6 degrees yesterday at about 1600 hours. General: Objectively, Mr. Moore is a 76-year-old, male. He is in bed. He is not seemingly distressed. HEENT: Mucosa is pink and moist. Anicteric. Acyanotic. Neck: Supple. Chest: Air entry is bilaterally reduced. There is diffuse bilateral end- inspiratory crackles in both lung hernandez. Cardiovascular: Regular rate and rhythm. Abdomen: Soft. Bowel sounds are present. Extremities: No pedal edema. 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 There is no focal neurological deficit. Skin: On the chest wall there is a small swelling on top at the anterior upper chest bilateral where the vascular access was. LABORATORY DATA: WBC is 25.21, hemoglobin is 8.1, platelet count of 48. There are 2% bands. There is 54% of unidentified cells. Chemistry is reviewed. Sodium is 140, potassium is 4.2, chloride is 104, bicarbonate is 18, creatinine is 3.1. Cardizem level is 14.8. ASSESSMENT: 1. Hypotension likely due to septic shock. The patient was more decompensated yesterday than this morning. He was febrile and hypotensive. Not sure if it was related to transfusion, related to febrile illness or it was due to some form of infection or both. The patient has been on both daptomycin and Zosyn and levofloxacin was added yesterday and a dose of Micafungin was also given to him. This morning, he is a whole lot better. He continues to be on the pressor. Will gradually wean him off. 2. Febrile illness. This started after patient received some blood products. We are not sure if it was transfusion-related febrile illness or it is true sepsis. The patient is being covered either way. The patient has not had any more fever since early this morning. 3. Multifocal pneumonia, right more than left. Stable. 4. Bacteremia. The patient has grown multiple different types of bacterials in his blood. We repeated the blood culture yesterday pending on the final identification and sensitivity. 5. End-stage renal disease on hemodialysis. 6. Bicytopenia (anemia with thrombocytopenia) and remarkable leukocytosis. There is 58% of unidentified cells, not sure if this is due to plasma cells or there is some form of leukemic component to it. Hematology/oncology is on board. Either way, I think patient's prognosis continues to be remarkably poor. 7. Refractory multiple myeloma. 8. Congestive heart failure with severe dilated cardiomyopathy. Ejection fraction of 35% to 40%. 9. Bilateral psoas abscess, right more than left. Surgery is on board. The patient has been evaluated to be nonsurgical. 10. Protein calorie malnutrition. 11. Poor prognosis. PLAN: In general, I think Mr. Moore continues to be extremely critical, but stable. I spoke with Dr. Byrnes yesterday about a wish of the to transfer him to [place], but he said the patient is now extremely critical to make any trip, so he would re-visit the issue once patient is more stable for a transfer. For now will continue with the triple antibiotic coverage. The pressor will gradually be weaned off and we will see if he is going to respond. Patient's platelets are a lot better today, but then of course this is after blood transfusion. Of note, patient has had a total of 12 PRBC transfusion and 11 platelets transfused. cc: Matt Levine MD MTDRavinder
--- NOTE | 2017-04-17 10:52 | PROGRESS NOTE ---
DATE: 04/17/2017 SUBJECTIVE: Patient had episode of significant fever, shaking and chills last night with a temperature that reached 104. His dialysis was terminated prior to that secondary to altered mental status, worsening blood pressure and worsening clinical condition. OBJECTIVE: Vital Signs: Temperature 98.8, pulse 85, respiratory rate 16, blood pressure 91/59. Intake 3 L. Output was not recorded. It is possible that we do not have any output secondary to his condition yesterday. General: This is an acutely ill-appearing, elderly gentleman resting in bed. He rouses, has unintelligible speech. HEENT: Normocephalic atraumatic. He has an oral core thermometer noted. He is on O2 supplementation via mask. Neck: Supple. Trachea midline. Cardiovascular: He has extremely regular rhythm on the monitor. He has episodes of bigeminy. Bradycardic at times. Pulmonary: He has equal excursion. No wheeze. Abdomen : Soft, positive bowel sounds. : Not inspected. Extremities: No pretibial edema. No clubbing, cyanosis. Integumentary: His skin is thin, warm and dry. LAB DATA: WBC of 25.2, hemoglobin 8.1, sodium 140, potassium 4.2, CO2 of 18, BUN 49, creatinine 3.1. Calcium 7.8. ASSESSMENT AND PLAN: 1. End-stage renal disease management. We had to terminate his SLED yesterday secondary to his deteriorating condition. He is not fluid overloaded at this time. He has no absolute indications from a lab standpoint, that we would have to dialyze today. Secondary to his tenuous status, we will hold off until Wednesday. 2. Anemia. He did receive blood yesterday. He did have a fever. It was unclear if this happened before, during or after his transfusion as apparently he was afebrile temporally, but once a core thermometer was placed, he was found to be quite febrile. Followed by primary, Hematology/Oncology. Will continue to defer to them. 3. Bacteremia. Followed by primary. Continues to decline. Is on appropriate antibiotics. He did have levofloxacin added and a dose of micafungin added yesterday secondary to his condition. We understand that primary is in touch with Dr. Bess at [facility] and once they have discussed with Dr. Kasim the patient's condition, they will make some other decisions on treatment plan. Seen, data reviewed, discussed with Michelle Weiss on 04/17/17. I agree with the above assessment and plan of care. rg Dictated by LO Willingham for Ranjan Beltran MD cc: Ranjan Beltran MD [facility]
[2017-04-17] MEDS: CALMOSEPTINE OINTMENT TOP PRN ×2 (12:00→14:54)
[2017-04-17] MEDS: LEVAQUIN 250 MG/D5W 250 MG/50 ML IVPB IV SCH (14:49)
[2017-04-17] MEDS: TYLENOL PO PRN (19:05)
[2017-04-18] MEDS: ZOSYN 2.25 GM/NS 2.25 GM/50 ML IVPB IV SCH ×4 (01:43→18:11)
[2017-04-18] MEDS: LEVOPHED 8 MG in D5 1/2 NS 250 ML IV SCH ×2 (01:44→18:36)
[2017-04-18] MEDS: XOPENEX NEB INH SCH ×6 (02:58→22:58)
[2017-04-18] MEDS: IMODIUM PO PRN ×2 (03:01→11:23)
[2017-04-18] MEDS: PROTONIX PO SCH (06:25)
--- NOTE | 2017-04-18 06:34 | Diag Imaging Result Doc PS360 ---
EXAM: CHEST-1 VIEW HISTORY: sepsis TECHNIQUE: Portable AP COMPARISON: None. FINDINGS: The lungs are well expanded. The heart is not enlarged. The vessels are not distended. Small right infiltrates. No effusion identified. No change in the right jugular line. A nasogastric tube overlies the esophagus and upper stomach.. IMPRESSION: Mild interval worsening. Electronically signed by Gaurang Sweeney 04/18/2017 6:32 AM
[2017-04-18 06:35] LABS: HEMATOCRIT 20.2 % (42.0-52.0); HEMOGLOBIN 6.7 g/dL (14.0-18.0); MANUAL DIFF NEEDED? YES; MCH 29.8 PG (27-31); MCHC 33.2 g/dL (33-37); MCV 89.8 FL (81-99); PLT 23 X1000 (130-400); RBC 2.25 XMIL (4.7-6.1)
[2017-04-18 06:39] LABS: CALCIUM 7.7 mg/dL (8.8-10.2); POTASSIUM 4.3 mmol/L (3.5-5.1)
[2017-04-18] MEDS: PHOSLO PO SCH ×3 (07:39→17:39)
[2017-04-18 07:48] LABS: BANDS 4 % (0-1); LYMPHS 14 % (21-51); MONO 4 % (1-9); NRBC 5 % (0-0)
[2017-04-18] MEDS: ANUSOL-HC CREAM PR SCH ×2 (09:51→21:07)
--- NOTE | 2017-04-18 10:10 | PROGRESS NOTE ---
DATE: 04/18/2017 SUBJECTIVE: Today, Mr. Moore refers to be doing fine. He was sitting up, eating some ice chips. Per the nursing staff, he ate his breakfast very well. I understand he had about 8 bowel movements yesterday which was all diarrhea but according to him, that is not new. He has chronic diarrhea. A C. difficile was checked actually on the which was negative. OBJECTIVE: Vital Signs: Blood pressure is 119/61, pulse of 87, respirations are 20, temperature is 97.6. General Examination: Mr. Moore is a 76-year-old, male. He is in bed, not seemingly distressed. HEENT: Mucosa is pink and moist. Anicteric and acyanotic. Neck: Supple. Chest: Air entry is bilaterally reduced. There is diffuse bilateral end inspiratory coarse crackles. Cardiovascular: Regular rate and rhythm. Abdomen: Soft and nontender. Extremities: No pedal edema. Chest Wall: Has 2 small hematoma formations at the site of previous access. BATH HOUSE ATTENDANT: Patient is alert and oriented. There is no focal neurological deficit. Laboratory Data: WBC is 24.77, hemoglobin is 6.7, platelet count of 23,000. There is 30% of unidentified cells. Chemistry is reviewed. Sodium is 144, potassium is 4.3, chloride is 106, bicarb is 15, creatinine went up to 4.4, consistent with renal disease. There was a cortisol level which was done yesterday. It shows a level of 14.8 which I think is a little low for the level of stress that the patient is going through, being persistently hypotensive. ASSESSMENT: 1. Persistent hypotension. We think this is due to septic shock. However, transient adrenal insufficiency is also a consideration. The cortisol level was relatively low for the level of stress that the patient is going through so we will supplement this with hydrocortisone 50 mg intravenous every 8 and continue with the current intravenous antibiotics. So far, subsequent blood cultures from the from the have been 48 hours negative. I will discontinue the levofloxacin which was added a couple of days ago. 2. Febrile illness. I think this was partly related to transfusion related febrile illness. This has improved. 3. Multifocal pneumonia, right more than left, stable. The patient is on intravenous antibiotics including daptomycin and Zosyn, and is being followed up by Dr. Gunter. 4. End-stage renal disease, on hemodialysis. 5. Normocytic anemia with severe thrombocytopenia. Patient has had I think a total of 12 packed RBC transfusions and 11 platelet transfusions. Numbers continue to be low. I think he is just transfusion dependent. Hematology/oncology prefers to observe him today to see if the numbers go any lower before they re-transfuse him. 6. Refractory multiple myeloma. 7. Congestive heart failure with severe dilated cardiomyopathy. Ejection fraction is 35-40%. 8. Bilateral psoas abscess, right more than left. Surgery is on board. We will continue with the current antibiotics. 9. Protein calorie malnutrition. 10. Poor prognosis. PLAN: I think, in general, Mr. Moore has continued to be critically sick but stable. He has the chronic diarrhea which we will give him some Imodium to help control that. His hemoglobin, hematocrit, and platelets are slightly lower today than yesterday. However, hematology/oncology prefers to observe him today without any blood products. We will continue with the current antibiotics. I will discontinue the levofloxacin. I think in general, the patient has a very poor prognosis. We have about 30% of unidentified cells on the peripheral smear which I presume is probably due to his refractory multiple myeloma. cc: Matt Levine MD MTDD
[2017-04-18] MEDS ORDERED: STERILE WATER INJ. ONE (10:42)
[2017-04-18] MEDS: SOLU-CORTEF IV SCH ×2 (10:43→17:39)
[2017-04-18] MEDS: TYLENOL PO PRN (10:43)
--- NOTE | 2017-04-18 14:20 | PROGRESS NOTE ---
DATE: 04/18/2017 SUBJECTIVE: Patient is sitting up in bed eating lunch with assistance from his . He is awake and alert today. He is conversing appropriately today. OBJECTIVE: Vital Signs: Temperature 97.6 degrees, pulse 87, respiratory 20, blood pressure 119/61, intake 3.2 L, output 1.3 L. PHYSICAL EXAMINATION: General: This is an elderly gentleman sitting up in bed eating lunch. He is awake, alert, no acute distress. HEENT: Normocephalic, atraumatic. Oral mucosa is moist. Neck: Supple. There is no JVD. Cardiovascular: Irregular rhythm noted on the monitor. Pulmonary: He has decreased breath sounds. No wheeze noted. He is on 2 L nasal cannula. Abdomen: Soft, positive bowel sounds. : Not inspected. He has hemodialysis assist. Extremities: No pretibial edema, clubbing or cyanosis. He is moving his extremities today. Integumentary: Skin is warm and dry. No rash is noted. LAB DATA: WBC 24.7, hemoglobin 6.7, hematocrit 20.2, platelet count of 23,000. Sodium 144, potassium 4.3, CO2 15, creatinine 4.4 and calcium 7.7. ASSESSMENT AND PLAN: 1. End-stage renal disease management. Will plan to dialyze him tomorrow as per his routine. If he looks this good tomorrow he may be able to come over to the clinic and dialyze without having to undergo SLED. We will make those decisions in the morning. 2. Anemia followed by Hematology/Oncology. His blood counts are lower today however they have requested no transfusion today so they can see if he will stabilize or go lower before they transfuse him again. There was some question that he had a fever associated with his last transfusion. If so we can transfuse tomorrow on dialysis at their request. 3. Bacteremia followed by primary. Still extremely elevated white count on appropriately dosed antibiotics. 4. Multiple myeloma followed by primary who has been in touch with Dr. Byrnes. Dictated by LO Willingham for Ranjan Beltran MD cc: Ranjan Beltran MD [facility]
[2017-04-18] MEDS: LOMOTIL PO PRN ×4 (15:16→23:38)
[2017-04-18] MEDS: LEVAQUIN 250 MG/D5W 250 MG/50 ML IVPB IV SCH (15:18)
[2017-04-19] MEDS: ZOSYN 2.25 GM/NS 2.25 GM/50 ML IVPB IV SCH ×4 (00:33→22:35)
[2017-04-19] MEDS: SOLU-CORTEF IV SCH ×3 (02:21→20:21)
[2017-04-19] MEDS: XOPENEX NEB INH SCH ×4 (02:51→22:37)
[2017-04-19] MEDS ORDERED: NS 2,000 ML ONE (06:42)
[2017-04-19] MEDS ORDERED: HEPARIN ONE (06:42)
[2017-04-19] MEDS: PROTONIX PO SCH (06:43)
[2017-04-19 07:43] LABS: EOS# 0.01 X1000 (0.0-0.7); EOS% 0.1 % (0.0-10.0); HEMATOCRIT 16.7 % (42.0-52.0); HEMOGLOBIN 5.4 g/dL (14.0-18.0); MANUAL DIFF NEEDED? YES; MCH 29.7 PG (27-31); MCHC 32.3 g/dL (33-37); MCV 91.8 FL (81-99); MONO# 2.36 X1000 (0.11-0.59); MONO% 16.7 % (1.7-9.3); PLT 16 X1000 (130-400); RBC 1.82 XMIL (4.7-6.1)
--- NOTE | 2017-04-19 07:50 | PROGRESS NOTE ---
DATE: 04/19/2017 PRESENT ILLNESS: The patient has Staphylococcus epidermidis and Bacteroides bacteremia. He also may have pneumonia. He has bilateral psoas muscle fluid, which could be due to bleeding, but also could be caused by abscesses. The patient has 2 areas on his chest where the catheters were removed and may have swollen up on both sides, probably due to hemorrhage because of the patient's low platelet count. MEDICATIONS: This is day 13 for daptomycin and day 8 for Zosyn. PHYSICAL EXAMINATION: Vital Signs: Temperature is 98.8 degrees, pulse 77, respirations 16, blood pressure 106/61. General: This is a chronically ill-appearing elderly male. He is in no acute distress. He has come a huge way from being comatose, noncommunicative, and in septic shock to someone now who is awake and talking and can move his extremities. Lungs: Clear to auscultation. Cardiovascular: Regular heart rate. Abdomen: Soft and nontender. Extremities: The patient has an AV fistula in his left arm through which he is dialyzed. He also has a right-sided internal jugular catheter. Both sites are not swollen or tender. Chest: As mentioned above, the patient has 2 areas in the upper part of the chest where the catheters were removed. They are swollen and appear to be fluctuant. Most likely they are due to bleeding because of the patient's low platelet count. LABORATORY AND X-RAY: CBC today shows a white count of 24,770, hemoglobin 6.7, and platelet count 23,000. Creatinine is 4.4. The GFR is 16. Blood cultures were negative, and Clostridium difficile toxin of the stool was negative. The patient's x-ray shows right-sided infiltrates. ASSESSMENT AND PLAN: I plan to continue daptomycin for another day and plan to continue Zosyn for 8 more days to complete treatment on the Staphylococcus and Bacteroides bacteremia respectively. COMORBIDITIES: Include end-stage renal disease, hemodialysis, multiple myeloma with a very low IgG level. The patient has had immunoglobulin transfusions. cc: Gagan Gunter MD
[2017-04-19 08:06] LABS: HYPOCHROM 2+
[2017-04-19 08:17] LABS: LYMPHS 18 % (21-51); MONO 4 % (1-9); NRBC 3 % (0-0)
--- NOTE | 2017-04-19 10:14 | PROGRESS NOTE ---
DATE: 04/19/2017 SUBJECTIVE: He is feeling some better today. He has been able to eat. He is having ongoing diarrhea. He is complaining about the rectal tube. OBJECTIVE: Vital Signs: Blood pressure 128/97, heart rate 74, respirations 15 and afebrile. Intake 2.8 L. Output 0. PHYSICAL EXAMINATION: No acute distress. Skin is warm and dry. Conjunctivae are pink. Neck veins are not appreciated. Heart is regular. Lungs are equal. No crackles. Abdomen soft, nontender. Bowel sounds present. Extremities have no palpable edema. No clubbing or cyanosis. LABORATORY DATA: Sodium 144, potassium 4.3, chloride 106, bicarbonate 15. BUN 72, creatinine 4.4, hemoglobin 5.4. IMPRESSION: 1. End-stage kidney disease. We are using sustained low-efficiency dialysis today with a 3 potassium bath and a goal of 2 L ultrafiltration. I recognize that he has been in positive fluid balance for the last 2 days and will need a transfusion. If his volume status becomes problematic, we can dialyze him again tomorrow; however, given his hypotension and pressor needs, I would like to minimize after today. He certainly does not have any obvious volume overload on exam. 2. Bacteremia. His blood cultures are negative for the first time this hospitalization. 3. Acidosis. Address with dialysis. cc: Ranjan Beltran MD
--- NOTE | 2017-04-19 12:32 | PROGRESS NOTE ---
DATE: 04/19/2017 SUBJECTIVE: The patient is sitting up in bed eating breakfast. He is currently on dialysis. He is also on 4 mcg of Levophed. He has been having large amounts of diarrhea. OBJECTIVE: Vital Signs: Temperature 98.6 degrees, blood pressure 89/43, heart rate 67, respirations 15, O2 saturations 99% on 3 L nasal cannula. General: This is a chronically ill- appearing, elderly male, lying in bed, in no acute distress. HEENT: Head normocephalic and atraumatic. Heart: S1, S2 normal. Regular rate and rhythm. Lungs: Equal air entry bilaterally. No crackles. No rales. Abdomen: Positive bowel sounds. Soft, nontender, nondistended. Extremities: No edema. No cyanosis. No calf tenderness. Neurologic: The patient is alert and oriented x3. Labs: White blood cell count 14, hemoglobin 5.4, hematocrit 16.7, platelet count 16,000. ASSESSMENT AND PLAN: 1. Bilateral lobe pneumonia. Continue on intravenous antibiotic therapy plus bronchodilator therapy and supplemental oxygen. 2. Hypotension. The patient is currently on hydrocortisone. We will continue to try and wean the patient off of the Levophed. 3. Bacteremia secondary to Bacteroides and Staphylococcus hominis. Continue on daptomycin and Zosyn. Further management as per Dr. Gunter. 4. End-stage renal disease. Management as per the mortician supplies sales representative. 5. Anemia. We will transfuse 2 units of irradiated packed red blood cells today. 6. Thrombocytopenia. We will transfuse 2 units of irradiated platelets today. 7. Refractory multiple myeloma. Aware. Dr. Swanson is following. 8. Leukocytosis. Slowly improving. Continue antibiotic therapy. 9. Chronic diarrhea. The patient is currently on Lomotil. We will add Questran. The stool for C. difficile is negative. 10. Severe protein calorie malnutrition. Continue on Nepro shakes with each meal. cc: Cindy Wallace MD [facility]
[2017-04-19] MEDS: LOMOTIL PO PRN (12:39)
[2017-04-19] MEDS: PHOSLO PO SCH ×3 (12:42→16:08)
[2017-04-19] MEDS: ANUSOL-HC CREAM PR SCH ×2 (12:43→22:46)
[2017-04-19] MEDS: QUESTRAN LIGHT PO SCH ×2 (15:58→20:20)
[2017-04-19] MEDS: CUBICIN (FOR INPATIENT USE) 500 MG in NS 100 ML IV SCH (16:58)
[2017-04-19] MEDS ORDERED: STERILE WATER INJ. ONE (18:16)
[2017-04-19] MEDS: TYLENOL PO PRN (22:35)
[2017-04-20] MEDS: SOLU-CORTEF IV SCH ×3 (01:49→17:42)
[2017-04-20] MEDS: XOPENEX NEB INH SCH ×7 (03:22→23:01)
[2017-04-20] MEDS: ZOSYN 2.25 GM/NS 2.25 GM/50 ML IVPB IV SCH ×4 (05:04→21:37)
[2017-04-20] MEDS: PROTONIX PO SCH (06:10)
[2017-04-20 06:26] LABS: EOS# 0.03 X1000 (0.0-0.7); EOS% 0.3 % (0.0-10.0); HEMATOCRIT 21.3 % (42.0-52.0); MANUAL DIFF NEEDED? YES; MCH 29.9 PG (27-31); MCHC 32.9 g/dL (33-37); MONO# 1.59 X1000 (0.11-0.59); MONO% 14.9 % (1.7-9.3); MPV 10.4 FL (7.4-10.4); PLT 57 X1000 (130-400); RBC 2.34 XMIL (4.7-6.1)
[2017-04-20 06:35] LABS: ALBUMIN 1.8 g/dL (3.5-5.0); CALCIUM 7.6 mg/dL (8.8-10.2); POTASSIUM 3.7 mmol/L (3.5-5.1)
[2017-04-20 06:45] LABS: LYMPHS 16 % (21-51); NRBC 8 % (0-0)
[2017-04-20 06:46] LABS: HYPOCHROM 1+
--- NOTE | 2017-04-20 08:30 | PROGRESS NOTE ---
DATE: 04/20/2017 SUBJECTIVE: Mr. Moore is resting quietly in bed. He has been resting well. He is in no acute distress. His skin is warm and dry. He does have ongoing diarrhea. He does have his rectal tube removed. OBJECTIVE: Most recent vital signs: Temperature last recorded is 100. Blood pressure 101/46. Heart rate 65 and respirations are 14. He is on 3 L nasal cannula. Last recorded saturation is 100%. He has had 3094 in, he has had 2100 out with 2.1 L on dialysis. LABS: Sodium 138, potassium 3.7, chloride 101, CO2 20, BUN 29, creatinine 2.4, glucose 92. His anion gap is 17, calcium 7.6, phosphorus 2.6, albumin 1.8. White count 10.67, hemoglobin 7, hematocrit 21.3 with a platelet count of 57,000. Blood cultures drawn on the have come back no growth after 5 days. PHYSICAL EXAMINATION: General: This is a 77-year-old, male currently resting in bed. He is in no acute distress. Skin: Warm and dry. HEENT: Normocephalic, atraumatic. Conjunctivae pink. He has PRASHANT. Mucous membranes are dry. Neck: Supple. Trachea midline. No JVD. Cardiovascular: Irregular rate and rhythm. He appears to be atrial fibrillation on the monitor. Soft murmur with an S4. Lungs: Clear to auscultation anteriorly. Diminished breath sounds posterior. Remains on O2 equal excursion. Abdomen: Soft, nontender, positive bowel sounds. Genitourinary: Not inspected. Minimal void with dialysis assist. Extremities: Have no palpable edema. No clubbing or cyanosis. Neurological: He is alert and oriented x2. ASSESSMENT AND PLAN: 1. End-stage renal disease. Patient was on SLED yesterday 2.1 L pulled. He remains on Levophed for blood pressure support no indications for dialysis today. 2. Electrolytes. This is stable. 3. Acidosis. Again, this remains corrected with dialysis. 4. Anemia. Patient has been transfused with a total of 14 units of packed red blood cells and 12 units of pheresed platelets during this hospitalization. 5. Bacteremia. The patient has a 1st negative blood culture noted during this hospitalization with Dr. Gunter following. No changes to his current prescription. I would like to thank you for allowing us to follow with this patient. Seen, data reviewed, discussed with Heather Magallon on 04/20/17. I agree with the above assessment and plan of care. rg Dictated by LO Perkins for Ranjan Beltran MD cc: LO Perkins MD [facility]
[2017-04-20] MEDS: PHOSLO PO SCH ×3 (09:48→17:42)
[2017-04-20] MEDS: QUESTRAN LIGHT PO SCH ×3 (09:48→17:42)
[2017-04-20] MEDS: ANUSOL-HC CREAM PR SCH ×2 (09:52→20:10)
--- NOTE | 2017-04-20 12:37 | PROGRESS NOTE ---
DATE: 04/20/2017 SUBJECTIVE FINDINGS: Mr. Moore reports that he is doing well today. He has no acute complaints. OBJECTIVE: Vital Signs: Temperature 98.8 degrees, heart rate 76, respirations 20, blood pressure 104/54, and O2 saturation is 100% on nasal cannula. Cardiovascular: S1 and S2 heard. Rate controlled. Respiratory: Chest is essentially clear to auscultation anteriorly. No overt wheezing or rhonchi noted. Abdomen: Soft and nondistended. Positive bowel sounds. MUSCULOSKELETAL: No lower extremity edema noted. LABORATORIES AND STUDIES: Hemoglobin is 7.0, hematocrit 21.3, white blood cells 10.67, and platelet count 57,000. Sodium 138, potassium 3.7, chloride 101, CO2 of 20, BUN 29, creatinine 2.4. ASSESSMENT AND PLAN: 1. Refractory relapsed multiple myeloma. Treatment is currently on hold. 2. Bacteremia, persistent. Patient's most recent blood cultures done on 2016 were negative after 48 hours. Continue current management as per Dr. Gunter. 3. End-stage renal disease. Patient will continue to receive hemodialysis as per Dr. Beltran. 4. Anemia. Patient has had heme-positive stools. Hemoglobin is up to 7.0. Continue to monitor. Continue to transfuse p.r.n. 5. Thrombocytopenia. Patient's platelets are adequate at 57,000 today. No bleeding at this time. Continue to monitor and to transfuse as needed. 6. Leukocytosis. The patient's white count is now within normal limits. 7. Bilateral pneumonia. Continue IV antibiotics as per Infectious Disease. Dictated by MING La for Leticia Swanson MD I have seen and examined Mr. Moore and reviewed the chart and I agree with the above A/P. He has end stage recurrent/refractory myeloma causing transfusion dependence. We have requested an outpatient appointment at [place] with Dr. Byrnes if he is able to be discharged down the road. cc: Let[facility]
[2017-04-20] MEDS: LEVOPHED 8 MG in D5 1/2 NS 250 ML IV SCH (13:45)
--- NOTE | 2017-04-20 15:32 | PROGRESS NOTE ---
DATE: 04/20/2017 SUBJECTIVE: The patient is sitting up in bed. No acute events noted overnight. The patient remains on a Levophed drip. The patient is still having liquid stools. OBJECTIVE: Vital Signs: Temperature 99 degrees, blood pressure 104/55, heart rate 71, respirations 20, O2 saturations 100% on 2 L nasal cannula. General: This is a chronically ill- appearing, elderly male, lying in bed, in no acute distress. Head: Normocephalic, atraumatic. Heart: S1, S2. Normal. Lungs: Clear to auscultation bilaterally. No crackles. No rales. Abdomen: Positive bowel sounds. Soft, nontender, nondistended. Extremities: No edema. No cyanosis. No calf tenderness. Neurologic: The patient is alert and oriented x3. LABORATORY: White blood cell count 10, hemoglobin 7, hematocrit 21, platelets 57,000. Sodium 138, potassium 3.7, chloride 101, CO2 20. BUN 29, creatinine 2.4. Glucose 92. ASSESSMENT AND PLAN: 1. Bilateral lobe pneumonia. Continue on the current IV antibiotic regimen plus bronchodilator therapy. 2. Hypotension. We will continue to try and wean the patient off of the Levophed drip. Continue on hydrocortisone. 3. Refractory multiple myeloma. The patient's treatment is on hold at this time. 4. Bacteremia secondary to Bacteroides and Staphylococcus hominis. Continue on the current intravenous antibiotic regimen as directed by Dr. Gunetr. So far the blood cultures from April 16 remain negative. 5. Chronic diarrhea. Continue on Questran and Imodium. 6. End-stage renal disease. Management as per the security system analyst. 7. Thrombocytopenia. Improved after receiving 2 units of platelets yesterday. We will continue to monitor this closely. 8. Anemia. We will continue to monitor the patient's hemoglobin and hematocrit and transfuse p.r.n. 9. We will consult Physical Therapy. cc: Cindy Wallace MD
--- NOTE | 2017-04-20 16:36 | PROGRESS NOTE ---
DATE: 04/20/2017 PRESENT ILLNESS: The patient has Staph epidermidis bacteremia, Bacteroides bacteremia, possible pneumonia, bilateral soleus muscle fluid, which could be due to bleeding or infection. He also has been having continuous diarrhea. He has had 2 areas on his chest where implanted catheters were removed. The areas have swollen up presumably secondary to bleeding into them because of the patient's low platelet count. MEDICATIONS: This is day 14 for daptomycin and day 9 for Zosyn. PHYSICAL EXAMINATION: Vital Signs: Temperature is 99.9 degrees, pulse 71, respirations 20, blood pressure 104/55. General: This is an ill-appearing, elderly male. He is awake. He is in no acute distress. Lungs: Clear to auscultation. Cardiovascular: Regular heart rate. Abdomen: Soft and not tender. Extremities: The patient has an AV fistula in the left arm in which he is dialyzed. He also has a right-sided internal jugular catheter. The catheter site is not purulent or swollen. Chest: There is an increased AP diameter. Also, there are 2 areas on the anterior part of thorax where the patient had vascular catheters removed. The area has 2 large fluctuant masses which presumably are caused by bleeding from removal of the tunneled catheter that was previously there. LABORATORY AND X-RAY: There is no new x-ray. The patient's repeat blood cultures are sterile. The patient's stool for Clostridium difficile toxin and white cells both were negative. CBC shows a white count of 10,670, hemoglobin 7 and platelet count 57,000. Creatinine is 2.4. GFR is 32. Repeat blood cultures are sterile. ASSESSMENT AND PLAN: 1. I plan to discontinue daptomycin because patient has had 2 weeks of treatment for his staph bacteremia and the repeat blood cultures are sterile. This is day 9 of treatment with Zosyn and I plan to continue that to complete a 14 day treatment course as well. 2. Comorbidities include end-stage renal disease, hemodialysis, multiple myeloma with a very low IgG level. cc: Gagan Gunter MD
[2017-04-20] MEDS ORDERED: STERILE WATER INJ. ONE (17:31)
[2017-04-21] MEDS: SOLU-CORTEF IV SCH ×3 (02:21→21:44)
[2017-04-21] MEDS: XOPENEX NEB INH SCH ×6 (02:50→23:35)
[2017-04-21] MEDS: ZOSYN 2.25 GM/NS 2.25 GM/50 ML IVPB IV SCH ×4 (04:01→21:44)
[2017-04-21 05:17] LABS: ALBUMIN 1.7 g/dL (3.5-5.0); CALCIUM 7.7 mg/dL (8.8-10.2); EOS# 0.02 X1000 (0.0-0.7); EOS% 0.2 % (0.0-10.0); HEMATOCRIT 21.2 % (42.0-52.0); HEMOGLOBIN 6.9 g/dL (14.0-18.0); MANUAL DIFF NEEDED? YES; MCH 29.7 PG (27-31); MCHC 32.5 g/dL (33-37); MCV 91.4 FL (81-99); MPV 9.3 FL (7.4-10.4); POTASSIUM 3.6 mmol/L (3.5-5.1); RBC 2.32 XMIL (4.7-6.1)
[2017-04-21 05:27] LABS: PLT 37 X1000 (130-400)
[2017-04-21] MEDS: PROTONIX PO SCH (06:05)
[2017-04-21 07:45] LABS: EOS 1 % (1-10); LYMPHS 14 % (21-51); MONO 2 % (1-9)
[2017-04-21] MEDS: QUESTRAN LIGHT PO SCH ×3 (08:41→16:25)
[2017-04-21] MEDS: PHOSLO PO SCH ×3 (08:41→16:25)
[2017-04-21] MEDS ORDERED: NS 2,000 ML ONE (08:43)
[2017-04-21] MEDS: ANUSOL-HC CREAM PR SCH ×2 (08:43→21:45)
--- NOTE | 2017-04-21 09:08 | PROGRESS NOTE ---
DATE: 04/21/2017 SUBJECTIVE: Mr. Moore is resting quietly in bed. He states that he is feeling a little bit better. States that he has tried to eat yesterday, and states also that his diarrhea is improving. His rectal tube has been removed. OBJECTIVE: His most recent vital signs: Temperature is 98.1 degrees, blood pressure 115/60, heart rate 65 and respirations 18. He is on 2 L nasal cannula. Last recorded saturation 100%. He has had 1587 in; he has had 0 out with need for dialysis. LABORATORY DATA: Sodium 136, potassium 3.6, chloride 100, CO2 17. BUN 48, creatinine 3.8, glucose 106. Anion gap 19, calcium 7.7, phosphorus 3.8, albumin 1.7. White count 12.61, hemoglobin 6.9, hematocrit 21.2 with a platelet count of 37. PTT 36.9. PHYSICAL EXAMINATION: General: This is a 77-year-old, male. He is currently resting in bed. He is in no acute distress. Skin: Warm and dry. HEENT: Normocephalic, atraumatic. Conjunctivae pink. He has PRASHANT. Mucous membranes are dry. Neck: Supple. Trachea midline. No JVD. Cardiovascular: Irregular rate and rhythm. Soft systolic murmur. No gallop. Lungs: Clear to auscultation anteriorly. Equal excursion. Abdomen: Soft, nontender. Positive bowel sounds. Genitourinary: Not inspected. Minimal void with dialysis assist. Extremities: Have no edema. No clubbing or cyanosis. Neurological: Alert and oriented x2. ASSESSMENT AND PLAN: 1. End-stage renal disease. Patient is due for dialysis today. We will place him on slow low efficiency dialysis 8 hours, 4 K baths. We will attempt to pull 1-2 liters of ultrafiltration while patient does remain on Levophed for backup support for blood pressure. 2. Electrolytes. These remain stable. 3. Acid-base balance. Again, with correction on dialysis. 4. Anemia. Patient has received a transfusion of 1 unit of packed red blood cells with a total of 14 during this hospital visit. We will plan for 1 unit to be given while on dialysis. 5. Bacteremia. Patient has negative blood cultures for the last [address] Gunter continues following. No change to his prescriptions. 6. Malnutrition. Patient does receive intravenous and parenteral nutrition while on hemodialysis. He states that he is eating. We will invest in dietary consult in regards with increasing his calorie intake to approximately 2000 calories in 24 hours with the nurses keeping a calorie count. I would like to thank you for allowing us to follow with this patient. Seen, data reviewed, discussed with Heather Magallon on 04/21/17. I agree with the above assessment and plan of care. rg Dictated by LO Perkins for Ranjan Beltran MD cc: LO Perkins MD [facility]
[2017-04-21] MEDS: D50W 250 ML, AMINOSYN 10% 500 ML, LIPOSYN 20% 250 ML IV SCH ×3 (09:10)
--- NOTE | 2017-04-21 10:30 | PROGRESS NOTE ---
DATE: 04/21/2017 PRESENT ILLNESS: The patient had staph bacteremia. This has been eradicated by daptomycin, and the antibiotic has been discontinued. Patient also as Bacteroides bacteremia, pneumonia, bilateral psoas muscle fluid, bilateral chest fluid. The patient also has a very low IgG level. MEDICATIONS: As mentioned above, daptomycin was stopped yesterday. This is day 10 of Zosyn. PHYSICAL EXAMINATION: Vital Signs: Temperature is 98.3 degrees, pulse 77, respirations 16, blood pressure 128/65. General: This is an ill-appearing, elderly male. He is in no acute distress. Ears/Nose/Throat: No drainage noted from the nose or ears. Neck: No meningismus. The patient has an internal jugular vein catheter in place that is being used for dialysis. Thorax: No increased AP diameter. Extremities: Patient has a functioning AV fistula on the left arm. LABORATORY AND X-RAY: There is no new x-ray today. The lab stories today show a creatinine of 3.8, a GFR of 19. CBC shows a white count of 12,610, hemoglobin 6.9, and platelet count 37,000. ASSESSMENT AND PLAN: The patient's Staphylococcus bacteremia has been treated. Currently the patient is on Zosyn for treating a Bacteroides bacteremia. The patient has had ten days of treatment with Zosyn and will require four more to complete a 14-day treatment course. COMORBIDITIES: The patient's comorbidities include end-stage renal disease, hemodialysis, multiple myeloma with a very low IgG level. cc: Gagan Gunter MD
--- NOTE | 2017-04-21 11:58 | EKG Report ---
Test Performed on : 04/21/2017 06:05:45 AM Test Reason : Out Patient EKG Blood Pressure : / mmHG Vent. Rate : 069 BPM Atrial Rate : 076 BPM P-R Int : 224 ms QRS Dur : 088 ms QT Int : 412 ms P-R-T Axes : 000 -07 048 degrees QTc Int : 441 ms Sinus rhythm. with marked sinus arrhythmia. with 1st degree AV block. Voltage criteria for left ventricular hypertrophy Nonspecific T wave abnormality Abnormal ECG When compared with ECG of 12-APR-2017 06:45, Nonspecific T wave abnormality no longer evident in Inferior leads Nonspecific T wave abnormality, improved in Lateral leads Confirmed by Nazanin DOAN, Tobias Gamez ([id number]) on 04/21/2017 4:17:22 PM
[2017-04-21 12:29] LABS: HEMATOCRIT 20.8 % (42.0-52.0); HEMOGLOBIN 7.3 g/dL (14.0-18.0)
--- NOTE | 2017-04-21 15:06 | PROGRESS NOTE ---
DATE: 04/21/2017 SUBJECTIVE: The patient is resting comfortably in bed. He is currently on a Levophed drip. The patient did have an episode of bright red blood per rectum. OBJECTIVE: Vital Signs: Temperature 99 degrees, blood pressure 109/60, heart rate 80, respirations 20, and O2 saturation 100% on 3L nasal cannula. General: This is a chronically ill- appearing, elderly male, lying in bed in no acute distress. Head: Normocephalic atraumatic. Heart: S1 and S2 normal. Regular rate and rhythm. Lungs: Equal air entry bilaterally. No crackles. No rales. Abdomen: Positive bowel sounds. Soft, nontender, nondistended. Extremities: No edema. No cyanosis. No calf tenderness. Neurologic: The patient is alert and oriented x3. LABORATORIES: White blood cell count 12, hemoglobin 7.3, hematocrit 20, platelets 37,000. Sodium 136, potassium 3.6, chloride 100, CO2 of 17, BUN 48, creatinine 3.8, glucose 106, albumin 1.7. ASSESSMENT AND PLAN: 1. Bilateral lobe pneumonia. Continue on IV antibiotic therapy. 2. Hypotension. The patient remains on hydrocortisone. Will continue to attempt to wean the patient off of Levophed. 3. Bacteremia secondary to Bacteroides. Continue on IV antibiotic therapy as directed by Dr. Gunter. 4. Refractory multiple myeloma. Aware. The patient's chemotherapy is currently on hold. 5. Chronic diarrhea. Slowly improving. Continue on Questran and Imodium. 6. Rectal bleeding. Continue with Anusol. 7. End-stage renal disease. The patient is on dialysis at this time. 8. Thrombocytopenia. Will continue to monitor and transfuse p.r.n. 9. Anemia. The patient's hemoglobin and hematocrit are low. Continue to monitor and transfuse p.r.n. cc: Cindy Wallace MD
[2017-04-21] MEDS: TYLENOL PO PRN (16:25)
[2017-04-21] MEDS: LEVOPHED 8 MG in D5 1/2 NS 250 ML IV SCH (16:26)
[2017-04-22] MEDS: LEVOPHED 8 MG in D5 1/2 NS 250 ML IV SCH ×2
[2017-04-22] MEDS: XOPENEX NEB INH SCH ×6 (03:58→23:30)
[2017-04-22] MEDS: SOLU-CORTEF IV SCH ×4 (04:05→21:53)
[2017-04-22] MEDS: ZOSYN 2.25 GM/NS 2.25 GM/50 ML IVPB IV SCH ×4 (04:05→21:53)
[2017-04-22 06:16] LABS: MPV 10.2 FL (7.4-10.4)
[2017-04-22 06:17] LABS: HEMATOCRIT 21.1 % (42.0-52.0); HEMOGLOBIN 6.7 g/dL (14.0-18.0); MCH 30.2 PG (27-31); MCHC 31.8 g/dL (33-37); RBC 2.22 XMIL (4.7-6.1)
[2017-04-22 06:39] LABS: ALBUMIN 1.9 g/dL (3.5-5.0); CALCIUM 7.8 mg/dL (8.8-10.2); POTASSIUM 4.1 mmol/L (3.5-5.1)
[2017-04-22] MEDS: PROTONIX PO SCH (07:05)
[2017-04-22] MEDS: QUESTRAN LIGHT PO SCH ×3 (08:36→16:56)
[2017-04-22] MEDS: IMODIUM PO PRN (08:36)
[2017-04-22] MEDS: PHOSLO PO SCH ×3 (08:36→16:56)
[2017-04-22] MEDS: ANUSOL-HC CREAM PR SCH ×2 (08:37→21:56)
--- NOTE | 2017-04-22 09:04 | PROGRESS NOTE ---
DATE: 04/22/2017 SUBJECTIVE: Mr. Moore is resting quietly in bed. He denies any pain. No increased work of breathing. States his diarrhea has improved. OBJECTIVE: His most recent vital signs are temperature 98 degrees, blood pressure 126/66, heart rate 70, respirations 16. He is on 2 L nasal cannula. Last recorded saturation is 94%. He has had 1185 in. He has had 2 L out on dialysis. LABORATORY DATA: Sodium 136, potassium 4.1, chloride 100, CO2 21, BUN 22, creatinine 1.9 glucose 121. Anion gap 15, calcium 7.8, phosphorus 2.4, albumin 1.9. White count 16.14 , hemoglobin 6.7, hematocrit 21.1 with a platelet count of 26,000. PHYSICAL EXAMINATION: General: This is a 77-year-old, male. He is currently resting in bed. He appears chronically ill. He is in no acute distress. Skin : Warm and dry. HEENT: Normocephalic, atraumatic. Conjunctivae pale. Mucous membranes are dry. Neck: Supple. Trachea midline. No JVD. Cardiovascular: Regular rate and rhythm. Soft systolic murmur. He has a positive S4. Lungs: Clear to auscultation anteriorly. Equal excursion on O2. Abdomen: Soft, round, nontender. Positive bowel sounds. Extremities: Have no edema. No clubbing or cyanosis. Neurological: Alert and oriented x2. Integumentary: No rashes or lesions evident. ASSESSMENT AND PLAN: 1. End-stage renal disease. Patient continues to require hemodialysis. He has had dialysis yesterday. We will hold today and plan for dialysis per his routine in the a.m. 2. Electrolytes. These are stable. 3. Acid-base balance. This continues with slow correction on dialysis. 4. Anemia. Patient continues to have a hemoglobin drop. We will defer to Dr. Swanson in regards with transfusions. We will be very happy to transfuse on dialysis days. 5. Bacteremia. No indications for changes to his antibiotics. Followed by Dr. Gunter. 6. Malnutrition. We are attempting to get patient 2000 calories. We have employed the assistance of the dietitian and will continue to monitor. I would to thank you for allowing us to follow with this patient. Seen, data reviewed, discussed with Heather Magallon on 04/22/17. I agree with the above assessment and plan of care. rg Dictated by LO Perkins for Ranjan Beltran MD cc: LO Perkins MD [facility]
--- NOTE | 2017-04-22 11:27 | Diag Imaging Result Doc PS360 ---
EXAM: CHEST-1 VIEW HISTORY: SOB TECHNIQUE: Semierect upright AP portable at 1105 COMMENT: There is poor inspiration. There is apparent ill-defined opacity particularly over the mid and lower lung hernandez on the left. This may represent mild pulmonary edema. It is more pronounced than on the previous study of 04/18/2017. IMPRESSION: Questionable pulmonary edema. Electronically signed by Efrain Ham 04/22/2017 11:24 AM
--- NOTE | 2017-04-22 13:23 | PROGRESS NOTE ---
DATE: 04/22/2017 SUBJECTIVE: The patient is resting comfortably in bed. He continues to have multiple episodes of diarrhea as reported by the nursing staff. He is currently on Questran. He has no other complaints. OBJECTIVE: Vital Signs: Temperature 98 degrees, blood pressure 110/59, heart rate 77, respirations 20, O2 saturations 100% on room air. General: This is a chronically ill-appearing, elderly male, lying in bed, in no acute distress. Head: Normocephalic atraumatic. Heart: S1, S2. Normal. Regular rate and rhythm. Lungs: Clear to auscultation bilaterally. No crackles. No rales. Abdomen: Positive bowel sounds. Soft, nontender, nondistended. Extremities: No edema. No cyanosis. No calf tenderness. Neurological: Patient is alert and oriented x3. LABS: White blood cell count 16, hemoglobin 6.7, hematocrit 21, platelets 26, 000. Sodium 136, potassium 4.1, chloride 100, CO2 21, BUN 22, creatinine 1.9, glucose 121, albumin 1.9. Phosphorus 2.4. Calcium 7.8. ASSESSMENT AND PLAN: 1. Pneumonia. Continue on IV antibiotics as directed by Dr. Gunter. 2. Hypotension. Continue to try and wean off the Levophed drip. 3. Bacteremia secondary to Bacteroides. The repeat blood cultures remain negative. Further management as per Dr. Gunter. 4. Refractory multiple myeloma. Aware. 5. Chronic diarrhea. We will start giving the patient lomotil after each loose stool. Continue on Questran. 6. Rectal bleeding. This appears to have stopped. Continue with Anusol suppositories. 7. End-stage renal disease. Management as per the sulfide head operator. 8. Thrombocytopenia. Continue to monitor and transfuse p.r.n. at the discretion of the oncologist. 9. Anemia. Monitor and transfuse p.r.n. 10. Will request that the patient be placed in a chair. cc: Cindy Wallace MD MTDD
--- NOTE | 2017-04-22 15:35 | PROGRESS NOTE ---
DATE: 04/22/2017 PRESENT ILLNESS: The patient has Bacteroides bacteremia, pneumonia, bilateral psoas muscle fluid and bilateral pleural effusions. The patient also has a very low IgG level. MEDICATIONS: The patient is on day 11 of Zosyn. PHYSICAL EXAMINATION: Vital Signs: Temperature is 98.8, pulse 77, respirations 20, blood pressure 110/59. Generally: This is an ill-appearing, elderly male. He is in no acute distress. He is awake. He is talking. Lungs: Clear to auscultation. Cardiovascular: Heart rate is regular. Abdomen: Soft and nontender. Thorax: The patient has bilateral fluctuant areas on the upper part of his chest where indwelling catheters were present. Neck: The patient has an internal jugular catheter in place there. The area is not swollen and there is no purulent drainage. Extremities: The patient has a functioning AV fistula in the left arm. LAB AND X-RAY STUDIES: The chest x-ray today shows possible pulmonary edema in the left chest. The patient's CBC today shows a white count of 16,140. Hemoglobin 6.7 and platelet count 26,000. Creatinine is 1.9, GFR is 42. ASSESSMENT AND PLAN: Patient has Bacteroides bacteremia for which I plan to continue Zosyn to complete a 14 day treatment course. Zosyn also is being used for the patient's pneumonia. As far as the patient's psoas muscle fluid, most likely, it is blood because of the patient's low platelet count. It would not be a good idea to try to aspirate the fluid from one of the psoas abscesses because of the low platelet count and the likelihood of bleeding as a result of the procedure. The patient has received 3 separate infusions of intravenous gammaglobulin. COMORBIDITIES: Include end-stage renal disease, hemodialysis, multiple myeloma with a low IgG level. cc: Gagan Gunter MD
[2017-04-22] MEDS ORDERED: LOMOTIL PO SCH (17:00)
[2017-04-23] MEDS: XOPENEX NEB INH SCH ×6 (03:25→23:25)
[2017-04-23] MEDS: SOLU-CORTEF IV SCH ×4 (04:37→21:14)
[2017-04-23] MEDS: ZOSYN 2.25 GM/NS 2.25 GM/50 ML IVPB IV SCH ×4 (04:37→21:14)
[2017-04-23] MEDS ORDERED: IMODIUM PO PRN (04:40)
[2017-04-23] MEDS: PROTONIX PO SCH (06:16)
[2017-04-23 07:19] LABS: HEMATOCRIT 18.2 % (42.0-52.0); MCH 30.3 PG (27-31); MCHC 31.3 g/dL (33-37); MCV 96.8 FL (81-99)
[2017-04-23 07:29] LABS: ALBUMIN 1.8 g/dL (3.5-5.0); CALCIUM 7.4 mg/dL (8.8-10.2); POTASSIUM 3.5 mmol/L (3.5-5.1)
[2017-04-23 07:30] LABS: MPV 9.4 FL (7.4-10.4); RBC 1.88 XMIL (4.7-6.1)
[2017-04-23 07:36] LABS: HEMOGLOBIN 5.7 g/dL (14.0-18.0)
[2017-04-23] MEDS: QUESTRAN LIGHT PO SCH ×2 (08:16→12:19)
[2017-04-23] MEDS: PHOSLO PO SCH ×3 (08:16→16:50)
[2017-04-23] MEDS: ANUSOL-HC CREAM PR SCH ×2 (08:16→20:22)
[2017-04-23] MEDS ORDERED: HEPARIN ONE (08:46)
[2017-04-23] MEDS ORDERED: NS 2,000 ML ONE (08:46)
--- NOTE | 2017-04-23 08:57 | PROGRESS NOTE ---
DATE: 04/22/2017 SUBJECTIVE: Mr. Moore reports that he is feeling well today. He has no acute complaints. OBJECTIVE FINDINGS: Vital Signs: Temperature 98.8 degrees, heart rate 77, respirations are 20. Blood pressure is 110/59, O2 saturation is 100% on room air. Cardiovascular: S1-S2 heard. Regular rate. Respiratory: Essentially clear to auscultation bilaterally. Patient has some upper airway noise with some faint wheezing bilaterally. Gastrointestinal: Abdomen is soft, nondistended. Positive bowel sounds. Musculoskeletal: No bony abnormalities noted. Extremities: Patient has no edema. LABORATORY STUDIES: White blood cells 16.14, hemoglobin 6.7, hematocrit 21.1. Platelets 26,000, sodium 136, potassium 4.1, chloride 100, CO2 21, BUN 22, creatinine 1.9, glucose 121. ASSESSMENT/PLAN: 1. Refractory or relapsed multiple myeloma. Treatment currently on hold. 2. Persistent bacteremia. Patient has now had negative blood cultures x 5 days. He continues on IV antibiotics as per Dr. Gunter. 3. Anemia. Slightly worse today. Patient denies any bleeding. The plan at this point would be to give some blood tomorrow with dialysis. Recheck CBC in the morning. 4. Thrombocytopenia. The patient has had some ongoing rectal bleeding for some time now. No khurram blood at this time. We will continue to monitor. May give a unit of platelets tomorrow depending on platelet count. No nosebleeds or any other significant bleeding noted. 5. Bilateral pneumonia. Patient is now extubated. He continues on IV antibiotics as per Dr. Gunter. Most recent chest x-ray is clear for any sort of infiltrates. 6. Chronic diarrhea. Continue current management. Addendum 04/24/2017: We did give the patient 1 unit of platelets on 04/22/2017. Dictated by MING La for Leticia Swanson MD cc: Leticia Swanson MD [facility]
--- NOTE | 2017-04-23 10:27 | PROGRESS NOTE ---
DATE: 04/23/2017 SUBJECTIVE: Mr. Moore is resting quietly in bed. He states that he is actually feeling just a little bit better. He denies any chest pain. No increased work of breathing. Continues to state his diarrhea is improving and he is attempting to eat well. OBJECTIVE: His most recent vital signs temperature is 99 degrees, blood pressure 108/73, heart rate 69, respirations 16. He is on room air. Last recorded saturation 100%. He has had 1681 in, he has had 0 recorded out with need for dialysis. LABS: Sodium 137, potassium 3.5, chloride 101, CO2 18, BUN 45, creatinine 3.5, glucose 102. His anion gap is 18. Calcium 7.4, phosphorus 3.2, albumin is 1.8. White count 7.61 , hemoglobin 5.7, hematocrit 18.2 with a platelet count of 33,000. PHYSICAL EXAMINATION: General: This is a 77-year-old, male. He is currently resting in bed. He is in no acute distress. Skin: Warm and dry. HEENT: Normocephalic, atraumatic. Conjunctiva is pale. His mucous membranes are dry. Neck: Supple. Trachea midline. No JVD. Cardiovascular: Regular rate and rhythm. Soft systolic murmur. No gallop. Lungs: Clear to auscultation anteriorly. Equal excursion on room air. Abdomen: Soft , nontender. Positive bowel sounds. Genitourinary: Not inspected. Minimal void with dialysis assist. Extremities: Have no edema. No clubbing or cyanosis. Neurological: He is alert and oriented x 3. Integumentary: No rashes or lesions evident. ASSESSMENT AND PLAN: 1. End-stage renal disease. Patient continues to require hemodialysis. We will place him on SLED today. We will dialyze him on a 4 K bath for 8 hours. We will attempt to pull patient to his dry weight secondary to patient continuing to require Levophed. 2. Electrolytes and acid-base balance. These are stable with correction on dialysis. 3. Anemia. His hemoglobin continues to drop. It appears that he has gotten 1 unit of platelets yesterday evening. We will defer to Dr. Swanson for transfusion. Okay from our standpoint to transfuse on dialysis. 4. Bacteremia. Patient has spiked a temperature yesterday evening. We have spoken with Dr. Gunter. We will check blood cultures on dialysis. 5. Malnutrition. We again continue to encourage a 2000 calorie 24 hour diet as tolerated. I would to thank you for allowing us to follow with this patient. Seen, data reviewed, discussed with Heather Magallon on 04/22/17. I agree with the above assessment and plan of care. rg Dictated by LO Perkins for Ranjan Beltran MD cc: LO Perkins MD [facility]
[2017-04-23] MEDS: D50W 250 ML, AMINOSYN 10% 500 ML, LIPOSYN 20% 250 ML IV SCH ×3 (10:53)
--- NOTE | 2017-04-23 14:15 | PROGRESS NOTE ---
DATE: 04/23/2017 SUBJECTIVE: The patient is resting comfortably in bed. He ate well with his breakfast this morning. He is currently on 1 mcg/minute of Levophed. He continues to have multiple episodes of loose stool. OBJECTIVE: Vital Signs: Temperature 99 degrees, blood pressure 113/64, heart rate 79 respirations 19, O2 saturations 99% on room air. General: This is an elderly male, lying in bed in no acute distress. Head: Normocephalic, atraumatic. Heart: S1, S2. Normal. Regular rate and rhythm. Lungs: Equal air entry bilaterally. No crackles, no rales. Abdomen: Positive bowel sounds. Soft, nontender, nondistended. Extremities: No edema. No cyanosis. No calf tenderness. Neurologic: The patient is alert and oriented x3. LABORATORY STUDIES: White blood cell count 7.6, hemoglobin 18, platelets 33. Sodium 137, potassium 3.5, chloride 101, CO2 18, BUN 45, creatinine 3.5, glucose 102, albumin 1.8. ASSESSMENT AND PLAN: 1. Pneumonia. Continue on intravenous antibiotic therapy. 2. Bacteroides bacteremia. Continue on Zosyn. This is day 12 of 14 days. 3. End-stage renal disease. Management as per the corporate attorney. 4. Anemia. The patient is scheduled to receive blood during dialysis today. 5. Thrombocytopenia. We will continue to monitor the platelet count closely and transfuse as needed 6. Severe protein calorie malnutrition. Continue on IDPN. Will continue to encourage the patient to increase his oral intake. 7. Hypotension. Attempts are being made to wean the patient off of Levophed drip. 8. Chronic diarrhea. We will discontinue the Questran and order scheduled Imodium. 9. Refractory multiple myeloma. Aware. cc: Cindy Wallace MD [facility]
[2017-04-23] MEDS: IMODIUM PO SCH ×2 (16:51→17:45)
--- NOTE | 2017-04-23 17:23 | PROGRESS NOTE ---
DATE: 04/23/2017 PRESENT ILLNESS: Patient has a bacteroides bacteremia pneumonia, bilateral psoas muscle fluid, bilateral pleural effusions and a history of a very low IgG. MEDICATIONS: This is day 12 of IV Zosyn. PHYSICAL EXAMINATION: Vital Signs: Temperature is 99.7 degrees, pulse 79, respirations 19, blood pressure is 113/64. General: This is a chronically ill-appearing, elderly male. He seems to be breathing rather heavy today. Lungs: Bilateral rhonchi. Cardiovascular: Heart rate is regular. Abdomen: Soft and nontender. Thorax: Patient has bilateral fluctuant areas in the upper part of the chest where indwelling catheters were removed and also there is an increase in the AP diameter of the chest. Neck: Patient has a right-sided internal jugular catheter in place. Extremities: The left arm has a functioning AV fistula in place. LAB AND X-RAY: CBC shows a white count of 7610, hemoglobin 5.7 and platelet count 33,000. Creatinine is 3.5. The GFR is 21. Blood cultures are pending. ASSESSMENT AND PLAN: The plan is to continue Zosyn for at least a total of 14 days to treat the bacteroides bacteremia and pneumonia. As regards the bilateral psoas muscle fluid and bilateral pleural effusions I think that more than likely these represent either passive congestion or bleeding and I do not think that it would be helpful to try to do an aspiration given the very low platelet count. I plan to repeat the patient's CBC and chest x-ray and also repeat his immunoglobulin levels. COMORBIDITIES: Include end-stage renal disease, hemodialysis, multiple myeloma with low IgG. cc: Gagan Gunter MD [facility]
[2017-04-23] MEDS: LEVOPHED 8 MG in D5 1/2 NS 250 ML IV SCH (19:00)
[2017-04-23] MEDS: CULTURELLE PO SCH (20:22)
[2017-04-23] MEDS ORDERED: METAMUCIL POWDER PACKET PO SCH (21:00)
[2017-04-23] MEDS ORDERED: FIBERCON PO SCH (21:00)
--- NOTE | 2017-04-23 22:05 | Diag Imaging Result Doc PS360 ---
EXAM: CHEST-1 VIEW INDICATION: pneumonia TECHNIQUE: One view COMPARISON: 04/22/2017 FINDINGS: A right Vas-Cath is stable. There are bilateral ill-defined opacities there are essentially stable as compared to the previous study. There are no definite new consolidations.The cardiomediastinal silhouette is stable. The cardiomediastinal silhouette is essentially unremarkable. The central vasculature may be slightly more prominent than the previous study, especially on the right. This suggests slight worsening of pulmonary venous congestion. IMPRESSION: Suggestion of worsening of pulmonary venous congestion. Otherwise, essentially stable. Electronically signed by Greg Yates 04/23/2017 10:03 PM
[2017-04-24] MEDS: SOLU-CORTEF IV SCH ×4 (03:33→21:30)
[2017-04-24] MEDS: ZOSYN 2.25 GM/NS 2.25 GM/50 ML IVPB IV SCH ×4 (03:34→21:30)
[2017-04-24] MEDS: XOPENEX NEB INH SCH ×6 (03:50→23:19)
[2017-04-24] MEDS: PROTONIX PO SCH (06:13)
[2017-04-24 06:37] LABS: ALBUMIN 1.8 g/dL (3.5-5.0); CALCIUM 7.6 mg/dL (8.8-10.2)
[2017-04-24 07:04] LABS: HEMATOCRIT 23.1 % (42.0-52.0); HEMOGLOBIN 7.6 g/dL (14.0-18.0); MCH 30.2 PG (27-31); MCHC 32.9 g/dL (33-37); MCV 91.7 FL (81-99); RBC 2.52 XMIL (4.7-6.1)
[2017-04-24] MEDS: CULTURELLE PO SCH ×2 (08:47→20:28)
[2017-04-24] MEDS: PHOSLO PO SCH ×3 (08:47→16:11)
[2017-04-24] MEDS: IMODIUM PO SCH ×3 (08:47→16:11)
[2017-04-24] MEDS: ANUSOL-HC CREAM PR SCH ×2 (08:47→20:28)
[2017-04-24] MEDS: METAMUCIL POWDER PACKET PO SCH ×3 (08:54→16:10)
--- NOTE | 2017-04-24 10:41 | PROGRESS NOTE ---
DATE: 04/24/2017 SUBJECTIVE: The patient is awake and alert, resting comfortably in bed. He is no longer requiring supplemental oxygen. He is on 1.5 mcg of Levophed. OBJECTIVE: Vital Signs: Temperature 98 degrees, blood pressure 103/59, heart rate 76, respirations 18, O2 saturation is 100% on room air. General: This is a chronically ill- appearing, elderly male, lying in bed in no acute distress. Head: Normocephalic, atraumatic. Heart: S1, S2. Normal. Regular rate and rhythm. Lungs: Clear to auscultation bilaterally. No crackles. No rales. Abdomen: Positive bowel sounds. Soft, nontender, nondistended. Extremities: No edema. No cyanosis. No calf tenderness. Neurological: Patient is alert and oriented x3. LABS: White blood cell count 9.6, hemoglobin 7.6, hematocrit 23, platelets 25. Sodium 138, potassium 4, chloride 99, CO2 23, BUN 25, creatinine 2.3, glucose 111, albumin 1.8, phosphorus 2.0. ASSESSMENT AND PLAN: 1. Pneumonia. Continue on intravenous antibiotic therapy. 2. Bacteroides bacteremia. The patient's repeat blood cultures from yesterday are growing gram positive cocci. Will give the patient a dose of daptomycin and await further recommendations from . 3. End-stage renal disease. Management as per the equine dentist. 4. Anemia. We will continue to monitor and transfuse as needed. 5. Thrombocytopenia. Will defer to the oncologist regarding transfusion. We will continue to monitor closely. 6. Severe protein calorie malnutrition. Continue on intravenous and parenteral nutrition during dialysis sessions. The patient is eating well. 7. Hypotension. Will continue to try and wean the patient off of the Levophed drip. 8. Chronic diarrhea. Continue on scheduled Imodium. Will also add Metamucil. 9. Refractory multiple myeloma. Aware. 10. Continue with physical therapy. cc: MD NOHEMY Wade
--- NOTE | 2017-04-24 11:04 | PROGRESS NOTE ---
DATE: 04/24/2017 SUBJECTIVE: Mr. Moore is resting quietly in bed. He has no complaints. States that he is feeling better. He is eating his breakfast. Denies nausea. No recent episode of diarrhea. OBJECTIVE: His most recent vital signs are temperature 98 degrees, blood pressure 107/44, heart rate 78, respiration 18. He is on room air. Last recorded saturation is 100%. He has had 2201 in; he has had 2.3 L off on dialysis. LABORATORIES: His most recent labs sodium 138, potassium 4, chloride 99, CO2 23, BUN 25 creatinine 2.3, glucose 111. His anion gap is 16, calcium 7.6, phosphorus is 2, albumin 1.8. White count 9.66, hemoglobin 7.6, hematocrit 23.1, with a platelet count of 25,000. PHYSICAL EXAMINATION: General: This is a 77-year-old, elderly black male. He appears in no acute distress. Skin: Warm and dry. HEENT: Normocephalic, atraumatic. Conjunctivae pale. His mucous membranes are moist. Neck: Supple. Trachea midline. No JVD. Cardiovascular: Regular rate and rhythm. He has a soft systolic murmur. No gallop. Lungs: Clear to auscultation anteriorly. Equal excursion on room air. Abdomen: Soft, nontender. Positive bowel sounds. Extremities: No edema. No clubbing or cyanosis. Neurological: He is alert and oriented x3. ASSESSMENT AND PLAN: 1. End-stage renal disease. Patient tolerated dialysis yesterday for a total of 2.2 L ultrafiltration. No indications for intervention today. He continues to require Levophed. They will attempt to wean off due to stable blood pressure. 2. Electrolytes and acid-base balance. These are stable. 3. Anemia. This remains low. Patient was transfused 2 units of packed red blood cells on dialysis yesterday. 4. Bacteremia. We have repeated blood cultures as of yesterday with no indications for a 24 hour report. We will continue to monitor. No changes to his renal dosed antibiotics. I would to thank you for allowing us to follow with this patient. Dictated by LO Perkins for Ranjan Beltran MD cc: LO Perkins MD
[2017-04-24] MEDS ORDERED: CUBICIN (FOR INPATIENT USE) 500 MG in NS 100 ML IV ONE (12:00)
[2017-04-24] MEDS: CALMOSEPTINE OINTMENT TOP PRN (20:30)
[2017-04-24] MEDS ORDERED: STERILE WATER INJ. ONE (21:25)
[2017-04-25] MEDS: SOLU-CORTEF IV SCH ×4 (03:29→22:13)
[2017-04-25] MEDS: ZOSYN 2.25 GM/NS 2.25 GM/50 ML IVPB IV SCH ×4 (03:30→22:14)
[2017-04-25] MEDS: XOPENEX NEB INH SCH ×6 (03:47→23:25)
[2017-04-25 04:54] LABS: HEMATOCRIT 21.8 % (42.0-52.0); MCH 29.7 PG (27-31); MCHC 32.1 g/dL (33-37); MCV 92.4 FL (81-99); MPV 9.7 FL (7.4-10.4); RBC 2.36 XMIL (4.7-6.1)
[2017-04-25 05:50] LABS: ALBUMIN 1.9 g/dL (3.5-5.0); CALCIUM 7.2 mg/dL (8.8-10.2)
[2017-04-25] MEDS: PROTONIX PO SCH (06:43)
--- NOTE | 2017-04-25 08:17 | Diag Imaging Result Doc PS360 ---
EXAM: CHEST-PORTABLE INDICATION: abnormal exam TECHNIQUE: One view COMPARISON: 04/23/2017 FINDINGS: Right central catheter is in stable position. Mild ill-defined opacities throughout both lungs are essentially stable. The central vasculature is perhaps slightly less prominent suggesting slight improvement of pulmonary venous congestion. The cardiac silhouette is stable. IMPRESSION: Suggestion of marginal improvement of pulmonary venous congestion. Stable chest, otherwise. Electronically signed by Greg Yates 04/25/2017 8:15 AM
[2017-04-25] MEDS: ANUSOL-HC CREAM PR SCH ×2 (08:42→22:13)
[2017-04-25] MEDS: IMODIUM PO SCH ×3 (08:43→16:32)
[2017-04-25] MEDS: PHOSLO PO SCH ×3 (08:43→16:32)
[2017-04-25] MEDS: METAMUCIL POWDER PACKET PO SCH ×3 (08:43→16:32)
[2017-04-25] MEDS: CULTURELLE PO SCH ×2 (08:43→20:42)
[2017-04-25] MEDS: ZOFRAN IV PRN (09:17)
--- NOTE | 2017-04-25 11:37 | PROGRESS NOTE ---
DATE: 04/25/2017 SUBJECTIVE: Patient is sitting up in bed. He has been able to eat breakfast. He is in no acute distress today. OBJECTIVE: Vital Signs: Temperature 97.6 degrees, pulse 71, respiratory rate 20, blood pressure 91/57. Intake 2.6 L. Output not measured to none. General: This is an elderly gentleman, resting in bed. He is awake and alert. No acute distress. HEENT: Normocephalic, atraumatic. His oral mucosa is moist. Neck: Supple. Trachea midline. Cardiovascular: Reveals a regular rate and rhythm with a systolic murmur. Pulmonary: Equal excursion. He is clear bilaterally. Abdomen: Soft. Positive bowel sounds. : Not inspected. Extremities: No clubbing, cyanosis, or edema. Integumentary: Skin is warm and dry without rash or lesion. Neurologic: Grossly nonfocal. LAB DATA: WBC of 7.4, hemoglobin 7.0, platelets of 36,000. Sodium 136, potassium 4.0, CO2 99, BUN 45, creatinine 3.6, albumin 1.9, calcium 7.4. ASSESSMENT AND PLAN: 1. End-stage renal disease management. He is on a Wednesday, Wednesday, Wednesday schedule. We will plan to dialyze him in the morning as per his routine. Dialysis bath will be adjusted according to his labs. 2. Electrolytes, acid-base balance, anemia. These have been stable. He is followed by primary and hematology/oncology for his anemia. We will adjust his dialysis for his other labs again. 3. Bacteremia. Followed by primary. No changes needed to current antibiotic regimen. Dictated by LO Willingham for Ranjan Beltran MD cc: Ranjan Beltran MD
--- NOTE | 2017-04-25 12:01 | Diag Imaging Result Doc PS360 ---
EXAM: FLAT/UPRIGHT ABD/1 VIEW CHEST INDICATION: nausea/vomiting TECHNIQUE: 3 views COMPARISON: Chest radiograph dated 04/25/2017 FINDINGS: There is mild to moderate gaseous distention of the stomach. There is no definite obstructive pattern. There is no evidence of large volume free abdominal gas. The right central line is stable. Ill-defined opacities throughout both lungs are unchanged as compared to the very recent previous study. There are no new consolidations identified. Cardiac silhouette is stable. IMPRESSION: 1.Mild to moderate gastric distention. 2.Grossly stable chest. Electronically signed by Greg Yates 04/25/2017 11:59 AM
--- NOTE | 2017-04-25 17:11 | PROGRESS NOTE ---
DATE: 04/25/2017 SUBJECTIVE: The patient is resting comfortably in bed. He had a episode of significant emesis this morning as well as diarrhea . OBJECTIVE: Vital Signs: Temperature 98 degrees, blood pressure 88/60, heart rate 73, respirations 18, O2 saturations 99% on room air. General: This is an elderly male chronically ill-appearing male lying in bed in no acute distress. Head: Normocephalic, atraumatic. Heart: S1, S2. Normal. Regular rate and rhythm. Lungs: Clear to auscultation bilaterally. No crackles. No rales. Abdomen: Positive bowel sounds. Soft, nontender, nondistended. Extremities: No edema. No cyanosis. Neuro: The patient is alert oriented x3. LABS: White blood cell count 7.2, hemoglobin 7, hematocrit 21, platelets 46, 000. Sodium potassium 4, chloride 99, CO2 of 19, BUN 45, creatinine 3.6, glucose 120, albumin 1.9. ASSESSMENT AND PLAN: 1. Pneumonia. Continue Zosyn as directed by Dr. Gunter. 2. Bacteremia. The most recent blood cultures are growing gram-positive cocci in 1 bottle. The patient did receive a dose of daptomycin yesterday. Will defer to Dr. Gunter regarding further antibiotic changes. 3. End-stage renal disease. Management as per the airport security screener. 4. Chronic diarrhea. Continue on scheduled Imodium and Metamucil. 5. Hypotension. The patient is off of pressor support. Monitor closely. 6. Refractory multiple myeloma. Management per Dr. Swanson. 7. Anemia. Will continue to monitor the patient's hemoglobin and hematocrit and transfuse as needed. 8. Thrombocytopenia. The patient does not have any active bleeding at this time. Will continue to monitor closely and transfuse p.r.n. cc: Cindy Wallace MD [facility]
[2017-04-25] MEDS ORDERED: STERILE WATER INJ. ONE (22:08)
[2017-04-26] MEDS: XOPENEX NEB INH SCH ×6 (03:01→22:54)
[2017-04-26] MEDS: ZOSYN 2.25 GM/NS 2.25 GM/50 ML IVPB IV SCH ×4 (04:00→22:24)
[2017-04-26] MEDS ORDERED: NS 2,000 ML MISC PRN (07:27)
[2017-04-26 08:00] LABS: BASO% 0.1 % (0.0-0.8); EOS# 0.03 X1000 (0.0-0.7); EOS% 0.4 % (0.0-10.0); HEMATOCRIT 21.1 % (42.0-52.0); HEMOGLOBIN 6.7 g/dL (14.0-18.0); MANUAL DIFF NEEDED? NO; MCH 30.3 PG (27-31); MCHC 31.8 g/dL (33-37); MCV 95.5 FL (81-99); MONO# 0.79 X1000 (0.11-0.59); MONO% 10.5 % (1.7-9.3); MPV 11.6 FL (7.4-10.4); RBC 2.21 XMIL (4.7-6.1)
[2017-04-26 08:18] LABS: ALBUMIN 1.7 g/dL (3.5-5.0); POTASSIUM 3.7 mmol/L (3.5-5.1)
[2017-04-26] MEDS: PROTONIX PO SCH (08:22)
[2017-04-26] MEDS: SOLU-CORTEF IV SCH ×4 (08:22→22:25)
[2017-04-26] MEDS: METAMUCIL POWDER PACKET PO SCH ×3 (08:23→17:03)
[2017-04-26] MEDS: IMODIUM PO SCH ×3 (08:23→17:02)
[2017-04-26] MEDS: PHOSLO PO SCH ×4 (08:23→17:02)
[2017-04-26] MEDS: CULTURELLE PO SCH ×2 (08:23→22:26)
[2017-04-26] MEDS: ANUSOL-HC CREAM PR SCH ×2 (08:24→22:26)
[2017-04-26] MEDS ORDERED: HEPARIN ONE (09:10)
--- NOTE | 2017-04-26 11:15 | PROGRESS NOTE ---
DATE: 04/26/2017 TIME SEEN: 07. SUBJECTIVE: Mr. Moore is resting quietly in bed. He is getting set up to eat his breakfast. He denies any pain. No increased work of breathing. He denies any nausea. No recent episodes of diarrhea. OBJECTIVE: Vital signs: His most recent vital signs, temperature 97.2 degrees, blood pressure 92/55, heart rate 82, respirations are 14. He remains on room air. Last recorded saturation is 97%. He has had 1640 in. He has had 0 recorded out. Labs: His most recent labs: Sodium 138, potassium 3.7, chloride 98, CO2 19, BUN 64, creatinine 4.9, glucose 107. His anion gap is 21, calcium 7, phosphorus 3.6, albumin 1.7. White count 7.52, hemoglobin 6.7, hematocrit 21.1, with a platelet count of 19,000. Patient has blood cultures that have resulted with gram-positive cocci indicating Staph hominis with sensitivity to vancomycin on blood cultures that were drawn on 04/23. PHYSICAL EXAMINATION: General: This is a 77-year-old male. He is currently resting in bed. He is in no acute distress. Skin: Warm and dry. HEENT: Normocephalic, atraumatic. Conjunctivae pale. He has PRASHANT. Mucous membranes are dry. Neck: Supple. Trachea midline. No JVD. Cardiovascular: Regular rate and rhythm. He is without murmur or gallop. Lungs: Clear to auscultation anteriorly. Equal excursion. He is on room air. Abdomen: Soft, round, nontender. Positive bowel sounds. Genitourinary: Not inspected. Minimal void with dialysis assistance. Integumentary: Patient has a Vas-Cath to the right upper IJ. This remains dry and intact. He also has a port to the left upper chest wall. Neurological: He is alert and oriented x3. ASSESSMENT AND PLAN: 1. End-stage renal disease. Patient is due for his routine dialysis treatment today. We will place him on a 2 K bath. He is to dialyze for 3.5 hours. We will attempt to draw him to his dry weight. 2. Electrolytes and acid-base balance. These are stable with mild acidosis with correction on dialysis. 3. Anemia. Hemoglobin has dropped to 6.7 with platelets of 19,000. The patient is to dialyze today. We will defer to Dr. Swanson in regards with any intervention while on dialysis today. 4. Bacteremia. Patient now has positive blood cultures again with sensitivity to vancomycin. This is now followed by Dr. Gunter. The patient continues on Zosyn. We will defer to Dr. Gunter for changes to treatment and possible vancomycin after his dialysis treatments. I would like to thank you for allowing us to follow with this patient. Dictated by LO Perkins for Ranjan Beltran MD cc: LO Perkins MD
[2017-04-26 11:28] LABS: PLT 19 X1000 (130-400)
[2017-04-26] MEDS ORDERED: CALCIUM GLUCONATE 1 GM in NS 50 ML IV ONE (13:00)
--- NOTE | 2017-04-26 13:31 | PROGRESS NOTE ---
DATE: 04/26/2017 SUBJECTIVE: Patient is resting comfortably in bed today. He denies having any nausea or vomiting. His diarrhea is slowing down a little bit. The patient is off of the Levophed. OBJECTIVE: Vital Signs: Temperature 98 degrees, blood pressure 96/60, heart rate 78, respirations 24. O2 saturations 97% on room air. General: This is a chronically ill-appearing, elderly male, lying in bed, in no acute distress. Head: Normocephalic, atraumatic. Heart: S1, S2. Normal. Regular rate and rhythm. Lungs: Clear to auscultation bilaterally. No crackles. No rales. Abdomen: Positive bowel sounds. Soft, nontender, nondistended. Extremities: No edema. No cyanosis. No calf tenderness. Neurologic: The patient is alert and oriented x3. LABS: White blood cell count 7.5, hemoglobin 6.7, hematocrit 21, platelets 19, 000, sodium 138, potassium 3.7, chloride 98, CO2 19, BUN 64, creatinine 4.9, glucose 97. Calcium 7. ASSESSMENT AND PLAN: 1. Pneumonia. Continue on IV antibiotic therapy as directed by Dr. Gunter. 2. Staphylococcus hominis bacteremia. We will defer to Dr. Gunter regarding IV antibiotic therapy. 3. Refractory multiple myeloma. Aware. 4. Thrombocytopenia. We will order 1 unit of irradiated platelets. 5. End-stage renal disease. The patient is scheduled for hemodialysis today. 6. Chronic diarrhea. Continue on the scheduled Imodium and Metamucil. 7. Anemia. Will continue to monitor the patient's hemoglobin and hematocrit closely and transfuse p.r.n. 8. Will consult physical therapy. cc: Cindy Wallace MD [facility]
[2017-04-26] MEDS ORDERED: VANCOMYCIN 1 GM/NS 1 GM/250 ML IVPB IV ONE (14:30)
[2017-04-26] MEDS ORDERED: VANCOMYCIN 1 GM/NS 1 GM/250 ML IVPB IV SCH (14:45)
[2017-04-26] MEDS ORDERED: FLEBOGAMMA DIF 5% IV ONE (15:00)
[2017-04-26] MEDS ORDERED: NS 250 ML ONE (15:20)
--- NOTE | 2017-04-26 15:49 | PROGRESS NOTE ---
DATE: 04/26/2017 PRESENT ILLNESS: The patient currently is being treated for Bacteroides bacteremia, pneumonia, and bilateral psoas muscle fluid and bilateral pleural effusions, and bilateral hematomas on the chest. The patient also has a very low IgG level. In addition to that, today, the patient's blood culture, 1 of 2 blood cultures recently drawn, are growing Staph hominis, which the patient has had in his bloodstream before. MEDICATIONS: This is day 15 of Zosyn. PHYSICAL EXAMINATION: Vital Signs: Temperature is 98.4 degrees, pulse 75, respirations 20, blood pressure 106/53. General: This is a chronically ill-appearing elderly male. He is in no acute distress. Lungs: Clear to auscultation. Cardiovascular: Regular heart rate. Abdomen: Soft and nontender. Thorax: Patient has bilateral fluctuant areas in the upper part of his chest, where an indwelling catheter was removed. These are thought to be hematomas. The patient has an increased AP diameter of the chest. Neck: The patient has a right-sided internal jugular catheter in place. The site is not swollen or purulent. Extremities: The patient has a left arm functioning AV fistula. That site also is not swollen. LABORATORY STUDIES AND X-RAYS: As mentioned above, 1 of 2 blood cultures are growing Staph hominis. Patient's CBC shows a white count of 7520, hemoglobin 6.7, and platelet count of 19,000. Patient's creatinine is 4.9. The GFR is 14. The patient's repeat immunoglobulin levels: His IgG is back down to 393. The IgA is 5476. There is no new chest x-ray today. ASSESSMENT AND PLAN: The patient has had now adequate treatment for the Bacteroides bacteremia, and I plan on discontinuing Zosyn today. Also, I think the patient has had plenty of treatment for the patient's pneumonia, given that he has had Zosyn for 15 days also. We are adding back vancomycin for the patient's positive blood culture, and if some of the pneumonia is due to a Staphylococcus that is resistant to Zosyn, then coverage for that will be adequate with the vancomycin we are adding back. The 2 hematomas on the patient's chest do not appear to be infected. The fluid in his psoas muscles also is thought to be a hematoma. In any event, given that the patient's platelet count is so low, I do not think he would be a candidate to try to aspirate fluid from the psoas muscles percutaneously. I plan to give the patient now vancomycin as a now dose and after each dialysis. Later on in the week, I will repeat his blood cultures. If they are negative, then we will keep going with the vancomycin for at least a 14 day treatment- course, possibly longer. If the blood cultures remain positive despite being on vancomycin, then I think the patient's internal jugular catheter will have to be removed. Since the patient's IgG level has dropped so low, again I will give him IV gammaglobulin. COMORBIDITIES: He has end-stage renal disease. He is on dialysis. He has multiple myeloma, with a low IgG. cc: aGgan Gunter MD
[2017-04-27] MEDS: XOPENEX NEB INH SCH ×6 (03:01→23:17)
[2017-04-27] MEDS: SOLU-CORTEF IV SCH ×4 (04:01→21:14)
[2017-04-27] MEDS: ZOSYN 2.25 GM/NS 2.25 GM/50 ML IVPB IV SCH ×3 (04:01→16:36)
[2017-04-27] MEDS: PROTONIX PO SCH (06:38)
[2017-04-27 06:42] LABS: ALBUMIN 1.8 g/dL (3.5-5.0); POTASSIUM 3.5 mmol/L (3.5-5.1)
[2017-04-27 06:43] LABS: EOS# 0.02 X1000 (0.0-0.7); EOS% 0.3 % (0.0-10.0); HEMATOCRIT 22.5 % (42.0-52.0); HEMOGLOBIN 7.2 g/dL (14.0-18.0); MANUAL DIFF NEEDED? YES; MCH 29.6 PG (27-31); MCV 92.6 FL (81-99); MONO# 0.88 X1000 (0.11-0.59); MONO% 13.6 % (1.7-9.3); MPV 9.7 FL (7.4-10.4); PLT 27 X1000 (130-400); RBC 2.43 XMIL (4.7-6.1)
[2017-04-27 07:12] LABS: BANDS 2 % (0-1); HYPOCHROM 2+; LYMPHS 34 % (21-51); MONO 8 % (1-9); NRBC 4 % (0-0)
[2017-04-27] MEDS: METAMUCIL POWDER PACKET PO SCH ×3 (08:05→17:23)
[2017-04-27] MEDS: CULTURELLE PO SCH ×2 (08:05→21:14)
[2017-04-27] MEDS: IMODIUM PO SCH ×3 (08:06→16:36)
[2017-04-27] MEDS: PHOSLO PO SCH ×3 (08:06→16:37)
[2017-04-27] MEDS: ANUSOL-HC CREAM PR SCH ×2 (08:09→23:07)
--- NOTE | 2017-04-27 10:42 | PROGRESS NOTE ---
DATE: 04/27/2017 SUBJECTIVE: This patient is resting comfortably in bed today. He denies any nausea, vomiting. No diarrhea. He had 2 formed bowel movements during the night. No bowel movement during the day. This patient is not on pressors. He is tolerating food. He ate all of his breakfast. OBJECTIVE: Vital Signs: Temperature 97.1 degrees, pulse 98, respiratory rate 25, blood pressure 107/67, oxygen saturation 96 on room air. HEENT: Head normocephalic. No trauma. PERRLA. Neck: Supple. No JVD. No masses. Central trachea. Chest: Clear to auscultation. No wheezing. No rales. Abdomen: Positive bowel sounds. Soft, nontender, nondistended. Extremities: No edema. No clubbing. No cyanosis. Neurological: The patient is alert and oriented x3. No focal deficits. LABORATORY: WBC 6.4, hemoglobin 7.2, hematocrit 22.5, platelets 27,000. Sodium 139, potassium 3.5, chloride 97, bicarbonate 27, BUN 36, creatinine 3.3, glucose 69, calcium 7. ASSESSMENT AND PLAN: 1. Pneumonia, improved. Antibiotics were held by infectious disease department. Will continue to monitor. 2. Staphylococcus hominis bacteremia. This patient is on vancomycin. Probably the Vas-Cath has to be removed. We will continue following the recommendations of Dr. Gunter. 3. Refractory multiple myeloma, aware. Treatment has been held. 4. Thrombocytopenia, status post transfusion. The platelet count increased from 19,000 to 27,000. We will continue to monitor. 5. End-stage renal disease. Continue hemodialysis as scheduled. 6. Chronic diarrhea, improved. No diarrhea today and he had 2 formed bowel movements during the night. 7. Anemia. Continue to monitor. Status post blood transfusion. 8. Physical deconditioning. Physical therapy has been consulted. 9. This patient is stable. I will transfer this patient to the floor. For now, we will continue with the same management. He will be transfer with telemetry. cc: Elvis Keys MD
[2017-04-27] MEDS ORDERED: STERILE WATER INJ. ONE (14:01)
--- NOTE | 2017-04-27 15:16 | PROGRESS NOTE ---
DATE: 04/27/2017 TIME SEEN: 0750. SUBJECTIVE: Mr. Moore is resting quietly in bed. He states that he is feeling much better. He denies any chest pain or increased work of breathing. OBJECTIVE: Vital Signs: Temperature 98.8 degrees, blood pressure 120/76, heart rate 78, respirations 20. He is on room air. Last recorded saturation is 93%. He has had 3010 in. He has had 2.2 L removed on dialysis yesterday. General: This is a 77-year-old male. He is currently resting in bed. He is in no acute distress, though he appears chronically ill. Skin: Warm and dry. HEENT: Normocephalic, atraumatic. Conjunctivae pale. He has PRASHANT. Mucous membranes are dry. Neck: Supple. Trachea midline. No JVD. Cardiovascular: Regular rate and rhythm. He has a soft systolic murmur. No gallop. Lungs: Clear to auscultation anteriorly. Equal excursion. He remains on room air. Abdomen: Soft, nontender. Positive bowel sounds. Genitourinary: Not inspected. Minimal void with dialysis assist. Extremities: No edema. No clubbing or cyanosis. Integumentary: No rashes or lesions evident. LABORATORY DATA: Sodium 139, potassium 3.5, chloride 97, CO2 of 27, BUN 36, creatinine 3.3, glucose 69. His anion gap is 15. Calcium 7, phosphorus 2.3, albumin 1.8. White count 6.46, hemoglobin 7.2, hematocrit 22.5, with a platelet count 27,000. ASSESSMENT AND PLAN: 1. End-stage renal disease. Patient is due for his routine dialysis treatment in the a.m. We were able to pull 2.2 L off on dialysis yesterday. The patient tolerated this well, with no further indications for intervention. 2. Electrolytes and acid-base balance. These remain stable. 3. Anemia. This is improved secondary to 2 units of packed red blood cells with 1 unit pheresed platelets given on dialysis yesterday. 4. Pneumonia. He continues on renal-dosed antibiotics per Dr. Gunter. 5. New find for Staphylococcus hominis bacteremia. I have spoken with Dr. Gunter. We are in agreement for vancomycin 1 g to be given Wednesday, Wednesday, Wednesday of this week. After dialysis on Wednesday, we will pull his Vas-Cath to the right internal jugular. We will allow the patient to go over the weekend without any internal source and plan for reinsertion of a Vas-Cath on Wednesday prior to dialysis. 6. Refractory multiple myeloma. We appreciate Dr. Swanson's input in regards to his anemia and platelets. 7. Chronic diarrhea. This has improved with encouragement to improve his malnutrition status. I would to thank you for allowing us to follow with this patient. Dictated by LO Perkins for Ranjan Beltran MD cc: LO Perkins MD
--- NOTE | 2017-04-27 18:03 | PROGRESS NOTE ---
DATE: 04/27/2017 PRESENT ILLNESS: The patient currently is being treated for a staph bacteremia. His Bacteroides bacteremia has resolved, as has his pneumonia. He does have bilateral psoas muscle fluid collections, bilateral pleural effusions, and bilateral hematomas on the patient's chest. I do not think any of these are infected. The patient also has a very low IgG level. Most recently now the patient is growing Staphylococcus hominis. MEDICATIONS: The patient is on vancomycin to be given after dialysis, and Zosyn which is day 16 of treatment with it. PHYSICAL EXAMINATION: Vital Signs: Temperature is 97.9 degrees, pulse 76, respiration 16, blood pressure 99/52. Generally: This is an ill-appearing, elderly male. He is in no acute distress. Lungs: Clear to auscultation. Cardiovascular: Heart rate is regular. Thorax: Patient has the bilateral fluctuant areas on the upper part of his chest. He also has an increased AP diameter of the chest. Neck: Patient has an internal jugular catheter in place. The site does not appear to be infected. Extremities: Patient has a left arm AV fistula. This site is not swollen or tender. LAB AND X-RAY: The patient's organism, namely, Staphylococcus hominis, has an TALHA of 2 for vancomycin. Therefore this level of susceptibility predicts failure if vancomycin is used. Patient's CBC for today shows a white count of 6460, hemoglobin 7.2, and platelet count 27,000. Creatinine is 3.3. GFR is 22. ASSESSMENT AND PLAN: I am going to go ahead and continue treating the patient's staphylococcal bacteremia but I have substituted daptomycin for Zosyn because of the high TALHA of 2 for the organism versus vancomycin. Also, since the patient's IgG level was very low again, I am going to go ahead and give him another infusion of IV immunoglobulins tomorrow morning. The patient's fluid collections mentioned above I doubt are infected, and because the patient's low platelet count I do not think it is indicated to aspirate them because of the likelihood of bleeding. I have also discontinued Zosyn. COMORBIDITIES: Include end-stage renal disease, dialysis, multiple myeloma with a low IgG value, and pancytopenia. cc: Gagan Gunter MD
[2017-04-28] MEDS: XOPENEX NEB INH SCH ×6 (03:51→23:06)
[2017-04-28] MEDS: SOLU-CORTEF IV SCH ×4 (03:53→21:42)
[2017-04-28] MEDS: PROTONIX PO SCH (06:26)
[2017-04-28 07:22] LABS: ALBUMIN 1.9 g/dL (3.5-5.0); POTASSIUM 4.3 mmol/L (3.5-5.1)
[2017-04-28 07:34] LABS: HEMATOCRIT 23.2 % (42.0-52.0); HEMOGLOBIN 7.3 g/dL (14.0-18.0); MANUAL DIFF NEEDED? YES; MCH 29.1 PG (27-31); MCHC 31.5 g/dL (33-37); MCV 92.4 FL (81-99); MPV 9.8 FL (7.4-10.4); PLT 18 X1000 (130-400); RBC 2.51 XMIL (4.7-6.1)
[2017-04-28 07:48] LABS: LYMPHS 32 % (21-51); MONO 4 % (1-9); NRBC 1 % (0-0)
[2017-04-28] MEDS ORDERED: NS 2,000 ML MISC PRN (08:11)
[2017-04-28] MEDS ORDERED: NS 2,000 ML ONE (08:53)
[2017-04-28] MEDS ORDERED: HEPARIN ONE (08:54)
[2017-04-28] MEDS ORDERED: FLEBOGAMMA DIF 5% IV ONE (09:00)
[2017-04-28] MEDS: D50W 250 ML, AMINOSYN 10% 500 ML, LIPOSYN 20% 250 ML IV SCH ×3 (10:04)
[2017-04-28] MEDS: IMODIUM PO SCH ×3 (10:15→16:58)
--- NOTE | 2017-04-28 12:40 | PROGRESS NOTE ---
DATE: 04/28/2017 SUBJECTIVE: Mr. Moore is resting quietly in bed. He has just been cleaned up for diarrhea stool. His is at his bedside. He denies any chest pain or increased work of breathing. OBJECTIVE: His most recent vital signs are temperature 97.9 degrees, blood pressure 111/90, heart rate 93, respirations 16. He is on room air. Last recorded saturation 97%. He has had 820 in. He has had 0 recorded out with need for dialysis. LABORATORY DATA: Sodium 136, potassium 4.3, chloride 95, CO2 23, BUN 58, creatinine 4.7, glucose 95, anion gap of 18. Calcium 7. Phosphorus 3.3, albumin 1.9. White count 10.12, hemoglobin 7.3, hematocrit 23 with a platelet count of 18,000. PHYSICAL EXAMINATION: General: This is a 77-year-old, male. He is currently resting in bed. He is in no acute distress. Skin: Warm and dry. HEENT: He is normocephalic, atraumatic. Conjunctiva is pale. He has PRASHANT. Mucous membranes are moist. Neck: Supple. Trachea midline. No JVD. Cardiovascular: Regular rate and rhythm. He has a soft systolic murmur. He has no gallop appreciated. Lungs: Clear to auscultation anteriorly. Equal excursion. Abdomen: Round, soft, nontender. Positive bowel sounds. Extremities: No edema. No clubbing or cyanosis. Integumentary: No rashes or lesions evident. Neurological: Alert and oriented x3. ASSESSMENT AND PLAN: 1. End-stage renal disease. Patient is due for his routine dialysis treatment today. We will place him on a [address] We will place him on a 3 calcium bath. We will dialyze him for 3.5 hours. We will attempt to pull him to his dry weight. 2. Electrolytes. Again patient has had a calcium slowly dropping. His corrected calcium today is 8.6. We will correct this today on a 3 calcium bath and follow labs in the a.m. 3. Acid-base balance. This is stable. 4. Anemia. This continues low with Dr. Swanson following for orders of transfusions while on dialysis. 5. Multiple myeloma. Again his platelet count is down to 18. Patient had received 1 unit of platelets and 2 units of packed red blood cells on dialysis on his last treatment. The patient continues with bacteremia hominis with Dr. Gunter following with directions that we will pull his Vas-Cath on Wednesday after his treatment with replacement on Wednesday. I would to thank you for allowing us to follow with this patient. Dictated by LO Perkins for Ranjan Beltran MD cc: LO Perkins MD [facility]
[2017-04-28] MEDS: PHOSLO PO SCH ×3 (12:41→16:59)
[2017-04-28] MEDS: METAMUCIL POWDER PACKET PO SCH ×4 (12:42→20:42)
[2017-04-28] MEDS: ANUSOL-HC CREAM PR SCH ×2 (13:42→20:43)
[2017-04-28] MEDS: CULTURELLE PO SCH ×2 (13:43→20:42)
--- NOTE | 2017-04-28 14:44 | PROGRESS NOTE ---
DATE: 04/28/2017 SUBJECTIVE: When I evaluated this patient, he was sitting on the bed. He is complaining of right flank soreness that is painful to palpation. He had dialysis today, platelet count is low and he will receive platelets. Also this patient at this moment is receiving IVIG. OBJECTIVE: Vital Signs: Temperature 97.2 degrees, pulse 91, respiratory rate 18, blood pressure 136/50. Oxygen saturation 97% on room air. HEENT: Head normocephalic. No trauma. PERRLA. Neck: Supple. No JVD. No masses. Central trachea. Chest: Clear to auscultation. No wheezing. No rales. Abdomen: Positive bowel sounds. Mild tenderness to palpation on the lateral side of the right flank, nondistended. Extremities: No edema. No clubbing. No cyanosis. Neurological: The patient is alert and oriented x3. No focal deficits. Generalized weakness. LABORATORY: WBC 10.1, hemoglobin 7.3, hematocrit 23.2, platelet 18,000. Sodium 136, potassium 4.3, chloride 95, bicarbonate 23, BUN 58, creatinine 4.7, glucose 95, calcium 7, albumin 1.9. ASSESSMENT AND PLAN: 1. Pneumonia, improved. Antibiotics were held by Infectious Disease Department. We will continue to monitor. 2. Staphylococcus hominis bacteremia. This patient is on vancomycin, probably the Vas-Cath will be removed probably this Wednesday, Nephrology Department and Infectious Disease Department are following this patient. The plan is to get a new Vas-Cath next week. 3. Refractory multiple myeloma, aware. Treatment has been held. 4. Thrombocytopenia, the amine the platelets are 18,000 today. He will be transfused. 5. End-stage renal disease status post dialysis today. Continue as scheduled. 6. Chronic diarrhea, improved. 7. Anemia. Continue to monitor. Status post transfusion. 8. Physical deconditioning. Physical Therapy is on board. cc: Elvis Keys MD
--- NOTE | 2017-04-28 15:29 | PROGRESS NOTE ---
DATE: 04/28/2017 PRESENT ILLNESS: The patient has a Staph bacteremia. Yesterday we started the patient on daptomycin because the organisms TALHA to vancomycin was 2. MEDICATIONS: As mentioned above, the patient was started on daptomycin. This is day 1 of treatment with it. PHYSICAL EXAMINATION: Vital Signs: Temperature is 97.2 degrees, pulse 91, respirations 18, blood pressure 136/50. General: This is a chronically ill-appearing, elderly male. He is in no acute distress. Head, Eyes, Ears, Nose, and throat: No drainage noted from the nose or ears. In his mouth there were no white patches. Neck: Patient has an internal jugular catheter in place. The site is not swollen or tender. Thorax: Patient has 2 what appear to be hematomas on the upper part of his chest where intravenous catheters had been removed. Lungs: Clear to auscultation. Cardiovascular: Regular heart rate. Abdomen: Soft and nontender. Extremities : The patient's left arm has a functioning AV fistula. The site is not more swollen than usual and it is not tender. LAB AND X-RAY: There is no new x-ray today[place] [address], hemoglobin 7.3 and platelet count 18,000. Creatinine is 4.7. The GFR is 15. ASSESSMENT AND PLAN: The patient has staph bacteremia. I plan to continue with daptomycin which is being given after each dialysis. The patient also is receiving IVIG. COMORBIDITIES: Include end-stage renal disease, hemodialysis, multiple myeloma with low IgG value and pancytopenia. cc: Gagan Gunter MD [facility]
[2017-04-28] MEDS: CUBICIN IV SCH (17:00)
[2017-04-28] MEDS: NS IV SCH (17:00)
[2017-04-28] MEDS ORDERED: NS 500 ML ONE (18:42)
[2017-04-29] MEDS: XOPENEX NEB INH SCH ×6 (03:22→23:38)
--- NOTE | 2017-04-29 06:08 | EKG Report ---
Test Performed on : 04/29/2017 05:39:52 AM Test Reason : 12 Beat Run of V-Tach per Telemetry Blood Pressure : / mmHG Vent. Rate : 086 BPM Atrial Rate : 086 BPM P-R Int : 248 ms QRS Dur : 082 ms QT Int : 396 ms P-R-T Axes : 047 -07 045 degrees QTc Int : 473 ms Sinus rhythm. with 1st degree AV block. with blocked premature atrial complexes. Nonspecific ST and T wave abnormality Prolonged QT Abnormal ECG When compared with ECG of 21-APR-2017 06:05, premature atrial complexes. are now present Nonspecific T wave abnormality, worse in Lateral leads Confirmed by Taqueria DOAN, Bud Etienne ([id number]) on 05/02/2017 12:37:53 PM
[2017-04-29] MEDS: SOLU-CORTEF IV SCH ×4 (06:14→21:00)
[2017-04-29] MEDS: PROTONIX PO SCH (06:14)
[2017-04-29 06:36] LABS: ALBUMIN 1.8 g/dL (3.5-5.0); CALCIUM 8.1 mg/dL (8.8-10.2); POTASSIUM 3.5 mmol/L (3.5-5.1)
[2017-04-29 07:45] LABS: HEMATOCRIT 22.3 % (42.0-52.0); HEMOGLOBIN 7.2 g/dL (14.0-18.0); MCH 29.9 PG (27-31); MCHC 32.3 g/dL (33-37); MCV 92.5 FL (81-99); RBC 2.41 XMIL (4.7-6.1)
[2017-04-29 07:46] LABS: MANUAL DIFF NEEDED? YES; MPV 11.8 FL (7.4-10.4); PLT 34 X1000 (130-400)
[2017-04-29 08:14] LABS: BANDS 6 % (0-1); LYMPHS 50 % (21-51); MONO 8 % (1-9); NRBC 1 % (0-0)
[2017-04-29] MEDS: METAMUCIL POWDER PACKET PO SCH ×3 (09:31→17:49)
[2017-04-29] MEDS: CULTURELLE PO SCH ×2 (09:35→20:56)
[2017-04-29] MEDS: PHOSLO PO SCH ×3 (09:35→17:49)
[2017-04-29] MEDS: IMODIUM PO SCH ×3 (09:35→17:49)
[2017-04-29] MEDS ORDERED: STERILE WATER INJ. ONE ×2 (09:38→16:44)
[2017-04-29] MEDS: ANUSOL-HC CREAM PR SCH ×2 (09:43→20:57)
--- NOTE | 2017-04-29 14:12 | PROGRESS NOTE ---
DATE: 04/29/2017 SUBJECTIVE: When I evaluated this patient, he was seated on a chair, he feels better compared with yesterday. He still has generalized weakness. Physical therapy is still on board, the patient is due for dialysis tomorrow and the plan is to pull out the Vas catheterization tomorrow, get blood cultures and probably culture from the tip of the catheter. Then, if everything is okay he can get his Vas-Cath placed again on Wednesday. Infectious Disease Department is following this patient. We will continue with daptomycin and that should be given after dialysis, and also this patient is receiving IVIG. OBJECTIVE: Vital Signs: Temperature 98.1 degrees, pulse 71, respiratory rate 19 and blood pressure 123/77. Oxygen saturation 94% on room air. HEENT: Head normocephalic. No trauma. PERRLA. Neck: Supple. No JVD. No masses. Central trachea. Chest: Clear to auscultation. No wheezing. No rales. Abdomen: Soft, nontender, nondistended. No hepatosplenomegaly. Extremities: No edema. No clubbing. No cyanosis and decreased muscle mass. Neurological: The patient is alert and oriented x3. No focal deficits. LABORATORY: WBC 13, hemoglobin 7.2, hematocrit 22.3 and platelets 34,000. Sodium 134, potassium 3.5, chloride 92, bicarbonate 26, BUN 40 and creatinine 3.1, calcium 8.1, and albumin 1.8. ASSESSMENT AND PLAN: 1. Pneumonia, improved. Antibiotics were held by the infectious disease department. We will continue to monitor. 2. Staphylococcus hominis bacteremia, this patient is on daptomycin. Hopefully the Vas-Cath will be removed tomorrow after dialysis. We will follow cultures and then probably he will get a new Vas-Cath on Wednesday. 3. Refractory multiple myeloma aware. 4. Thrombocytopenia. He was transfused yesterday. Today, the platelets are better. We will continue to monitor. 5. End-stage renal disease on hemodialysis, this patient is due for dialysis tomorrow. 6. Chronic diarrhea improved. 7. Anemia. Continue to monitor status post transfusion. 8. Physical deconditioning. Physical therapy is on board. cc: Elvis Keys MD
[2017-04-29] MEDS ORDERED: FLEBOGAMMA DIF 5% IV ONE (14:30)
--- NOTE | 2017-04-29 14:59 | PROGRESS NOTE ---
DATE: 04/29/2017 HISTORY OF PRESENT ILLNESS: The patient currently is being treated for Staphylococcus hominis bacteremia, which is recurrent. MEDICATIONS: This is day 2 of treatment with daptomycin. PHYSICAL EXAMINATION: Vital Signs: Temperature is 98.1 degrees, pulse 71, respirations 19, blood pressure 123/77. LABORATORY AND X-RAY: Patient's CBC today shows a white count of 13,030, hemoglobin 7.2, and platelet count of 34,000. Creatinine is 3.1. GFR is 24. There are no new radiologic reports. ASSESSMENT AND PLAN: I plan to continue daptomycin. Hopefully, it will be able to sterilize the blood. It is my understanding that the internal jugular catheter will be coming out after dialysis on Wednesday. This should help in clearing the patient's bacteremia. I plan to continue daptomycin for the patient's staphylococcal bacteremia for at least 14 days. I am going to go ahead and give the patient another infusion of immunoglobulin and then, in a few days after that, I plan to repeat the patient's blood cultures and also to repeat the patient's immunoglobulin levels. COMORBIDITIES: Include being elderly, end-stage renal disease, hemodialysis, multiple myeloma with low IgG value and pancytopenia. cc: Gagan Gunter MD
--- NOTE | 2017-04-29 15:02 | PROGRESS NOTE ---
DATE: 04/29/2017 DATE AND TIME: 04/29/2017 at 0855 hours. SUBJECTIVE: Mr. Moore is resting quietly in bed. He has finished his breakfast. He denies any chest pain or increased work of breathing. OBJECTIVE: His most recent vital signs: His temperature is 98.1 degrees, blood pressure 123/77, heart rate 71, respirations 19. He is on room air. Last recorded saturation 94 %. He has had 0 in and he has had 2.5 L removed on dialysis yesterday. LABS: Sodium 134, potassium 3.5 chloride 92, CO2 26. BUN 40, creatinine 3.1, glucose 71. His anion gap is 16, calcium 8.1, phosphorus 3.0, albumin 1.8. His white count 13.03, hemoglobin 7.2, hematocrit 22.3 with a platelet count of 34. PHYSICAL EXAMINATION: General: This is a 77-year-old, male. He is currently resting in bed. He is in no acute distress, although he appears chronically ill. Skin: Warm and dry. HEENT: Normocephalic, atraumatic. Conjunctivae pale. He has PRASHANT. Mucous membranes are moist. Neck: Supple. Trachea midline. No JVD. Cardiovascular: He is regular rate and rhythm. He has a soft systolic murmur. No gallop appreciated. Lungs: Clear to auscultation anterior. Equal excursion on room air. Abdomen: Round, soft, nontender. Positive bowel sounds. Genitourinary: Not inspected. Minimal void with dialysis assist. Integumentary: No rashes or lesions evident. Neurological: Alert and oriented x3. ASSESSMENT AND PLAN: 1. End-stage renal disease. Patient is due for his routine dialysis treatment in the morning. We will place an order for his Vas-Cath to be removed after his dialysis treatment tomorrow secondary to patient having bacteremia per discussion with Dr. Gunter. I will speak with surgery in regards with having a tunnel catheter placed on Wednesday prior to patient's next dialysis treatment. 2. Electrolytes. These are stable. 3. Acid-base balance. This is stable. 4. Anemia. This remains low. I talked to the primary nurse on the floor, we have defer anemia replacement to Dr. Swanson. He is to be on dialysis tomorrow if any indications are needed for transfusion. Otherwise, he will not have another intravenous source until Wednesday. 5. Multiple myeloma. Again this is followed by Dr. Swanson with thrombocytopenia. He has received multiple infusions of pheresis platelets. Again we will defer to the primary care team and Dr. Swanson for this. 6. Malnutrition. Patient continues to receive intravenous parenteral nutrition while on dialysis. We have also requested and have pushed at least a 2000 calorie daily diet, although patient is unable to meet these requirements. I would like to thank you for allowing us to follow with this patient. Dictated by LO Perkins for Ranjan Beltran MD cc: LO Perkins MD [facility]
[2017-04-30] MEDS: SOLU-CORTEF IV SCH ×4 (04:05→22:26)
[2017-04-30] MEDS: XOPENEX NEB INH SCH ×6 (05:28→23:04)
[2017-04-30] MEDS: PROTONIX PO SCH (06:00)
[2017-04-30 07:15] LABS: HEMATOCRIT 20.4 % (42.0-52.0); HEMOGLOBIN 6.5 g/dL (14.0-18.0); MANUAL DIFF NEEDED? YES; MCH 29.7 PG (27-31); MCHC 31.9 g/dL (33-37); MCV 93.2 FL (81-99); MONO# 1.08 X1000 (0.11-0.59); MONO% 12.3 % (1.7-9.3); RBC 2.19 XMIL (4.7-6.1)
[2017-04-30] MEDS ORDERED: NS 2,000 ML MISC PRN (07:16)
[2017-04-30 07:17] LABS: PLT 18 X1000 (130-400)
[2017-04-30 07:24] LABS: ALBUMIN 1.8 g/dL (3.5-5.0); CALCIUM 8.1 mg/dL (8.8-10.2); POTASSIUM 3.8 mmol/L (3.5-5.1)
[2017-04-30 07:50] LABS: BANDS 2 % (0-1); LYMPHS 32 % (21-51); MONO 2 % (1-9); NRBC 5 % (0-0)
[2017-04-30 07:51] LABS: HYPOCHROM 2+
[2017-04-30] MEDS ORDERED: STERILE WATER INJ. ONE ×2 (07:57→14:01)
[2017-04-30] MEDS ORDERED: NS 2,000 ML ONE (09:54)
[2017-04-30] MEDS ORDERED: HEPARIN ONE (09:55)
--- NOTE | 2017-04-30 11:03 | PROGRESS NOTE ---
DATE: 03/30/2017 SUBJECTIVE: Patient is sitting up in bed undergoing hemodialysis. He has no issues this morning. OBJECTIVE: Vital Signs: Temperature 97.9 degrees, pulse 74, respiratory rate 18, blood pressure 121/72. Intake 480 mL. Output none. PHYSICAL EXAMINATION: General: This is a chronically ill-appearing, elderly gentleman resting in bed. Currently undergoing hemodialysis. He is awake, alert, in no acute distress. HEENT: Normocephalic atraumatic. Conjunctivae pale. Oral mucosa moist. Neck: Supple. Trachea midline without JVD. Cardiovascular: Regular rate and rhythm with a systolic murmur. There is no gallop appreciated. Pulmonary: He has equal excursion. He is clear bilaterally with no increased work of breathing. He remains on room air. Abdomen: Soft, with positive bowel sounds. : Not inspected. He has minimal void with hemodialysis assist. Integumentary: Skin is warm and dry. There is no rash or lesion appreciated. LAB DATA: WBC of 8.7, hemoglobin 6.5, hematocrit 20.4, and platelets 18,000. Sodium 131, potassium 3.8, CO2 24, BUN 67, creatinine 4.5, phosphorus 4.0, albumin 1.8. ASSESSMENT AND PLAN: 1. End-stage renal disease management. Today is his routine dialysis day. We will plan to dialyze him on a 2 K bath/UF to dry weight and/or 4 hour treatment. 2. Bacteremia. After dialysis today his Vas-Cath is to be removed. Order has been placed for this and discussion with the dialysis nurse so that this can be completed immediately post dialysis. We will allow him to rest over the weekend with his antibiotics and then on Wednesday will plan for surgery to initiate a new tunnel dialysis catheter. 3. Electrolytes, acid-base balance. These are acceptable. 4. Anemia. He has multiple myeloma. He is followed by Dr. Swanson. 5. Multiple myeloma. See above. 6. Malnutrition. He receives IDPN on dialysis. Dictated by LO Willingham for Ranjan Beltran MD cc: Ranjan Beltran MD
[2017-04-30] MEDS: CUBICIN IV SCH (12:22)
[2017-04-30] MEDS: D50W 250 ML, AMINOSYN 10% 500 ML, LIPOSYN 20% 250 ML IV SCH ×3 (12:22)
[2017-04-30] MEDS: NS IV SCH (12:22)
[2017-04-30] MEDS: IMODIUM PO SCH ×3 (14:11→17:17)
[2017-04-30] MEDS: METAMUCIL POWDER PACKET PO SCH ×3 (14:11→17:17)
[2017-04-30] MEDS: ANUSOL-HC CREAM PR SCH ×2 (14:12→22:20)
[2017-04-30] MEDS: CULTURELLE PO SCH ×2 (14:12→22:21)
--- NOTE | 2017-04-30 16:13 | PROGRESS NOTE ---
DATE: 04/30/2017 SUBJECTIVE: Today Mr. Moore refers to be doing fine. He just came from getting dialysis, and he is doing fine. No complaints. OBJECTIVE: Vital Signs: Blood pressure is 121/88, pulse 74, respirations 18, temperature 97.7 degrees. General exam: Mr. Moore is a 77-year-old, male. He is in bed, not in any distress. HEENT: Mucosa is pink and moist. Anicteric. Acyanotic. Neck: Neck is supple. Chest: Good air entry bilateral. There is some hematoma on both anterior upper chest wall. Abdomen: Soft. Extremities: No pedal edema. PATIENT CARE SECRETARY: Patient is alert and oriented. LABORATORY DATA: WBC is 8.76, hemoglobin is 6.5, platelet count of 18. Chemistry is reviewed. Creatinine is 8.4, consistent with endstage renal disease. ASSESSMENT: 1. Pneumonia, improved. 2. Staphylococcus hominis bacteremia. Patient is on daptomycin. 3. Refractory multiple myeloma. 4. Thrombocytopenia secondary to bone marrow invasion. 5. Endstage renal disease. 6. Chronic diarrhea. PLAN: Mr. Moore has had a total of 17 PRBC transfusion and 16 platelet transfusions. My understanding is that they are going to transfuse him today, and then after that the catheter will be removed because he continued having this multiple bacteremia. We are going to follow up accordingly with nephrology and ID. cc: Matt Levine MD
[2017-04-30] MEDS: NS 500 ML IV SCH (18:01)
[2017-05-01] MEDS: SOLU-CORTEF IV SCH ×3 (01:42→14:45)
[2017-05-01] MEDS: XOPENEX NEB INH SCH ×5 (04:51→19:40)
[2017-05-01] MEDS: NS 500 ML IV SCH ×2 (05:35→17:29)
[2017-05-01] MEDS: PROTONIX PO SCH (06:12)
[2017-05-01 06:27] LABS: EOS# 0.02 X1000 (0.0-0.7); EOS% 0.2 % (0.0-10.0); HEMATOCRIT 24.9 % (42.0-52.0); HEMOGLOBIN 7.9 g/dL (14.0-18.0); MANUAL DIFF NEEDED? YES; MCH 29.3 PG (27-31); MCHC 31.7 g/dL (33-37); MCV 92.2 FL (81-99); MONO# 1.13 X1000 (0.11-0.59); MONO% 13.2 % (1.7-9.3); MPV 11.7 FL (7.4-10.4)
[2017-05-01 06:39] LABS: PLT 30 X1000 (130-400)
[2017-05-01 06:42] LABS: ALBUMIN 1.8 g/dL (3.5-5.0); CALCIUM 7.9 mg/dL (8.8-10.2); POTASSIUM 3.1 mmol/L (3.5-5.1)
[2017-05-01 07:07] LABS: BANDS 2 % (0-1); LYMPHS 22 % (21-51); MONO 4 % (1-9); NRBC 2 % (0-0)
[2017-05-01] MEDS ORDERED: STERILE WATER INJ. ONE (07:11)
[2017-05-01] MEDS ORDERED: KLOR-CON PO ONE (07:55)
[2017-05-01] MEDS: IMODIUM PO SCH ×3 (10:15→17:28)
[2017-05-01] MEDS: CULTURELLE PO SCH ×2 (10:15→23:03)
[2017-05-01] MEDS: METAMUCIL POWDER PACKET PO SCH ×3 (10:15→17:28)
[2017-05-01] MEDS: ANUSOL-HC CREAM PR SCH ×2 (10:20→23:04)
--- NOTE | 2017-05-01 10:36 | PROGRESS NOTE ---
DATE: 05/01/2017 SUBJECTIVE: Patient is sitting up in bed eating breakfast. He has no complaints of breathing this morning. OBJECTIVE: Vital Signs: Temperature 99.3, pulse 98, respiratory rate 19, blood pressure 117/48, intake 1.1 L. Output 1.7 L. General: This is a chronically ill-appearing, elderly gentleman resting in bed. He is awake and alert. He is in no acute distress. HEENT: Normocephalic, atraumatic. Conjunctivae remain pale. Tongue is midline. Dentition poor. Neck: Supple. Trachea midline. He has a dressing applied to the right neck site from where his Vas-Cath was removed. There is no bleeding noted. Cardiovascular: Regular rate and rhythm. He has a systolic murmur noted. Pulmonary: He has equal excursion. He has some rhonchi bilaterally, but no overt wheeze. He has no increased work of breathing. He remains on room air. Abdomen: Flat, soft, positive bowel sounds. : Not inspected. Minimal void with hemodialysis assist. Extremities: No clubbing, cyanosis or edema. Integumentary: Skin is warm and dry. There is no rash or lesion. LAB DATA: WBC of 8.5, hemoglobin 7.9, hematocrit 24.9 and platelet count of 30. Sodium 137, potassium 3.1. CO2 of 28, BUN 40, creatinine 3.0, calcium 7.9, phosphorus 2.9, albumin 1.8. ASSESSMENT AND PLAN: 1. End-stage renal disease management. The patient's routine dialysis day is Wednesday, Wednesday, Wednesday. We will continue him on that schedule while he remains in the hospital. He did dialyze yesterday without difficulty. 2. Bacteremia. His Vas-Cath was removed after dialysis and blood and platelet infusion yesterday. We will leave this out over the weekend and ask Dr. Ty to place a new tunnel dialysis catheter on Wednesday. 3. Electrolytes, acid-base balance. These are acceptable. 4. Anemia, multiple myeloma, followed by Dr. Swanson. 5. Malnutrition. He receives intravenous parenteral nutrition on dialysis. The patient is eating, noted. Dictated by LO Willingham for Ranjan Beltran MD cc: Ranjan Beltran MD
--- NOTE | 2017-05-01 16:25 | PROGRESS NOTE ---
DATE: 05/01/2017 HISTORY OF PRESENT ILLNESS: The patient is being treated for staph hominis bacteremia, which is recurrent. The TALHA of vancomycin to the isolate was 2, which predicts failure. Therefore, the patient has been on daptomycin. MEDICATIONS: As mentioned above, the patient is on daptomycin. This is day 4 of treatment with it. PHYSICAL EXAMINATION: Vital Signs: Temperature is 99.3, respirations 20, blood pressure 109/57. General: This is a chronically ill-appearing, elderly male. He is in no acute distress. Neurologic: Right now the patient is sleeping. Neck: No meningismus. The patient's internal jugular catheter is gone; the site is not bleeding or swollen. Lungs: Clear to auscultation. Cardiovascular: Irregular heart rate. Abdomen: Soft without masses or tenderness. Extremities: The patient's left arm has a functioning AV fistula in place. Chest: The patient has 2 hematomas, which have not gone down in size. LAB AND X-RAY: CBC-WBC 8.54, hgb 7.9, platelets 90K. No new radiology studies. ASSESSMENT AND PLAN: The patient has bacteremia for which he is on daptomycin. The plan is to continue the treatment for at least 14 days. Tomorrow I am going to also check his immunoglobulin levels to see how much they have risen since starting the gammaglobulin infusions. Patient's complete blood count shows a white count of 8540, hemoglobin 7.9 and platelet count 30,000. Creatinine is 3. Glomerular filtration rate is 25. COMORBIDITIES: The patient's comorbidities include being elderly, end-stage renal disease, hemodialysis, multiple myeloma with a low IgG value and pancytopenia. cc: Gagan Gunter MD [facility]
--- NOTE | 2017-05-01 16:28 | PROGRESS NOTE ---
DATE: 05/01/2017 SUBJECTIVE: This patient is resting comfortably on the bed. Family members at the bedside. He is sleepy because he could not sleep during the night but he is doing fine. The Vas-Cath was removed yesterday and hopefully it is going to be placed back again on Wednesday. Today I am going to order a new blood culture to make sure that this patient is not bacteremic and doing that we can make sure this patient on Wednesday can have his catheter placed. OBJECTIVE: Vital Signs: Temperature 99.3 degrees, pulse 88, respiratory rate 20, blood pressure 103/57, oxygen saturation 98 on room air. HEENT: Head normocephalic. No trauma. PERRLA. Neck: Supple. No JVD. No masses. Central trachea. Chest: Clear to auscultation. No wheezing. No rales. Abdomen: Soft, nontender, nondistended. No hepatosplenomegaly. Extremities: No edema. No clubbing. No cyanosis. Decreased muscle mass. Neurological: The patient is sleepy but arousable. Oriented x3. No focal deficits. LABORATORY: WBC 8.5, hemoglobin 7.9, hematocrit 24.9, platelets 30,000. Sodium 137, potassium 3.1, chloride 94, bicarbonate 28, BUN 40, creatinine 3, glucose 72, calcium 7.9, albumin 1.8. ASSESSMENT AND PLAN: 1. Pneumonia improved. 2. Staphylococcus hominis bacteremia. Continue with antibiotics. Vas-Cath has been removed yesterday. Today he will have new blood culture and we will monitor for the next 48 hours, hopefully he can get a new Vas-Cath on Wednesday. 3. Respiratory multiple myeloma aware. This patient is receiving Solu-Cortef every single day, we will try to contact Hematology/Oncology Department to see if we can switch this medication from IV to p.o. 4. Thrombocytopenia. He was transfused a few days ago. The platelets are better. Will continue to monitor. 5. End-stage renal disease on hemodialysis, hopefully he will have a new catheter placed for dialysis on Wednesday. 6. Chronic diarrhea, improved. 7. Anemia. Continue to monitor, status post transfusion. 8. Physical deconditioning. Physical therapy is on board. cc: Elvis Keys MD
[2017-05-01] MEDS: DECADRON PO SCH (17:28)
[2017-05-02] MEDS: XOPENEX NEB INH SCH ×7 (00:05→23:41)
[2017-05-02 06:59] LABS: HEMATOCRIT 21.4 % (42.0-52.0); HEMOGLOBIN 6.7 g/dL (14.0-18.0); MANUAL DIFF NEEDED? YES; MCHC 31.3 g/dL (33-37); MCV 92.6 FL (81-99); MONO# 1.26 X1000 (0.11-0.59); MONO% 13.8 % (1.7-9.3); MPV 11.3 FL (7.4-10.4); PLT 17 X1000 (130-400); RBC 2.31 XMIL (4.7-6.1)
[2017-05-02 07:06] LABS: ALBUMIN 1.8 g/dL (3.5-5.0); CALCIUM 8.1 mg/dL (8.8-10.2); POTASSIUM 3.8 mmol/L (3.5-5.1)
[2017-05-02] MEDS: PROTONIX PO SCH (07:06)
[2017-05-02] MEDS: NS 500 ML IV SCH (07:07)
[2017-05-02 08:03] LABS: BANDS 2 % (0-1); HYPOCHROM 2+; LYMPHS 30 % (21-51); MONO 4 % (1-9); NRBC 2 % (0-0)
[2017-05-02] MEDS: DECADRON PO SCH (09:06)
[2017-05-02] MEDS: METAMUCIL POWDER PACKET PO SCH (09:06)
[2017-05-02] MEDS: IMODIUM PO SCH ×3 (09:06→17:23)
[2017-05-02] MEDS: CULTURELLE PO SCH ×2 (09:06→23:08)
[2017-05-02] MEDS: ANUSOL-HC CREAM PR SCH ×2 (09:07→23:09)
[2017-05-02] MEDS ORDERED: BOUDREAUXS BUTT PASTE TOP PRN (10:23)
--- NOTE | 2017-05-02 16:39 | PROGRESS NOTE ---
DATE: 05/02/2017 SUBJECTIVE: This patient is lying comfortably on the bed. No acute events. Family members at the bedside. We do not have a peripheral line so we tried with an EJ and it looks like it is working fine. Hemoglobin and platelets are low so I will transfuse this patient with both platelets and PRBCs. OBJECTIVE: Vital Signs: Temperature 97.3 degrees, pulse 74, respiratory rate 21, blood pressure 121/75, oxygen saturation 90 on room air. HEENT: Head normocephalic. No trauma. PERRLA. Neck: Supple. No JVD. No masses. Central trachea. Chest: Clear to auscultation. No wheezing. No rales. Abdomen: Soft, nontender, nondistended. No hepatosplenomegaly. Extremities: No edema. No clubbing. No cyanosis. Decreased muscle mass. Neurological: The patient is sleepy but arousable. Oriented x3. No focal deficits. LABORATORY: WBC 9.1, hemoglobin 6.7, hematocrit 21.4, platelets 17,000. Sodium 134, potassium 3.8, chloride 91 bicarbonate 25, BUN 59, creatinine 4.1, glucose 69, calcium 8.1, albumin 1.8. ASSESSMENT AND PLAN: 1. Pneumonia improved. 2. Staphylococcus hominis bacteremia. Continue with antibiotics. His Vas-Cath has been removed a couple days ago. Yesterday I ordered a new blood culture that is positive today 1/2 gram- positive cocci. Another set of blood cultures has been drawn today. 3. Refractory multiple myeloma aware. Continue with the same management. Hematology/Oncology following this patient. 4. Thrombocytopenia. He was transfused a few days ago and today again this patient is having low platelets, I will transfuse this patient today. 5. Severe anemia. His hemoglobin is 6.7, I will ask for 1 PRBC. 6. End-stage renal disease on hemodialysis. The plan was to get a new catheter tomorrow, we will wait for the recommendations of Infectious Disease Department. He has a positive blood culture that were done yesterday without the catheter. 7. Chronic diarrhea. I will stop his Metamucil. We will monitor. 8. Physical deconditioning. Continue with physical therapy. cc: Elvis Keys MD
--- NOTE | 2017-05-02 18:16 | PROGRESS NOTE ---
DATE: 05/02/2017 TIME SEEN: 1440 SUBJECTIVE: Mr. Moore is resting quietly in bed. He states that his sacral area is hurting him. He has been eating his lunch that was given to him late and otherwise he denies chest pain. He does have chronic diarrhea as noted. OBJECTIVE: His most recent vital signs, temperature 97.3 degrees, blood pressure 123/85, heart rate respirations 26. He is on room air. Last recorded saturation 95%. He has had 237 in, he has had 0 recorded out with dialysis need for the a.m. LABS: Sodium 134 potassium 3.8, chloride 91, CO2 25, BUN 59, creatinine 4.1, glucose 69, his anion gap is 18, calcium 8.1, phosphorus 4.4, albumin 1.8. White count 9.16, hemoglobin 6.7, hematocrit 21.4 with a platelet count of 17,000. PHYSICAL EXAMINATION: General: This is a 77-year-old male who appears in moderate distress. Skin: Warm and dry. HEENT: Normocephalic, atraumatic. Conjunctiva is pale. He has PRASHANT. Mucous membranes are moist. Neck: Supple. Trachea midline. No JVD. Cardiovascular: He is regular rate and rhythm. He has a soft systolic murmur. No gallop. Lungs: Clear to auscultation anteriorly. Equal excursion. He is currently on room air. Abdomen: Soft, nontender. Positive bowel sounds. Genitourinary: His sacral area has not been inspected. He has chronic diarrhea with chronic sensitivity to his anal area with some excoriation, not inspected. Extremities: Have no edema, no clubbing or cyanosis. Integumentary: Is warm and dry. No rashes or lesions. He does have a left IJ a #20 for IV fluids to receive platelets. ASSESSMENT AND PLAN: 1. End-stage renal disease. Patient had his Vas-Cath removed to the right internal jugular on Wednesday. After dialysis he has plans for a tunnel catheter placement per Dr. Javier tomorrow a.m. We will make him NPO and follow with dialysis after this insertion. 2. Bacteremia secondary to having positive blood cultures. He has been treated with vancomycin x3 doses this week on Wednesday, Wednesday, Wednesday. His Vas-Cath is to be removed after his vancomycin dose and reinsertion on Wednesday as mentioned. 3. Electrolytes and acid-base balance. These are acceptable. 4. Anemia with multiple myeloma. This is followed by Dr. Swanson. 5. Malnutrition. Patient does not eat adequate calories. He continues to receive intradialytic parenteral nutrition on dialysis. I would like to thank you for allowing us to follow with this patient. Dictated by LO Perkins for Ranjan Beltran MD cc: LO Perkins MD
[2017-05-03] MEDS: NS 500 ML IV SCH ×2 (01:02→04:53)
[2017-05-03] MEDS: XOPENEX NEB INH SCH ×2 (04:05→08:19)
[2017-05-03 06:25] LABS: HEMATOCRIT 25.2 % (42.0-52.0); HEMOGLOBIN 8.1 g/dL (14.0-18.0); MANUAL DIFF NEEDED? YES; MCH 29.6 PG (27-31); MCHC 32.1 g/dL (33-37); MONO# 1.06 X1000 (0.11-0.59); MONO% 10.4 % (1.7-9.3); MPV 11.4 FL (7.4-10.4); PLT 30 X1000 (130-400); RBC 2.74 XMIL (4.7-6.1)
[2017-05-03] MEDS ORDERED: VANCOMYCIN IV PER PHARMACY MISC SCH (06:30)
[2017-05-03 06:44] LABS: LYMPHS 34 % (21-51); MONO 2 % (1-9); NRBC 8 % (0-0)
[2017-05-03] MEDS: PROTONIX PO SCH ×2 (06:54→06:55)
[2017-05-03] MEDS ORDERED: TIGHT: 0.2 ML/HR MISC PRN (06:57)
[2017-05-03] MEDS ORDERED: NS 2,000 ML MISC PRN (06:57)
[2017-05-03] MEDS ORDERED: HEPARIN IV PRN (06:57)
[2017-05-03 06:58] LABS: ALBUMIN 1.9 g/dL (3.5-5.0); CALCIUM 8.5 mg/dL (8.8-10.2); POTASSIUM 3.8 mmol/L (3.5-5.1)
[2017-05-03] MEDS ORDERED: ROCEPHIN 1 GM/NS 1 GM/50 ML IVPB IV ONE (07:00)
[2017-05-03] MEDS ORDERED: VANCOMYCIN 1 GM/NS 1 GM/250 ML IVPB IV ONE (08:00)
[2017-05-03] MEDS ORDERED: NS 2,000 ML ONE (08:52)
[2017-05-03] MEDS ORDERED: HEPARIN ONE (08:52)
[2017-05-03] MEDS: IMODIUM PO SCH ×4 (09:39→21:19)
[2017-05-03] MEDS: ANUSOL-HC CREAM PR SCH ×2 (09:40→22:37)
[2017-05-03] MEDS ORDERED: XOPENEX NEB INH PRN (10:12)
[2017-05-03] MEDS ORDERED: NS NEB INH SCH (10:15)
--- NOTE | 2017-05-03 10:58 | PROGRESS NOTE ---
DATE: 05/03/2017 SUBJECTIVE: The patient denies any new specific complaints. He apparently had his right internal jugular Trialysis catheter removed 3 days ago and is awaiting new dialysis catheter placement. OBJECTIVE: Vital Signs: He is afebrile. Vital signs are stable. General: He is alert and oriented x3. No acute distress. CV: Regular rate and rhythm. Respiratory: No work of breathing. Laboratory Data: Platelet count 30,000, hemoglobin 8.1. Blood culture drawn yesterday, one out of two positive for gram-positive cocci. ASSESSMENT AND PLAN: A 77-year-old male with continued bacteremia, end-stage renal disease, and refractory multiple myeloma with thrombocytopenia. I do not think placing a tunneled catheter is paz or safe today given his thrombocytopenia and high risk of bleeding. In addition, he continues to have bacteremia and a high risk of seeding this new catheter. Therefore, I plan to place a temporary Trialysis type catheter again in is jugular vein as he had before. I have discussed this with him and his . They are in agreement. They know the risks and benefits, as we have done this multiple times. cc: Tan Javier MD
--- NOTE | 2017-05-03 11:57 | PROGRESS NOTE ---
DATE: 05/03/2017 TIME SEEN: 0800. SUBJECTIVE: Mr. Moore is resting quietly in bed. He is NPO. He is due to have surgery midmorning today for placement of tunneled catheter. OBJECTIVE: Vital Signs: His most recent vital signs are temperature 98.1 degrees, blood pressure 135/71, heart rate 86, respirations 18. He is on 2 L nasal cannula. Last recorded saturation is 99%. Patient has had 1850 in. He has had 0 out with need for hemodialysis. Most Recent Laboratory Data: Sodium 133, potassium 3.8, chloride is 90, CO2 22 , BUN 78, creatinine 5.1, glucose is 60, his anion gap is 21, calcium 8.5, phosphorus 4.7 , albumin is 1.9. White count 10.2, hemoglobin 8.1, hematocrit 25.2, platelet count of 30,000. Patient has had an immunoglobulin quantitative series with an elevated IgA, a low IgG, and a very low IgM, followed by oncology. Blood cultures after 48 hours show gram-positive cocci after having 24 hour removal of all catheters and lines. Physical Examination: General: This is a 77-year-old, male. He is resting in bed. He appears chronically ill. He is in no acute distress. Skin: Warm and dry. HEENT: Normocephalic, atraumatic. Conjunctivae are pale. He has PRASHANT. Mucous membranes are dry. Neck: Supple. Trachea midline. No JVD. Cardiovascular: He has regular rate and rhythm. Soft systolic murmur. No gallop. Lungs: Clear to auscultation anteriorly. Equal excursion. He remains on O2. Abdomen: Soft, nontender. Positive bowel sounds. Extremities : Have no edema. No clubbing or cyanosis. Integumentary: No rashes or lesions evident. Neurological: He is alert and oriented x3. ASSESSMENT AND PLAN: 1. End-stage renal disease. Patient had his Vas-Cath to the right internal jugular removed on Wednesday after his dialysis treatment. He was given 1 g of vancomycin. With lines removed over the weekend, repeat blood cultures after 24 hours continue to indicate gram- positive cocci in his blood. He remains on vancomycin. We will plan for dialysis after tunneled catheter is placed today per Dr. Javier and resume regular treatments with dosing of vancomycin at that time. 2. Continues with sepsis. Repeat blood culture continues to show gram positive cocci. This is followed with Dr. Gunter. We continue on vancomycin after dialysis. He had his Vas Cath removed last Wednesday. We will defer to Dr. Gunter for further treatments of antibiotics. 3. Electrolytes and acid-base balance. These are stable. 4. Anemia with multiple myeloma. This is followed by Dr. Swanson. Patient's platelets were down to 17,000 yesterday. He received some platelets yesterday. This continues to be monitored by oncology. 5. Malnutrition. Patient continues to receive IDPN. He states that he is eating well. We have encouraged increased calories. I would to thank you for allowing us to follow with this patient. Seen, data reviewed, discussed with Heather Magallon on 05/03/17. I agree with the above assessment and plan of care. rg Dictated by LO Perkins for Ranjan Beltran MD cc: LO Perkins MD [facility]
[2017-05-03] MEDS: CULTURELLE PO SCH ×2 (15:37→21:19)
[2017-05-03] MEDS: DECADRON PO SCH (15:37)
--- NOTE | 2017-05-03 16:48 | PROGRESS NOTE ---
DATE: 05/03/2017 PRESENT ILLNESS: The patient is being treated for a staphylococcal bacteremia. MEDICATIONS: This is the 6th day of treatment with daptomycin. PHYSICAL EXAMINATION: Vital Signs: Temperature is 99.8 degrees, pulse 100, respirations 17, blood pressure 112/58. Generally: This is an ill-appearing, elderly male. He is in no acute distress today. Neck: The patient has a new left-sided internal jugular catheter in place. Chest: The patient has bilateral upper chest hematomas. Lungs: Clear to auscultation. Extremities: The patient has a functioning AV fistula in the left arm. Abdomen: Soft and nontender. LABORATORY AND X-RAY STUDIES: I did not see any new x-ray. The patient's IgG level 724. 1 of 2 blood cultures from May 01 and 1 of 2 blood cultures from May 02 are growing gram positive cocci. CBC for today shows a white count of 10,200, hemoglobin 8.1 and platelet count 30,000. ASSESSMENT AND PLAN: 1. The plan for right now is to keep daptomycin going pending the identification of the positive blood cultures and their susceptibility. 2. Comorbidities includes he is elderly. He has end-stage renal disease. He is on hemodialysis. He has multiple myeloma and a history of low IgG level, although the most recent level was normal; however, he had gotten immunoglobulin infusion therapy. The patient also has pancytopenia. cc: Gagan Gunter MD
--- NOTE | 2017-05-03 17:29 | PROGRESS NOTE ---
DATE: 05/03/2017 SUBJECTIVE: The patient is resting comfortably in bed. No acute events noted overnight. OBJECTIVE: Vital Signs: Temperature 99 degrees, blood pressure 112/58, heart rate 100, respirations 17, O2 saturations 99% on room air. General: This is a chronically ill-appearing, elderly male, lying comfortably in bed, in no acute distress. Head: Normocephalic, atraumatic. Heart: S1, S2. Normal. Tachycardic. Lungs: Clear to auscultation bilaterally. No crackles. No wheezing. No rales. Abdomen: Positive bowel sounds. Soft, nontender, nondistended. Extremities: No edema. No cyanosis. No calf tenderness. Neurologic: The patient is alert and oriented x3. LABORATORY: White blood cell count 10, hemoglobin 8.1, hematocrit 25, platelets 30,000. Sodium 133, potassium 3.8, chloride 90, CO2 22, BUN 78, creatinine 5.1, glucose 60, albumin 1.9. ASSESSMENT AND PLAN: 1. Recurrent bacteremia. Continue on daptomycin as directed by Dr. Gunter. Follow up on the repeat blood cultures. 2. End-stage renal disease. The patient is due to have access placed today so that he can undergo dialysis today. Further management as per the livestock counter. 3. Refractory multiple myeloma. Aware. 4. Anemia. We will continue to monitor the hemoglobin and hematocrit and transfuse p.r.n. 5. Thrombocytopenia. Stable. We will continue to monitor this closely and transfuse p.r.n. 6. Chronic diarrhea. Improved. Continue on scheduled Imodium and lactobacillus. 7. Continue with physical therapy. cc: Cindy Wallace MD
--- NOTE | 2017-05-03 20:04 | Diag Imaging Result Doc PS360 ---
EXAM: CHEST-PORTABLE INDICATION: status post cvl placement TECHNIQUE: One view COMPARISON: 04/25/2017 FINDINGS: There is a right central line with the tip projecting over the lower SVC. There is no evidence of pneumothorax postplacement. There are bilateral ill-defined opacities throughout both lungs. This has worsened significantly on the right, especially at the lower lung zone, since the previous study. Cardiac silhouette is stable. IMPRESSION: 1.Right central line in the expected position with no evidence of pneumothorax postplacement. 2.Bilateral infiltrates with worsening on the right during the interval. Electronically signed by Greg Yates 05/03/2017 8:02 PM
--- NOTE | 2017-05-03 23:27 | OPERATIVE NOTE ---
PROCEDURE DATE: 05/03/2017 PREOP DIAGNOSES: 1. Bacteremia. 2. Thrombocytopenia. 3. Multiple myeloma. 4. End-stage renal disease. POSTOP DIAGNOSIS: 1. Bacteremia. 2. Thrombocytopenia. 3. Multiple myeloma. 4. End-stage renal disease. PROCEDURE: Insertion of central venous dialysis catheter with ultrasound guidance. SURGEON: Tan Javier MD. ESTIMATED BLOOD LOSS: 5 mL. COMPLICATIONS: None apparent. FINDINGS: The right internal jugular vein was found with the ultrasound. It was found to be compressible and patent and without thrombus. TECHNIQUE: He was brought to our postanesthesia care unit where there was good lighting and space to work. He was placed in Trendelenburg. The right neck was prepped and draped in sterile fashion. 1% lidocaine with epinephrine was used to anesthetize the skin over the vein was which was visualized 1st with the ultrasound. The vein was then accessed under ultrasound guidance with 1 stick drawing back dark, nonpulsatile blood. The wire passed through the needle easily. The track was sequentially dilated and the Trialysis catheter was passed over the wire via the Seldinger technique into the internal jugular vein. The wire was removed. Each of the 3 ports dominic back blood easily and was flushed with saline. The catheter was anchored to the skin with nylon suture. A sterile dressing was applied. The caps were placed on the end of the ports. He tolerated this without apparent complication. A chest x-ray was ordered. cc: Tan Javier MD
[2017-05-04 06:51] LABS: ALBUMIN 1.8 g/dL (3.5-5.0); CALCIUM 8.2 mg/dL (8.8-10.2); POTASSIUM 4.2 mmol/L (3.5-5.1)
[2017-05-04] MEDS: PROTONIX PO SCH (06:52)
[2017-05-04 07:26] LABS: HEMATOCRIT 23.9 % (42.0-52.0); HEMOGLOBIN 7.7 g/dL (14.0-18.0); MANUAL DIFF NEEDED? YES; MCHC 32.2 g/dL (33-37); MPV 10.2 FL (7.4-10.4); PLT 16 X1000 (130-400); RBC 2.57 XMIL (4.7-6.1)
[2017-05-04 07:41] LABS: LYMPHS 18 % (21-51); NRBC 11 % (0-0)
[2017-05-04] MEDS ORDERED: NS 2,000 ML ONE (08:38)
[2017-05-04] MEDS ORDERED: HEPARIN ONE (08:39)
[2017-05-04] MEDS: IMODIUM PO SCH ×3 (09:52→21:14)
[2017-05-04] MEDS: D50W 250 ML, AMINOSYN 10% 500 ML, LIPOSYN 20% 250 ML IV SCH ×3 (10:46)
--- NOTE | 2017-05-04 10:53 | PROGRESS NOTE ---
DATE: 05/04/2017 TIME SEEN: 0820 hours. SUBJECTIVE: Mr. Moore is resting quietly in bed. He has no complaints. He is sitting up. He is eating his breakfast. He denies chest pain. No increased work of breathing. No nausea and vomiting. States diarrhea has improved. OBJECTIVE: His most recent vital signs: Temperature 98 degrees, blood pressure 95/59, heart rate 79, respirations 20. He is on 2 L nasal cannula. Last recorded saturation 97% . He has had 400 in; he has had zero out with need for dialysis. LABORATORY DATA: Sodium 132, potassium 4.2, chloride is 86, CO2 23, BUN 88, creatinine 6.2, glucose of 60. His anion gap is 23. Calcium 8.2, phosphorus 5.7, albumin 1.8. Previous hemoglobin of 8.1 on the twelfth with a platelet count of 30. PHYSICAL EXAMINATION: General: This is a 77-year-old, male. He is resting quietly in bed. He is in no acute distress. Integumentary: Warm and dry. Vas -Cath to the right IJ with a #20 IV to the left EJ. HEENT: Normocephalic, atraumatic. Conjunctiva is pale. He has PRASHANT. Mucous membranes moist. Neck: Supple. Trachea midline. No JVD. Cardiovascular: Regular rate and rhythm. He has a soft murmur. No gallop. Lungs: Clear to auscultation anterior. Equal excursion. Abdomen: Round, soft, nontender. Positive bowel sounds. Genitourinary: Not inspected. Minimal void with dialysis assist. Extremities : Have no edema, no clubbing or cyanosis. Neurological: Alert and oriented x3. ASSESSMENT AND PLAN: 1. End-stage renal disease. Patient is due for his routine dialysis treatment today, secondary to having missed this yesterday with no port. He now has a Vas-Cath to the right internal jugular per Dr. Javier. We will plan for a 2 K bath. He is to dialyze for 3- 1/2 hours. We will attempt to pull him to his dry weight. 2. Electrolytes and acid-base balance. These are stable. 3. Anemia. This does continue to fall; he is down to 7.7 today. This is followed by Dr. Swanson with platelets at 16. Okay from our perspective to transfuse while on dialysis for his packed red blood cells. I would like to thank you for allowing us to follow with this patient. Seen, data reviewed, discussed with Heather Magallon on 05/04/17. I agree with the above assessment and plan of care. rg Dictated by LO Perkins for Ranjan Beltran MD cc: LO Perkins MD [facility]
[2017-05-04] MEDS: ANUSOL-HC CREAM PR SCH ×2 (15:50→21:14)
[2017-05-04] MEDS: DECADRON PO SCH (15:51)
[2017-05-04] MEDS: CULTURELLE PO SCH ×2 (15:51→21:14)
--- NOTE | 2017-05-04 17:10 | PROGRESS NOTE ---
DATE: 05/04/2017 SUBJECTIVE: No acute events or complaints today. OBJECTIVE: Vital Signs: He is afebrile. Vital signs are stable. General: He is awake and alert in no acute distress. Neck: His neck exam reveals no significant swelling or bleeding. It is supple. The right internal jugular vein catheter is intact. LABORATORY: White blood cell count 9.3, hemoglobin 7.7, platelet count 16,000. ASSESSMENT AND PLAN: A 77-year-old male with refractory multiple myeloma and thrombocytopenia as well as bacteremia. He will continue antibiotics per Dr. Gunter and platelet transfusions per hematology and dialysis per Nephrology. cc: Tan Javier MD
[2017-05-04] MEDS: TYLENOL PO PRN (17:27)
--- NOTE | 2017-05-04 18:20 | PROGRESS NOTE ---
DATE: 05/04/2017 SUBJECTIVE: Patient is resting comfortably in bed. No acute events overnight. His platelet count is low, around 16. I will transfuse this patient today. OBJECTIVE: Vital Signs: Temperature 100.7 degrees, pulse 101, respiratory rate 20, blood pressure 101/52, O2 saturation 97% on 2 L of nasal cannula. HEENT: Head normocephalic. No trauma. PERRLA. Neck: Supple. No JVD. No masses. Central trachea. Chest: Clear to auscultation. No wheezing. No rales. Abdomen: Soft, nontender, nondistended. No hepatosplenomegaly. Extremities: No edema. No clubbing. No cyanosis. Neurological Examination: The patient is sleepy but arousable. Oriented x3. LABORATORY: WBC 9.3, hemoglobin 7.7, hematocrit 23.9, platelets 16,000. Sodium 132, potassium 4.2, chloride 86, bicarbonate 23, BUN 83, creatinine 6.2, glucose 60, calcium 5.7, albumin 1.8. ASSESSMENT AND PLAN: 1. Recurrent bacteremia. Continue with antibiotics. Infectious Disease Department is following this patient. 2. End-stage renal disease on hemodialysis. Nephrology Department is following this patient. 3. Refractory multiple myeloma. Aware. 4. Anemia. We will continue to monitor the hemoglobin and hematocrit. 5. Thrombocytopenia. Platelet count is 16,000. I will transfuse 1 unit today. 6. Chronic diarrhea improved. Continue on scheduled treatment. 7. Physical deconditioning. Continue with physical therapy. cc: Elvis Keys MD
[2017-05-05] MEDS: PROTONIX PO SCH (06:08)
[2017-05-05 06:48] LABS: ALBUMIN 1.8 g/dL (3.5-5.0); CALCIUM 8.1 mg/dL (8.8-10.2); POTASSIUM 4.1 mmol/L (3.5-5.1)
[2017-05-05] MEDS ORDERED: NS 2,000 ML MISC PRN (06:59)
[2017-05-05 07:02] LABS: HEMATOCRIT 23.3 % (42.0-52.0); HEMOGLOBIN 7.4 g/dL (14.0-18.0); MANUAL DIFF NEEDED? YES; MCHC 31.8 g/dL (33-37); MCV 94.3 FL (81-99); MONO# 0.65 X1000 (0.11-0.59); MONO% 7.5 % (1.7-9.3); MPV 9.7 FL (7.4-10.4); PLT 24 X1000 (130-400); RBC 2.47 XMIL (4.7-6.1)
[2017-05-05 07:19] LABS: BANDS 2 % (0-1); LYMPHS 30 % (21-51); MONO 2 % (1-9); NRBC 8 % (0-0)
[2017-05-05] MEDS ORDERED: NS 2,000 ML ONE (08:56)
[2017-05-05] MEDS ORDERED: HEPARIN ONE (08:56)
[2017-05-05 09:43] LABS: HEPATITIS PROFILE ACUTE SEE COMMENTS
--- NOTE | 2017-05-05 10:33 | PROGRESS NOTE ---
DATE: 05/05/2017 TIME SEEN: 0825. SUBJECTIVE: Mr. Moore is resting quietly in bed. He is eating his breakfast. He states that he is not feeling well today. He felt better yesterday. Denies chest pain or increased work of breathing. Diarrhea has subsided. OBJECTIVE: Vital Signs: Temperature 98.5 degrees, blood pressure 95/49, heart rate 70, respirations 18. He is on 2 L nasal cannula. Last recorded saturation 97%. He has had 1780 in. He has had 2 L off on dialysis yesterday. Labs: Sodium 133, potassium 4.1, chloride 90, CO2 25, BUN 44, creatinine 3.5, glucose 69, anion gap 18, calcium 8.1, phosphorus 3.7, albumin 1.8. White count 8.72, hemoglobin 7.4, hematocrit 23.3, with a platelet count of 24,000. Blood cultures indicating staphylococcus epidermis; his most recent results. It is noted patient has received 18 units of packed red blood cells and 20 units of pheresed platelets during this hospitalization for his anemia and multiple myeloma. PHYSICAL EXAMINATION: General: This is a 77-year-old male. He is currently resting in bed. Skin: Warm and dry. HEENT: Normocephalic, atraumatic. Conjunctivae pale. He has PRASHANT. Mucous membranes are dry. Neck: Supple. Trachea midline. No JVD. Cardiovascular: Regular rate and rhythm. He has a soft systolic murmur. No gallop. Lungs: Clear to auscultation anteriorly. Equal excursion. On O2. Abdomen: Soft, nontender. Positive bowel sounds. Extremities: Have no edema. No clubbing or cyanosis. Integumentary: No rashes or lesions evident. Neurological: Alert and oriented x3. ASSESSMENT AND PLAN: 1. End-stage renal disease. Patient is due for his routine dialysis treatment today. We will place him on a 2 K bath. He is to dialyze for 3.5 hours. We will attempt to pull him to his last dry weight. 2. Electrolytes. Patient continues with hyponatremia secondary to #1. Again with dialysis correction today. 3. Acid-base balance. This is at target. 4. Anemia. This remains low. This is followed by Dr. Swanson and the primary care team. 5. Thrombocytopenia with platelets at 24,000. Again, this is followed by Dr. Swanson. I would like to thank you for allowing us to follow with this patient. Seen, data reviewed, discussed with Heather Magallon on 05/05/17. I agree with the above assessment and plan of care. rg Dictated by LO Perkins for Ranjan Beltran MD cc: LO Perkins MD [facility]
[2017-05-05] MEDS: D50W 250 ML, AMINOSYN 10% 500 ML, LIPOSYN 20% 250 ML IV SCH ×3 (12:11)
[2017-05-05] MEDS: TYLENOL PO PRN (13:56)
[2017-05-05] MEDS ORDERED: TYLENOL PR ONE (13:59)
[2017-05-05] MEDS: CULTURELLE PO SCH ×2 (15:24→20:46)
[2017-05-05] MEDS: DECADRON PO SCH (15:25)
[2017-05-05] MEDS: IMODIUM PO SCH ×3 (15:25→17:41)
[2017-05-05] MEDS: ANUSOL-HC CREAM PR SCH ×2 (15:27→20:46)
--- NOTE | 2017-05-05 15:50 | PROGRESS NOTE ---
DATE: 05/05/2017 SUBJECTIVE: Patient is resting comfortably in bed. He looks tired. No acute events overnight. Yesterday we transfused platelets because his platelet count was 16,000. Today the platelet count is 24,000, and the hemoglobin is 7.4. OBJECTIVE: Vital Signs: Temperature 98.3, pulse 78, respiratory rate 16, blood pressure 121/74, oxygen saturation 100% on 5 L of nasal cannula. Today at 1:30 p.m. this patient had a temperature of 102.6 and I will order blood cultures again. HEENT: Normocephalic. No trauma. PERRLA. Neck: Supple. No JVD. No masses. Central trachea. Chest: Clear to auscultation. No wheezing. No rales. Abdomen: Soft, nontender, nondistended. No hepatosplenomegaly. Extremities: No edema. No clubbing. No cyanosis. Neurological: The patient is sleepy but arousable. Oriented x3. LABORATORY: WBC 8.7, hemoglobin 7.4 hematocrit 23.3, platelets 24,000. Sodium 133, potassium 4.1, chloride 90, bicarbonate 25, BUN 44, creatinine 3.5, glucose 69, calcium 8.1, albumin 1.8. ASSESSMENT AND PLAN: 1. Recurrent bacteremia. Today I have ordered again blood culture because this patient has been having fever. Infectious Disease Department is following this patient. We have 2 positive culture resolved, 1 of then from 05/01/2017 that showed Streptococcus sanguis and the other 1 from 05/02/2017 that showed the Staphylococcus epidermidis. 2. End-stage renal disease, on hemodialysis. Nephrology Department is following this patient. Continue with dialysis as scheduled. 3. Refractory multiple myeloma. Aware. Continue with steroids. 4. Anemia. Continue to monitor the hemoglobin and hematocrit. 5. Thrombocytopenia status post transfusion. Continue to monitor. 6. Chronic diarrhea improved. 7. Physical deconditioning. Continue physical therapy. I had a conversation with the family/his and she states that upon discharge, he wants to go home with home health and physical therapy. He does not want to go to a rehab center. cc: Elvis Keys MD
--- NOTE | 2017-05-05 17:01 | PROGRESS NOTE ---
DATE: 05/05/2017 PRESENT ILLNESS: The patient is being treated for a staph bacteremia. This time Staph epidermidis was isolated in 1 of 2 blood cultures. Therefore, it could be that the Staph epidermidis isolate is a contaminant. MEDICATIONS: This is the 8th day of treatment with daptomycin. PHYSICAL EXAMINATION: Vital Signs: Temperature is 99 degrees, pulse 85, respirations 16, blood pressure 96/48. Generally: This is a chronically ill-appearing, elderly male. He is somewhat lethargic. He looks malnourished. Chest: Patient has bilateral upper chest hematomas. Lungs: Clear to auscultation. Cardiovascular: Heart rate was regular. Abdomen: Soft and nontender. Extremities: Patient has a functioning AV fistula in the left arm however does not appear that it is big enough to act as a fistula for hemodialysis. Neck: Patient has an internal jugular catheter in place. The site is not swollen or purulent. LABORATORY AND X-RAY STUDIES: IgG and IgA are normal. The patient's creatinine is 3.5. The GFR is 21. Repeat blood cultures are pending. CK is 29. There was not a new radiographic study today. ASSESSMENT AND PLAN: The plan is to continue daptomycin for the patient's bacteremia. COMORBIDITIES: Include he is very elderly. He has end-stage renal disease, and he is on hemodialysis. He also has multiple myeloma. He does have a low IgG but the last time we tested it, he had received infusions and it was in the normal range. The patient has pancytopenia. cc: Gagan Gunter MD
[2017-05-06 07:20] LABS: PLT 34 X1000 (130-400)
[2017-05-06 07:21] LABS: HEMATOCRIT 25.1 % (42.0-52.0); HEMOGLOBIN 7.9 g/dL (14.0-18.0); MANUAL DIFF NEEDED? YES; MCH 29.3 PG (27-31); MCHC 31.5 g/dL (33-37); MPV 11.6 FL (7.4-10.4)
[2017-05-06] MEDS: PROTONIX PO SCH (07:31)
[2017-05-06 07:47] LABS: ALBUMIN 1.7 g/dL (3.5-5.0); CALCIUM 8.2 mg/dL (8.8-10.2); POTASSIUM 3.4 mmol/L (3.5-5.1)
[2017-05-06 08:02] LABS: BANDS 2 % (0-1); LYMPHS 28 % (21-51); NRBC 9 % (0-0)
[2017-05-06] MEDS ORDERED: TYLENOL PR PRN (09:22)
[2017-05-06] MEDS ORDERED: NS 500 ML IV ONE (09:30)
--- NOTE | 2017-05-06 09:48 | Diag Imaging Result Doc PS360 ---
EXAM: CHEST-1 VIEW HISTORY: patient declining TECHNIQUE: Portable upright COMPARISON: 05/03/2017 FINDINGS: No change in the right jugular line. No pneumothorax. There are bilateral lung infiltrates there is a small right-sided pleural effusion with basilar atelectasis. Heart is mildly prominent. There is mild scoliosis. The overall appearance is quite similar to that of the prior exam. IMPRESSION: Stable chest. Electronically signed by Gaurang Sweeney 05/06/2017 9:46 AM
--- NOTE | 2017-05-06 09:49 | PROGRESS NOTE ---
DATE: 05/06/2017 TIME SEEN: 0725. SUBJECTIVE: Mr. Moore is resting quietly in bed. We have had to wake him up. He was sleeping well. He has no complaints. OBJECTIVE: Vital Signs: His most recent vital signs, his last temperature 98.8 degrees, blood pressure 115/56, heart rate 86, respirations 22. He is on 3 L nasal cannula. Last recorded saturation is 94%. He has had 1827 in. He has had 2400 out. Patient received 1 unit of apheresis platelets yesterday, 2.4 L per dialysis. Laboratory Data: Sodium 135, potassium 3.4, chloride is 91, CO2 25, BUN 43, creatinine 3.4, glucose 51. His anion gap is 19, calcium 8.2, phosphorus 1.9, albumin is 1.7. White count 14.02, hemoglobin 7.9, hematocrit 25.1, platelet count 34,000. Blood cultures have been ordered to be repeated per Dr. Gunter. This is currently being followed. Physical Examination: General: This is a 77-year-old, male. He is currently resting in bed. He is in no acute distress. He appears chronically ill. Skin : Warm and dry. HEENT: Normocephalic, atraumatic. Conjunctivae pale. He has PRASHANT. Mucous membranes are dry. Neck: Supple. Trachea midline. No JVD. Cardiovascular: Regular rate and rhythm. Soft systolic murmur. No gallop. Lungs: Clear to auscultation anteriorly. Equal excursion on O2. Abdomen: Soft, nontender. Positive bowel sounds. Genitourinary: Not inspected. Patient has minimal void with dialysis assist. Integumentary: The patient continues with a Vas-Cath to the right. It has had slight drainage on his pillow, though this is dry at this time. Left IJ IV is noted. It is clamped and locked. Neurological: Alert and oriented x2. ASSESSMENT AND PLAN: 1. End-stage renal disease. Patient is due for his routine dialysis treatment in the morning. No indications for intervention today. 2. Electrolytes and acid-base balance. These are stable. 3. Anemia. This is being followed by Dr. Swanson. 4. Malnutrition. Patient continues to receive IDPN. We have encouraged patient to continue to eat orally. I would to thank you for allowing us to follow with this patient. Seen, data reviewed, discussed with Heather Magallon on 05/06/17. I agree with the above assessment and plan of care. rg Dictated by LO Perkins for Ranjan Beltran MD cc: LO Perkins MD [facility]
[2017-05-06] MEDS: ANUSOL-HC CREAM PR SCH ×2 (10:50→10:52)
[2017-05-06] MEDS: DECADRON PO SCH (10:51)
[2017-05-06] MEDS: CULTURELLE PO SCH (10:51)
[2017-05-06] MEDS: IMODIUM PO SCH ×2 (10:52→13:24)
--- NOTE | 2017-05-06 15:59 | PROGRESS NOTE ---
DATE: 05/06/2017 SUBJECTIVE: When I evaluated this patient in the morning, he was confused, also he was having fever and he was tachypneic. We also noticed that he was bleeding through his Vas-Cath. I personally cleaned the catheter, he was not bleeding actively and I covered that again. Family members are at the bedside/his . I talked to her about his prognosis and I told her that he has a poor prognosis and that at some point she needs to start thinking about hospice and actually, she already talked about hospice with his oncologist before. OBJECTIVE: Vital Signs: Temperature 98.8 degrees, pulse 99, respiratory rate 25, blood pressure 92/61, oxygen saturation 94% on 3 L of nasal cannula. HEENT: Head normocephalic. No trauma. PERRLA. Neck: Supple. No JVD. No masses. Central trachea. Left thigh Vas-Cath bloody but after cleaning that, it was fine, it was covert again. No signs of active bleed. Cardiovascular: Regular rate and rhythm. Chest: Decreased breath sounds at the bases and some rales at the level of the right side base. Abdomen: Soft, nontender, nondistended. No hepatosplenomegaly. Extremities: No edema. No clubbing. No cyanosis. Decreased muscle mass. General: Chronically ill patient with confusion he was lethargic. After getting 500 mL of normal saline and getting acetaminophen his mental status was a little bit better. He was able to say his name and recognize his . LABORATORY: WBC 14, hemoglobin 7.9, hematocrit 25.1, platelets 34,000. Sodium 134, potassium 3.4, chloride 91, bicarbonate 25, BUN 43, creatinine 3.4, glucose 51, calcium 8.2, phosphorus 1.9. Albumin 1.7. ASSESSMENT AND PLAN: 1. Altered mental status, this patient was confused today in the morning. He was lethargic, he recovered after replacement of 500 mL of normal saline and suppository. He was having fever as well. 2. Fever. His temperature in the morning was elevated. I believe it was 101.2. I asked for a new blood culture. 3. Recurrent bacteremia. We have a positive culture result from yesterday, 05/05/2017, that showed gram-positive cocci. This patient remains bacteremic and Infectious Disease Department is following this patient. 4. End-stage renal disease, on hemodialysis. Nephrology Department is following this patient. Continue dialysis as scheduled. 5. Refractory multiple myeloma. Aware. Continue with steroids. 6. Anemia. Continue to monitor. Hemoglobin and hematocrit has been stable. 7. Thrombocytopenia status post transfusion. Continue to monitor. 8. Chronic diarrhea. Improved. 9. Physical deconditioning. Continue physical therapy. cc: Elvis Keys MD
--- NOTE | 2017-05-06 17:52 | PROGRESS NOTE ---
DATE: 05/06/2017 PRESENT ILLNESS: The patient continues to have Staph bacteremia despite treating with many different antibiotics. He has become somewhat unresponsive today also. MEDICATIONS: Currently, the patient is on daptomycin. PHYSICAL EXAMINATION: Vital Signs: Temperature is 99.1 degrees, pulse 89, respirations 16, blood pressure 100/64. General: This is an ill-appearing elderly male. He looks malnourished. He does not respond to verbal stimuli tonight. Lungs: Clear to auscultation. Cardiovascular: Regular heart rate. Abdomen: Soft and not tender. Extremities: Patient has an AV fistula in the left arm. He does have a bruit however the patient's says it cannot be used for dialysis because it is too small. Neck: The patient has bilateral neck the catheters in place. Chest: The patient has bilateral upper chest hematomas. LAB AND X-RAY: Blood cultures continue to show gram positive cocci. Chest x-ray shows bilateral infiltrates. Creatinine is 3.4. GFR is 21. [place] [address], hemoglobin 7.9 and platelet count 34,000. ASSESSMENT AND PLAN: Patient has a bacteremia. My plan is to discontinue daptomycin and place the patient on a combination of telavancin and rifampin. COMORBIDITIES: Include the fact that he is very elderly. He has end-stage renal disease and is on dialysis. He has multiple myeloma. He has a very low IgG level. He previously had IVIG. Patient also is pancytopenic. cc: Gagan Gunter MD
[2017-05-06] MEDS: RIFAMPIN 600 MG in NS 100 ML IV SCH (18:29)
[2017-05-07 05:19] LABS: ALBUMIN 1.6 g/dL (3.5-5.0); CALCIUM 8.4 mg/dL (8.8-10.2); POTASSIUM 3.8 mmol/L (3.5-5.1)
[2017-05-07] MEDS: D50W SYRINGE IV ONE ×2 (05:45→06:16)
[2017-05-07 05:48] LABS: CALCIUM 8.4 mg/dL (8.8-10.2); POTASSIUM 3.8 mmol/L (3.5-5.1)
[2017-05-07 06:06] LABS: HEMATOCRIT 24.3 % (42.0-52.0); MANUAL DIFF NEEDED? YES; MCH 30.1 PG (27-31); MCHC 32.9 g/dL (33-37); MCV 91.4 FL (81-99); MONO# 1.78 X1000 (0.11-0.59); MONO% 11.8 % (1.7-9.3); MPV 11.8 FL (7.4-10.4); RBC 2.66 XMIL (4.7-6.1)
[2017-05-07] MEDS: ANUSOL-HC CREAM PR SCH ×3 (06:13→21:28)
[2017-05-07 06:26] LABS: PLT 24 X1000 (130-400)
[2017-05-07] MEDS: CULTURELLE PO SCH ×3 (06:27→21:27)
[2017-05-07] MEDS: IMODIUM PO SCH ×4 (06:27→16:47)
[2017-05-07] MEDS: PROTONIX PO SCH (07:43)
[2017-05-07 07:49] LABS: LYMPHS 18 % (21-51); MONO 3 % (1-9); NRBC 6 % (0-0)
[2017-05-07] MEDS: DECADRON PO SCH (08:03)
[2017-05-07] MEDS ORDERED: HEPARIN IV PRN (08:32)
[2017-05-07] MEDS ORDERED: TIGHT: 0.2 ML/HR MISC PRN (08:32)
[2017-05-07] MEDS ORDERED: NS 2,000 ML MISC PRN (08:32)
[2017-05-07] MEDS ORDERED: HEPARIN ONE (09:22)
[2017-05-07] MEDS ORDERED: NS 2,000 ML ONE (09:22)
--- NOTE | 2017-05-07 10:12 | PROGRESS NOTE ---
DATE: 05/07/2017 SUBJECTIVE: He was moved to the unit overnight because of hypoglycemia. He is currently arousable and does nod in interaction but was not verbal. OBJECTIVE: Vital Signs: Blood pressure 133/86, heart rate 89, respirations 15, afebrile. Intake 580 mL, output 0. General: Chronically ill elderly man. Minimal muscle mass. No acute distress. Skin: Warm and dry. Conjunctivae are pale. Neck: Neck veins are not visible. Trachea is midline. Oropharynx is dry. Heart: Regular with no gallops or murmurs audible. Lungs: Have equal breath sounds. Shallow. No crackles. Abdomen: Soft, nontender. Bowel sounds present. Extremities: Have no edema, clubbing, or cyanosis. LABORATORY DATA: Sodium 136, potassium 3.8, chloride 92, bicarbonate 25, BUN 62, creatinine 4.2, hemoglobin 8.0. IMPRESSION: 1. End-stage kidney disease. He is due for his routine hemodialysis today. We will use a 3 potassium bath and just target even fluid balance on his treatment today. 2. Ongoing bacteremia. I discussed his case again with his today. He has had essentially no recovery with regard to his bacteremia despite multiple line changes and multiple antibiotic regimens. He is in abysmal nutritional status and has very little muscle mass. 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 His white count is 15, however, the majority are atypical lymphocytes. She understands that we have very little to offer with regard to ongoing treatment. She states the patient wants her to take him home if he gets to the point where he has no other treatment options. I suggested that we have hospice come and meet with her regarding her need for home. If there is no other change in his status over the weekend, then perhaps on Wednesday he would be ready for discharge home with hospice. cc: Ranjan Beltran MD
[2017-05-07] MEDS: D50W 250 ML, AMINOSYN 10% 500 ML, LIPOSYN 20% 250 ML IV SCH ×3 (11:30)
[2017-05-07] MEDS ORDERED: NS IV SCH ×3 (12:00→14:52)
[2017-05-07] MEDS ORDERED: VIBATIV IV SCH (12:00)
[2017-05-07] MEDS ORDERED: [UNRECOGNIZED DRUG - OTHER] IV SCH ×2 (12:00→14:52)
--- NOTE | 2017-05-07 14:05 | PROGRESS NOTE ---
DATE: 05/07/2017 SUBJECTIVE: This patient looks a little bit better compared with yesterday. He is not that lethargic but he is still having some altered mental status, he is able to say his name and he has severe protein calorie malnutrition and weakness. He was bleeding through his Vas-Cath yesterday, but today the amount of blood is minimal. Hospice has been consulted and they will talk to his , this patient does qualify for home hospice. OBJECTIVE: Vital Signs: Temperature 98.8 degrees, pulse 89, respiratory rate 16, blood pressure 133/86, oxygen saturation 94% on 3 L of nasal cannula. HEENT: Head normocephalic. No trauma. PERRLA. Neck: Supple. No JVD. No masses. Central trachea. Vas-Cath on the right side. Cardiovascular: Regular rate and rhythm. Chest: Decreased breath sounds at the bases Abdomen: Soft, nontender, nondistended. No hepatosplenomegaly. Extremities: No edema. No clubbing. No cyanosis. Decreased muscle mass. General: Chronically ill patient with mild confusion today, but he is still somnolent. LABORATORY: WBC 15, hemoglobin 8, hematocrit 24.3, platelets 24,000. Sodium 136. Potassium 3.8, chloride 92, bicarbonate 25, BUN 62, creatinine 4.2, glucose 39, calcium 8.4 albumin 1.6. ASSESSMENT AND PLAN: 1. Altered mental status. This patient looks a little bit better compared with yesterday but he is still somnolent, slow response to my questions, we will continue with this patient in the intensive care unit for continued monitoring. 2. Fever. His temperature yesterday was elevated. I do not think this patient has a fever today. We will continue to monitor the blood cultures and antibiotics. 3. Recurrent bacteremia. Infectious Disease Department is following this patient. We have been having positive cultures despite multiple changes of his catheters and antibiotics. 4. End-stage renal disease, on hemodialysis. The Nephrology department is following this patient. Continue with dialysis as scheduled. 5. Refractory multiple myeloma. Aware. Continue with steroids. 6. Severe anemia and thrombocytopenia. We have been transfusing this patient multiple opportunities. We will monitor. 7. Chronic diarrhea. Improved. 8. Physical deconditioning. Continue with physical therapy. Overall, this patient has poor prognosis. I do believe that this patient should go home with hospice. I had a long conversation with her his yesterday and today also the inspector general talked to her. We have consulted hospice and hopefully during this weekend or next Wednesday, we are going to be able to send this patient home. CRITICAL CARE TIME: Thirty-five minutes. cc: Elvis Keys MD
[2017-05-07] MEDS ORDERED: [UNRECOGNIZED DRUG - OTHER] IV SCH (14:51)
--- NOTE | 2017-05-07 17:17 | PROGRESS NOTE ---
DATE: 05/07/2017 PRESENT ILLNESS: The patient continues to have Staph bacteremia despite it being treated with many antibiotics. Also should be noted that the species of Staph has changed also. I think that this could be a contaminant but more likely I think of his staph bacteremias are true bacteremias and not contaminants. He remains very lethargic. MEDICATIONS: The patient now is on a combination of telavancin and rifampin. PHYSICAL EXAMINATION: Vital Signs: Temperature is 97.9 degrees, pulse 81, respirations 28, blood pressure 120/87. General: This is a chronically ill-appearing, elderly male who is lethargic. Lungs: Clear to auscultation. Cardiovascular: Regular heart rate. Neck: The patient has 2 jug[address] venous catheters in place. Abdomen: Soft and nontender. Chest: The patient has bilateral upper hematomas. LAB AND X-RAY: There is no new x-ray. The patient's IgG is 642. Creatinine is 4.2. GFR is 17. CBC shows a white count of 15,050, hemoglobin 8 and platelet count 24,000. ASSESSMENT AND PLAN: Patient has bacteremia. My plan is to continue with telavancin and rifampin. It is my understanding the patient will be seen by hospice and if he does go home with hospice we will not be continuing his IV antibiotics nor giving him anymore immunoglobulin. COMORBIDITIES: Include being elderly, end-stage renal disease, hemodialysis, multiple myeloma, low IgG level and pancytopenia. cc: Gagan Gunter MD
[2017-05-07] MEDS: RIFAMPIN 600 MG in NS 100 ML IV SCH (18:01)
[2017-05-08] MEDS: PROTONIX PO SCH (06:00)
[2017-05-08 07:39] VITALS: BP 134/90
[2017-05-08] MEDS: TYLENOL PO PRN (09:01)
[2017-05-08] MEDS: CULTURELLE PO SCH (09:02)
[2017-05-08] MEDS: IMODIUM PO SCH (09:02)
[2017-05-08] MEDS: DECADRON PO SCH (09:02)
--- NOTE | 2017-05-08 13:21 | PROGRESS NOTE ---
DATE: 05/08/2017 SUBJECTIVE: They have made a decision to go home with hospice. Supplies have been delivered and they are awaiting discharge and transport. His catheters will be removed. They understand that he has reached the limits of medical care. I have nothing further to add today. I have spoken with the family and encouraged them to call me if they have any questions or needs. cc: Ranjan Beltran MD
--- NOTE | 2017-05-08 20:45 | DISCHARGE SUMMARY ---
ADMISSION DATE: 03/29/2017 DISCHARGE DATE: 05/08/2017 DISCHARGE DIAGNOSES: 1. Altered mental status resolved. 2. Recurrent bacteremia. 3. End-stage renal disease on hemodialysis. 4. Refractory multiple myeloma. 5. Severe anemia and thrombocytopenia. 6. Chronic diarrhea/improved. This patient will be discharged home with hospice. CONSULTS: 1. Infectious Disease Department, Gagan Draper. 2. Nephrology Department, Dr. Beltran. 3. Surgery Department, Dr. Javier. 4. Cardiology department, Dr. Guzman. HOSPITAL COURSE: Mr. Moore is a 77-year-old male with a past medical history of multiple myeloma, iron deficiency anemia, end-stage renal disease on dialysis, hypoglycemia, chronic diarrhea. He was admitted on 03/29/2017. He was noticed to be lethargic and with lethargy, severe weakness and also he has been having fever over the last 2 weeks previous to the admission. As per the he was having cough with white phlegm. On 03/22/2017 he had a blood culture that came but back positive for Staphylococcus epidermidis step sensitive to vancomycin and he has been treated with vancomycin for this. Upon admission urinalysis showed urinary tract infection and we started this patient on Zosyn. At that moment he was admitted on the following diagnosis. Bacteremia with staphylococcal epidermidis, sepsis, urinary tract infection with hematuria, CKD, multiple myeloma and anemia and thrombocytopenia, metabolic versus infectious encephalopathy, chronic diarrhea, hypertension and respiratory alkalosis. This patient was admitted to the intensive care unit. Infectious Disease Department and Nephrology Department evaluated this patient, Infectious Disease Department changed his medications and we started monitoring his lab work. Even though he has been with steroids since admission to treat his multiple myeloma his hemoglobin and platelets has been really low to the point that this patient was transfused with a total of 21 platelets bags and around 20 PRBCs. We repeated multiple times the blood cultures and he always has been positive with gram-positive cocci even though we have been changing medications and we have been removing and placing back catheters. We continued with hemodialysis as scheduled, a few days ago he was lethargic again on the bed and he started having mild fever again. He was transferred back to the ICU. He was hydrated and responded to this treatment and now he is a little bit better. We talked to the patient and the family about hospice and they finally agree with this. I do know that Dr. Swanson his oncologist already talked to them about this few months ago and yesterday also the [employer] Dr. Beltran started talking about hospice with them. They talked to the hospice team and they decided to go home today with hospice care. DISCHARGE MEDICATIONS: This patient will stopped dialysis and also he will stop any kind of multiple myeloma treatment. He will be discharged with acetaminophen 650 mg p.o. q.4 hours, dexamethasone 10 mg p.o. every morning, Pantoprazole 40 mg p.o. daily, gabapentin 100 mg p.o. as directed, Bon Aqua 5 one tablet p.o. q.4-6 hours and ondansetron 4 mg p.o. as needed p.r.n. nausea, vomiting. The hospice care team can change these medications and also they can ask me if they need other medications for this patient. PHYSICAL EXAM: Vital signs: Temperature 97 degrees, pulse 73, respiratory rate 23, blood pressure 134/90, O2 saturation 95% on 3 L of nasal cannula. HEENT: Head normocephalic. No trauma. PERRLA. Neck: Supple. No JVD. No masses. Central trachea. Chest: Decreased breath sounds at the bases with rales. Abdomen: Soft, nontender, nondistended. No hepatosplenomegaly. Extremities: No edema. No clubbing. No cyanosis. Severe decrease of muscle mass. Neurological examination: The patient is alert. He is following commands. He is not talking at this moment. The states that this is probably secondary to his Vas-Cath. LABORATORY: No lab work today. Blood sugar 126. Overall this patient has poor prognosis, hospice care evaluated this patient yesterday and the family and the patient decided to go home with hospice. All the lines are going to be removed and apparently everything is already set up at home. I talked to his about this and she states that they do not want more dialysis and/or treatment. cc: Elvis Keys MD
[2017-05-21] MEDS ORDERED: DIPRIVAN 1% 0 MG/0 ML BOTTLE ONE (12:23)
[2017-05-27] MEDS ORDERED: CARDIZEM 100 MG/NS 100 MG/100 ML IVPB ONE (19:01)
[2017-05-27] MEDS ORDERED: CARDIZEM ONE (19:02)
== END 2017-05-08 12:50 | disposition hospice, home (50) ==
LOC: ED 10:36 → SUATTDRO 15:20 → EDIPHOLD 15:20 → 3N 16:39 → ICU 03-30 00:16 → 4N 04-01 15:30 → 3S 04-04 18:54 → ICU 04-11 15:53 → 3N 04-27 13:42 → ICU 05-06 11:13
PROVIDERS: ATTEND Internal Medicine